=== PATIENT | male | born 1970 | race Caucasian/White ===

== ENCOUNTER 2016-09-03 08:45 | Emergency (ER) | payer OTHER ==
--- NOTE | 2016-09-03 09:16 | ERPHSYRPT ---
- History of Present Illness Time Seen by Provider: 09/03/16 09:05 Source: patient Exam Limitations: no limitations Patient Subjective Stated Complaint: PT REPORTS LOW BACK PAIN WORSENING WITH TIME-REPORTS TIGHTNESS TO BILATERAL LOWER CAVES-DENIES INJURY-DENIES HEAVY LIFTING OR TURNING Triage Nursing Assessment: PT PALE WARM ET [id number] OBVIOUS INJURY-NO BRUISING OR ABRASIONS-PT AMBULATORY TO ED ROOM -CASIMIRO - Physician History: The patient is a 45-year-old male who complains of increasing left-sided low back pain that began last night. The patient has a factor V Leiden abnormality. Patient called his primary care provider and was told to come to the ER. The patient denies any problems with urination or defecation. At times he gets a tingling in his calves. His past medical history is significant for low back surgery many years ago, factor V Leiden, diverticulitis , hypertension. Timing/Duration: today Method of Injury: unknown Quality: aching Back Pain Location: lumbar spine, paraspinous muscles Back Pain Radiation: lower legs Severity of Pain-Max: moderate Severity of Pain-Current: moderate Modifying Factors: Improves With: nothing Associated Symptoms: tingling in legs/feet, lower back pain, No urinary incontinence, No loss of bowel control Previous symptoms: different symptoms Allergies/Adverse Reactions: BEESTINGS Allergy (Unknown, Uncoded 09/03/16 08:56) Swelling Home Medications: Atenolol 50 mg [Tenormin 50 mg] 50 mg PO DAILY 01/03/16 [History] Clorazepate Dipotassium [Tranxene T-Tab] 7.5 mg PO Q12H PRN PRN 01/03/16 [ History] Venlafaxine HCl [Effexor Xr] 150 mg PO DAILY 01/03/16 [History] Warfarin Sodium 10 mg [Coumadin 10 MG] 10 mg PO 5XD 01/03/16 [History] Warfarin Sodium 10 mg [Coumadin 10 MG] 15 mg PO 2XW 01/03/16 [History] Hx Tetanus, Diphtheria Vaccination/Date Given: Yes Hx Influenza Vaccination/Date Given: No Hx Pneumococcal Vaccination/Date Given: No Immunizations Up to Date: Yes - Review of Systems Constitutional: No Fever, No Chills Eyes: No Symptoms Ears, Nose, & Throat: No Symptoms Respiratory: No Cough, No Dyspnea Cardiac: No Chest Pain, No Edema, No Syncope Abdominal/Gastrointestinal: No Abdominal Pain, No Nausea, No Vomiting, No Diarrhea Genitourinary Symptoms: No Dysuria Musculoskeletal: Back Pain Skin: No Rash Neurological: No Dizziness, No Focal Weakness, No Sensory Changes Psychological: No Symptoms Endocrine: No Symptoms Hematologic/Lymphatic: No Symptoms Immunological/Allergic: No Symptoms All Other Systems: Reviewed and Negative - Past Medical History Pertinent Past Medical History: Yes Neurological History: No Pertinent History ENT History: No Pertinent History Cardiac History: Hypertension Respiratory History: No Pertinent History Endocrine Medical History: No Pertinent History Musculoskeletal History: No Pertinent History GI Medical History: Pancreatitis History: No Pertinent History Psycho-Social History: Anxiety, Other Male Reproductive Disorders: No Pertinent History Other Medical History: BLOOD DISORDER: FACTOR IV - Past Surgical History Past Surgical History: Yes Neuro Surgical History: No Pertinent History Cardiac: No Pertinent History Respiratory: No Pertinent History Gastrointestinal: Cholecystectomy, Hernia Repair Genitourinary: No Pertinent History Musculoskeletal: Orthopedic Surgery Male Surgical History: No Pertinent History Other Surgical History: INGUINAL LYMPH NODES - BRANDY CARPEL TUNNEL REPAIR - LOWER BACK - LEFT ELBOW RODS IN BACK - Social History Smoking Status: Never smoker Exposure to second hand smoke: No Drug Use: none Patient Lives Alone: No - Nursing Vital Signs Nursing Vital Signs: Initial Vital Signs Temperature 98.7 F Temperature Source Oral Pulse Rate 78 Respiratory Rate 16 Blood Pressure [Right Arm] 134/78 Pain Intensity 9 - Physical Exam General Appearance: moderate distress Eye Exam: PERRL/EOMI, eyes nml inspection Ears, Nose, Throat Exam: normal ENT inspection Neck Exam: normal inspection, non-tender, supple, full range of motion, No meningismus, No midline tenderness Respiratory Exam: normal breath sounds, lungs clear, No respiratory distress Cardiovascular Exam: regular rate/rhythm, normal heart sounds Gastrointestinal Exam: soft, No tenderness, No mass Rectal Exam: not done Back Exam: muscle spasm (lower left paraspinous) Extremity Exam: normal inspection, normal range of motion, No calf tenderness, No pedal edema Neurologic Exam: alert, oriented x 3, cooperative, tire groover II-XII nml as tested, normal mood/affect, nml station & gait, sensation nml, No motor deficits Skin Exam: normal color, warm, dry, No rash SpO2 Interpretation: normal SpO2: 97 Oxygen Delivery: Room Air Ordered Tests: Active Orders 24 hr Category Date Time Status PROTIME WITH INR Stat Lab 09/03/16 09:28 Completed UA W/RFX UR CULTURE Stat Lab 09/03/16 10:10 Completed Medication Summary Discontinued Medications Generic Name Dose Route Start Last Admin Trade Name Freq PRN Reason Stop Dose Admin Dexamethasone Sodium Phosphate 10 mg 09/03/16 09:17 09/03/16 09:27 Decadron 10mg Inj. IM 09/03/16 09:18 10 mg STAT ONE Administration Dexamethasone Sodium Phosphate Confirm 09/03/16 09:24 Decadron 10mg Inj. Administered 09/03/16 09:25 Dose 10 mg .ROUTE .STK-MED ONE Lab/Rad Data: Laboratory Results 09/03/16 09/03/16 Range/Units 10:10 09:28 INR 2.59 (0.8-3.0) Ur Collection Type VOID Urine Color YELLOW (YELLOW) Urine Appearance CLEAR (CLEAR) Urine pH 7.0 (5-6) Ur Specific [place] 1.005 (1.005-1.025) Urine Protein NEGATIVE (Negative) Urine Ketones NEGATIVE (NEGATIVE) Urine Blood NEGATIVE (0-5) Eder/ul Urine Nitrite NEGATIVE (NEGATIVE) Urine Bilirubin NEGATIVE (NEGATIVE) Urine Urobilinogen NORMAL (0-1) mg/dL Ur Leukocyte Esterase NEGATIVE (NEGATIVE) Urine Glucose NEGATIVE (NEGATIVE) mg/dL Specimen Received 09/03/16 1010 - Progress Progress: unchanged, pain not gone completely Counseled pt/family regarding: diagnosis, need for follow-up - Departure Time of Disposition: 10:31 Departure Disposition: Home Clinical Impression: Back spasm Condition: Stable Critical Care Time: No Referrals: TOMA ARCHULETA [Primary Care Provider] - Additional Instructions: You have a spasm in a back muscle that is causing your pain. Your INR is 2.59. The urinalysis was negative. Take Flexeril 10 mg every 8 hours as needed. Apply ice to the area as needed. You may also take Tylenol as needed. Follow- up on Tuesday if needed. Prescriptions: Cyclobenzaprine HCl [Flexeril] 10 mg PO Q8H PRN PRN #10 tablet PRN Reason: Pain
[2016-09-03] MEDS ORDERED: DECADRON 10MG INJ. IM ONE (09:17)
[2016-09-03] MEDS ORDERED: DECADRON 10MG INJ. ONE (09:24)
[2016-09-03 09:44] LABS: INR 2.59 (0.8-3.0); PROTIME 29.5 SECONDS (8.83-12.87)
[2016-09-03 10:39] LABS: Collection Type VOID
[2016-09-03 10:41] LABS: Glucose NEGATIVE (NEGATIVE); Leukocyte Esterase NEGATIVE (NEGATIVE)
[2016-09-03 10:42] LABS: ADD URINE CULTURE? NO (NO); Bilirubin NEGATIVE (NEGATIVE); Blood NEGATIVE Ery/ul (0-5); COMPLETE URINE MICROSCOPIC? NO
[2016-09-03 11:04] VITALS: BP 136/90; PULSE 87; O2SAT 98
== END 2016-09-03 11:03 | disposition home or self-care (01) ==
LOC: ED 08:45
DX: M62.830 Muscle spasm of back (principal); M54.5 Low back pain; D68.51 Activated protein C resistance; I10 Essential (primary) hypertension; Z79.899 Other long term (current) drug therapy
CPT/HCPCS: 36415; 81002; 85610; 96372; 99283; 99284; J1100

== ENCOUNTER 2016-10-30 12:23 | Observation (INO) | payer OTHER ==
[2016-10-30] MEDS ORDERED: Pepcid 20 MG VIAL IV ONE ×2 (12:29→12:37)
[2016-10-30] MEDS ORDERED: NITRO-BID 2% UD PACKETS TOP ONE (12:29)
[2016-10-30] MEDS ORDERED: BABY ASPIRIN 81 MG CHEW PO ONE (12:29)
[2016-10-30] MEDS ORDERED: Sodium Chloride 0.9% 1000 ML 1,000 ML IV SCH (12:30)
--- NOTE | 2016-10-30 12:34 | ERPHSYRPT ---
- History of Present Illness Time Seen by Provider: 10/30/16 12:29 Historian: patient Physician History: CC: chest pain Hx: 46 y/o patient of Dr Zacarias/Fredis. He has hx of heart murmur and Factor V leiden def for which he takes warfarin. No hx of CAD nor DM. He has 3 days of chest pain, off and on, left chest to neck, worse today. Aching and tightness. Worried so came to ER. 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 Took his normal atenolol and trazadone this AM. Could not rest so came to ER. Not short of breath. No N/V. No hx of this in the past. Pain moderate. Timing/Duration: day(s) (3) Nitro Today/Relief: no nitro taken today Aspirin Treatment Today: no aspirin today, 81 mg x 1, provided by ED Allergies/Adverse Reactions: BEESTINGS Allergy (Mild, Uncoded 10/30/16 12:35) Swelling Home Medications: Atenolol 50 mg [Tenormin 50 mg] 50 mg PO DAILY 01/03/16 [History] Venlafaxine HCl [Effexor Xr] 150 mg PO DAILY 01/03/16 [History] Warfarin Sodium 10 mg [Coumadin 10 MG] 10 mg PO 5XD 01/03/16 [History] Warfarin Sodium 10 mg [Coumadin 10 MG] 15 mg PO 2XW 01/03/16 [History] Hx Tetanus, Diphtheria Vaccination/Date Given: Yes Hx Influenza Vaccination/Date Given: No Hx Pneumococcal Vaccination/Date Given: No - Review of Systems Constitutional: No Fever, No Chills Eyes: No Symptoms Ears, Nose, & Throat: No Symptoms Respiratory: No Cough, No Dyspnea Cardiac: Chest Pain, No Palpitations, No Syncope Abdominal/Gastrointestinal: No Abdominal Pain, No Nausea, No Vomiting Skin: No Rash Neurological: No Headache All Other Systems: Reviewed and Negative - Past Medical History Pertinent Past Medical History: Yes Neurological History: No Pertinent History ENT History: No Pertinent History Cardiac History: Hypertension Respiratory History: No Pertinent History Endocrine Medical History: No Pertinent History Musculoskeletal History: No Pertinent History GI Medical History: Pancreatitis History: No Pertinent History Psycho-Social History: Anxiety, Other Male Reproductive Disorders: No Pertinent History Other Medical History: BLOOD DISORDER: FACTOR IV - Past Surgical History Past Surgical History: Yes Neuro Surgical History: No Pertinent History Cardiac: No Pertinent History Respiratory: No Pertinent History Gastrointestinal: Cholecystectomy, Hernia Repair Genitourinary: No Pertinent History Musculoskeletal: Orthopedic Surgery Male Surgical History: No Pertinent History Other Surgical History: INGUINAL LYMPH NODES - BRANDY CARPEL TUNNEL REPAIR - LOWER BACK - LEFT ELBOW RODS IN BACK - Social History Smoking Status: Never smoker Exposure to second hand smoke: No Drug Use: none Patient Lives Alone: No - Nursing Vital Signs Nursing Vital Signs: Initial Vital Signs Pulse Rate 64 10/30/16 12:26 Pain Scale Pain Intensity 2 - Physical Exam General Appearance: alert, obese Eye Exam: PERRL/EOMI Ears, Nose, Throat Exam: normal ENT inspection, moist mucous membranes Neck Exam: normal inspection, non-tender, supple Respiratory Exam: normal breath sounds Cardiovascular Exam: regular rate/rhythm, normal heart sounds Gastrointestinal/Abdomen Exam: soft, No tenderness, No distention, No guarding Extremity Exam: normal inspection, normal range of motion Neurologic Exam: alert, oriented x 3, cooperative, sensation nml, No motor deficits Skin Exam: warm, dry, No rash - Course Nursing assessment & vital signs reviewed: Yes EKG Interpreted by Me: RATE (63), Sinus Rhythm, NORMAL AXIS, NORMAL INTERVALS ( QTc 402), Other (Poor R wave progression, frequent PVC's) - Radiology Exams cxr X-ray Interpretation: Reviewed by me (CM, no acute) Ordered Tests: Active Orders 24 hr Category Date Time Status Agronomy Teacher STAT Care 10/30/16 12:30 Active EKG-ER Only STAT Care 10/30/16 12:29 Active IV Insertion STAT Care 10/30/16 12:29 Active Pulse Oximetry (ED) STAT Care 10/30/16 12:29 Active CHEST 1 VIEW (PORTABLE) Stat Exams 10/30/16 12:29 Taken CBC W DIFF Stat Lab 10/30/16 12:40 Completed CMP Stat Lab 10/30/16 12:40 Completed LIPASE Stat Lab 10/30/16 13:29 Completed PROTIME WITH INR Stat Lab 10/30/16 12:40 Completed TROPONIN Q3H Lab 10/30/16 12:40 Completed TROPONIN Q3H Lab 10/30/16 15:30 Ordered TROPONIN Q3H Lab 10/30/16 18:30 Ordered TROPONIN Q3H Lab 10/30/16 21:30 Ordered TROPONIN Q3H Lab 10/31/16 00:30 Ordered Medication Summary Generic Name Dose Route Start Last Admin Trade Name Emanuel PRN Reason Stop Dose Admin Sodium Chloride 1,000 mls @ 50 mls/hr 10/30/16 12:30 10/30/16 12:41 Sodium Chloride 0.9% 1000 Ml IV 11/29/16 12:29 50 mls/hr .Q20H YARELY Administration Discontinued Medications Generic Name Dose Route Start Last Admin Trade Name Emanuel PRN Reason Stop Dose Admin Aspirin 81 mg 10/30/16 12:29 10/30/16 12:40 Baby Aspirin 81 Mg Chew PO 10/30/16 12:30 81 mg STAT ONE Administration Aspirin Confirm 10/30/16 12:36 Baby Aspirin 81 Mg Chew Administered 10/30/16 12:37 Dose 81 mg .ROUTE .STK-MED ONE Famotidine 20 mg 10/30/16 12:29 10/30/16 12:40 Pepcid 20 Mg Vial IV 10/30/16 12:30 20 mg STAT ONE Administration Famotidine Confirm 10/30/16 12:37 Pepcid 20 Mg Vial Administered 10/30/16 12:38 Dose 20 mg IV .STK-MED ONE Nitroglycerin 1 gm 10/30/16 12:29 10/30/16 12:40 Nitro-Bid 2% Ud Packets TOP 10/30/16 12:30 1 gm STAT ONE Administration Nitroglycerin Confirm 10/30/16 12:37 Nitro-Bid 2% Ud Packets Administered 10/30/16 12:38 Dose 1 gm .ROUTE .STK-MED ONE Lab/Rad Data: Laboratory Result Diagrams 10/30/16 12:40 10/30/16 12:40 Laboratory Results 10/30/16 10/30/16 10/30/16 Range/Units 13:29 12:40 12:40 WBC (4.0-10.5) K/mm3 RBC (4.1-5.6) M/mm3 Hgb (12.5-18.0) gm/dl Hct (42-50) % MCV (78-100) fl MCH (26-32) pg MCHC (32-36) g/dl RDW (11.5-14.0) % Plt Count (150-450) K/mm3 MPV (6-9.5) fl Gran % (36.0-66.0) % Lymphocytes % (24.0-44.0) % Monocytes % (0.0-12.0) % Eosinophils % (0.00-5.0) % Basophils % (0.0-0.4) % Basophils # (0-0.4) INR 3.05 H (0.8-3.0) Sodium (136-145) mEq/L Potassium (3.5-5.1) mEq/L Chloride (98-107) mEq/L Carbon Dioxide (21-32) mEq/L Anion Gap (5-15) MEQ/L BUN (9-20) mg/dL Creatinine (0.55-1.30) mg/dl Estimated GFR ML/MIN Glucose (70-110) MG/DL Calcium (8.5-10.1) mg/dL Total Bilirubin (0.2-1.0) mg/dL AST (15-37) U/L ALT (12-78) U/L Alkaline Phosphatase (46-116) U/L Troponin I < 0.017 (0.000-0.056) ng/ml Serum Total Protein (6.4-8.2) gm/dL Albumin (3.4-5.0) g/dL Lipase 174 (73-393) U/L 10/30/16 10/30/16 Range/Units 12:40 12:40 WBC 5.1 (4.0-10.5) K/mm3 RBC 4.72 (4.1-5.6) M/mm3 Hgb 15.2 (12.5-18.0) gm/dl Hct 43.6 (42-50) % MCV 92.4 (78-100) fl MCH 32.2 H (26-32) pg MCHC 34.9 (32-36) g/dl RDW 13.4 (11.5-14.0) % Plt Count 129 L (150-450) K/mm3 MPV 12.1 H (6-9.5) fl Gran % 39.2 (36.0-66.0) % Lymphocytes % 43.0 (24.0-44.0) % Monocytes % 10.5 (0.0-12.0) % Eosinophils % 6.7 H (0.00-5.0) % Basophils % 0.6 (0.0-0.4) % Basophils # 0.03 (0-0.4) INR (0.8-3.0) Sodium 141 (136-145) mEq/L Potassium 3.8 (3.5-5.1) mEq/L Chloride 104 (98-107) mEq/L Carbon Dioxide 28.6 (21-32) mEq/L Anion Gap 12.1 (5-15) MEQ/L BUN 12 (9-20) mg/dL Creatinine 1.16 (0.55-1.30) mg/dl Estimated GFR > 60 ML/MIN Glucose 137 H (70-110) MG/DL Calcium 8.9 (8.5-10.1) mg/dL Total Bilirubin 0.40 (0.2-1.0) mg/dL AST 39 H (15-37) U/L ALT 53 (12-78) U/L Alkaline Phosphatase 63 (46-116) U/L Troponin I (0.000-0.056) ng/ml Serum Total Protein 7.0 (6.4-8.2) gm/dL Albumin 3.8 (3.4-5.0) g/dL Lipase (73-393) U/L - Progress Progress Note: 10/30/16 14:05 Pain improved with meds and rest. Tests reassuring although he does have multifocal PVC's. Called Dr Martinez (oc) and will place in obs tele for serial troponin. Counseled pt/family regarding: lab results, diagnosis, need for follow-up, rad results - Departure Time of Disposition: 14:06 Departure Disposition: Observation (Tele) Clinical Impression: Chest pain, rule out acute myocardial infarction, Warfarin anticoagulation Condition: Fair Critical Care Time: No Referrals: TOMA ZACARIAS [Primary Care Provider] -
[2016-10-30] MEDS ORDERED: BABY ASPIRIN 81 MG CHEW ONE (12:36)
[2016-10-30] MEDS ORDERED: NITRO-BID 2% UD PACKETS ONE (12:37)
[2016-10-30] MEDS ORDERED: Sodium Chloride 0.9% 1000 ML 1,000 ML ONE (12:37)
[2016-10-30 12:50] LABS: BASOPHIL % 0.6 % (0.0-0.4); Eosinophil % 6.7 % (0.00-5.0); Granulocytes % 39.2 % (36.0-66.0); Mean Cell Volume 92.4 fl (78-100); Mean Corpuscular Hemoglobin 32.2 pg (26-32); Mean Platelet Volume 12.1 fl (6-9.5); Monocytes % 10.5 % (0.0-12.0); Platelet Count 129 K/mm3 (150-450); Red Blood Count 4.72 M/mm3 (4.1-5.6); Red Cell Distribution Width 13.4 % (11.5-14.0); White Blood Count 5.1 K/mm3 (4.0-10.5)
[2016-10-30 13:14] LABS: INR 3.05 (0.8-3.0); PROTIME 34.8 SECONDS (8.83-12.87)
[2016-10-30 13:24] LABS: ALBUMIN 3.8 g/dL (3.4-5.0); ALKALINE PHOSPHATASE 63 U/L (46-116); ANION GAP 12.1 MEQ/L (5-15); BLOOD UREA NITROGEN 12 mg/dL (9-20); CHLORIDE 104 mEq/L (98-107); Carbon Dioxide 28.6 mEq/L (21-32); Glucose 137 MG/DL (70-110); Potassium 3.8 mEq/L (3.5-5.1); SGOT/AST 39 U/L (15-37); SGPT/ALT 53 U/L (12-78); SODIUM 141 mEq/L (136-145)
[2016-10-30] MEDS ORDERED: Senokot-S Tablet PO PRN (14:44)
[2016-10-30] MEDS ORDERED: Sodium Chloride 0.9% 500 ML 500 ML IV SCH (14:44)
[2016-10-30] MEDS ORDERED: MILK OF MAGNESIA 30 ML PO PRN (14:44)
[2016-10-30] MEDS ORDERED: MAALOX ES 30 ML UNIT DOSE PO PRN (14:44)
[2016-10-30] MEDS ORDERED: TYLENOL 325 MG PO PRN (14:44)
[2016-10-30] MEDS ORDERED: Coumadin 10 MG PO SCH (15:15)
[2016-10-30] MEDS: xanAX 0.5 MG PO PRN (15:39)
[2016-10-30] MEDS: Norco 10/325 MG Tablet PO PRN ×2 (15:39→19:50)
[2016-10-30] MEDS: Zofran 4 MG/2 ML VIAL IV PRN (15:39)
[2016-10-30] MEDS: MORPHINE SULFATE 10 MG/ML IV PRN ×2 (16:31→22:56)
[2016-10-30] MEDS: Pepcid 20 MG PO SCH (22:08)
[2016-10-30] MEDS: NITRO-BID 2% UD PACKETS TOP SCH (22:12)
--- NOTE | 2016-10-30 22:25 | XRAY ---
On chest pain. Comparison: May 07, 2010. Portable apical lordotic chest again demonstrates normal heart, lungs, and bony thorax with incidental calcified granulomas. Comment: Preliminary interpretation was made by [facility]. No discrepancy.
[2016-10-31] MEDS: xanAX 0.5 MG PO PRN (00:55)
[2016-10-31] MEDS: Norco 10/325 MG Tablet PO PRN ×2 (03:02→11:33)
[2016-10-31] MEDS: NITRO-BID 2% UD PACKETS TOP SCH ×2 (05:56→14:27)
[2016-10-31] MEDS: MORPHINE SULFATE 10 MG/ML IV PRN ×2 (05:57→14:29)
[2016-10-31] MEDS: Zofran 4 MG/2 ML VIAL IV PRN (06:10)
[2016-10-31 08:22] LABS: INR 3.32 (0.8-3.0)
[2016-10-31] MEDS ORDERED: Coumadin 10 MG PO SCH (09:00)
[2016-10-31] MEDS ORDERED: DESYREL 50 MG PO SCH (09:00)
[2016-10-31] MEDS ORDERED: Coumadin 5 MG PO SCH (09:00)
[2016-10-31] MEDS: Pepcid 20 MG PO SCH (09:26)
[2016-10-31] MEDS ORDERED: ECOTRIN 81 MG PO SCH (10:00)
[2016-10-31] MEDS ORDERED: CLARITIN 10 MG PO SCH (10:00)
[2016-10-31] MEDS ORDERED: NON-FORMULARY ITEM (Cetirizine Hcl [Zyrtec] 10 MG) PO SCH (10:00)
[2016-10-31] MEDS ORDERED: NON-FORMULARY ITEM (Venlafaxine Hcl [Effexor Xr] 150 MG) PO SCH (10:00)
[2016-10-31] MEDS ORDERED: Effexor XR 75 MG PO SCH (10:00)
[2016-10-31] MEDS ORDERED: TENORMIN 50 MG PO SCH (10:00)
--- NOTE | 2016-10-31 15:37 | PCM.SSS ---
History of Present Illness - Chief Complaint Chief Complaint: cp, r/o mi History of Present Illness: is a 46 year old male pt of Dr. Zacarias admitted through the ER for chest pain. He c/o 1 week of having intermittent L sided chest pain and L occipital/neck pain radiating to the L arm. He also has not felt well, when carrying something heavy may need to stop and rest intermittently. He has been having some diaphoresis throughout the week and also some lightheadedness on standing. He was nauseated at one point, but this resolved. In the ER his EKG had some nonspecific changes so he was admitted to rule out MS. His troponins have been negative. He was diagnosed with a heart murmur as a child, and he remembers being told his heart was "too big" when he was about 11. He thinks his last echo may have been at that time. He was a smoker for 20 yrs. His father has a heart murmur. His mother and grandmother may have had some heart-related issues. He has never had a stress test. Last week his INR was <2 (pt with Factor V Leiden deficiency, on coumadin). Today his INR was 3.2. - Review of Systems Constitutional: Fatigue Ears, Nose, & Throat: Nose Congestion, Sinus Drainage Respiratory: Cough Cardiac: Chest Pain Abdominal/Gastrointestinal: Nausea, Constipation Skin: Other (diaphoresis) Neurological: Other (lightheaded on standing for the past week or so) Psychological: Anxiety Hematologic/Lymphatic: Other (Factor V Leiden deficiency) Medications & Allergies Home Medications: Home Medication List Atenolol 50 mg [Tenormin 50 mg] 50 mg PO DAILY 01/03/16 [History Confirmed 10/30/16] Venlafaxine HCl [Effexor Xr] 150 mg PO DAILY 01/03/16 [History Confirmed ] Warfarin Sodium 10 mg [Coumadin 10 MG] 10 mg PO 5XD 01/03/16 [History Confirmed 10/30/16] Warfarin Sodium 10 mg [Coumadin 10 MG] 15 mg PO 2XW 01/03/16 [History Confirmed 10/30/16] Cetirizine HCl [Zyrtec] 10 mg PO DAILY 10/30/16 [History Confirmed 10/30/16] Trazodone HCl 50 mg [Desyrel 50 mg] 50 mg PO QHS 10/30/16 [History Confirmed 10/30/16] Nitroglycerin 0.4 mg Tablet [Nitrostat 0.4 MG Tablet] 0.4 mg SL DAILY PRN #1 bottle 10/31/16 [Rx] Allergies/Adverse Reactions: Allergies Allergy/AdvReac Type Severity Reaction Status Date / Time BEESTINGS Allergy Mild Swelling Uncoded 10/30/16 12:35 - Past Medical History Past Medical History: Yes Neurological History: No Pertinent History ENT History: No Pertinent History Cardiac History: Hypertension Respiratory History: No Pertinent History Endocrine Medical History: No Pertinent History Musculoskelatal History: No Pertinent History GI Medical History: Pancreatitis History: No Pertinent History Pyscho-Social History: Anxiety, Other Male Reproductive Disorders: No Pertinent History Comment: BLOOD DISORDER: FACTOR IV - Past Surgical History Past Surgical History: Yes Neuro Surgical History: No Pertinent History Cardiac History: No Pertinent History Respiratory Surgery: No Pertinent History GI Surgical History: Cholecystectomy, Hernia Repair Genitourinary Surgical Hx: No Pertinent History Musculskeletal Surgical Hx: Orthopedic Surgery Male Surgical History: No Pertinent History Other Surgical History: INGUINAL LYMPH NODES - BRANDY CARPEL TUNNEL REPAIR - LOWER BACK - LEFT ELBOW RODS IN BACK - Social History Smoking Status: Never smoker Exposure to second hand smoke: No Alcohol: None Drug Use: none - Physical Exam Vital Signs: Vital Signs - 24 hr Temp Pulse Resp BP BP Pulse Ox 10/31/16 12:00 97.7 F 68 18 124/66 98 10/31/16 09:25 58 L 121/79 10/31/16 08:00 98.2 F 58 L 18 121/79 97 10/31/16 04:00 97.9 F 60 22 104/67 97 10/30/16 23:50 98.1 F 81 20 106/55 96 10/30/16 20:30 70 10/30/16 20:00 98.2 F 76 18 103/62 95 10/30/16 16:00 98.1 F 75 20 116/53 94 L General Appearance: no apparent distress, obese Neurologic Exam: alert, oriented x 3, cooperative Eye Exam: eyes nml inspection Neck Exam: normal inspection, supple, thyromegaly, No lymphadenopathy Respiratory Exam: normal breath sounds, lungs clear Cardiovascular Exam: regular rate/rhythm, normal heart sounds Gastrointestinal/Abdomen Exam: soft, normal bowel sounds, No tenderness, No distention, No mass, No guarding, No rebound Extremity Exam: pedal edema (1+ LE edema bilat) Skin Exam: normal color, warm, dry Results - Labs Lab/Micro Results: Lab Results-Last 24 Hours 10/30/16 10/30/16 10/30/16 Range/Units 15:31 18:30 21:20 INR (0.8-3.0) Troponin I < 0.017 < 0.017 < 0.017 (0.000-0.056) ng/ml Triglycerides (30-200) mg/dL Cholesterol (100-200) mg/dL LDL Cholesterol (5-99) mg/dL HDL Cholesterol (35-60) mg/dL Heart Disease Risk Ratio 10/31/16 10/31/16 10/31/16 Range/Units 00:45 04:30 05:30 INR 3.32 H (0.8-3.0) Troponin I < 0.017 (0.000-0.056) ng/ml Triglycerides 257 H (30-200) mg/dL Cholesterol 148 (100-200) mg/dL LDL Cholesterol 92 (5-99) mg/dL HDL Cholesterol 23 L (35-60) mg/dL Heart Disease Risk Ratio 6.4 - Other Procedures and Tests Respiratory Therapy 11/01/16 05:00 EKG ONCE 11/02/16 05:00 EKG ONCE Assessment/Plan (1) Chest pain, rule out acute myocardial infarction Current Visit: Yes Status: Acute Assessment & Plan: MS ruled out with serial enzymes. He needs an outpatient cardiolyte lexiscan and an echo - results to Dr. Zacarias. Code(s): R07.9 - CHEST PAIN, UNSPECIFIED (2) Warfarin anticoagulation Current Visit: Yes Status: Chronic Assessment & Plan: INR just over 3, will continue taking the same dose and recheck next week. 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 Code(s): E78.5 - HYPERLIPIDEMIA, UNSPECIFIED (5) Constipation Current Visit: Yes Status: Acute Qualifiers: Constipation type: slow transit constipation Qualified Code(s): K59.01 - Slow transit constipation Assessment & Plan: colace prn. Code(s): K59.00 - CONSTIPATION, UNSPECIFIED Hospital Summary - Hospital Course Hospital Course: Pt admitted through ER with chest pain to rule out MS. He has been generally feeling poorly, particularly with exertion, so although MS was ruled out he does need a cardiac workup. He continues to have some pain into the left chest with certain motions, so this may be partially musculoskeletal. - Vitals & Intake/Output Vital Signs: Vital Signs Temperature 97.7 F 10/31/16 12:00 Pulse Rate 68 10/31/16 12:00 Respiratory Rate 18 10/31/16 12:00 Blood Pressure 124/66 10/31/16 12:00 O2 Sat by Pulse Oximetry 98 10/31/16 12:00 Intake & Output: Intake & Output 10/29/16 10/30/16 10/31/16 11/01/16 11:59 11:59 11:59 11:59 Intake Total 1991 300 Balance 1991 300 Weight 124.103 kg - Lab Result Diagrams: 10/30/16 12:40 10/30/16 12:40 Lab Results-Last 24 Hrs: Lab Results-Last 24 Hours 10/30/16 10/30/16 10/30/16 Range/Units 15:31 18:30 21:20 INR (0.8-3.0) Troponin I < 0.017 < 0.017 < 0.017 (0.000-0.056) ng/ml Triglycerides (30-200) mg/dL Cholesterol (100-200) mg/dL LDL Cholesterol (5-99) mg/dL HDL Cholesterol (35-60) mg/dL Heart Disease Risk Ratio 10/31/16 10/31/16 10/31/16 Range/Units 00:45 04:30 05:30 INR 3.32 H (0.8-3.0) Troponin I < 0.017 (0.000-0.056) ng/ml Triglycerides 257 H (30-200) mg/dL Cholesterol 148 (100-200) mg/dL LDL Cholesterol 92 (5-99) mg/dL HDL Cholesterol 23 L (35-60) mg/dL Heart Disease Risk Ratio 6.4 - Procedures and Test Procedures and Tests throughout Hospitalization: Therapy Orders & Screens 10/30/16 20:30 EKG ONCE Comment: Diagnosis: cp, r/o mi 10/31/16 05:00 EKG ONCE Comment: Diagnosis: cp, r/o mi 11/01/16 05:00 EKG ONCE Comment: Diagnosis: cp, r/o mi 11/02/16 05:00 EKG ONCE Comment: Diagnosis: cp, r/o mi - Discharge Disposition: Home, Self-Care Condition: Stable Prescriptions: New Nitroglycerin 0.4 mg Tablet [Nitrostat 0.4 MG Tablet] 0.4 mg SL DAILY PRN #1 bottle PRN Reason: Chest Pain Continue Venlafaxine HCl [Effexor Xr] 150 mg PO DAILY Warfarin Sodium 10 mg [Coumadin 10 MG] 15 mg PO 2XW Warfarin Sodium 10 mg [Coumadin 10 MG] 10 mg PO 5XD Atenolol 50 mg [Tenormin 50 mg] 50 mg PO DAILY Trazodone HCl 50 mg [Desyrel 50 mg] 50 mg PO QHS Cetirizine HCl [Zyrtec] 10 mg PO DAILY Follow up with: TOMA ZACARIAS [Primary Care Provider] -
[2016-10-31] MEDS ORDERED: Colace 100 MG PO PRN (15:50)
[2016-10-31 16:27] VITALS: BP 125/70; PULSE 69; O2SAT 92
[2016-10-31] MEDS ORDERED: Coumadin 5 MG PO ONE (17:10)
[2016-10-31] MEDS ORDERED: Coumadin 3 MG PO ONE (17:10)
[2016-10-31] MEDS ORDERED: Coumadin 3 MG ONE (17:11)
[2016-10-31] MEDS ORDERED: Coumadin 5 MG ONE (17:11)
[2016-11-01] MEDS ORDERED: Coumadin 10 MG PO SCH (09:00)
== END 2016-10-31 18:00 | disposition home or self-care (01) ==
LOC: ED 12:23 → MED SURG 14:37
PROVIDERS: ADMIT Family Medicine; ATTEND Family Medicine
DX: R07.9 Chest pain, unspecified (principal); Z79.01 Long term (current) use of anticoagulants; D68.51 Activated protein C resistance; E78.5 Hyperlipidemia, unspecified; K59.01 Slow transit constipation
CPT/HCPCS: 36000; 36415; 71010; 80053; 80061; 83690; 83721; 84443; 84484; 85025; 85610; 93005; 93041; 93268; 96360; 96361; 96374; 99285; G0378; J2270; J2405; A9270-GY

== ENCOUNTER 2018-02-17 09:39 | Emergency (ER) | payer BC, OTHER ==
[2018-02-17] MEDS ORDERED: Hydromorphone 1 mg/ml Ampule IM ONE (10:12)
[2018-02-17] MEDS ORDERED: Phenergan 25 MG INJ IM ONE (10:15)
--- NOTE | 2018-02-17 10:17 | ERPHSYRPT ---
- History of Present Illness Time Seen by Provider: 02/17/18 10:00 Source: patient Exam Limitations: clinical condition Patient Subjective Stated Complaint: pt here for lower back pain for a couple days with no injury, has tried norco for pain last night Triage Nursing Assessment: pt alert, walked in, able to get self undressed, resp easy, skin w/d/p. no bruising noted Physician History: PATIENT WITH A HISTORY OF FACTOR V LEIDEN DEFICIENCY PRESENTLY TAKES A HIGH DOSE OF COUMADIN, COMPLAINS OF LOWER BACK PAIN X 2-3 DAYS, DENIES TRAUMA, INJURY, HEAVY LIFTING, RADIATION OF PAIN INTO LEGS. STATES HAS NO RELIEF FROM NORCO. HAS HAD MONTHLY PRESCRIPTIONS X 3 MONTHS ON 12/12/2017, 01/09/2018 AND 02/10/2018. DENIES LOSS OF BOWEL OR BLADDER FUNCTION, NUMBNESS, TINGLING OR WEAKNESS IN EXTREMITIES. Timing/Duration: day(s) Method of Injury: unknown Quality: sharp, throbbing Back Pain Location: lumbar spine Severity of Pain-Max: moderate Severity of Pain-Current: moderate Modifying Factors: Improves With: movement Associated Symptoms: denies symptoms Previous symptoms: same symptoms as today (CHRONIC LOW BACK PAIN, PREVIOUS HISTORY OF LUMBAR SURGERY WITH HARDWARE) Allergies/Adverse Reactions: BEESTINGS Allergy (Mild, Uncoded 10/30/16 12:35) Swelling Home Medications: Atenolol 50 mg [Tenormin 50 mg] 50 mg PO DAILY 01/03/16 [History] Venlafaxine HCl [Effexor Xr] 150 mg PO DAILY 01/03/16 [History] Cetirizine HCl [Zyrtec] 10 mg PO DAILY 10/30/16 [History] Trazodone HCl 50 mg [Desyrel 50 mg] 50 mg PO QHS 10/30/16 [History] Hx Tetanus, Diphtheria Vaccination/Date Given: No Hx Influenza Vaccination/Date Given: No Hx Pneumococcal Vaccination/Date Given: No Immunizations Up to Date: Yes - Review of Systems Constitutional: No Fever, No Chills Eyes: No Symptoms Ears, Nose, & Throat: No Symptoms Respiratory: No Symptoms, No Cough, No Dyspnea Cardiac: No Symptoms, No Chest Pain, No Edema, No Syncope Abdominal/Gastrointestinal: No Symptoms, No Abdominal Pain, No Nausea, No Vomiting, No Diarrhea Genitourinary Symptoms: No Dysuria Musculoskeletal: Back Pain, No Neck Pain Skin: No Rash Neurological: No Dizziness, No Focal Weakness, No Sensory Changes Psychological: No Symptoms Endocrine: No Symptoms All Other Systems: Reviewed and Negative - Past Medical History Pertinent Past Medical History: Yes Neurological History: No Pertinent History ENT History: No Pertinent History Cardiac History: Hypertension Respiratory History: No Pertinent History Endocrine Medical History: No Pertinent History Musculoskeletal History: No Pertinent History GI Medical History: Pancreatitis History: No Pertinent History Psycho-Social History: Anxiety, Other Male Reproductive Disorders: No Pertinent History Other Medical History: BLOOD DISORDER: FACTOR IV - Past Surgical History Past Surgical History: Yes Neuro Surgical History: No Pertinent History Cardiac: No Pertinent History Respiratory: No Pertinent History Gastrointestinal: Cholecystectomy, Hernia Repair Genitourinary: No Pertinent History Musculoskeletal: Orthopedic Surgery Male Surgical History: No Pertinent History Other Surgical History: INGUINAL LYMPH NODES - BRANDY CARPEL TUNNEL REPAIR - LOWER BACK - LEFT ELBOW RODS IN BACK - Social History Smoking Status: Never smoker Exposure to second hand smoke: No Drug Use: none Patient Lives Alone: No - Nursing Vital Signs Nursing Vital Signs: Initial Vital Signs Temperature 98.0 F 02/17/18 09:47 Pulse Rate 87 02/17/18 09:47 Respiratory Rate 16 02/17/18 09:47 Blood Pressure 134/92 02/17/18 09:47 O2 Sat by Pulse Oximetry 88 L 02/17/18 09:47 Pain Scale Pain Intensity 4 - Physical Exam General Appearance: no apparent distress, alert Eye Exam: PERRL/EOMI, eyes nml inspection Neck Exam: normal inspection, non-tender, supple, full range of motion, No meningismus, No midline tenderness Respiratory Exam: normal breath sounds, lungs clear, No respiratory distress Cardiovascular Exam: regular rate/rhythm, normal heart sounds Gastrointestinal Exam: soft, No tenderness, No mass Back Exam: normal inspection, decreased range of motion, muscle spasm, other ( THERE IS A WELL HEALED LUMBAR SCAR, PARASPINAL LUMBAR TENDERNESS, NO CVA TENDERNESS) Extremity Exam: normal inspection, normal range of motion, No calf tenderness, No pedal edema Peripheral Pulses: carotid (R): 2+, carotid (L): 2+, femoral (R): 2+, femoral (L ): 2+, dorsalis-pedis (R): 2+, dorsalis-pedis (L): 2+ Neurologic Exam: alert, oriented x 3, cooperative, manager military II-XII nml as tested, normal mood/affect, nml station & gait, sensation nml, No motor deficits Skin Exam: normal color, warm, dry, No rash SpO2 Interpretation: normal SpO2: 98 Oxygen Delivery: Room Air - CT Exams Lumbar Spine CT Interpretation: Discussed w/radiologist (STABLE L2 TO L3 LAMINECTOMY AND FUSION SURGERY WITH INTACT POSTERIOR SPINAL HARDWARE, THERE IS STABLE L2-L3 AND L4-L5 degenerative disc disease with degenerative disc OSTEOPHYTE COMPLEX and vacuum disc phenomena again producing bilateral foraminal narrowing. REMAINING CT LUMBAR SPINE IS NEGATIVE) Ordered Tests: Active Orders 24 hr Category Date Time Status LUMBAR SPINE W/O [CT] Stat Exams 02/17/18 10:18 Completed UA W/RFX UR CULTURE Stat Lab 02/17/18 10:54 Completed Urine Triage Profile Stat Lab 02/17/18 10:54 Completed Medication Summary Discontinued Medications Generic Name Dose Route Start Last Admin Trade Name Freq PRN Reason Stop Dose Admin Hydromorphone HCl 1 mg 02/17/18 10:12 02/17/18 10:37 Hydromorphone 1 Mg/Ml Ampule IM 02/17/18 10:13 1 mg STAT ONE Administration Hydromorphone HCl Confirm 02/17/18 10:33 Hydromorphone 1 Mg/Ml Ampule Administered 02/17/18 10:34 Dose 1 mg .ROUTE .STK-MED ONE Promethazine HCl 25 mg 02/17/18 10:15 02/17/18 10:36 Phenergan 25 Mg Inj IM 02/17/18 10:16 25 mg STAT ONE Administration Promethazine HCl Confirm 02/17/18 10:33 Phenergan 25 Mg Inj Administered 02/17/18 10:34 Dose 25 mg .ROUTE .STK-MED ONE Lab/Rad Data: Laboratory Results 02/17/18 02/17/18 Range/Units 10:54 10:54 Urine Color YELLOW (YELLOW) Urine Appearance CLEAR (CLEAR) Urine pH 6.0 (5-6) Ur Specific [place] 1.023 (1.005-1.025) Urine Protein NEGATIVE (Negative) Urine Ketones NEGATIVE (NEGATIVE) Urine Blood NEGATIVE (0-5) Eder/ul Urine Nitrite NEGATIVE (NEGATIVE) Urine Bilirubin NEGATIVE (NEGATIVE) Urine Urobilinogen NEGATIVE (0-1) mg/dL Ur Leukocyte Esterase NEGATIVE (NEGATIVE) Urine WBC (Auto) 0-2 (0-5) /HPF Urine RBC (Auto) 3-5 (0-2) /HPF U Epithel Cells (Auto) NONE (FEW) /HPF Urine Bacteria (Auto) NONE SEEN (NEGATIVE) /HPF Urine Mucus (Auto) SLIGHT (NEGATIVE) /HPF Urine Sperm (Auto) PRESENT (NEGATIVE) /HPF Urine Culture Reflexed NO (NO) Urine Glucose NEGATIVE (NEGATIVE) mg/dL Urine Opiates Level POSITIVE (NEGATIVE) Ur Methadone NEGATIVE (NEGATIVE) Urine Barbiturates NEGATIVE (NEGATIVE) Ur Phencyclidine (PCP) NEGATIVE (NEGATIVE) Urine Amphetamine NEGATIVE (NEGATIVE) U Benzodiazepine Level NEGATIVE (NEGATIVE) Urine Cocaine NEGATIVE (NEGATIVE) Urine Marijuana (THC) NEGATIVE (NEGATIVE) - Progress Progress Note: 02/17/18 10:38 ADMINISTERED DILAUDID 1MG/PHENERGAN 25MG IM Counseled pt/family regarding: lab results, diagnosis, need for follow-up, rad results - Departure Time of Disposition: 11:30 Departure Disposition: Home Clinical Impression: ACUTE LOW BACK PAIN Condition: Stable Critical Care Time: No Referrals: TOMA ARCHULETA [Primary Care Provider] - Additional Instructions: CONSULT YOUR PRIMARY CARE PROVIDER FOR EVALUATION, PAIN MANAGEMENT, AND PHYSICAL THERAPY. PERCOGESIC 1 TABLET EVERY 4 HOURS FOR PAIN NEEDED. NORFLEX 100MG TWICE DAILY FOR MUSCLE SPASM FOR 5 DAYS. Prescriptions: Acetaminophen/Diphenhydramine [Percogesic 325-12.5 mg Tablet] 2 tab PO Q4H PRN PRN #20 tablet PRN Reason: Pain Orphenadrine Citrate 100 mg [Norflex 100 MG Tablet] 100 mg PO BIDPRN PRN 5 Days #10 tab PRN Reason: Muscle Spasms
[2018-02-17] MEDS ORDERED: Hydromorphone 1 mg/ml Ampule ONE (10:33)
[2018-02-17] MEDS ORDERED: Phenergan 25 MG INJ ONE (10:33)
--- NOTE | 2018-02-17 10:50 | XRAY ---
Indication: Severe back pain radiating to both hips. Multiple contiguous axial images obtained through the lumbar spine. Sagittal and coronal reformatted images obtained. Comparison: CT abdomen/pelvis January 03, 2016. Stable L2-L3 laminectomy and fusion surgery with intact posterior spinal hardware again producing beam artifact. Also stable L2-L3 and L4-L5 degenerative disc osteophyte complex and vacuum disc phenomena again producing bilateral foraminal narrowing. Remaining lumbar disc levels negative for large disc herniation or canal stenosis. Sagittal and coronal reformatted images again demonstrates normal lumbar alignment with L2-L3 and L4-L5 disc space narrowing. No acute compression fracture or subluxation. Visualized noncontrasted soft tissues unremarkable. Impression: 1. Stable L2-L3 laminectomy and fusion surgery with intact posterior spinal hardware. 2. Stable L2-L3 and L4-L5 degenerative disc disease. 3. Remaining CT lumbar spine is negative. CT DI 158.81
[2018-02-17 11:16] LABS: Appearance CLEAR (CLEAR); Bilirubin NEGATIVE (NEGATIVE); Blood NEGATIVE Ery/ul (0-5); Glucose NEGATIVE (NEGATIVE); Ketones NEGATIVE (NEGATIVE); Leukocyte Esterase NEGATIVE (NEGATIVE); Nitrite NEGATIVE (NEGATIVE); Protein,Urine Dip NEGATIVE (Negative); Specific Gravity 1.023 (1.005-1.025); Urobilinogen NEGATIVE mg/dL (0-1)
[2018-02-17 11:21] LABS: Amphetamine,Urine NEGATIVE (NEGATIVE); Barbiturate,Urine NEGATIVE (NEGATIVE); Benzodiazepine,Urine NEGATIVE (NEGATIVE); Cocaine,Urine NEGATIVE (NEGATIVE); Methadone,Urine NEGATIVE (NEGATIVE); Opiate,Urine POSITIVE (NEGATIVE); PCP,Urine NEGATIVE (NEGATIVE); THC,Urine NEGATIVE (NEGATIVE)
[2018-02-17 11:29] VITALS: BP 135/95; PULSE 70
[2018-02-17 11:31] VITALS: O2SAT 98
== END 2018-02-17 11:41 | disposition home or self-care (01) ==
LOC: ED 09:39
DX: M54.5 Low back pain (principal); Z79.01 Long term (current) use of anticoagulants; Z79.899 Other long term (current) drug therapy; D68.51 Activated protein C resistance
CPT/HCPCS: 72131; 80307; 81001; 96372; 99284; J1170; J2550

== ENCOUNTER 2018-03-05 20:55 | Emergency (ER) | payer BC ==
--- NOTE | 2018-03-05 21:11 | ERPHSYRPT ---
- History of Present Illness Time Seen by Provider: 03/05/18 21:08 Source: patient, family Physician History: 47 y/o white male presents with neck and back pain after falling from a chair he was standing on. no head injury. pt has a h/o chronic lbp. pt states he has an appt to see his spine doctor tomorrow. Timing/Duration: today Method of Injury: fall (while standing on a chair.) Quality: sharp Back Pain Location: C-spine, lumbar spine Severity of Pain-Max: moderate Severity of Pain-Current: moderate Associated Symptoms: lower back pain, No dizziness, No numbness in legs/feet, No weakness, No sensory/motor loss, No muscle spasms Previous symptoms: same symptoms as today Allergies/Adverse Reactions: BEESTINGS Allergy (Mild, Uncoded 10/30/16 12:35) Swelling Home Medications: Atenolol 50 mg [Tenormin 50 mg] 50 mg PO DAILY 01/03/16 [History] Venlafaxine HCl [Effexor Xr] 150 mg PO DAILY 01/03/16 [History] Cetirizine HCl [Zyrtec] 10 mg PO DAILY 10/30/16 [History] Trazodone HCl 50 mg [Desyrel 50 mg] 50 mg PO QHS 10/30/16 [History] Hx Tetanus, Diphtheria Vaccination/Date Given: No Hx Influenza Vaccination/Date Given: No Hx Pneumococcal Vaccination/Date Given: No - Review of Systems Constitutional: No Symptoms Eyes: No Symptoms Ears, Nose, & Throat: No Symptoms Respiratory: No Symptoms Cardiac: No Symptoms Abdominal/Gastrointestinal: No Symptoms Genitourinary Symptoms: No Symptoms Musculoskeletal: Back Pain, Neck Pain Skin: No Symptoms Neurological: No Symptoms Psychological: No Symptoms Endocrine: No Symptoms Hematologic/Lymphatic: No Symptoms Immunological/Allergic: No Symptoms All Other Systems: Reviewed and Negative - Past Medical History Pertinent Past Medical History: Yes Neurological History: No Pertinent History ENT History: No Pertinent History Cardiac History: Hypertension Respiratory History: No Pertinent History Endocrine Medical History: No Pertinent History Musculoskeletal History: No Pertinent History GI Medical History: Pancreatitis History: No Pertinent History Psycho-Social History: Anxiety, Other Male Reproductive Disorders: No Pertinent History Other Medical History: BLOOD DISORDER: FACTOR IV - Past Surgical History Past Surgical History: Yes Neuro Surgical History: No Pertinent History Cardiac: No Pertinent History Respiratory: No Pertinent History Gastrointestinal: Cholecystectomy, Hernia Repair Genitourinary: No Pertinent History Musculoskeletal: Orthopedic Surgery Male Surgical History: No Pertinent History Other Surgical History: INGUINAL LYMPH NODES - BRANDY CARPEL TUNNEL REPAIR - LOWER BACK - LEFT ELBOW RODS IN BACK - Social History Smoking Status: Never smoker Exposure to second hand smoke: No Drug Use: none Patient Lives Alone: No - Nursing Vital Signs Nursing Vital Signs: Initial Vital Signs Temperature 98.5 F 03/05/18 21:07 Pulse Rate 95 H 03/05/18 21:07 Respiratory Rate 18 03/05/18 21:07 Blood Pressure 153/110 03/05/18 21:07 O2 Sat by Pulse Oximetry 97 03/05/18 21:07 Pain Scale Pain Intensity [Left Back] 9 Pain Intensity 9 - Physical Exam General Appearance: no apparent distress, alert, anxiety Eye Exam: PERRL/EOMI, eyes nml inspection Ears, Nose, Throat Exam: normal ENT inspection Neck Exam: normal inspection, supple, full range of motion, other (paraspinous muscle tenderness left greater than right) Respiratory Exam: normal breath sounds, lungs clear, airway intact, No chest tenderness, No respiratory distress, No accessory muscle use, No rhonchi, No wheezing, No stridor Cardiovascular Exam: regular rate/rhythm, normal heart sounds, normal peripheral pulses Gastrointestinal Exam: soft, normal bowel sounds, No tenderness Rectal Exam: not done Back Exam: normal inspection, normal range of motion, muscle spasm, No CVA tenderness, No vertebral tenderness Extremity Exam: normal inspection, normal range of motion, pelvis stable Neurologic Exam: alert, oriented x 3, cooperative, personal assistant II-XII nml as tested Skin Exam: normal color, warm, dry Lymphatic Exam: No adenopathy SpO2 Interpretation: normal Oxygen Delivery: Room Air - Course Nursing assessment & vital signs reviewed: Yes Ordered Tests: Active Orders 24 hr Category Date Time Status CERVICAL SPINE (2 OR 3 VIEW) Stat Exams 03/05/18 21:12 Taken LUMBAR LIMITED (2 OR 3 VIEWS) Stat Exams 03/05/18 21:12 Taken Medication Summary Discontinued Medications Generic Name Dose Route Start Last Admin Trade Name Freq PRN Reason Stop Dose Admin Carisoprodol 350 mg 03/05/18 22:19 Soma 350 Mg PO 03/05/18 22:20 STAT ONE Hydromorphone HCl 1 mg 03/05/18 21:37 03/05/18 21:46 Hydromorphone 1 Mg/Ml Ampule IM 03/05/18 21:38 1 mg STAT ONE Administration Hydromorphone HCl Confirm 03/05/18 21:41 Hydromorphone 1 Mg/Ml Ampule Administered 03/05/18 21:42 Dose 1 mg .ROUTE .STK-MED ONE Methylprednisolone Sodium Succinate 125 mg 03/05/18 21:33 03/05/18 21:46 Solu-Medrol 125 Mg IM 03/05/18 21:34 125 mg STAT ONE Administration Methylprednisolone Sodium Succinate Confirm 03/05/18 21:41 Solu-Medrol 125 Mg Administered 03/05/18 21:42 Dose 125 mg .ROUTE .STK-MED ONE Ondansetron HCl 4 mg 03/05/18 21:37 03/05/18 21:46 Zofran Odt 4 Mg PO 03/05/18 21:38 4 mg STAT ONE Administration Ondansetron HCl Confirm 03/05/18 21:41 Zofran Odt 4 Mg Administered 03/05/18 21:42 Dose 4 mg .ROUTE .STK-MED ONE - Progress Progress: improved, re-examined Counseled pt/family regarding: diagnosis, need for follow-up, rad results - Departure Time of Disposition: 22:22 Departure Disposition: Home Clinical Impression: Fall, Back pain, Neck pain Condition: Stable Critical Care Time: No Referrals: TOMA ARCHULETA [Primary Care Provider] - Additional Instructions: keep your appointment with your doctor tomorrow morning.
[2018-03-05] MEDS ORDERED: solu-MEDROL 125 MG IM ONE (21:33)
[2018-03-05] MEDS ORDERED: Hydromorphone 1 mg/ml Ampule IM ONE (21:37)
[2018-03-05] MEDS ORDERED: ZOFRAN ODT 4 MG PO ONE (21:37)
[2018-03-05] MEDS ORDERED: solu-MEDROL 125 MG ONE (21:41)
[2018-03-05] MEDS ORDERED: ZOFRAN ODT 4 MG ONE (21:41)
[2018-03-05] MEDS ORDERED: Hydromorphone 1 mg/ml Ampule ONE (21:41)
[2018-03-05] MEDS ORDERED: SOMA 350 MG PO ONE (22:19)
[2018-03-05 22:42] VITALS: BP 135/88; PULSE 89; O2SAT 95
--- NOTE | 2018-03-06 08:40 | XRAY ---
Indication: Pain following fall. Comparison: CT cervical spine September 07, 2015. 3 views of the cervical spine demonstrates normal alignment with stable C4-C7 degenerative disc disease. Incidental left apical lung calcified granuloma. No acute fracture, subluxation, or soft tissue abnormalities. Comment: Preliminary interpretation was made by [facility]. No discrepancy.
--- NOTE | 2018-03-06 08:42 | XRAY ---
Indication: Pain following fall. Comparison: CT lumbar spine February 17, 2018. 3 views of the lumbar spine demonstrates stable normal lumbar lordosis with L2-L3 laminectomy and fusion with intact posterior spinal hardware. Also stable L2-L3 and L4-L5 degenerative disc disease. No acute fracture, subluxation, or suspicious bony lesions. Comment: Preliminary interpretation was made by [facility]. No critical discrepancy.
== END 2018-03-05 22:50 ==
LOC: ED 20:55
DX: M54.2 Cervicalgia (principal); M54.5 Low back pain; W08.XXXA Fall from other furniture, initial encounter; Z79.899 Other long term (current) drug therapy
CPT/HCPCS: 72040; 72100; 96372; 99284; J1170; J2930; Q0162; A9270-GY

== ENCOUNTER 2018-03-31 09:38 | Emergency (ER) | payer BC ==
[2018-03-31 09:55] VITALS: O2SAT 98
[2018-03-31] MEDS ORDERED: Norflex 60 MG/2 ML IM ONE (10:20)
[2018-03-31] MEDS ORDERED: Norflex 60 MG/2 ML ONE (10:27)
--- NOTE | 2018-03-31 10:32 | ERPHSYRPT ---
- History of Present Illness Time Seen by Provider: 03/31/18 10:05 Source: patient Exam Limitations: clinical condition Patient Subjective Stated Complaint: mid lower back pain that radiates to the medial level Triage Nursing Assessment: Pt c/o of low to mid medial back pain, hx of back arthritis and bone spurs, went to md on Tuesday and had a cortisone shot and was sore yesterday but went to therapy to be evaluated and did some minor stretches and is now in severe pain, took a Tylenol #3 this AM at 0730, hx of back surgery, reports that the pain feels like it radiates upward and then feels like it's so compressed that it's going to burst something, denies numbness or tingling of extremeties, pulses normal, vitals wnl Physician History: PATIENT WITH A HISTORY OF CHRONIC LOW BACK PAIN, PREVIOUS LUMBAR SURGERY 2009 WITH HARDWARE, FACTOR V LEIDEN DEFICIENCY, COMPLAINS OF INCREASING LOW BACK PAIN X 3 DAYS. EVALUATED BY PRIMARY CARE PROVIDER YESTERDAY, RECEIVED STEROID INJECTION, PLACED ONTO TYLENOL #3, EVALUATED IN EMERGENCY AT [facility] 03/05/2018 AND 02/17/2018 A WHICH TIME PATIENT RECEIVED DILAUDID INJECTIONS. HE COMPLAINS OF RADIATION OF PAIN INTO HIS BUTTOCKS. DENIES INJURY, TRAUMA, LOSS OF BOWEL OR BLADDER FUNCTION. Timing/Duration: day(s) Method of Injury: other (DENIES HISTORY OF TRAUMA OR INJURY) Back Pain Location: lumbar spine Back Pain Radiation: buttocks Severity of Pain-Max: moderate Severity of Pain-Current: moderate Modifying Factors: Improves With: movement Associated Symptoms: denies symptoms Previous symptoms: same symptoms as today Allergies/Adverse Reactions: BEESTINGS Allergy (Mild, Uncoded 03/31/18 09:55) Swelling Home Medications: Atenolol 50 mg [Tenormin 50 mg] 50 mg PO DAILY 01/03/16 [History] Venlafaxine HCl [Effexor Xr] 150 mg PO DAILY 01/03/16 [History] Cetirizine HCl [Zyrtec] 10 mg PO DAILY 10/30/16 [History] Trazodone HCl 50 mg [Desyrel 50 mg] 50 mg PO QHS 10/30/16 [History] Acetaminophen with Codeine [Acetaminophen-Cod #3 Tablet] 1 tab PO Q6H PRN [History] Hx Tetanus, Diphtheria Vaccination/Date Given: No Hx Influenza Vaccination/Date Given: No Hx Pneumococcal Vaccination/Date Given: No - Review of Systems Constitutional: No Symptoms Ears, Nose, & Throat: No Symptoms Respiratory: No Symptoms Cardiac: No Symptoms Abdominal/Gastrointestinal: No Symptoms Genitourinary Symptoms: No Symptoms Musculoskeletal: No Symptoms, Back Pain Neurological: No Symptoms Psychological: No Symptoms Endocrine: No Symptoms All Other Systems: Reviewed and Negative - Past Medical History Pertinent Past Medical History: Yes Neurological History: No Pertinent History ENT History: No Pertinent History Cardiac History: Hypertension Respiratory History: No Pertinent History Endocrine Medical History: No Pertinent History Musculoskeletal History: Arthritis GI Medical History: Pancreatitis History: No Pertinent History Psycho-Social History: Anxiety, Other Male Reproductive Disorders: No Pertinent History Other Medical History: BLOOD DISORDER: FACTOR V, 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 and arthritis in back - Past Surgical History Past Surgical History: Yes Neuro Surgical History: No Pertinent History Cardiac: No Pertinent History Respiratory: No Pertinent History Gastrointestinal: Cholecystectomy, Hernia Repair Genitourinary: No Pertinent History Musculoskeletal: Orthopedic Surgery Male Surgical History: No Pertinent History Other Surgical History: INGUINAL LYMPH NODES - BRANDY CARPEL TUNNEL REPAIR - LOWER BACK - LEFT ELBOW RODS IN BACK - Social History Smoking Status: Never smoker Exposure to second hand smoke: No Drug Use: none Patient Lives Alone: No - Nursing Vital Signs Nursing Vital Signs: Initial Vital Signs Temperature 99.1 F 03/31/18 09:43 Pulse Rate 71 03/31/18 09:43 Blood Pressure 138/95 03/31/18 09:43 O2 Sat by Pulse Oximetry 98 03/31/18 09:43 Pain Scale Pain Intensity [Lower Back] 10 Pain Intensity 10 - Physical Exam General Appearance: no apparent distress Eye Exam: PERRL/EOMI, eyes nml inspection Respiratory Exam: normal breath sounds, lungs clear, No respiratory distress Cardiovascular Exam: regular rate/rhythm, normal heart sounds Gastrointestinal Exam: soft, normal bowel sounds Back Exam: vertebral tenderness, decreased range of motion, muscle spasm Extremity Exam: normal inspection, normal range of motion Peripheral Pulses: carotid (R): 2+, carotid (L): 2+, femoral (R): 2+, femoral (L ): 2+, dorsalis-pedis (R): 2+, dorsalis-pedis (L): 2+ Neurologic Exam: alert, oriented x 3, cooperative SpO2 Interpretation: normal SpO2: 98 Ordered Tests: Medication Summary Discontinued Medications Generic Name Dose Route Start Last Admin Trade Name Emanuel PRN Reason Stop Dose Admin Orphenadrine Citrate 60 mg 03/31/18 10:20 03/31/18 10:28 Norflex 60 Mg/2 Ml IM 03/31/18 10:21 60 mg STAT ONE Administration Orphenadrine Citrate Confirm 03/31/18 10:27 Norflex 60 Mg/2 Ml Administered 03/31/18 10:28 Dose 60 mg .ROUTE .STK-MED ONE - Progress Progress Note: 03/31/18 10:33 DISCUSSED WITH PATIENT IN DETAIL CONCERNING HIS PREVIOUS 2 VISITS WITH DILAUDID THERAPY, ADVISED PATIENT TO CONSULT HIS PRIMARY CARE PROVIDER FOR STRONGER PAIN MEDICATIONS, AND REFERRAL TO PAIN SPECIALIST. THE LUMBAR SPINE CT SCAN WITHOUT CONTRAST IS CONSISTENT WITH STABLE L2-L3 LAMINECTOMY AND FUSION SURGERY WITH INTACT POSTERIOR SPINAL HARDWARE> THERE IS A STABLE L2-L3 AND L4-L5 DEGENERATIVE DISC OSTEOPHYTE COMPLEX AND VACCUM DISC PHENOMENA AGAIN PRODUCING BILATERAL FORAMINAL NARROWING. REMAINING LUMBAR DISC LEVELS NEGATIVE FOR LARGE DISC OR CANAL STENOSIS 03/31/18 10:37 Counseled pt/family regarding: diagnosis - Departure Time of Disposition: 11:00 Departure Disposition: Home Clinical Impression: CHRONIC LOW BACK PAIN Condition: Stable Critical Care Time: No Referrals: TOMA ARCHULETA [Primary Care Provider] - Additional Instructions: CONTINUE TYLENOL #3 FOR PAIN NEEDED. NORFLEX 100MG TWICE DAILY FOR 5 DAYS FOR MUSCLE SPASM. CONSULT YOUR PRIMARY CARE PROVIDER TODAY FOR EVALUATION, PAIN MANAGEMENT AND REFERRAL TO A PAIN SPECIALIST Prescriptions: Orphenadrine Citrate 100 mg [Norflex 100 MG Tablet] 100 mg PO BID #10 tab
[2018-03-31 11:00] VITALS: BP 115/89; PULSE 80
== END 2018-03-31 11:00 | disposition home or self-care (01) ==
LOC: ED 09:38
DX: M54.5 Low back pain (principal); G89.29 Other chronic pain; Z79.899 Other long term (current) drug therapy; I10 Essential (primary) hypertension; M19.90 Unspecified osteoarthritis, unspecified site; F41.9 Anxiety disorder, unspecified
CPT/HCPCS: 96372; 99283; J2360

== ENCOUNTER 2018-08-23 14:01 | Day surgery (SDC) | payer BC ==
[2018-08-23] MEDS ORDERED: Marcaine 0.5% SDV 10 ML IJ ONE (14:02)
[2018-08-23] MEDS ORDERED: Depo-Medrol 40 MG/ML IM ONE (14:02)
[2018-08-23] MEDS ORDERED: Lactated Ringers 1,000 ML IV ONE (14:33)
[2018-08-23] MEDS ORDERED: DIPRIVAN 200 MG/20 ML IV ONE (15:07)
[2018-08-23] MEDS ORDERED: Ketamine HCl 50 MG/ML ONE (15:07)
--- NOTE | 2018-08-23 16:16 | XRAY ---
Indication: Left SI joint injection. Intraoperative fluoroscopy was provided for 6 seconds. 2 digital spot images submitted for interpretation demonstrates posterior needle tip projecting over the inferior left SI joint. Correlate with intraoperative findings/report.
--- NOTE | 2018-08-23 16:19 | XRAY ---
6 seconds of fluoroscopy was used in surgery for left SI joint injection.
== END 2018-08-23 15:37 | disposition home or self-care (01) ==
LOC: SDC-PAIN 14:01
PROVIDERS: ATTEND Psychiatry & Neurology Pain Medicine
DX: M46.1 Sacroiliitis, not elsewhere classified (principal); I10 Essential (primary) hypertension; G47.30 Sleep apnea, unspecified
CPT/HCPCS: 27096; 72020; 77002; J1030; J2704; G0260

== ENCOUNTER 2018-08-25 17:10 | Observation (INO) | payer BC ==
[2018-08-25] MEDS ORDERED: Hydromorphone 1 mg/ml Ampule IV ONE (17:40)
[2018-08-25] MEDS ORDERED: Zofran 4 MG/2 ML VIAL IV ONE (17:40)
[2018-08-25] MEDS ORDERED: Sodium Chloride 0.9% 1000 ML 1,000 ML IV SCH (17:45)
[2018-08-25] MEDS ORDERED: Zofran 4 MG/2 ML VIAL ONE (17:52)
[2018-08-25] MEDS ORDERED: Hydromorphone 1 mg/ml Ampule ONE (17:53)
[2018-08-25] MEDS ORDERED: Sodium Chloride 0.9% 1000 ML 1,000 ML ONE (17:53)
[2018-08-25 17:57] LABS: Appearance CLEAR (CLEAR); Bacteria RARE /HPF (NEGATIVE); Bilirubin NEGATIVE (NEGATIVE); Blood NEGATIVE Ery/ul (0-5); Glucose NEGATIVE (NEGATIVE); Ketones TRACE (NEGATIVE); Leukocyte Esterase NEGATIVE (NEGATIVE); Mucus SLIGHT /HPF (NEGATIVE); Nitrite NEGATIVE (NEGATIVE); Protein,Urine Dip 30 (Negative); Specific Gravity 1.024 (1.005-1.025); Urobilinogen NEGATIVE mg/dL (0-1); WBC 0-2 /HPF (0-5)
[2018-08-25 17:58] LABS: Epithelial Cells MODERATE /HPF (FEW)
--- NOTE | 2018-08-25 17:58 | ERPHSYRPT ---
- History of Present Illness Time Seen by Provider: 08/25/18 17:40 Historian: patient Exam Limitations: clinical condition Physician History: PATIENT WITH A HISTORY OF FACTOR V LEIDEN DEFICIENCY, CHRONIC BACK PAIN AND DIVERTICULITIS COMPLAINS OF LEFT SIDED ABDOMINAL PAINS CONSTANT FOR 3 HOURS. DENIES FEVER, CHILLS, NAUSEA, EMESIS, URINARY SYMPTOMS, FREQUENCY, URGENCY, DYSURIA OR HEMATURIA. PATIENT COMPLAINS OF WATERY DIARRHEA UPON ARRIVAL TO EMERGENCY ROOM. Timing/Duration: hour(s) (PAST 3 HOURS) Activities at Onset: none Quality: sharpness, stabbing Abdominal Pain Onset Location: LUQ, LLQ Pain Radiation: no radiation Severity of Pain-Max: severe Severity of Pain-Current: severe Modifying Factors: Improves With: nothing Associated Symptoms: diarrhea Previous symptoms: same symptoms as today (HISTORY OF DIVERTICULITIS) Allergies/Adverse Reactions: BEESTINGS Allergy (Mild, Uncoded 08/25/18 17:26) Swelling Home Medications: Atenolol 50 mg [Tenormin 50 mg] 50 mg PO DAILY 01/03/16 [History] Venlafaxine HCl [Effexor Xr] 150 mg PO DAILY 01/03/16 [History] Cetirizine HCl [Zyrtec] 10 mg PO DAILY 10/30/16 [History] Trazodone HCl 50 mg [Desyrel 50 mg] 50 mg PO QHS 10/30/16 [History] Acetaminophen with Codeine [Acetaminophen-Cod #3 Tablet] 1 tab PO Q6H PRN [History] Hx Tetanus, Diphtheria Vaccination/Date Given: No Hx Influenza Vaccination/Date Given: No Hx Pneumococcal Vaccination/Date Given: No - Review of Systems Constitutional: No Symptoms, No Fever, No Chills Eyes: No Symptoms Ears, Nose, & Throat: No Symptoms Respiratory: No Symptoms, No Cough, No Dyspnea Cardiac: No Symptoms, No Chest Pain, No Edema, No Syncope Abdominal/Gastrointestinal: Abdominal Pain, Diarrhea, No Nausea, No Vomiting Genitourinary Symptoms: No Symptoms, No Dysuria Musculoskeletal: No Symptoms, No Back Pain, No Neck Pain Skin: No Symptoms, No Rash Neurological: No Dizziness, No Focal Weakness, No Sensory Changes Psychological: No Symptoms Endocrine: No Symptoms All Other Systems: Reviewed and Negative - Past Medical History Pertinent Past Medical History: Yes Neurological History: No Pertinent History ENT History: No Pertinent History Cardiac History: Hypertension Respiratory History: No Pertinent History Endocrine Medical History: No Pertinent History Musculoskeletal History: Arthritis GI Medical History: Pancreatitis History: No Pertinent History Psycho-Social History: Anxiety, Other Male Reproductive Disorders: No Pertinent History Other Medical History: BLOOD DISORDER: FACTOR V, 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 and arthritis in back - Past Surgical History Past Surgical History: Yes Neuro Surgical History: No Pertinent History Cardiac: No Pertinent History Respiratory: No Pertinent History Gastrointestinal: Cholecystectomy, Hernia Repair Genitourinary: No Pertinent History Musculoskeletal: Orthopedic Surgery Male Surgical History: No Pertinent History Other Surgical History: INGUINAL LYMPH NODES - BRANDY CARPEL TUNNEL REPAIR - LOWER BACK - LEFT ELBOW RODS IN BACK - Social History Smoking Status: Never smoker Exposure to second hand smoke: No Drug Use: none Patient Lives Alone: No - Nursing Vital Signs Nursing Vital Signs: Initial Vital Signs Temperature 97.8 F 08/25/18 18:17 Pulse Rate 78 08/25/18 18:17 Respiratory Rate 16 08/25/18 18:17 Blood Pressure 132/71 08/25/18 18:17 O2 Sat by Pulse Oximetry 97 08/25/18 18:17 Pain Scale Pain Intensity 7 - Physical Exam General Appearance: no apparent distress, alert Eye Exam: PERRL/EOMI, eyes nml inspection Ears, Nose, Throat Exam: normal ENT inspection, pharynx normal, moist mucous membranes Neck Exam: normal inspection, non-tender, supple, full range of motion Respiratory Exam: normal breath sounds, lungs clear, No respiratory distress Cardiovascular Exam: regular rate/rhythm, normal heart sounds Gastrointestinal/Abdomen Exam: soft, normal bowel sounds, tenderness (LEFT LATERAL TENDERNESS AND LLQ TENDERNESS, NO GUARDING OR REBOUND TENDERNESS), No mass Back Exam: normal inspection, normal range of motion, No CVA tenderness, No vertebral tenderness Extremity Exam: normal inspection, normal range of motion, pelvis stable Neurologic Exam: alert, oriented x 3, cooperative, normal mood/affect, nml cerebellar function, sensation nml, No motor deficits Skin Exam: normal color, warm, dry SpO2 Interpretation: normal SpO2: 97 - CT Exams Abdomen/Pelvis CT Interpretation: Tele-radiologist Report (MILD WALL THICKENING OF THE SIGMOID COLON) Ordered Tests: Active Orders 24 hr Category Date Time Status Up Ad Amber ROUTINE Activity 08/25/18 19:41 Active Code Status Order ROUTINE Care 08/25/18 19:40 Active IV Care Q6H Care 08/25/18 19:40 Active IV Insertion STAT Care 08/25/18 17:[address] in Observation ROUTINE Care 08/25/18 19:40 Active Vital Signs Q4H Care 08/25/18 19:40 Active NPO except Meds Diet 08/25/18 19:41 Active ABDOMEN AND PELVIS W CONTRAST [CT] Stat Exams 08/25/18 17:41 Taken AMYLASE Stat Lab 08/25/18 17:55 Completed BLOOD CULTURE Stat Lab 08/25/18 17:55 Received BMP Stat Lab 08/25/18 17:55 Completed CBC W DIFF Stat Lab 08/25/18 17:55 Completed LIPASE Stat Lab 08/25/18 17:55 Completed PROTIME WITH INR Stat Lab 08/25/18 17:55 Completed UA W/RFX UR CULTURE Stat Lab 08/25/18 17:15 Completed Transfer Order Routine Transfer 08/25/18 Ordered Medication Summary Generic Name Dose Route Start Last Admin Trade Name Freq PRN Reason Stop Dose Admin Acetaminophen 650 mg 08/25/18 19:40 Tylenol 325 Mg PO 09/24/18 19:39 Q4H PRN PRN PAIN AND/OR FEVER Atenolol 50 mg 08/26/18 10:00 Tenormin 50 Mg PO 09/25/18 09:59 DAILY YARELY Hydromorphone HCl 1 mg 08/25/18 19:40 Dilaudid 2 Mg Injection IV 08/30/18 19:39 Q4H PRN PRN PAIN Sodium Chloride 1,000 mls @ 500 mls/hr 08/25/18 17:45 08/25/18 17:58 Sodium Chloride 0.9% 1000 Ml IV 09/24/18 17:44 500 mls/hr .Q2H YARELY Administration Levofloxacin/Dextrose 500 mg in 100 mls @ 100 mls/hr 08/25/18 19:25 08/25/18 19:32 Levofloxacin 500mg/100ml D5w IV 08/25/18 20:24 100 ml/hr STAT STA 100 mls/hr Administration Levofloxacin/Dextrose 500 mg in 100 mls @ 100 mls/hr 08/26/18 10:00 Levofloxacin 500mg/100ml D5w IV 09/25/18 09:59 Q24H10 [facility] Metronidazole 500 mg in 100 mls @ 200 mls/hr 08/26/18 00:00 Flagyl 500 Mg Ivpb IV 09/25/18 00:00 Q6HT [facility] Sodium Chloride 1,000 mls @ 100 mls/hr 08/25/18 19:45 Sodium Chloride 0.9% 1000 Ml IV 09/24/18 19:44 .Q10H [facility] Nitroglycerin 0.4 mg 08/25/18 19:46 Nitrostat 0.4 Mg Tablet SL 09/24/18 19:45 Q5MIN PRN MR X 3 PRN CHEST PAIN Ondansetron HCl 4 mg 08/25/18 19:44 Zofran 4 Mg/2 Ml Vial IV 09/24/18 19:43 Q4HPRN PRN NAUSEA Oxycodone/Acetaminophen 1 tab 08/25/18 19:47 Percocet Tablet 5/325mg PO 08/30/18 19:46 Q6H PRN PRN PAIN Trazodone HCl 50 mg 08/25/18 22:00 Desyrel 50 Mg PO 09/24/18 21:59 QHS [facility] Warfarin Sodium 10 mg 08/26/18 18:00 Coumadin 10 Mg PO 09/25/18 17:59 DAILY@1800 [facility] Discontinued Medications Generic Name Dose Route Start Last Admin Trade Name Freq PRN Reason Stop Dose Admin Hydromorphone HCl 1 mg 08/25/18 17:40 08/25/18 17:59 Hydromorphone 1 Mg/Ml Ampule IV 08/25/18 17:41 1 mg STAT ONE Administration Hydromorphone HCl Confirm 08/25/18 17:53 Hydromorphone 1 Mg/Ml Ampule Administered 08/25/18 17:54 Dose 1 mg .ROUTE .STK-MED ONE Levofloxacin/Dextrose Confirm 08/25/18 19:30 Levofloxacin 500mg/100ml D5w Administered 08/25/18 19:31 Dose 500 mg in 100 mls @ ud IV .STK-MED ONE Ondansetron HCl 4 mg 08/25/18 17:40 08/25/18 17:58 Zofran 4 Mg/2 Ml Vial IV 08/25/18 17:41 4 mg STAT ONE Administration Ondansetron HCl Confirm 08/25/18 17:52 Zofran 4 Mg/2 Ml Vial Administered 08/25/18 17:53 Dose 4 mg .ROUTE .STK-MED ONE Lab/Rad Data: Laboratory Result Diagrams 08/25/18 17:55 08/25/18 17:55 Laboratory Results 08/25/18 08/25/18 08/25/18 Range/Units 17:55 17:55 17:55 WBC 5.3 (4.0-10.5) K/mm3 RBC 5.30 (4.1-5.6) M/mm3 Hgb 17.1 (12.5-18.0) gm/dl Hct 49.3 (42-50) % MCV 93.0 (78-100) fl MCH 32.3 H (26-32) pg MCHC 34.7 (32-36) g/dl RDW 13.2 (11.5-14.0) % Plt Count 147 L (150-450) K/mm3 MPV 13.2 H (6-9.5) fl Gran % 60.5 (36.0-66.0) % Eos # (Auto) 0.15 (0-0.5) Absolute Lymphs (auto) 1.56 (1.0-4.6) Absolute Monos (auto) 0.37 (0.0-1.3) Lymphocytes % 29.3 (24.0-44.0) % Monocytes % 7.0 (0.0-12.0) % Eosinophils % 2.8 (0.00-5.0) % Basophils % 0.4 (0.0-0.4) % Absolute Granulocytes 3.22 (1.4-6.9) Basophils # 0.02 (0-0.4) PT 12.9 H (8.83-12.87) SECONDS INR 1.14 (0.8-3.0) Sodium 141 (137-145) mmol/L Potassium 4.0 (3.5-5.1) mmol/L Chloride 100 (98-107) mmol/L Carbon Dioxide 30 (22-30) mmol/L Anion Gap 15.0 (5-15) MEQ/L BUN 16 (9-20) mg/dL Creatinine 0.95 (0.66-1.25) mg/dL Estimated GFR > 60.0 ML/MIN Glucose 128 H (74-106) mg/dL Calcium 10.0 (8.4-10.2) mg/dL Amylase 81 (30-110) U/L Lipase 133 (23-300) U/L Urine Color (YELLOW) Urine Appearance (CLEAR) Urine pH (5-6) Ur Specific [place] (1.005-1.025) Urine Protein (Negative) Urine Ketones (NEGATIVE) Urine Blood (0-5) Eder/ul Urine Nitrite (NEGATIVE) Urine Bilirubin (NEGATIVE) Urine Urobilinogen (0-1) mg/dL Ur Leukocyte Esterase (NEGATIVE) Urine WBC (Auto) (0-5) /HPF Urine RBC (Auto) (0-2) /HPF U Epithel Cells (Auto) (FEW) /HPF Urine Bacteria (Auto) (NEGATIVE) /HPF Urine Mucus (Auto) (NEGATIVE) /HPF Urine Culture Reflexed (NO) Urine Glucose (NEGATIVE) mg/dL 08/25/18 Range/Units 17:15 WBC (4.0-10.5) K/mm3 RBC (4.1-5.6) M/mm3 Hgb (12.5-18.0) gm/dl Hct (42-50) % MCV (78-100) fl MCH (26-32) pg MCHC (32-36) g/dl RDW (11.5-14.0) % Plt Count (150-450) K/mm3 MPV (6-9.5) fl Gran % (36.0-66.0) % Eos # (Auto) (0-0.5) Absolute Lymphs (auto) (1.0-4.6) Absolute Monos (auto) (0.0-1.3) Lymphocytes % (24.0-44.0) % Monocytes % (0.0-12.0) % Eosinophils % (0.00-5.0) % Basophils % (0.0-0.4) % Absolute Granulocytes (1.4-6.9) Basophils # (0-0.4) PT (8.83-12.87) SECONDS INR (0.8-3.0) Sodium (137-145) mmol/L Potassium (3.5-5.1) mmol/L Chloride (98-107) mmol/L Carbon Dioxide (22-30) mmol/L Anion Gap (5-15) MEQ/L BUN (9-20) mg/dL Creatinine (0.66-1.25) mg/dL Estimated GFR ML/MIN Glucose (74-106) mg/dL Calcium (8.4-10.2) mg/dL Amylase (30-110) U/L Lipase (23-300) U/L Urine Color YELLOW (YELLOW) Urine Appearance CLEAR (CLEAR) Urine pH 6.0 (5-6) Ur Specific [place] 1.024 (1.005-1.025) Urine Protein 30 (Negative) Urine Ketones TRACE (NEGATIVE) Urine Blood NEGATIVE (0-5) Eder/ul Urine Nitrite NEGATIVE (NEGATIVE) Urine Bilirubin NEGATIVE (NEGATIVE) Urine Urobilinogen NEGATIVE (0-1) mg/dL Ur Leukocyte Esterase NEGATIVE (NEGATIVE) Urine WBC (Auto) 0-2 (0-5) /HPF Urine RBC (Auto) 3-5 (0-2) /HPF U Epithel Cells (Auto) MODERATE (FEW) /HPF Urine Bacteria (Auto) RARE (NEGATIVE) /HPF Urine Mucus (Auto) SLIGHT (NEGATIVE) /HPF Urine Culture Reflexed NO (NO) Urine Glucose NEGATIVE (NEGATIVE) mg/dL - Progress Progress: pain not gone completely Progress Note: 08/25/18 17:58 IV NORMAL SALINE 500ML/HR, ZOFRAN 4MG, DILAUDID 1MG IV 08/25/18 19:27, AFTER 2 SETS OF BLOOD CULTURES ADMINISTERED LEVAQUIN 500MG IVPB Discussed with Dr.: Martinez (DISCUSSED WITH DR MARTINEZ AT 1935 FOR OBSERVATION) - Departure Departure Disposition: Observation Clinical Impression: ACUTE SIGMOID DIVERTICULITIS, Intractable abdominal pain Condition: Stable Critical Care Time: No Referrals: TOMA ARCHULETA [Primary Care Provider] -
[2018-08-25 18:02] LABS: BASOPHIL % 0.4 % (0.0-0.4); Basophil (Absolute #) 0.02 (0-0.4); Eosinophil % 2.8 % (0.00-5.0); Eosinophil (Absolute #) 0.15 (0-0.5); Granulocyte Absolute (ANC) 3.22 (1.4-6.9); Granulocytes % 60.5 % (36.0-66.0); Hematocrit 49.3 % (42-50); Hemoglobin 17.1 gm/dl (12.5-18.0); Lymphocyte (Absolute #) 1.56 (1.0-4.6); Lymphocytes % 29.3 % (24.0-44.0); Mean Corpuscular Hemoglobin 32.3 pg (26-32); Mean Corpuscular Hgb Concent. 34.7 g/dl (32-36); Mean Platelet Volume 13.2 fl (6-9.5); Monocyte (Absolute #) 0.37 (0.0-1.3); Platelet Count 147 K/mm3 (150-450); Red Cell Distribution Width 13.2 % (11.5-14.0); White Blood Count 5.3 K/mm3 (4.0-10.5)
[2018-08-25 18:04] LABS: INR 1.14 (0.8-3.0); PROTIME 12.9 SECONDS (8.83-12.87)
[2018-08-25 18:08] LABS: AMYLASE 81 U/L (30-110); BLOOD UREA NITROGEN 16 mg/dL (9-20); CHLORIDE 100 mmol/L (98-107); Carbon Dioxide 30 mmol/L (22-30); Creatinine 1 0.95 mg/dL (0.66-1.25); Glucose 128 mg/dL (74-106); SODIUM 141 mmol/L (137-145)
[2018-08-25] MEDS ORDERED: Levofloxacin 500MG/100ML D5W 500 MG/100 ML BAG IV STA (19:25)
[2018-08-25] MEDS ORDERED: Levofloxacin 500MG/100ML D5W 500 MG/100 ML BAG IV ONE (19:30)
[2018-08-25] MEDS ORDERED: TYLENOL 325 MG PO PRN (19:40)
[2018-08-25] MEDS ORDERED: Nitrostat 0.4 MG Tablet SL PRN (19:46)
[2018-08-25] MEDS ORDERED: DILAUDID 2 MG INJECTION IV ONE (19:55)
[2018-08-25] MEDS: PERCOCET TABLET 5/325MG PO PRN (20:53)
[2018-08-25] MEDS: Sodium Chloride 0.9% 1000 ML 1,000 ML IV SCH (20:55)
--- NOTE | 2018-08-25 21:32 | XRAY ---
Indication: Left abdomen pain. Diarrhea. History of pancreatitis and diverticulitis. Multiple contiguous axial images obtained through the abdomen and pelvis using 80 cc Isovue 370 contrast only. Comparison: January 03, 2016. Lung bases again demonstrates minimal bibasilar dependent atelectasis. No infiltrate or effusion. Heart is not enlarged. Stomach is distended with food/fluid. Noncontrasted stomach and bowel loops appear nonobstructed. Normal appendix. Again minimal scattered descending and sigmoid diverticulosis with now mild diverticulitis/colitis. No free fluid/air. Stable fatty liver, cholecystectomy, calcified splenic granulomas, and right lower quadrant hernia repair. Remaining liver, pancreas, spleen, adrenal glands, kidneys, ureters, bladder, and aorta appear unremarkable. No pathologic retroperitoneal lymphadenopathy. Osseous structures again demonstrates L3-L4 laminectomy and posterior fusion. Impression: 1. New mild descending and sigmoid diverticulitis/colitis. No complications. 2. Stable fatty liver, calcified splenic granulomas, and postsurgical changes. Comment: Preliminary interpretation was made by C. No discrepancy. CTDI 23.68
[2018-08-25] MEDS: DILAUDID 2 MG INJECTION IV PRN (22:51)
[2018-08-25] MEDS: DESYREL 50 MG PO SCH (22:58)
[2018-08-25] MEDS ORDERED: FLAGYL 500 MG IVPB 500 MG/100 ML BAG IV ONE (23:53)
[2018-08-25] MEDS: FLAGYL 500 MG IVPB 500 MG/100 ML BAG IV SCH (23:58)
[2018-08-26] MEDS: DILAUDID 2 MG INJECTION IV PRN ×6 (03:09→21:20)
[2018-08-26] MEDS: FLAGYL 500 MG IVPB 500 MG/100 ML BAG IV SCH ×4 (06:22→23:41)
[2018-08-26] MEDS: Sodium Chloride 0.9% 1000 ML 1,000 ML IV SCH ×2 (06:26→18:10)
[2018-08-26] MEDS: Zofran 4 MG/2 ML VIAL IV PRN ×2 (08:02→21:58)
[2018-08-26] MEDS: TENORMIN 50 MG PO SCH (09:48)
[2018-08-26] MEDS: PATIENT OWN MEDICATION PO PRN (14:12)
--- NOTE | 2018-08-26 14:39 | PCM.HP ---
History of Present Illness - Chief Complaint Chief Complaint: diverticulitis History of Present Illness: is a 47 year old male pt of Dr. Zacarias with hx Factor V Leiden deficiency, diverticulitis, and chronic back pain who started having LLQ pain approx 3 pm yesterday. The pain was stabbing/pulsating, 8/10 initially. Had temp to 101 3d ago but no pain until yesterday. In the ER had one stool which was diarrhea. No appetite although he would like something to drink. Currently his pain is increasing, it is now 7-8/10. Last had IV dilaudid about 3 hr ago. He said the percocet did nothing for his pain. He has not had a bM since the diarrhea and does not think he is passing flatus now. Pt was found on CT to have diverticulitis and was admitted on IV levaquin and flagyl. His WBC were nl on admission. - Review of Systems Constitutional: Fever Abdominal/Gastrointestinal: Abdominal Pain, Diarrhea Genitourinary Symptoms: Dysuria Musculoskeletal: Back Pain Psychological: Anxiety, No Depression, No Suicidal Ideations, No Homicidal Ideations All Other Systems: Reviewed and Negative Medications & Allergies Home Medications: Home Medication List Atenolol 50 mg [Tenormin 50 mg] 50 mg PO DAILY 01/03/16 [History Confirmed 08/25/18] Venlafaxine HCl [Effexor Xr] 150 mg PO DAILY 01/03/16 [History Confirmed ] Cetirizine HCl [Zyrtec] 10 mg PO DAILY 10/30/16 [History Confirmed 08/25/18] Gabapentin 400 mg [Neurontin 400 MG] 800 mg PO Q4H PRN PRN 08/25/18 [ History Confirmed 08/25/18] Oxycodone HCl/Acetaminophen [Percocet 7.5-325 mg Tablet] 1 each PO Q4H PRN PRN 08/25/18 [History Confirmed 08/25/18] Warfarin Sodium 10 mg [Coumadin 10 MG] 10 mg PO UD 08/25/18 [History Confirmed 08/25/18] Warfarin Sodium 10 mg [Coumadin 10 MG] 15 mg PO UD 08/25/18 [History Confirmed 08/25/18] Allergies/Adverse Reactions: Allergies Allergy/AdvReac Type Severity Reaction Status Date / Time BEESTINGS Allergy Mild Swelling Uncoded 08/25/18 17:26 - Past Medical History Past Medical History: Yes Neurological History: No Pertinent History ENT History: No Pertinent History Cardiac History: Hypertension Respiratory History: No Pertinent History Endocrine Medical History: No Pertinent History Musculoskelatal History: Arthritis GI Medical History: Pancreatitis History: No Pertinent History Pyscho-Social History: Anxiety, Other Male Reproductive Disorders: No Pertinent History Comment: BLOOD DISORDER: FACTOR V, 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 and arthritis in back - Past Surgical History Past Surgical History: Yes Neuro Surgical History: No Pertinent History Cardiac History: No Pertinent History Respiratory Surgery: No Pertinent History GI Surgical History: Cholecystectomy, Hernia Repair Genitourinary Surgical Hx: No Pertinent History Musculskeletal Surgical Hx: Orthopedic Surgery Male Surgical History: No Pertinent History Other Surgical History: INGUINAL LYMPH NODES - BRANDY CARPEL TUNNEL REPAIR - LOWER BACK - LEFT ELBOW RODS IN BACK - Social History Smoking Status: Never smoker Exposure to second hand smoke: No Alcohol: None Drug Use: none - Physical Exam Vital Signs: Vital Signs - 24 hr Temp Pulse Resp BP BP Pulse Ox 08/26/18 12:00 98.6 F 48 L 16 105/56 97 08/26/18 09:48 72 128/76 08/26/18 07:24 98.1 F 57 L 17 102/66 94 L 08/26/18 03:44 97.6 F 55 L 18 109/65 90 L 08/25/18 23:34 97.9 F 75 19 112/63 93 L 08/25/18 21:07 98.0 F 69 18 99/54 92 L 08/25/18 19:49 97 08/25/18 19:40 71 18 112/52 95 08/25/18 19:35 75 22 112/52 93 L 08/25/18 18:17 97.8 F 78 16 132/71 97 Oxygen-Last 24 hours O2 Percentage 2 Liters = 28% General Appearance: mild distress, obese Neurologic Exam: alert, oriented x 3, cooperative Eye Exam: eyes nml inspection Ears, Nose, Throat Exam: moist mucous membranes Respiratory Exam: normal breath sounds, lungs clear, No crackles/rales, No rhonchi, No wheezing Cardiovascular Exam: regular rate/rhythm, normal heart sounds, No murmur Gastrointestinal/Abdomen Exam: soft, normal bowel sounds, tenderness (LLQ), No distention, No mass, No guarding, No rebound Extremity Exam: normal inspection, No pedal edema, No swelling Skin Exam: normal color, warm, dry, No rash Results - Labs Lab/Micro Results: Lab Results-Last 24 Hours 08/25/18 08/25/18 08/25/18 Range/Units 17:15 17:55 17:55 WBC 5.3 (4.0-10.5) K/mm3 RBC 5.30 (4.1-5.6) M/mm3 Hgb 17.1 (12.5-18.0) gm/dl Hct 49.3 (42-50) % MCV 93.0 (78-100) fl MCH 32.3 H (26-32) pg MCHC 34.7 (32-36) g/dl RDW 13.2 (11.5-14.0) % Plt Count 147 L (150-450) K/mm3 MPV 13.2 H (6-9.5) fl Gran % 60.5 (36.0-66.0) % Eos # (Auto) 0.15 (0-0.5) Absolute Lymphs (auto) 1.56 (1.0-4.6) Absolute Monos (auto) 0.37 (0.0-1.3) Lymphocytes % 29.3 (24.0-44.0) % Monocytes % 7.0 (0.0-12.0) % Eosinophils % 2.8 (0.00-5.0) % Basophils % 0.4 (0.0-0.4) % Absolute Granulocytes 3.22 (1.4-6.9) Basophils # 0.02 (0-0.4) PT (8.83-12.87) SECONDS INR (0.8-3.0) Sodium 141 (137-145) mmol/L Potassium 4.0 (3.5-5.1) mmol/L Chloride 100 (98-107) mmol/L Carbon Dioxide 30 (22-30) mmol/L Anion Gap 15.0 (5-15) MEQ/L BUN 16 (9-20) mg/dL Creatinine 0.95 (0.66-1.25) mg/dL Estimated GFR > 60.0 ML/MIN Glucose 128 H (74-106) mg/dL Calcium 10.0 (8.4-10.2) mg/dL Amylase 81 (30-110) U/L Lipase 133 (23-300) U/L Urine Color YELLOW (YELLOW) Urine Appearance CLEAR (CLEAR) Urine pH 6.0 (5-6) Ur Specific [place] 1.024 (1.005-1.025) Urine Protein 30 (Negative) Urine Ketones TRACE (NEGATIVE) Urine Blood NEGATIVE (0-5) Eder/ul Urine Nitrite NEGATIVE (NEGATIVE) Urine Bilirubin NEGATIVE (NEGATIVE) Urine Urobilinogen NEGATIVE (0-1) mg/dL Ur Leukocyte Esterase NEGATIVE (NEGATIVE) Urine WBC (Auto) 0-2 (0-5) /HPF Urine RBC (Auto) 3-5 (0-2) /HPF U Epithel Cells (Auto) MODERATE (FEW) /HPF Urine Bacteria (Auto) RARE (NEGATIVE) /HPF Urine Mucus (Auto) SLIGHT (NEGATIVE) /HPF Urine Culture Reflexed NO (NO) Urine Glucose NEGATIVE (NEGATIVE) mg/dL 08/25/18 Range/Units 17:55 WBC (4.0-10.5) K/mm3 RBC (4.1-5.6) M/mm3 Hgb (12.5-18.0) gm/dl Hct (42-50) % MCV (78-100) fl MCH (26-32) pg MCHC (32-36) g/dl RDW (11.5-14.0) % Plt Count (150-450) K/mm3 MPV (6-9.5) fl Gran % (36.0-66.0) % Eos # (Auto) (0-0.5) Absolute Lymphs (auto) (1.0-4.6) Absolute Monos (auto) (0.0-1.3) Lymphocytes % (24.0-44.0) % Monocytes % (0.0-12.0) % Eosinophils % (0.00-5.0) % Basophils % (0.0-0.4) % Absolute Granulocytes (1.4-6.9) Basophils # (0-0.4) PT 12.9 H (8.83-12.87) SECONDS INR 1.14 (0.8-3.0) Sodium (137-145) mmol/L Potassium (3.5-5.1) mmol/L Chloride (98-107) mmol/L Carbon Dioxide (22-30) mmol/L Anion Gap (5-15) MEQ/L BUN (9-20) mg/dL Creatinine (0.66-1.25) mg/dL Estimated GFR ML/MIN Glucose (74-106) mg/dL Calcium (8.4-10.2) mg/dL Amylase (30-110) U/L Lipase (23-300) U/L Urine Color (YELLOW) Urine Appearance (CLEAR) Urine pH (5-6) Ur Specific [place] (1.005-1.025) Urine Protein (Negative) Urine Ketones (NEGATIVE) Urine Blood (0-5) Eder/ul Urine Nitrite (NEGATIVE) Urine Bilirubin (NEGATIVE) Urine Urobilinogen (0-1) mg/dL Ur Leukocyte Esterase (NEGATIVE) Urine WBC (Auto) (0-5) /HPF Urine RBC (Auto) (0-2) /HPF U Epithel Cells (Auto) (FEW) /HPF Urine Bacteria (Auto) (NEGATIVE) /HPF Urine Mucus (Auto) (NEGATIVE) /HPF Urine Culture Reflexed (NO) Urine Glucose (NEGATIVE) mg/dL - Radiology Impressions Radiology Exams & Impressions: Radiology Procedures Category Date Time Status ABDOMEN AND PELVIS W CONTRAST [CT] Stat Exams 08/25/18 17:41 Completed KUB Urgent Exams 08/26/18 Ordered Assessment/Plan (1) Diverticulitis Current Visit: Yes Status: Acute Assessment & Plan: On Day #2 zosyn and flagyl. Question of not passing flatus currently - will check KUB. If neg, can have CLD. I will change the frequency of dilaudid to q3h although would like to change him to PO pain meds tomorrow. Code(s): K57.92 - DVTRCLI OF INTEST, PART UNSP, W/O PERF OR ABSCESS W/O BLEED (2) Factor V Leiden Current Visit: No Status: Chronic Assessment & Plan: on coumadin but INR is not therapeutic - will cover with lovenox for now. Code(s): D68.51 - ACTIVATED PROTEIN C RESISTANCE
[2018-08-26] MEDS: ENOXAPARIN SODIUM SQ SCH (15:51)
[2018-08-26] MEDS ORDERED: Neurontin 400 MG PO PRN (16:37)
[2018-08-26] MEDS ORDERED: Coumadin 10 MG PO SCH ×2 (18:00)
[2018-08-26] MEDS ORDERED: Coumadin 1 MG PO SCH (18:00)
[2018-08-26] MEDS: Levofloxacin 500MG/100ML D5W 500 MG/100 ML BAG IV SCH (20:39)
--- NOTE | 2018-08-26 21:15 | XRAY ---
Indication: Abdomen pain. Comparison: None KUB nonacute and nonobstructed with right upper quadrant surgical clips, calcified splenic granulomas, right lower quadrant mesh graft, and L3-L4 posterior fusion. Lung bases are clear. Impression: Negative KUB with chronic features. Comment: Preliminary interpretation was made by [facility]. No discrepancy.
--- NOTE | 2018-08-26 21:15 | XRAY ---
Indication: Intractable abdomen pain. Comparison: Taken earlier in the day. KUB unchanged again nonacute and nonobstructed with chronic features. No new/acute findings..
[2018-08-26] MEDS: DESYREL 50 MG PO SCH (21:20)
[2018-08-26] MEDS ORDERED: Ativan 2 MG/1 ML VIAL IV ONE (23:30)
[2018-08-27] MEDS: PERCOCET TABLET 5/325MG PO PRN ×4 (02:46→22:43)
[2018-08-27] MEDS: FLAGYL 500 MG IVPB 500 MG/100 ML BAG IV SCH ×3 (05:23→18:08)
[2018-08-27 05:55] LABS: BASOPHIL % 0.6 % (0.0-0.4); Basophil (Absolute #) 0.02 (0-0.4); Eosinophil % 4.7 % (0.00-5.0); Eosinophil (Absolute #) 0.15 (0-0.5); Granulocyte Absolute (ANC) 1.35 (1.4-6.9); Granulocytes % 41.9 % (36.0-66.0); Hematocrit 43.1 % (42-50); Hemoglobin 14.6 gm/dl (12.5-18.0); Lymphocyte (Absolute #) 1.35 (1.0-4.6); Lymphocytes % 41.9 % (24.0-44.0); Mean Cell Volume 94.9 fl (78-100); Mean Corpuscular Hemoglobin 32.2 pg (26-32); Mean Corpuscular Hgb Concent. 33.9 g/dl (32-36); Mean Platelet Volume 12.8 fl (6-9.5); Monocyte (Absolute #) 0.35 (0.0-1.3); Monocytes % 10.9 % (0.0-12.0); Platelet Count 103 K/mm3 (150-450); Red Blood Count 4.54 M/mm3 (4.1-5.6); Red Cell Distribution Width 13.4 % (11.5-14.0); White Blood Count 3.2 K/mm3 (4.0-10.5)
[2018-08-27 06:07] LABS: INR 1.28 (0.8-3.0); PROTIME 14.5 SECONDS (8.83-12.87)
[2018-08-27 06:13] LABS: ANION GAP 13.6 MEQ/L (5-15); BLOOD UREA NITROGEN 10 mg/dL (9-20); CHLORIDE 105 mmol/L (98-107); Calcium 8.9 mg/dL (8.4-10.2); Carbon Dioxide 28 mmol/L (22-30); Creatinine 1 0.91 mg/dL (0.66-1.25); Glucose 88 mg/dL (74-106); Potassium 4.4 mmol/L (3.5-5.1); SODIUM 143 mmol/L (137-145)
[2018-08-27] MEDS ORDERED: Neurontin 400 MG PO PRN (08:00)
[2018-08-27] MEDS: Sodium Chloride 0.9% 1000 ML 1,000 ML IV SCH ×2 (08:05→18:33)
[2018-08-27] MEDS: CLARITIN 10 MG PO SCH (08:57)
[2018-08-27] MEDS: Effexor XR 75 MG PO SCH (08:57)
[2018-08-27] MEDS: TENORMIN 50 MG PO SCH (08:58)
[2018-08-27] MEDS: ENOXAPARIN SODIUM SQ SCH (08:58)
[2018-08-27] MEDS ORDERED: NON-FORMULARY ITEM (Cetirizine Hcl [Zyrtec] 10 MG) PO SCH (10:00)
[2018-08-27] MEDS ORDERED: NON-FORMULARY ITEM (Venlafaxine Hcl [Effexor Xr] 150 MG) PO SCH (10:00)
--- NOTE | 2018-08-27 13:51 | PCM.NOTE ---
Date and Time: 08/27/18 1345 Subjective Assessment: Pt's abd pain is improved - 05/07 currently. Used dilaudid last yesterday evening and caused some decrease in O2 sats. Pt has been using percocet today. Would like diet advanced; tolerating CLD. Passing flatus. - Review of Systems Constitutional: No Fever Abdominal/Gastrointestinal: Abdominal Pain Objective Exam General Appearance: no apparent distress, alert, obese Neurologic Exam: oriented x 3, cooperative Skin Exam: normal color, warm, dry, No rash Respiratory Exam: normal breath sounds, lungs clear, No crackles/rales, No rhonchi, No wheezing Cardiovascular Exam: regular rate/rhythm, normal heart sounds, No murmur Gastrointestinal/Abdomen Exam: soft, normal bowel sounds, tenderness (LLQ, RUQ) , No distention, No mass, No guarding, No rebound Extremity Exam: normal inspection, No pedal edema, No swelling OBJECTIVE DATA Vital Signs: Vital Signs - 24 hr Temp Pulse Resp BP BP Pulse Ox 08/27/18 11:20 98 08/27/18 10:00 98.1 F 54 L 18 101/58 98 08/27/18 08:58 99/55 08/27/18 06:54 97.7 F 52 L 16 99/56 96 08/27/18 03:56 97.5 F 45 L 18 119/58 98 08/27/18 00:00 97.7 F 51 L 18 117/65 98 08/26/18 19:23 97.8 F 54 L 18 108/61 98 08/26/18 17:18 98 08/26/18 16:00 97.7 F 48 L 16 100/54 95 Oxygen-Last 24 hours O2 Percentage 2 Liters = 28% O2 Percentage 2 Liters = 28% O2 Percentage 2 Liters = 28% O2 Percentage 2 Liters = 28% O2 Percentage 2 Liters = 28% O2 Percentage 2 Liters = 28% Pain Assessment - Last Documented Pain Intensity 2 Pain Scale Used 0-10 Pain Scale Intake and Output: Intake & Output 08/25/18 08/26/18 08/27/18 08/28/18 11:59 11:59 11:59 11:59 Intake Total 1739 3620 Output Total 600 2150 Balance 1139 1470 Weight 115.2 kg Lab Results: Lab Results-Last 24 Hours 0608/27/18 08/27/18 Range/Units 05:22 05:22 05:22 WBC 3.2 L (4.0-10.5) K/mm3 RBC 4.54 (4.1-5.6) M/mm3 Hgb 14.6 (12.5-18.0) gm/dl Hct 43.1 (42-50) % MCV 94.9 (78-100) fl MCH 32.2 H (26-32) pg MCHC 33.9 (32-36) g/dl RDW 13.4 (11.5-14.0) % Plt Count 103 L (150-450) K/mm3 MPV 12.8 H (6-9.5) fl Gran % 41.9 (36.0-66.0) % Eos # (Auto) 0.15 (0-0.5) Absolute Lymphs (auto) 1.35 (1.0-4.6) Absolute Monos (auto) 0.35 (0.0-1.3) Lymphocytes % 41.9 (24.0-44.0) % Monocytes % 10.9 (0.0-12.0) % Eosinophils % 4.7 (0.00-5.0) % Basophils % 0.6 (0.0-0.4) % Absolute Granulocytes 1.35 L (1.4-6.9) Basophils # 0.02 (0-0.4) PT 14.5 H (8.83-12.87) SECONDS INR 1.28 (0.8-3.0) Sodium 143 (137-145) mmol/L Potassium 4.4 (3.5-5.1) mmol/L Chloride 105 (98-107) mmol/L Carbon Dioxide 28 (22-30) mmol/L Anion Gap 13.6 (5-15) MEQ/L BUN 10 (9-20) mg/dL Creatinine 0.91 (0.66-1.25) mg/dL Estimated GFR > 60.0 ML/MIN Glucose 88 (74-106) mg/dL Calcium 8.9 (8.4-10.2) mg/dL Radiology Exams: Radiology Procedures Category Date Time Status ABDOMEN AND PELVIS W CONTRAST [CT] Stat Exams 08/25/18 17:41 Completed KUB Stat Exams 08/26/18 18:48 Completed KUB Urgent Exams 08/26/18 15:37 Completed Multi-Disciplinary Progress Notes: Multi-Disciplinary Progress Notes 08/27/18 09:48 Pharmacy Note by Frank Macedo Coumadin clarified with Dr. Martinez: 11mg every day, except 15mg on Tuesdays. Initialized on 08/27/18 09:48 - END OF NOTE Assessment/Plan (1) Diverticulitis Current Visit: Yes Status: Acute Assessment & Plan: Doing better. May be able to d/c home tomorrow on po antibiotics and pain meds , if philippe po. Code(s): K57.92 - DVTRCLI OF INTEST, PART UNSP, W/O PERF OR ABSCESS W/O BLEED (2) Factor V Leiden Current Visit: No Status: Chronic Assessment & Plan: On lovenox injections (40mg daily) currently as INR was not therapeutic. I increased his coumadin yesterday, from 10mg daily (except 15mg on Tuesdays) to 11mg daily (except 15mg on Tuesdays). Daily INRs. Code(s): D68.51 - ACTIVATED PROTEIN C RESISTANCE (3) Leukopenia Current Visit: Yes Status: Acute Qualifiers: Leukopenia type: neutropenia Neutropenia type: due to infection Qualified Code(s): D70.3 - Neutropenia due to infection Assessment & Plan: recheck in a.m. Discussed with pt. Code(s): D72.819 - DECREASED WHITE BLOOD CELL COUNT, UNSPECIFIED
[2018-08-27] MEDS ORDERED: Coumadin 10 MG PO SCH (18:00)
[2018-08-27] MEDS ORDERED: Coumadin 1 MG PO SCH (18:00)
[2018-08-27] MEDS: Levofloxacin 500MG/100ML D5W 500 MG/100 ML BAG IV SCH (20:29)
[2018-08-27] MEDS: PATIENT OWN MEDICATION PO PRN (20:30)
[2018-08-27] MEDS ORDERED: Colace 100 MG PO PRN (21:12)
[2018-08-27] MEDS: DESYREL 50 MG PO SCH (22:43)
[2018-08-28] MEDS: FLAGYL 500 MG IVPB 500 MG/100 ML BAG IV SCH ×2 (00:14→06:50)
[2018-08-28 06:12] LABS: BASOPHIL % 0.3 % (0.0-0.4); Basophil (Absolute #) 0.01 (0-0.4); Eosinophil % 4.5 % (0.00-5.0); Eosinophil (Absolute #) 0.17 (0-0.5); Granulocyte Absolute (ANC) 1.84 (1.4-6.9); Granulocytes % 49.1 % (36.0-66.0); Hematocrit 41.3 % (42-50); Hemoglobin 14.1 gm/dl (12.5-18.0); Lymphocyte (Absolute #) 1.43 (1.0-4.6); Lymphocytes % 38.1 % (24.0-44.0); Mean Cell Volume 94.3 fl (78-100); Mean Corpuscular Hemoglobin 32.2 pg (26-32); Mean Corpuscular Hgb Concent. 34.1 g/dl (32-36); Mean Platelet Volume 12.6 fl (6-9.5); Platelet Count 101 K/mm3 (150-450); Red Blood Count 4.38 M/mm3 (4.1-5.6); Red Cell Distribution Width 12.9 % (11.5-14.0); White Blood Count 3.8 K/mm3 (4.0-10.5)
[2018-08-28 06:32] LABS: ANION GAP 10.4 MEQ/L (5-15); BLOOD UREA NITROGEN 9 mg/dL (9-20); CHLORIDE 106 mmol/L (98-107); Calcium 8.9 mg/dL (8.4-10.2); Carbon Dioxide 29 mmol/L (22-30); Creatinine 1 0.84 mg/dL (0.66-1.25); Glucose 89 mg/dL (74-106); Potassium 3.8 mmol/L (3.5-5.1); SODIUM 141 mmol/L (137-145)
[2018-08-28 06:37] LABS: INR 1.49 (0.8-3.0)
[2018-08-28] MEDS: Sodium Chloride 0.9% 1000 ML 1,000 ML IV SCH (06:50)
[2018-08-28 07:40] VITALS: O2SAT 92
[2018-08-28] MEDS ORDERED: Coumadin 5 MG PO ONE (07:57)
--- NOTE | 2018-08-28 08:03 | PCM.DCORD ---
- Discharge Discharge Date: 08/28/18 Condition: Stable Prescriptions: New Levofloxacin [Levaquin] 500 mg PO DAILY 7 Days #7 tablet Continue Venlafaxine HCl [Effexor Xr] 150 mg PO DAILY Atenolol 50 mg [Tenormin 50 mg] 50 mg PO DAILY Cetirizine HCl [Zyrtec] 10 mg PO DAILY Warfarin Sodium 10 mg [Coumadin 10 MG] 10 mg PO UD Warfarin Sodium 10 mg [Coumadin 10 MG] 15 mg PO UD Oxycodone HCl/Acetaminophen [Percocet 7.5-325 mg Tablet] 1 each PO Q4H PRN PRN PRN Reason: Pain Gabapentin 400 mg [Neurontin 400 MG] 800 mg PO Q4H PRN PRN PRN Reason: Pain Additional Instructions: Hold 08/28/18 coumadin dose dt recieving 15mg this am for INR 1.49 Follow up with: TOMA ARCHULETA [Primary Care Provider] - 1 Week
[2018-08-28] MEDS: ENOXAPARIN SODIUM SQ SCH (09:00)
[2018-08-28] MEDS: CLARITIN 10 MG PO SCH (09:00)
[2018-08-28] MEDS: Effexor XR 75 MG PO SCH (09:00)
[2018-08-28] MEDS: TENORMIN 50 MG PO SCH (09:00)
[2018-08-28 09:01] VITALS: BP 136/74; PULSE 72
--- NOTE | 2018-08-28 12:30 | DS ---
DISCHARGE DIAGNOSES: 1) ACUTE COLITIS. 2) FACTOR V LIEDEN DEFICIENCY. 3) HISTORY OF PREVIOUS PULMONARY EMBOLISM. HOSPITAL COURSE: The patient is a 47 year-old white male patient who was admitted for abdominal pain left lower quadrant. He had a CT scan which revealed colitis. He was admitted to the hospital on IV Levaquin and Flagyl. The patient did show improvement with this and with fluid hydration he was able to start eating a bland diet again and by the morning of 08/28/2018 was feeling good, having very minimal pain. He was felt to be ready for discharge home. His discharge plans were to discharge him home on Levaquin 500 mg a day for additional week. We will discontinue metronidazole. He was instructed to use Tylenol for pain control. He is to restart his warfarin which he uses 10 mg a day and follow up with his primary care physician which is Dr. Facundo Zacarias this next coming week.
[2018-08-29] MEDS ORDERED: Coumadin 5 MG PO SCH
== END 2018-08-28 09:30 | disposition home or self-care (01) ==
LOC: ED 17:10 → MED SURG 20:15
PROVIDERS: ADMIT Family Medicine; ATTEND Family Medicine
DX: K57.92 Diverticulitis of intestine, part unspecified, without perforation or abscess without bleeding (principal); D68.51 Activated protein C resistance; D72.819 Decreased white blood cell count, unspecified; I10 Essential (primary) hypertension; M19.90 Unspecified osteoarthritis, unspecified site; Z79.01 Long term (current) use of anticoagulants; Z79.899 Other long term (current) drug therapy
CPT/HCPCS: 36000; 36415; 74018; 74177; 80048; 81001; 82150; 83690; 85025; 85610; 87040; 87077; 93268; 94760; 94762; 96360; 96361; 96365; 96374; 96375; 99285; G0378; J1170; J1650; J1956; J2060; J2405; A9270-GY

== ENCOUNTER 2018-10-31 22:44 | Emergency (ER) | payer BC, MEDICAID ==
[2018-10-31 23:00] VITALS: BP 132/92; O2SAT 96
[2018-10-31] MEDS ORDERED: Sodium Chloride 0.9% 1000 ML 1,000 ML IV STA (23:06)
--- NOTE | 2018-10-31 23:06 | ERPHSYRPT ---
- History of Present Illness Time Seen by Provider: 10/31/18 23:05 Historian: patient Patient Subjective Stated Complaint: States he has had lower abd pain for two days that has continued to worsen Triage Nursing Assessment: patient ambulated into ER halding left lower quad of abd. Abd tender to palpation left lower quad. patient reports chilling last night Physician History: 48 y/o white male presents with 2 day h/o left lower quadrant pain. pt states he began chilling last night. denies n/v/d. pt has h/o in past of multiple episodes of diverticulitis. feels the same Timing/Duration: day(s) (2), worse Quality: aching Abdominal Pain Onset Location: LLQ Pain Radiation: no radiation Severity of Pain-Max: mild Severity of Pain-Current: mild Associated Symptoms: fever/chills Previous symptoms: same symptoms as today Allergies/Adverse Reactions: BEESTINGS Allergy (Mild, Uncoded 08/25/18 17:26) Swelling Home Medications: Atenolol 50 mg [Tenormin 50 mg] 50 mg PO DAILY 01/03/16 [History] Cetirizine HCl [Zyrtec] 10 mg PO DAILY 10/30/16 [History] Oxycodone HCl/Acetaminophen [Percocet 7.5-325 mg Tablet] 1 each PO Q4H PRN PRN 08/25/18 [History] Warfarin Sodium 10 mg [Coumadin 10 MG] 10 mg PO UD 08/25/18 [History] Warfarin Sodium 10 mg [Coumadin 10 MG] 15 mg PO WEEKLY 08/25/18 [History] Hx Tetanus, Diphtheria Vaccination/Date Given: No Hx Influenza Vaccination/Date Given: No Hx Pneumococcal Vaccination/Date Given: No Immunizations Up to Date: Yes - Review of Systems Constitutional: No Symptoms Eyes: No Symptoms Ears, Nose, & Throat: No Symptoms Respiratory: No Symptoms Cardiac: No Symptoms Abdominal/Gastrointestinal: Abdominal Pain (left lower quadrant), No Nausea, No Vomiting, No Diarrhea Genitourinary Symptoms: No Symptoms Musculoskeletal: No Symptoms Skin: No Symptoms Neurological: No Symptoms Psychological: No Symptoms Endocrine: No Symptoms Hematologic/Lymphatic: No Symptoms Immunological/Allergic: No Symptoms All Other Systems: Reviewed and Negative - Past Medical History Pertinent Past Medical History: Yes Neurological History: No Pertinent History ENT History: No Pertinent History Cardiac History: Hypertension Respiratory History: No Pertinent History Endocrine Medical History: No Pertinent History Musculoskeletal History: Arthritis GI Medical History: Diverticulitis, Pancreatitis History: No Pertinent History Psycho-Social History: Anxiety, Other Male Reproductive Disorders: No Pertinent History Other Medical History: BLOOD DISORDER: FACTOR V, 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 and arthritis in back - Past Surgical History Past Surgical History: Yes Neuro Surgical History: No Pertinent History Cardiac: No Pertinent History Respiratory: No Pertinent History Gastrointestinal: Cholecystectomy, Hernia Repair Genitourinary: No Pertinent History Musculoskeletal: Orthopedic Surgery Male Surgical History: No Pertinent History Other Surgical History: INGUINAL LYMPH NODES - BRANDY CARPEL TUNNEL REPAIR - LOWER BACK - LEFT ELBOW RODS IN BACK - Social History Smoking Status: Never smoker Exposure to second hand smoke: No Drug Use: none Patient Lives Alone: No - Nursing Vital Signs Nursing Vital Signs: Initial Vital Signs Temperature 98.5 F 10/31/18 22:49 Pulse Rate 90 10/31/18 22:49 Respiratory Rate 20 10/31/18 22:49 Blood Pressure 132/92 10/31/18 22:49 O2 Sat by Pulse Oximetry 96 10/31/18 22:49 Pain Scale Pain Intensity 8 - Physical Exam General Appearance: mild distress, alert, anxiety Eye Exam: PERRL/EOMI, eyes nml inspection Ears, Nose, Throat Exam: normal ENT inspection, moist mucous membranes Neck Exam: normal inspection, non-tender, supple, full range of motion Respiratory Exam: normal breath sounds, lungs clear, airway intact, No chest tenderness, No respiratory distress Cardiovascular Exam: regular rate/rhythm, normal heart sounds, normal peripheral pulses Gastrointestinal/Abdomen Exam: soft, normal bowel sounds, tenderness (left lower quadrant), guarding, No rebound Rectal Exam: not done Back Exam: normal inspection, normal range of motion, No CVA tenderness, No vertebral tenderness Extremity Exam: normal inspection, normal range of motion, pelvis stable Neurologic Exam: alert, oriented x 3, cooperative, certification technician II-XII nml as tested Skin Exam: normal color, warm, dry Lymphatic Exam: No adenopathy SpO2 Interpretation: normal SpO2: 96 O2 Delivery: Room Air - Course Nursing assessment & vital signs reviewed: Yes Ordered Tests: Active Orders 24 hr Category Date Time Status IV Insertion STAT Care 10/31/18 23:05 Active ABDOMEN AND PELVIS W/0 CONTRAS [CT] Stat Exams 10/31/18 23:07 Taken AMYLASE Stat Lab 10/31/18 23:23 Completed CBC W DIFF Stat Lab 10/31/18 23:23 Completed CMP Stat Lab 10/31/18 23:23 Completed LIPASE Stat Lab 10/31/18 23:23 Completed Lactic Acid Stat Lab 10/31/18 23:06 Completed UA W/RFX UR CULTURE Stat Lab 10/31/18 23:23 Completed Medication Summary Discontinued Medications Generic Name Dose Route Start Last Admin Trade Name Freq PRN Reason Stop Dose Admin Hydromorphone HCl 1 mg 11/01/18 00:05 Hydromorphone 1 Mg/Ml Ampule IV 11/01/18 00:06 STAT ONE Sodium Chloride 1,000 mls @ 999 mls/hr 10/31/18 23:06 10/31/18 23:32 Sodium Chloride 0.9% 1000 Ml IV 11/01/18 00:06 999 mls/hr .Q1H1M STA Administration Sodium Chloride Confirm 10/31/18 23:11 Sodium Chloride 0.9% 1000 Ml Administered 10/31/18 23:12 Dose 1,000 mls @ ud .ROUTE .STK-MED ONE Ondansetron HCl 4 mg 11/01/18 00:05 Zofran 4 Mg/2 Ml Vial IV 11/01/18 00:06 STAT ONE Lab/Rad Data: Laboratory Result Diagrams 10/31/18 23:23 10/31/18 23:23 Laboratory Results 10/31/18 10/31/18 10/31/18 Range/Units 23:23 23:23 23:23 WBC 6.9 (4.0-10.5) K/mm3 RBC 5.09 (4.1-5.6) M/mm3 Hgb 16.5 (12.5-18.0) gm/dl Hct 48.2 (42-50) % MCV 94.7 (78-100) fl MCH 32.4 H (26-32) pg MCHC 34.2 (32-36) g/dl RDW 14.0 (11.5-14.0) % Plt Count 152 (150-450) K/mm3 MPV 12.3 H (6-9.5) fl Gran % 56.4 (36.0-66.0) % Eos # (Auto) 0.15 (0-0.5) Absolute Lymphs (auto) 2.02 (1.0-4.6) Absolute Monos (auto) 0.82 (0.0-1.3) Lymphocytes % 29.2 (24.0-44.0) % Monocytes % 11.8 (0.0-12.0) % Eosinophils % 2.2 (0.00-5.0) % Basophils % 0.4 (0.0-0.4) % Absolute Granulocytes 3.90 (1.4-6.9) Basophils # 0.03 (0-0.4) Sodium 140 (137-145) mmol/L Potassium 4.1 (3.5-5.1) mmol/L Chloride 104 (98-107) mmol/L Carbon Dioxide 28 (22-30) mmol/L Anion Gap 12.8 (5-15) MEQ/L BUN 14 (9-20) mg/dL Creatinine 0.92 (0.66-1.25) mg/dL Estimated GFR > 60.0 ML/MIN Glucose 92 (74-106) mg/dL Lactic Acid (0.4-2.0) Calcium 9.5 (8.4-10.2) mg/dL Total Bilirubin 1.40 H (0.2-1.3) mg/dL AST 33 (17-59) U/L ALT 33 (0-50) U/L Alkaline Phosphatase 60 (38-126) U/L Serum Total Protein 8.0 (6.3-8.2) g/dL Albumin 4.5 (3.5-5.0) g/dL Amylase 71 (30-110) U/L Lipase 93 (23-300) U/L Urine Color DELISA (YELLOW) Urine Appearance CLEAR (CLEAR) Urine pH 7.0 (5-6) Ur Specific [place] 1.026 (1.005-1.025) Urine Protein 30 (Negative) Urine Ketones TRACE (NEGATIVE) Urine Blood NEGATIVE (0-5) Eder/ul Urine Nitrite NEGATIVE (NEGATIVE) Urine Bilirubin NEGATIVE (NEGATIVE) Urine Urobilinogen 2 (0-1) mg/dL Ur Leukocyte Esterase NEGATIVE (NEGATIVE) Urine WBC (Auto) NONE (0-5) /HPF Urine RBC (Auto) 0-2 (0-2) /HPF U Epithel Cells (Auto) NONE (FEW) /HPF Urine Bacteria (Auto) NONE (NEGATIVE) /HPF Urine Mucus (Auto) SLIGHT (NEGATIVE) /HPF Urine Culture Reflexed NO (NO) Urine Glucose NEGATIVE (NEGATIVE) mg/dL 10/31/18 Range/Units 23:06 WBC (4.0-10.5) K/mm3 RBC (4.1-5.6) M/mm3 Hgb (12.5-18.0) gm/dl Hct (42-50) % MCV (78-100) fl MCH (26-32) pg MCHC (32-36) g/dl RDW (11.5-14.0) % Plt Count (150-450) K/mm3 MPV (6-9.5) fl Gran % (36.0-66.0) % Eos # (Auto) (0-0.5) Absolute Lymphs (auto) (1.0-4.6) Absolute Monos (auto) (0.0-1.3) Lymphocytes % (24.0-44.0) % Monocytes % (0.0-12.0) % Eosinophils % (0.00-5.0) % Basophils % (0.0-0.4) % Absolute Granulocytes (1.4-6.9) Basophils # (0-0.4) Sodium (137-145) mmol/L Potassium (3.5-5.1) mmol/L Chloride (98-107) mmol/L Carbon Dioxide (22-30) mmol/L Anion Gap (5-15) MEQ/L BUN (9-20) mg/dL Creatinine (0.66-1.25) mg/dL Estimated GFR ML/MIN Glucose (74-106) mg/dL Lactic Acid 1.1 (0.4-2.0) Calcium (8.4-10.2) mg/dL Total Bilirubin (0.2-1.3) mg/dL AST (17-59) U/L ALT (0-50) U/L Alkaline Phosphatase (38-126) U/L Serum Total Protein (6.3-8.2) g/dL Albumin (3.5-5.0) g/dL Amylase (30-110) U/L Lipase (23-300) U/L Urine Color (YELLOW) Urine Appearance (CLEAR) Urine pH (5-6) Ur Specific [place] (1.005-1.025) Urine Protein (Negative) Urine Ketones (NEGATIVE) Urine Blood (0-5) Eder/ul Urine Nitrite (NEGATIVE) Urine Bilirubin (NEGATIVE) Urine Urobilinogen (0-1) mg/dL Ur Leukocyte Esterase (NEGATIVE) Urine WBC (Auto) (0-5) /HPF Urine RBC (Auto) (0-2) /HPF U Epithel Cells (Auto) (FEW) /HPF Urine Bacteria (Auto) (NEGATIVE) /HPF Urine Mucus (Auto) (NEGATIVE) /HPF Urine Culture Reflexed (NO) Urine Glucose (NEGATIVE) mg/dL - Progress Progress: improved Progress Note: 11/01/18 00:13 ct scan abd/pelvis-distal descending colon diverticulitis without abscess Counseled pt/family regarding: lab results, diagnosis, need for follow-up, rad results - Departure Departure Disposition: Home Clinical Impression: Diverticulitis Condition: Stable Critical Care Time: No Referrals: TOMA ARCHULETA [Primary Care Provider] - Additional Instructions: clear liquids only until abdominal pain resolved. return to ED if pain worsens. follow up with your primary doctor to arrange a follow up appointment and referral to a general surgeon if indicated. Prescriptions: Hydrocodone/APAP 5/325 [[place] 5/325 mg] 1 each PO Q6H PRN PRN #12 tablet MDD 4 PRN Reason: Pain Ciprofloxacin [Cipro 500 MG] 500 mg PO BID #14 tablet Metronidazole 500 mg [Flagyl 500 MG] 500 mg PO TID #21 tablet
[2018-10-31] MEDS ORDERED: Sodium Chloride 0.9% 1000 ML 1,000 ML ONE (23:11)
[2018-10-31 23:24] LABS: BASOPHIL % 0.4 % (0.0-0.4); Basophil (Absolute #) 0.03 (0-0.4); Eosinophil % 2.2 % (0.00-5.0); Eosinophil (Absolute #) 0.15 (0-0.5); Granulocytes % 56.4 % (36.0-66.0); Hematocrit 48.2 % (42-50); Hemoglobin 16.5 gm/dl (12.5-18.0); Lymphocyte (Absolute #) 2.02 (1.0-4.6); Lymphocytes % 29.2 % (24.0-44.0); Mean Cell Volume 94.7 fl (78-100); Mean Corpuscular Hemoglobin 32.4 pg (26-32); Mean Corpuscular Hgb Concent. 34.2 g/dl (32-36); Mean Platelet Volume 12.3 fl (6-9.5); Monocyte (Absolute #) 0.82 (0.0-1.3); Monocytes % 11.8 % (0.0-12.0); Platelet Count 152 K/mm3 (150-450); Red Blood Count 5.09 M/mm3 (4.1-5.6); White Blood Count 6.9 K/mm3 (4.0-10.5)
[2018-10-31 23:36] LABS: ALBUMIN 4.5 g/dL (3.5-5.0); ALKALINE PHOSPHATASE 60 U/L (38-126); AMYLASE 71 U/L (30-110); ANION GAP 12.8 MEQ/L (5-15); BLOOD UREA NITROGEN 14 mg/dL (9-20); CHLORIDE 104 mmol/L (98-107); Calcium 9.5 mg/dL (8.4-10.2); Carbon Dioxide 28 mmol/L (22-30); Creatinine 1 0.92 mg/dL (0.66-1.25); Glucose 92 mg/dL (74-106); LIPASE 93 U/L (23-300); Potassium 4.1 mmol/L (3.5-5.1); SGOT/AST 33 U/L (17-59); SGPT/ALT 33 U/L (0-50); SODIUM 140 mmol/L (137-145)
[2018-10-31 23:42] LABS: Appearance CLEAR (CLEAR); Bilirubin NEGATIVE (NEGATIVE); Blood NEGATIVE Ery/ul (0-5); Glucose NEGATIVE (NEGATIVE); Ketones TRACE (NEGATIVE); Leukocyte Esterase NEGATIVE (NEGATIVE); Mucus SLIGHT /HPF (NEGATIVE); Nitrite NEGATIVE (NEGATIVE); Protein,Urine Dip 30 (Negative); RBC 0-2 /HPF (0-2); Specific Gravity 1.026 (1.005-1.025); Urobilinogen 2 mg/dL (0-1)
[2018-11-01] MEDS ORDERED: Hydromorphone 1 mg/ml Ampule IV ONE (00:05)
[2018-11-01] MEDS ORDERED: Zofran 4 MG/2 ML VIAL IV ONE (00:05)
[2018-11-01] MEDS ORDERED: Cipro 500 MG PO ONE (00:08)
[2018-11-01] MEDS ORDERED: Flagyl 500 MG PO ONE (00:09)
[2018-11-01] MEDS ORDERED: Cipro 500 MG ONE (00:13)
[2018-11-01] MEDS ORDERED: Zofran 4 MG/2 ML VIAL ONE (00:13)
[2018-11-01] MEDS ORDERED: Hydromorphone 1 mg/ml Ampule ONE (00:13)
[2018-11-01] MEDS ORDERED: Flagyl 500 MG ONE (00:14)
[2018-11-01] MEDS ORDERED: NORCO 5/325 MG PO ONE (00:19)
[2018-11-01] MEDS ORDERED: NORCO 5/325 MG ONE (00:35)
[2018-11-01 00:54] VITALS: PULSE 69
--- NOTE | 2018-11-01 08:46 | XRAY ---
Indication: Left lower quadrant pain. History diverticulitis. Multiple contiguous axial images obtained through the abdomen and pelvis without contrast as ordered. Comparison: August 25, 2018. Lung bases are clear. Heart is not enlarged. Noncontrasted stomach and bowel loops appear nonobstructed. Normal appendix. Again minimal scattered descending and sigmoid diverticulosis with mild diverticulitis junction of descending and sigmoid colon. No free fluid/air. Stable fatty liver, cholecystectomy, calcified splenic granulomas, and right lower quadrant hernia repair. New nonobstructing punctate left renal calculus, obscured on previous contrasted exam. Remaining liver, pancreas, spleen, adrenal glands, kidneys, ureters, bladder, and aorta appear unremarkable for noncontrast exam. Osseous structures intact again with L3-L4 laminectomy/fusion. Impression: 1. Mild diverticulitis at junction descending and sigmoid colon. No complications. 2. Incidental fatty liver, calcific granulomas, nonobstructing left renal micro-calculus, and postsurgical changes. Comment: Preliminary interpretation was made by [facility]. No critical discrepancy. CT DI 23.68
== END 2018-11-01 01:08 | disposition home or self-care (01) ==
LOC: ED 22:44
DX: K57.32 Diverticulitis of large intestine without perforation or abscess without bleeding (principal)
CPT/HCPCS: 36000; 36415; 74176; 80053; 81001; 82150; 83605; 83690; 85025; 96360; 96374; 96375; 99284; J1170; J2405; A9270-GY

== ENCOUNTER 2018-11-08 21:24 | Emergency (ER) | payer MEDICAID ==
[2018-11-08] MEDS ORDERED: Hydromorphone 1 mg/ml Ampule IV ONE ×2 (21:37→23:25)
[2018-11-08] MEDS ORDERED: Zofran 4 MG/2 ML VIAL IV ONE (21:37)
[2018-11-08] MEDS ORDERED: Sodium Chloride 0.9% 1000 ML 1,000 ML IV STA ×2 (21:37→23:25)
--- NOTE | 2018-11-08 21:37 | ERPHSYRPT ---
- History of Present Illness Time Seen by Provider: 11/08/18 21:33 Historian: patient, family Exam Limitations: no limitations Physician History: 48 y/o white male on coumadin chronically presents with persistent and worsening left lower quadrant abdominal pain. pt dx with descending colon diverticulitis without abscess here on 10/31/18. pt sent home with rx for cipro and flagyl. pts states llq pain worse. Timing/Duration: worse Activities at Onset: none Quality: pressure, stabbing Abdominal Pain Onset Location: LLQ Pain Radiation: no radiation Severity of Pain-Max: moderate Severity of Pain-Current: moderate Modifying Factors: Improves With: nothing Associated Symptoms: nausea Previous symptoms: same symptoms as today, recently seen, recently treated Allergies/Adverse Reactions: BEESTINGS Allergy (Mild, Uncoded 08/25/18 17:26) Swelling Home Medications: Atenolol 50 mg [Tenormin 50 mg] 50 mg PO DAILY 01/03/16 [History] Cetirizine HCl [Zyrtec] 10 mg PO DAILY 10/30/16 [History] Oxycodone HCl/Acetaminophen [Percocet 7.5-325 mg Tablet] 1 each PO Q4H PRN PRN 08/25/18 [History] Warfarin Sodium 10 mg [Coumadin 10 MG] 10 mg PO UD 08/25/18 [History] Warfarin Sodium 10 mg [Coumadin 10 MG] 15 mg PO WEEKLY 08/25/18 [History] Hx Tetanus, Diphtheria Vaccination/Date Given: No Hx Influenza Vaccination/Date Given: No Hx Pneumococcal Vaccination/Date Given: No - Review of Systems Constitutional: No Symptoms Eyes: No Symptoms Ears, Nose, & Throat: No Symptoms Respiratory: No Symptoms Cardiac: No Symptoms Abdominal/Gastrointestinal: Abdominal Pain (left lower quadrant) Genitourinary Symptoms: No Symptoms Musculoskeletal: No Symptoms Skin: No Symptoms Neurological: No Symptoms Psychological: No Symptoms Endocrine: No Symptoms Hematologic/Lymphatic: No Symptoms Immunological/Allergic: No Symptoms All Other Systems: Reviewed and Negative - Past Medical History Pertinent Past Medical History: Yes Neurological History: No Pertinent History ENT History: No Pertinent History Cardiac History: Hypertension Respiratory History: No Pertinent History Endocrine Medical History: No Pertinent History Musculoskeletal History: Arthritis GI Medical History: Diverticulitis, Pancreatitis History: No Pertinent History Psycho-Social History: Anxiety, Other Male Reproductive Disorders: No Pertinent History Other Medical History: BLOOD DISORDER: FACTOR V, 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 and arthritis in back - Past Surgical History Past Surgical History: Yes Neuro Surgical History: No Pertinent History Cardiac: No Pertinent History Respiratory: No Pertinent History Gastrointestinal: Cholecystectomy, Hernia Repair Genitourinary: No Pertinent History Musculoskeletal: Orthopedic Surgery Male Surgical History: No Pertinent History Other Surgical History: INGUINAL LYMPH NODES - BRANDY CARPEL TUNNEL REPAIR - LOWER BACK - LEFT ELBOW RODS IN BACK - Social History Smoking Status: Never smoker Exposure to second hand smoke: No Drug Use: none Patient Lives Alone: No - Nursing Vital Signs Nursing Vital Signs: Initial Vital Signs Temperature 98.0 F 11/08/18 21:33 Pulse Rate 74 11/08/18 21:33 Respiratory Rate 20 11/08/18 21:33 Blood Pressure 144/89 11/08/18 21:33 O2 Sat by Pulse Oximetry 97 11/08/18 21:33 Pain Scale Pain Intensity 6 - Physical Exam General Appearance: mild distress, alert, anxiety Eye Exam: PERRL/EOMI, eyes nml inspection Ears, Nose, Throat Exam: normal ENT inspection, moist mucous membranes Neck Exam: normal inspection, non-tender, supple, full range of motion Respiratory Exam: normal breath sounds, lungs clear, airway intact, No chest tenderness, No respiratory distress Cardiovascular Exam: regular rate/rhythm, normal heart sounds, normal peripheral pulses Gastrointestinal/Abdomen Exam: soft, normal bowel sounds, tenderness (left lower quadran), guarding Rectal Exam: not done Back Exam: normal inspection, normal range of motion, No CVA tenderness, No vertebral tenderness Extremity Exam: normal inspection, normal range of motion, pelvis stable Neurologic Exam: alert, oriented x 3, cooperative, shop steward II-XII nml as tested Skin Exam: normal color, warm, dry Lymphatic Exam: No adenopathy SpO2 Interpretation: normal O2 Delivery: Room Air - Course Nursing assessment & vital signs reviewed: Yes Ordered Tests: Active Orders 24 hr Category Date Time Status IV Insertion STAT Care 11/08/18 21:37 Active ABDOMEN AND PELVIS W/0 CONTRAS [CT] Stat Exams 11/08/18 21:38 Taken AMYLASE Stat Lab 11/08/18 21:45 Completed CBC W DIFF Stat Lab 11/08/18 21:45 Completed CMP Stat Lab 11/08/18 21:45 Completed LIPASE Stat Lab 11/08/18 21:45 Completed Lactic Acid Stat Lab 11/08/18 21:50 Completed PROTIME WITH INR Stat Lab 11/08/18 21:45 Completed UA W/RFX UR CULTURE Stat Lab 11/08/18 21:45 Completed Medication Summary Generic Name Dose Route Start Last Admin Trade Name Emanuel PRN Reason Stop Dose Admin Metronidazole 500 mg in 100 mls @ 200 mls/hr 11/08/18 23:23 Flagyl 500 Mg Ivpb IV 11/08/18 23:52 STAT STA Sodium Chloride 1,000 mls @ 999 mls/hr 11/08/18 23:25 Sodium Chloride 0.9% 1000 Ml IV 11/09/18 00:25 .Q1H1M STA Ceftriaxone Sodium/Dextrose 1 g in 50 mls @ 100 mls/hr 11/08/18 23:39 Rocephin 1 Gm-D5w 50 Ml Bag IV 11/09/18 00:08 STAT STA Discontinued Medications Generic Name Dose Route Start Last Admin Trade Name Emanuel PRN Reason Stop Dose Admin Hydromorphone HCl 1 mg 11/08/18 21:37 11/08/18 22:11 Hydromorphone 1 Mg/Ml Ampule IV 11/08/18 21:38 1 mg STAT ONE Administration Hydromorphone HCl Confirm 11/08/18 21:52 Hydromorphone 1 Mg/Ml Ampule Administered 11/08/18 21:53 Dose 1 mg .ROUTE .STK-MED ONE Hydromorphone HCl 1 mg 11/08/18 23:25 Hydromorphone 1 Mg/Ml Ampule IV 11/08/18 23:26 STAT ONE Hydromorphone HCl Confirm 11/08/18 23:35 Hydromorphone 1 Mg/Ml Ampule Administered 11/08/18 23:36 Dose 1 mg .ROUTE .STK-MED ONE Sodium Chloride 1,000 mls @ 999 mls/hr 11/08/18 21:37 11/08/18 23:21 Sodium Chloride 0.9% 1000 Ml IV 11/08/18 22:37 Infused .Q1H1M STA Infusion Sodium Chloride Confirm 11/08/18 21:52 Sodium Chloride 0.9% 1000 Ml Administered 11/08/18 21:53 Dose 1,000 mls @ ud .ROUTE .STK-MED ONE Sodium Chloride Confirm 11/08/18 23:35 Sodium Chloride 0.9% 1000 Ml Administered 11/08/18 23:36 Dose 1,000 mls @ ud .ROUTE .STK-MED ONE Metronidazole Confirm 11/08/18 23:35 Flagyl 500 Mg Ivpb Administered 11/08/18 23:36 Dose 500 mg in 100 mls @ ud IV .STK-MED ONE Ondansetron HCl 4 mg 11/08/18 21:37 11/08/18 22:11 Zofran 4 Mg/2 Ml Vial IV 11/08/18 21:38 4 mg STAT ONE Administration Ondansetron HCl Confirm 11/08/18 21:51 Zofran 4 Mg/2 Ml Vial Administered 11/08/18 21:52 Dose 4 mg .ROUTE .STK-MED ONE Lab/Rad Data: Laboratory Result Diagrams 11/08/18 21:45 11/08/18 21:45 Laboratory Results 11/08/18 11/08/18 11/08/18 Range/Units 21:50 21:45 21:45 WBC (4.0-10.5) K/mm3 RBC (4.1-5.6) M/mm3 Hgb (12.5-18.0) gm/dl Hct (42-50) % MCV (78-100) fl MCH (26-32) pg MCHC (32-36) g/dl RDW (11.5-14.0) % Plt Count (150-450) K/mm3 MPV (6-9.5) fl Gran % (36.0-66.0) % Eos # (Auto) (0-0.5) Absolute Lymphs (auto) (1.0-4.6) Absolute Monos (auto) (0.0-1.3) Lymphocytes % (24.0-44.0) % Monocytes % (0.0-12.0) % Eosinophils % (0.00-5.0) % Basophils % (0.0-0.4) % Absolute Granulocytes (1.4-6.9) Basophils # (0-0.4) PT 54.6 H (8.83-12.87) SECONDS INR 4.68 H (0.8-3.0) Sodium (137-145) mmol/L Potassium (3.5-5.1) mmol/L Chloride (98-107) mmol/L Carbon Dioxide (22-30) mmol/L Anion Gap (5-15) MEQ/L BUN (9-20) mg/dL Creatinine (0.66-1.25) mg/dL Estimated GFR ML/MIN Glucose (74-106) mg/dL Lactic Acid 1.6 (0.4-2.0) Calcium (8.4-10.2) mg/dL Total Bilirubin (0.2-1.3) mg/dL AST (17-59) U/L ALT (0-50) U/L Alkaline Phosphatase (38-126) U/L Serum Total Protein (6.3-8.2) g/dL Albumin (3.5-5.0) g/dL Amylase (30-110) U/L Lipase (23-300) U/L Urine Color YELLOW (YELLOW) Urine Appearance CLEAR (CLEAR) Urine pH 5.0 (5-6) Ur Specific [place] 1.017 (1.005-1.025) Urine Protein NEGATIVE (Negative) Urine Ketones NEGATIVE (NEGATIVE) Urine Blood NEGATIVE (0-5) Eder/ul Urine Nitrite NEGATIVE (NEGATIVE) Urine Bilirubin NEGATIVE (NEGATIVE) Urine Urobilinogen NEGATIVE (0-1) mg/dL Ur Leukocyte Esterase TRACE (NEGATIVE) Urine WBC (Auto) NONE (0-5) /HPF Urine RBC (Auto) NONE (0-2) /HPF U Epithel Cells (Auto) NONE (FEW) /HPF Urine Bacteria (Auto) NONE (NEGATIVE) /HPF Urine Mucus (Auto) SLIGHT (NEGATIVE) /HPF Urine Culture Reflexed NO (NO) Urine Glucose NEGATIVE (NEGATIVE) mg/dL 11/08/18 11/08/18 Range/Units 21:45 21:45 WBC 4.2 (4.0-10.5) K/mm3 RBC 5.08 (4.1-5.6) M/mm3 Hgb 16.3 (12.5-18.0) gm/dl Hct 47.9 (42-50) % MCV 94.3 (78-100) fl MCH 32.1 H (26-32) pg MCHC 34.0 (32-36) g/dl RDW 13.9 (11.5-14.0) % Plt Count 150 (150-450) K/mm3 MPV 11.5 H (6-9.5) fl Gran % 50.9 (36.0-66.0) % Eos # (Auto) 0.16 (0-0.5) Absolute Lymphs (auto) 1.41 (1.0-4.6) Absolute Monos (auto) 0.46 (0.0-1.3) Lymphocytes % 33.6 (24.0-44.0) % Monocytes % 11.0 (0.0-12.0) % Eosinophils % 3.8 (0.00-5.0) % Basophils % 0.7 (0.0-0.4) % Absolute Granulocytes 2.14 (1.4-6.9) Basophils # 0.03 (0-0.4) PT (8.83-12.87) SECONDS INR (0.8-3.0) Sodium 141 (137-145) mmol/L Potassium 4.2 (3.5-5.1) mmol/L Chloride 104 (98-107) mmol/L Carbon Dioxide 31 H (22-30) mmol/L Anion Gap 10.1 (5-15) MEQ/L BUN 10 (9-20) mg/dL Creatinine 0.92 (0.66-1.25) mg/dL Estimated GFR > 60.0 ML/MIN Glucose 119 H (74-106) mg/dL Lactic Acid (0.4-2.0) Calcium 9.7 (8.4-10.2) mg/dL Total Bilirubin 0.50 (0.2-1.3) mg/dL AST 48 (17-59) U/L ALT 37 (0-50) U/L Alkaline Phosphatase 54 (38-126) U/L Serum Total Protein 7.5 (6.3-8.2) g/dL Albumin 4.2 (3.5-5.0) g/dL Amylase 65 (30-110) U/L Lipase 94 (23-300) U/L Urine Color (YELLOW) Urine Appearance (CLEAR) Urine pH (5-6) Ur Specific [place] (1.005-1.025) Urine Protein (Negative) Urine Ketones (NEGATIVE) Urine Blood (0-5) Eder/ul Urine Nitrite (NEGATIVE) Urine Bilirubin (NEGATIVE) Urine Urobilinogen (0-1) mg/dL Ur Leukocyte Esterase (NEGATIVE) Urine WBC (Auto) (0-5) /HPF Urine RBC (Auto) (0-2) /HPF U Epithel Cells (Auto) (FEW) /HPF Urine Bacteria (Auto) (NEGATIVE) /HPF Urine Mucus (Auto) (NEGATIVE) /HPF Urine Culture Reflexed (NO) Urine Glucose (NEGATIVE) mg/dL - Progress Progress: improved, pain not gone completely, re-examined Progress Note: 11/08/18 23:54 ct abd/pelvis-mild diverticulitis distal desc colon. improvement over last ct scan. only trace stranding remains. no abscess. no fluid and no free air. Counseled pt/family regarding: lab results, diagnosis, need for follow-up, rad results - Departure Departure Disposition: Home Clinical Impression: Diverticulitis Condition: Stable Critical Care Time: No Referrals: TOMA ARCHULETA [Primary Care Provider] - Additional Instructions: clear to full liquids. take medications as prescribed. stop coumadin 11/09 and . return to lab at noon on 11/10/18 to recheck pt/inr. continue your pain medications as prescribed. Prescriptions: Metronidazole 500 mg [Flagyl 500 MG] 500 mg PO TID #15 tablet
[2018-11-08] MEDS ORDERED: Zofran 4 MG/2 ML VIAL ONE (21:51)
[2018-11-08] MEDS ORDERED: Hydromorphone 1 mg/ml Ampule ONE ×2 (21:52→23:35)
[2018-11-08] MEDS ORDERED: Sodium Chloride 0.9% 1000 ML 1,000 ML ONE ×2 (21:52→23:35)
[2018-11-08 21:58] LABS: BASOPHIL % 0.7 % (0.0-0.4); Basophil (Absolute #) 0.03 (0-0.4); Eosinophil % 3.8 % (0.00-5.0); Eosinophil (Absolute #) 0.16 (0-0.5); Granulocyte Absolute (ANC) 2.14 (1.4-6.9); Granulocytes % 50.9 % (36.0-66.0); Hematocrit 47.9 % (42-50); Hemoglobin 16.3 gm/dl (12.5-18.0); Lymphocyte (Absolute #) 1.41 (1.0-4.6); Lymphocytes % 33.6 % (24.0-44.0); Mean Cell Volume 94.3 fl (78-100); Mean Corpuscular Hemoglobin 32.1 pg (26-32); Mean Platelet Volume 11.5 fl (6-9.5); Monocyte (Absolute #) 0.46 (0.0-1.3); Platelet Count 150 K/mm3 (150-450); Red Blood Count 5.08 M/mm3 (4.1-5.6); Red Cell Distribution Width 13.9 % (11.5-14.0); White Blood Count 4.2 K/mm3 (4.0-10.5)
[2018-11-08 22:04] LABS: INR 4.68 (0.8-3.0); PROTIME 54.6 SECONDS (8.83-12.87)
[2018-11-08 22:09] LABS: ALBUMIN 4.2 g/dL (3.5-5.0); ALKALINE PHOSPHATASE 54 U/L (38-126); AMYLASE 65 U/L (30-110); ANION GAP 10.1 MEQ/L (5-15); BLOOD UREA NITROGEN 10 mg/dL (9-20); CHLORIDE 104 mmol/L (98-107); Calcium 9.7 mg/dL (8.4-10.2); Carbon Dioxide 31 mmol/L (22-30); Creatinine 1 0.92 mg/dL (0.66-1.25); Glucose 119 mg/dL (74-106); LIPASE 94 U/L (23-300); Potassium 4.2 mmol/L (3.5-5.1); SGOT/AST 48 U/L (17-59); SGPT/ALT 37 U/L (0-50); SODIUM 141 mmol/L (137-145); Total Protein 7.5 g/dL (6.3-8.2)
[2018-11-08 22:14] LABS: Appearance CLEAR (CLEAR); Bilirubin NEGATIVE (NEGATIVE); Blood NEGATIVE Ery/ul (0-5); Glucose NEGATIVE (NEGATIVE); Ketones NEGATIVE (NEGATIVE); Leukocyte Esterase TRACE (NEGATIVE); Mucus SLIGHT /HPF (NEGATIVE); Nitrite NEGATIVE (NEGATIVE); Protein,Urine Dip NEGATIVE (Negative); Specific Gravity 1.017 (1.005-1.025); Urobilinogen NEGATIVE mg/dL (0-1)
[2018-11-08] MEDS ORDERED: FLAGYL 500 MG IVPB 500 MG/100 ML BAG IV STA (23:23)
[2018-11-08] MEDS ORDERED: FLAGYL 500 MG IVPB 500 MG/100 ML BAG IV ONE (23:35)
[2018-11-08] MEDS ORDERED: ROCEPHIN 1 Gm-D5w 50 ml Bag** 1 G/50 ML IVPB IV STA (23:39)
[2018-11-08] MEDS ORDERED: ROCEPHIN 1 Gm-D5w 50 ml Bag** 1 G/50 ML IVPB IV ONE (23:46)
[2018-11-09 00:17] VITALS: O2SAT 95
[2018-11-09] MEDS ORDERED: Zofran 4 MG/2 ML VIAL ONE (00:44)
[2018-11-09] MEDS ORDERED: Zofran 4 MG/2 ML VIAL IV ONE (00:45)
[2018-11-09 00:52] VITALS: BP 119/70; PULSE 75
--- NOTE | 2018-11-09 09:08 | XRAY ---
Indication: Dizziness, nausea, and vomiting. Multiple contiguous axial images obtained through the abdomen and pelvis without contrast as ordered. Comparison: October 31, 2018. Lung bases remain clear. Heart is not enlarged. There is now small hiatal hernia. Noncontrasted stomach and bowel loops remain nonobstructed with normal appearing normal appendix. Again scattered colonic diverticulosis. Previous left lower quadrant diverticulitis has improved with minimal residual. No free fluid/air. Stable fatty liver, cholecystectomy, calcified splenic granulomas, nonobstructing punctate left renal calculus, and right lower quadrant hernia repair. Remaining liver, pancreas, spleen, adrenal glands, kidneys, ureters, bladder, and aorta appear unremarkable for noncontrast exam. Impression: 1. Improving left lower quadrant diverticulitis with minimal residual. Stable scattered colonic diverticulosis. 2. Small hiatal hernia. 3. Stable fatty liver, calcified granulomas, nonobstructing left renal micro-calculus, and postsurgical changes. Comment: Preliminary interpretation was made by [facility]. No critical discrepancy. CT DI 28.13
== END 2018-11-09 00:58 | disposition home or self-care (01) ==
LOC: ED 21:24
DX: K57.92 Diverticulitis of intestine, part unspecified, without perforation or abscess without bleeding (principal)
CPT/HCPCS: 36000; 36415; 74176; 80053; 81001; 82150; 83605; 83690; 85025; 85610; 96360; 96361; 96365; 96374; 96375; 96376; 99285; J0696; J1170; J2405

== ENCOUNTER 2019-04-16 21:04 | Emergency (ER) | payer BC, MEDICAID ==
[2019-04-16 22:09] LABS: Appearance CLEAR (CLEAR); Bilirubin NEGATIVE (NEGATIVE); Blood SMALL Ery/ul (0-5); Glucose NEGATIVE (NEGATIVE); Ketones NEGATIVE (NEGATIVE); Leukocyte Esterase NEGATIVE (NEGATIVE); Mucus SLIGHT /HPF (NEGATIVE); Nitrite NEGATIVE (NEGATIVE); Protein,Urine Dip 30 (Negative); Specific Gravity 1.027 (1.005-1.025); Urobilinogen 4 mg/dL (0-1)
[2019-04-16 22:18] LABS: Amphetamine,Urine NEGATIVE (NEGATIVE); Barbiturate,Urine NEGATIVE (NEGATIVE); Benzodiazepine,Urine NEGATIVE (NEGATIVE); Cocaine,Urine NEGATIVE (NEGATIVE); Methadone,Urine NEGATIVE (NEGATIVE); Opiate,Urine NEGATIVE (NEGATIVE); PCP,Urine NEGATIVE (NEGATIVE); THC,Urine NEGATIVE (NEGATIVE)
--- NOTE | 2019-04-16 22:28 | ERPHSYRPT ---
- History of Present Illness Time Seen by Provider: 04/16/19 21:30 Historian: patient Exam Limitations: no limitations Patient Subjective Stated Complaint: Patient states " I have been having bad flank pain that is coming around to left side of ABD." Patient states it flo mcclure when I pee. Triage Nursing Assessment: Patient ambulated to room with steady gait. Patient alert and orientated times 4. Patient able to answer questions appropriatley. Patient pleasant and cooperative. Urine collected, dark yellow in color. BS hypoactive in all 4 quads. ABD soft, round, non-distended. Patient complains of pain when left lower side palpated. No edema present. Bilateral lungs clear A/P throughout. Oral mucosa clean, pink, moist. No S/S of dehydration noted. Skin turgor < 3 seconds. Cap refill < 3 seconds. Patient states he has been having nausea but no vomiting. Physician History: This is a 48-year-old male who has a history of recurrent diverticulitis. The location of his pain for this is typically is left lower quadrant. 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 Today, the patient noticed some discomfort and pressure in his bilateral flanks. The pain has since radiated localized in the left lower quadrant. He has had no diarrhea he has had nausea but no vomiting. Does complain of some dysuria. Is here for evaluation of his recurrent left lower quadrant abdominal pain. Timing/Duration: today Activities at Onset: none Quality: aching, sharpness Abdominal Pain Onset Location: LLQ, flank Pain Radiation: LLQ, flank Severity of Pain-Max: moderate Severity of Pain-Current: mild Modifying Factors: Improves With: nothing Associated Symptoms: denies symptoms Previous symptoms: same symptoms as today Allergies/Adverse Reactions: BEESTINGS Allergy (Mild, Uncoded 04/16/19 21:43) Swelling Home Medications: Atenolol 50 mg [Tenormin 50 mg] 50 mg PO DAILY 01/03/16 [History] Cetirizine HCl [Zyrtec] 10 mg PO DAILY 10/30/16 [History] Oxycodone HCl/Acetaminophen [Percocet 7.5-325 mg Tablet] 1 each PO Q4H PRN PRN 08/25/18 [History] Warfarin Sodium 10 mg [Coumadin 10 MG] 10 mg PO UD 08/25/18 [History] Warfarin Sodium 10 mg [Coumadin 10 MG] 15 mg PO WEEKLY 08/25/18 [History] Hx Tetanus, Diphtheria Vaccination/Date Given: Yes Hx Influenza Vaccination/Date Given: No Hx Pneumococcal Vaccination/Date Given: Yes Immunizations Up to Date: Yes - Review of Systems Constitutional: No Symptoms Eyes: No Symptoms Ears, Nose, & Throat: No Symptoms Respiratory: No Symptoms Cardiac: No Symptoms Abdominal/Gastrointestinal: Abdominal Pain (Left lower quadrant), Nausea Genitourinary Symptoms: Dysuria, Flank Pain (Lateral flank pain described as a pressure) Musculoskeletal: No Symptoms Skin: No Symptoms Neurological: No Symptoms Psychological: No Symptoms Endocrine: No Symptoms Hematologic/Lymphatic: No Symptoms Immunological/Allergic: No Symptoms All Other Systems: Reviewed and Negative - Past Medical History Pertinent Past Medical History: Yes Neurological History: No Pertinent History ENT History: No Pertinent History Cardiac History: Hypertension Respiratory History: No Pertinent History Endocrine Medical History: No Pertinent History Musculoskeletal History: Arthritis GI Medical History: Diverticulitis, Pancreatitis History: No Pertinent History Psycho-Social History: Anxiety, Other Male Reproductive Disorders: No Pertinent History Other Medical History: BLOOD DISORDER: FACTOR V, 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 and arthritis in back - Past Surgical History Past Surgical History: Yes Neuro Surgical History: No Pertinent History Cardiac: No Pertinent History Respiratory: No Pertinent History Gastrointestinal: Cholecystectomy, Hernia Repair Genitourinary: No Pertinent History Musculoskeletal: Orthopedic Surgery Male Surgical History: No Pertinent History Other Surgical History: INGUINAL LYMPH NODES - BRANDY CARPEL TUNNEL REPAIR - LOWER BACK - LEFT ELBOW RODS IN BACK - Social History Smoking Status: Never smoker Exposure to second hand smoke: No Drug Use: none Patient Lives Alone: No - Nursing Vital Signs Nursing Vital Signs: Initial Vital Signs Temperature 98.0 F 04/16/19 21:20 Pulse Rate 76 04/16/19 21:20 Respiratory Rate 20 04/16/19 21:20 Blood Pressure 137/87 04/16/19 21:20 O2 Sat by Pulse Oximetry 98 04/16/19 21:20 Pain Scale Pain Intensity 3 - Physical Exam General Appearance: no apparent distress, alert, anxiety Eye Exam: PERRL/EOMI, eyes nml inspection Ears, Nose, Throat Exam: normal ENT inspection, moist mucous membranes Neck Exam: normal inspection, non-tender, supple, full range of motion Respiratory Exam: normal breath sounds, lungs clear, airway intact, No chest tenderness, No respiratory distress Cardiovascular Exam: regular rate/rhythm, normal heart sounds, normal peripheral pulses Gastrointestinal/Abdomen Exam: soft, normal bowel sounds, tenderness (Left lower quadrant), guarding, No rebound Rectal Exam: not done Back Exam: normal inspection, normal range of motion, CVA tenderness, vertebral tenderness Extremity Exam: normal inspection, normal range of motion, pelvis stable Neurologic Exam: alert, oriented x 3, cooperative, heating and ventilation engineer II-XII nml as tested Skin Exam: normal color, warm, dry Lymphatic Exam: No adenopathy SpO2 Interpretation: normal SpO2: 98 O2 Delivery: Room Air Ordered Tests: Active Orders 24 hr Category Date Time Status IV Insertion STAT Care 04/16/19 22:29 Active ABDOMEN AND PELVIS W/0 CONTRAS [CT] Stat Exams 04/16/19 22:30 Taken AMYLASE Stat Lab 04/16/19 22:40 Completed CBC W DIFF Stat Lab 04/16/19 22:40 Completed CMP Stat Lab 04/16/19 22:40 Completed LIPASE Stat Lab 04/16/19 22:40 Completed Lactic Acid Stat Lab 04/16/19 23:20 Completed UA W/RFX UR CULTURE Stat Lab 04/16/19 21:30 Completed Urine Triage Profile Stat Lab 04/16/19 21:30 Completed Medication Summary Discontinued Medications Generic Name Dose Route Start Last Admin Trade Name Freq PRN Reason Stop Dose Admin Hydromorphone HCl 1 mg 04/16/19 22:29 04/16/19 22:51 Hydromorphone 1 Mg/Ml Ampule IV 04/16/19 22:30 1 mg STAT ONE Administration Hydromorphone HCl Confirm 04/16/19 22:46 Hydromorphone 1 Mg/Ml Ampule Administered 04/16/19 22:47 Dose 1 mg .ROUTE .STK-MED ONE Sodium Chloride 1,000 mls @ 999 mls/hr 04/16/19 22:29 04/16/19 22:51 Sodium Chloride 0.9% 1000 Ml IV 04/16/19 23:29 999 mls/hr .Q1H1M STA Administration Sodium Chloride Confirm 04/16/19 22:47 Sodium Chloride 0.9% 1000 Ml Administered 04/16/19 22:48 Dose 1,000 mls @ ud .ROUTE .STK-MED ONE Ondansetron HCl 4 mg 04/16/19 22:29 04/16/19 22:51 Zofran 4 Mg/2 Ml Vial IV 04/16/19 22:30 4 mg STAT ONE Administration Ondansetron HCl Confirm 04/16/19 22:46 Zofran 4 Mg/2 Ml Vial Administered 04/16/19 22:47 Dose 4 mg .ROUTE .[facility] ONE Lab/Rad Data: Laboratory Result Diagrams 04/16/19 22:40 04/16/19 22:40 Laboratory Results 04/16/19 04/16/19 04/16/19 Range/Units 23:20 22:40 22:40 WBC 5.6 (4.0-10.5) K/mm3 RBC 5.05 (4.1-5.6) M/mm3 Hgb 16.2 (12.5-18.0) gm/dl Hct 46.2 (42-50) % MCV 91.5 (78-100) fl MCH 32.1 H (26-32) pg MCHC 35.1 (32-36) g/dl RDW 13.8 (11.5-14.0) % Plt Count 135 L (150-450) K/mm3 MPV 11.4 H (7.5-11.0) fl Gran % 52.4 (36.0-66.0) % Eos # (Auto) 0.13 (0-0.5) Absolute Lymphs (auto) 1.92 (1.0-4.6) Absolute Monos (auto) 0.56 (0.0-1.3) Lymphocytes % 34.5 (24.0-44.0) % Monocytes % 10.1 (0.0-12.0) % Eosinophils % 2.3 (0.00-5.0) % Basophils % 0.7 (0.0-0.4) % Absolute Granulocytes 2.92 (1.4-6.9) Basophils # 0.04 (0-0.4) Sodium 139 (137-145) mmol/L Potassium 4.0 (3.5-5.1) mmol/L Chloride 104 (98-107) mmol/L Carbon Dioxide 29 (22-30) mmol/L Anion Gap 10.1 (5-15) MEQ/L BUN 17 (9-20) mg/dL Creatinine 0.91 (0.66-1.25) mg/dL Estimated GFR > 60.0 ML/MIN Glucose 82 (74-106) mg/dL Lactic Acid 1.1 (0.4-2.0) Calcium 9.5 (8.4-10.2) mg/dL Total Bilirubin 1.40 H (0.2-1.3) mg/dL AST 34 (17-59) U/L ALT 26 (0-50) U/L Alkaline Phosphatase 55 (38-126) U/L Serum Total Protein 7.8 (6.3-8.2) g/dL Albumin 4.4 (3.5-5.0) g/dL Amylase 87 (30-110) U/L Lipase 86 (23-300) U/L Urine Color (YELLOW) Urine Appearance (CLEAR) Urine pH (5-6) Ur Specific [place] (1.005-1.025) Urine Protein (Negative) Urine Ketones (NEGATIVE) Urine Blood (0-5) Eder/ul Urine Nitrite (NEGATIVE) Urine Bilirubin (NEGATIVE) Urine Urobilinogen (0-1) mg/dL Ur Leukocyte Esterase (NEGATIVE) Urine WBC (Auto) (0-5) /HPF Urine RBC (Auto) (0-2) /HPF U Epithel Cells (Auto) (FEW) /HPF Urine Bacteria (Auto) (NEGATIVE) /HPF Urine Mucus (Auto) (NEGATIVE) /HPF Urine Culture Reflexed (NO) Urine Glucose (NEGATIVE) mg/dL Urine Opiates Level (NEGATIVE) Ur Methadone (NEGATIVE) Urine Barbiturates (NEGATIVE) Ur Phencyclidine (PCP) (NEGATIVE) Urine Amphetamine (NEGATIVE) U Benzodiazepine Level (NEGATIVE) Urine Cocaine (NEGATIVE) Urine Marijuana (THC) (NEGATIVE) 04/16/19 04/16/19 Range/Units 21:30 21:30 WBC (4.0-10.5) K/mm3 RBC (4.1-5.6) M/mm3 Hgb (12.5-18.0) gm/dl Hct (42-50) % MCV (78-100) fl MCH (26-32) pg MCHC (32-36) g/dl RDW (11.5-14.0) % Plt Count (150-450) K/mm3 MPV (7.5-11.0) fl Gran % (36.0-66.0) % Eos # (Auto) (0-0.5) Absolute Lymphs (auto) (1.0-4.6) Absolute Monos (auto) (0.0-1.3) Lymphocytes % (24.0-44.0) % Monocytes % (0.0-12.0) % Eosinophils % (0.00-5.0) % Basophils % (0.0-0.4) % Absolute Granulocytes (1.4-6.9) Basophils # (0-0.4) Sodium (137-145) mmol/L Potassium (3.5-5.1) mmol/L Chloride (98-107) mmol/L Carbon Dioxide (22-30) mmol/L Anion Gap (5-15) MEQ/L BUN (9-20) mg/dL Creatinine (0.66-1.25) mg/dL Estimated GFR ML/MIN Glucose (74-106) mg/dL Lactic Acid (0.4-2.0) Calcium (8.4-10.2) mg/dL Total Bilirubin (0.2-1.3) mg/dL AST (17-59) U/L ALT (0-50) U/L Alkaline Phosphatase (38-126) U/L Serum Total Protein (6.3-8.2) g/dL Albumin (3.5-5.0) g/dL Amylase (30-110) U/L Lipase (23-300) U/L Urine Color YELLOW (YELLOW) Urine Appearance CLEAR (CLEAR) Urine pH 5.0 (5-6) Ur Specific [place] 1.027 (1.005-1.025) Urine Protein 30 (Negative) Urine Ketones NEGATIVE (NEGATIVE) Urine Blood SMALL (0-5) Eder/ul Urine Nitrite NEGATIVE (NEGATIVE) Urine Bilirubin NEGATIVE (NEGATIVE) Urine Urobilinogen 4 (0-1) mg/dL Ur Leukocyte Esterase NEGATIVE (NEGATIVE) Urine WBC (Auto) NONE (0-5) /HPF Urine RBC (Auto) 3-5 (0-2) /HPF U Epithel Cells (Auto) NONE (FEW) /HPF Urine Bacteria (Auto) NONE (NEGATIVE) /HPF Urine Mucus (Auto) SLIGHT (NEGATIVE) /HPF Urine Culture Reflexed NO (NO) Urine Glucose NEGATIVE (NEGATIVE) mg/dL Urine Opiates Level NEGATIVE (NEGATIVE) Ur Methadone NEGATIVE (NEGATIVE) Urine Barbiturates NEGATIVE (NEGATIVE) Ur Phencyclidine (PCP) NEGATIVE (NEGATIVE) Urine Amphetamine NEGATIVE (NEGATIVE) U Benzodiazepine Level NEGATIVE (NEGATIVE) Urine Cocaine NEGATIVE (NEGATIVE) Urine Marijuana (THC) NEGATIVE (NEGATIVE) - Progress Progress: improved, pain not gone completely, re-examined Progress Note: 04/17/19 00:27 CAT scan of the abdomen and pelvis reveals no acute intra-abdominal process Counseled pt/family regarding: lab results, diagnosis, need for follow-up, rad results - Departure Departure Disposition: Home Clinical Impression: Recurrent abdominal pain Condition: Stable Critical Care Time: No Referrals: TOMA ARCHULETA [Primary Care Provider] - Additional Instructions: Drink plenty fluids. Take your medication as prescribed. Follow-up with your primary care physician tomorrow to arrange a follow-up appointment and for possible referral to a independent sales representative and urologist.
[2019-04-16] MEDS ORDERED: Zofran 4 MG/2 ML VIAL IV ONE (22:29)
[2019-04-16] MEDS ORDERED: Sodium Chloride 0.9% 1000 ML 1,000 ML IV STA (22:29)
[2019-04-16] MEDS ORDERED: Hydromorphone 1 mg/ml Ampule IV ONE (22:29)
[2019-04-16 22:46] LABS: Absolute Neutrophil Ct (ANC) 2.92 (1.4-6.9); BASOPHIL % 0.7 % (0.0-0.4); Basophil (Absolute #) 0.04 (0-0.4); Eosinophil % 2.3 % (0.00-5.0); Eosinophil (Absolute #) 0.13 (0-0.5); Hematocrit 46.2 % (42-50); Hemoglobin 16.2 gm/dl (12.5-18.0); Lymphocyte (Absolute #) 1.92 (1.0-4.6); Lymphocytes % 34.5 % (24.0-44.0); Mean Cell Volume 91.5 fl (78-100); Mean Corpuscular Hemoglobin 32.1 pg (26-32); Mean Corpuscular Hgb Concent. 35.1 g/dl (32-36); Mean Platelet Volume 11.4 fl (7.5-11.0); Monocyte (Absolute #) 0.56 (0.0-1.3); Monocytes % 10.1 % (0.0-12.0); Neutrophil % 52.4 % (36.0-66.0); Platelet Count 135 K/mm3 (150-450); Red Blood Count 5.05 M/mm3 (4.1-5.6); Red Cell Distribution Width 13.8 % (11.5-14.0); White Blood Count 5.6 K/mm3 (4.0-10.5)
[2019-04-16] MEDS ORDERED: Hydromorphone 1 mg/ml Ampule ONE (22:46)
[2019-04-16] MEDS ORDERED: Zofran 4 MG/2 ML VIAL ONE (22:46)
[2019-04-16] MEDS ORDERED: Sodium Chloride 0.9% 1000 ML 1,000 ML ONE (22:47)
[2019-04-16 22:58] LABS: ALBUMIN 4.4 g/dL (3.5-5.0); ALKALINE PHOSPHATASE 55 U/L (38-126); AMYLASE 87 U/L (30-110); ANION GAP 10.1 MEQ/L (5-15); BLOOD UREA NITROGEN 17 mg/dL (9-20); CHLORIDE 104 mmol/L (98-107); Calcium 9.5 mg/dL (8.4-10.2); Carbon Dioxide 29 mmol/L (22-30); Creatinine 1 0.91 mg/dL (0.66-1.25); Glucose 82 mg/dL (74-106); LIPASE 86 U/L (23-300); SGOT/AST 34 U/L (17-59); SGPT/ALT 26 U/L (0-50); SODIUM 139 mmol/L (137-145); Total Protein 7.8 g/dL (6.3-8.2)
[2019-04-17 00:29] VITALS: O2SAT 98
[2019-04-17 00:43] VITALS: BP 135/81; PULSE 79
--- NOTE | 2019-04-17 09:24 | XRAY ---
Indication: Left lower quadrant pain. Dysuria. Hematuria. History diverticulitis and pancreatitis. Multiple contiguous axial images obtained through the abdomen and pelvis without contrast as ordered. Comparison: November 08, 2018. Lung bases demonstrates minimal bilateral dependent atelectasis. No infiltrate or effusion. Heart is not enlarged. Stable small hiatal hernia. Noncontrasted stomach and bowel loops are again nonobstructed. Normal appendix. There are again mild scattered colonic diverticulosis greatest in the descending and sigmoid. No free fluid/air. Stable fatty liver, calcified splenic granulomas, cholecystectomy, nonobstructing punctate left renal calculus, and right lower quadrant hernia repair. Remaining liver, pancreas, spleen, adrenal glands, kidneys, ureters, bladder, and aorta appear unremarkable for noncontrast exam. Osseous structures intact again with mild/moderate degenerative changes throughout the thoracolumbar spine and previous L2-L3 fusion surgery and laminectomy with intact bilateral posterior spinal hardware. Impression: 1. Stable small hiatal hernia, fatty liver, colonic diverticulosis, calcified splenic granulomas, nonobstructing left renal micro-calculus, and chronic bony findings. 2. Remaining CT abdomen/pelvis without contrast exam is negative. Comment: Preliminary interpretation was made by [facility]. No critical discrepancy.
== END 2019-04-17 00:43 | disposition home or self-care (01) ==
LOC: ED 21:04
DX: R10.9 Unspecified abdominal pain (principal); R10.32 Left lower quadrant pain; Z79.899 Other long term (current) drug therapy; Z79.01 Long term (current) use of anticoagulants; I10 Essential (primary) hypertension
CPT/HCPCS: 36000; 36415; 74176; 80053; 80307; 81001; 82150; 83605; 83690; 85025; 96360; 96374; 96375; 99284; J1170; J2405

== ENCOUNTER 2019-12-04 16:56 | Emergency (ER) | payer BC, MEDICAID ==
[2019-12-04 17:54] LABS: Appearance CLEAR (CLEAR); Bilirubin NEGATIVE (NEGATIVE); Blood SMALL Ery/ul (0-5); Glucose NEGATIVE (NEGATIVE); Hyaline Casts 0-2 /LPF (0-2); Ketones NEGATIVE (NEGATIVE); Leukocyte Esterase NEGATIVE (NEGATIVE); Mucus SLIGHT /HPF (NEGATIVE); Nitrite NEGATIVE (NEGATIVE); Protein,Urine Dip NEGATIVE (Negative); Specific Gravity 1.024 (1.005-1.025); Urobilinogen NEGATIVE mg/dL (0-1)
[2019-12-04 17:56] LABS: Bacteria NONE SEEN /HPF (NEGATIVE)
[2019-12-04 18:01] LABS: ALBUMIN 4.2 g/dL (3.5-5.0); ALKALINE PHOSPHATASE 46 U/L (38-126); ANION GAP 8.7 MEQ/L (5-15); BLOOD UREA NITROGEN 15 mg/dL (9-20); CHLORIDE 106 mmol/L (98-107); Calcium 9.6 mg/dL (8.4-10.2); Carbon Dioxide 28 mmol/L (22-30); Creatinine 1 0.86 mg/dL (0.66-1.25); EST GLOMERULAR FILTRATION RATE > 60.0 ML/MIN; Glucose 114 mg/dL (74-106); Potassium 4.3 mmol/L (3.5-5.1); SGOT/AST 40 U/L (17-59); SGPT/ALT 30 U/L (0-50); SODIUM 139 mmol/L (137-145)
[2019-12-04] MEDS ORDERED: TORAdol 30 mg Injection ONE (18:18)
[2019-12-04] MEDS ORDERED: TORAdol 30 mg Injection IV ONE (18:18)
[2019-12-04 18:24] LABS: Absolute Neutrophil Ct (ANC) 1.94 (1.4-6.9); BASOPHIL % 0.5 % (0.0-0.4); Basophil (Absolute #) 0.02 (0-0.4); Eosinophil % 4.8 % (0.00-5.0); Eosinophil (Absolute #) 0.19 (0-0.5); Hematocrit 43.3 % (42-50); Lymphocyte (Absolute #) 1.41 (1.0-4.6); Lymphocytes % 35.4 % (24.0-44.0); Mean Corpuscular Hemoglobin 32.9 pg (26-32); Mean Corpuscular Hgb Concent. 34.6 g/dl (32-36); Mean Platelet Volume 12.8 fl (7.5-11.0); Monocyte (Absolute #) 0.42 (0.0-1.3); Monocytes % 10.6 % (0.0-12.0); Neutrophil % 48.7 % (36.0-66.0); Platelet Count 128 K/mm3 (150-450); Red Blood Count 4.56 M/mm3 (4.1-5.6); Red Cell Distribution Width 14.4 % (11.5-14.0)
--- NOTE | 2019-12-04 18:27 | ERPHSYRPT ---
- History of Present Illness Time Seen by Provider: 12/04/19 17:15 Source: patient Exam Limitations: no limitations Patient Subjective Stated Complaint: pt here for paoin to right flank area that radiates at times to chest, started last night, he states he believes hes back pain is from hes anxiety over hes flank pain, some nausea, able to eat, burning with urination Triage Nursing Assessment: pt alert, anxious, resp easy, face mask in place, abd soft, moves all ext well Physician History: Patient is a 49-year-old male who presents to our ED with complaints of right- sided flank pain. Pain started yesterday and progressed into today. Pain described as an ache that tends to radiate to his chest. No associated nausea or vomiting. No diaphoresis. No trauma. No fever. Symptoms are mild to moderate in intensity. No specific worsening improving factors. Patient voices no other complaints or concerns at this time. Timing/Duration: yesterday Severity: moderate Modifying Factors: Improves With: nothing Associated Symptoms: chest pain, No nausea, No vomiting, No shortness of breath, No cough, No fever, No headaches, No loss of appetite, No malaise, No rash, No syncope Allergies/Adverse Reactions: BEESTINGS Allergy (Mild, Uncoded 12/04/19 17:10) Swelling Home Medications: Atenolol 50 mg [Tenormin 50 mg] 50 mg PO DAILY 01/03/16 [History] Cetirizine HCl [Zyrtec] 10 mg PO DAILY 10/30/16 [History] Warfarin Sodium 10 mg [Coumadin 10 MG] 10 mg PO UD 08/25/18 [History] Warfarin Sodium 10 mg [Coumadin 10 MG] 15 mg PO WEEKLY 08/25/18 [History] Buspirone HCl [Buspar] 1 mg TID 12/04/19 [History] Trazodone HCl [Desyrel] 1 ea DAILY 12/04/19 [History] Venlafaxine HCl [Venlafaxine HCl ER] 1 ea DAILY 12/04/19 [History] clonazePAM [Klonopin] 1 ea DAILY 12/04/19 [History] Hx Tetanus, Diphtheria Vaccination/Date Given: Yes Hx Influenza Vaccination/Date Given: No Hx Pneumococcal Vaccination/Date Given: No Immunizations Up to Date: Yes Travel Risk - International Travel Have you traveled outside of the country in past 3 weeks: No - Coronavirus Screening Are you exhibiting any of the following symptoms?: No Close contact with a COVID-19 positive Pt in past 14-21 Days: No - Review of Systems Constitutional: No Symptoms, No Fever, No Chills Eyes: No Symptoms Ears, Nose, & Throat: No Symptoms Respiratory: No Symptoms, No Cough, No Dyspnea Cardiac: No Symptoms, No Chest Pain, No Edema, No Syncope Abdominal/Gastrointestinal: No Symptoms, No Abdominal Pain, No Nausea, No Vomiting, No Diarrhea Genitourinary Symptoms: No Symptoms, No Dysuria Musculoskeletal: No Symptoms, No Back Pain, No Neck Pain Skin: No Symptoms, No Rash Neurological: No Symptoms, No Dizziness, No Focal Weakness, No Sensory Changes Psychological: No Symptoms Endocrine: No Symptoms Hematologic/Lymphatic: No Symptoms Immunological/Allergic: No Symptoms All Other Systems: Reviewed and Negative - Past Medical History Pertinent Past Medical History: Yes Neurological History: No Pertinent History ENT History: No Pertinent History Cardiac History: Hypertension Respiratory History: No Pertinent History Endocrine Medical History: No Pertinent History Musculoskeletal History: Arthritis GI Medical History: Diverticulitis, Pancreatitis History: No Pertinent History Psycho-Social History: Anxiety, Other Male Reproductive Disorders: No Pertinent History Other Medical History: BLOOD DISORDER: FACTOR V, 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 and arthritis in back - Past Surgical History Past Surgical History: Yes Neuro Surgical History: No Pertinent History Cardiac: No Pertinent History Respiratory: No Pertinent History Gastrointestinal: Cholecystectomy, Hernia Repair Genitourinary: No Pertinent History Musculoskeletal: Orthopedic Surgery Male Surgical History: No Pertinent History Other Surgical History: INGUINAL LYMPH NODES - BRANDY CARPEL TUNNEL REPAIR - LOWER BACK - LEFT ELBOW RODS IN BACK - Social History Smoking Status: Never smoker Exposure to second hand smoke: No Drug Use: none Patient Lives Alone: No - Nursing Vital Signs Nursing Vital Signs: Initial Vital Signs Temperature 98.6 F 12/04/19 17:05 Pulse Rate 78 12/04/19 17:05 Respiratory Rate 18 12/04/19 17:05 Blood Pressure 131/97 12/04/19 17:05 O2 Sat by Pulse Oximetry 97 12/04/19 17:05 Pain Scale Pain Intensity 3 - Physical Exam General Appearance: no apparent distress, alert Eye Exam: PERRL/EOMI, eyes nml inspection Ears, Nose, Throat Exam: normal ENT inspection, TMs normal, pharynx normal, moist mucous membranes Neck Exam: normal inspection, non-tender, supple, full range of motion Respiratory Exam: normal breath sounds, lungs clear, No respiratory distress Cardiovascular Exam: regular rate/rhythm, normal heart sounds, normal peripheral pulses Gastrointestinal/Abdomen Exam: soft, normal bowel sounds, other (Mild right CVA tenderness), No tenderness, No mass Back Exam: normal inspection, normal range of motion, No CVA tenderness, No vertebral tenderness Extremity Exam: normal inspection, normal range of motion, pelvis stable Neurologic Exam: alert, oriented x 3, cooperative, normal mood/affect, nml cerebellar function, nml station & gait, sensation nml, No motor deficits Skin Exam: normal color, warm, dry, No rash Lymphatic Exam: No adenopathy SpO2 Interpretation: normal SpO2: 94 O2 Delivery: Room Air - Course Nursing assessment & vital signs reviewed: Yes EKG Interpreted by Me: RATE (76), Sinus Rhythm, NORMAL AXIS, NORMAL INTERVALS - CT Exams Abdomen/Pelvis CT Interpretation: Tele-radiologist Report (Numerous prior CTs most recent 04/16/2019. Stable nonobstructing left renal micro calculus, normal appendix. Fatty liver, colonic diverticulosis, L2-L3 fusion. No new acute findings.) Ordered Tests: Active Orders 24 hr Category Date Time Status IV Insertion STAT Care 12/04/19 17:19 Active ABDOMEN AND PELVIS W/0 CONTRAS [CT] Stat Exams 12/04/19 17:20 Taken CBC W DIFF Stat Lab 12/04/19 17:25 Completed CMP Stat Lab 12/04/19 17:25 Completed D-DIMER QUANTITATIVE Stat Lab 12/04/19 17:25 Completed PROTIME WITH INR Stat Lab 12/04/19 17:26 Completed PTT Stat Lab 12/04/19 17:26 Completed TROPONIN Q3H Lab 12/04/19 17:25 Completed TROPONIN Q3H Lab 12/04/19 20:00 Completed TROPONIN Q3H Lab 12/04/19 23:30 Ordered TROPONIN Q3H Lab 12/05/19 02:30 Ordered TROPONIN Q3H Lab 12/05/19 05:30 Ordered UA W/RFX UR CULTURE Stat Lab 12/04/19 17:45 Completed Medication Summary Discontinued Medications Generic Name Dose Route Start Last Admin Trade Name Freq PRN Reason Stop Dose Admin Ketorolac Tromethamine 30 mg 12/04/19 18:18 12/04/19 18:20 Toradol 30 Mg Injection IV 12/04/19 18:19 30 mg STAT ONE Administration Ketorolac Tromethamine Confirm 12/04/19 18:18 Toradol 30 Mg Injection Administered 12/04/19 18:19 Dose 30 mg .ROUTE .STK-MED ONE Morphine Sulfate 2 mg 12/04/19 20:03 12/04/19 20:10 Morphine Sulfate 2 Mg Inj IV 12/04/19 20:04 2 mg STAT ONE Administration Morphine Sulfate Confirm 12/04/19 20:09 Morphine Sulfate 2 Mg Inj Administered 12/04/19 20:10 Dose 2 mg .ROUTE .STK-MED ONE Lab/Rad Data: Laboratory Result Diagrams 12/04/19 17:25 12/04/19 17:25 Laboratory Results 12/04/19 12/04/19 12/04/19 Range/Units 20:00 17:45 17:26 WBC (4.0-10.5) K/mm3 RBC (4.1-5.6) M/mm3 Hgb (12.5-18.0) gm/dl Hct (42-50) % MCV (78-100) fl MCH (26-32) pg MCHC (32-36) g/dl RDW (11.5-14.0) % Plt Count (150-450) K/mm3 MPV (7.5-11.0) fl Gran % (36.0-66.0) % Eos # (Auto) (0-0.5) Absolute Lymphs (auto) (1.0-4.6) Absolute Monos (auto) (0.0-1.3) Lymphocytes % (24.0-44.0) % Monocytes % (0.0-12.0) % Eosinophils % (0.00-5.0) % Basophils % (0.0-0.4) % Absolute Granulocytes (1.4-6.9) Basophils # (0-0.4) PT 26.4 H (8.83-12.87) SECONDS INR 2.32 (0.8-3.0) APTT 41.2 H (24.1-36.1) SECONDS D-Dimer (215-500) ng/mL Sodium (137-145) mmol/L Potassium (3.5-5.1) mmol/L Chloride (98-107) mmol/L Carbon Dioxide (22-30) mmol/L Anion Gap (5-15) MEQ/L BUN (9-20) mg/dL Creatinine (0.66-1.25) mg/dL Estimated GFR ML/MIN Glucose (74-106) mg/dL Calcium (8.4-10.2) mg/dL Total Bilirubin (0.2-1.3) mg/dL AST (17-59) U/L ALT (0-50) U/L Alkaline Phosphatase (38-126) U/L Troponin I < 0.012 (0.000-0.034) ng/mL Serum Total Protein (6.3-8.2) g/dL Albumin (3.5-5.0) g/dL Urine Color YELLOW (YELLOW) Urine Appearance CLEAR (CLEAR) Urine pH 5.0 (5-6) Ur Specific [place] 1.024 (1.005-1.025) Urine Protein NEGATIVE (Negative) Urine Ketones NEGATIVE (NEGATIVE) Urine Blood SMALL (0-5) Eder/ul Urine Nitrite NEGATIVE (NEGATIVE) Urine Bilirubin NEGATIVE (NEGATIVE) Urine Urobilinogen NEGATIVE (0-1) mg/dL Ur Leukocyte Esterase NEGATIVE (NEGATIVE) Urine WBC (Auto) NONE (0-5) /HPF Urine RBC (Auto) NONE (0-2) /HPF U Hyaline Cast (Auto) 0-2 (0-2) /LPF U Epithel Cells (Auto) NONE (FEW) /HPF Urine Bacteria (Auto) NONE SEEN (NEGATIVE) /HPF Urine Mucus (Auto) SLIGHT (NEGATIVE) /HPF Urine Culture Reflexed NO (NO) Urine Glucose NEGATIVE (NEGATIVE) mg/dL 12/04/19 12/04/19 12/04/19 Range/Units 17:25 17:25 17:25 WBC (4.0-10.5) K/mm3 RBC (4.1-5.6) M/mm3 Hgb (12.5-18.0) gm/dl Hct (42-50) % MCV (78-100) fl MCH (26-32) pg MCHC (32-36) g/dl RDW (11.5-14.0) % Plt Count (150-450) K/mm3 MPV (7.5-11.0) fl Gran % (36.0-66.0) % Eos # (Auto) (0-0.5) Absolute Lymphs (auto) (1.0-4.6) Absolute Monos (auto) (0.0-1.3) Lymphocytes % (24.0-44.0) % Monocytes % (0.0-12.0) % Eosinophils % (0.00-5.0) % Basophils % (0.0-0.4) % Absolute Granulocytes (1.4-6.9) Basophils # (0-0.4) PT (8.83-12.87) SECONDS INR (0.8-3.0) APTT (24.1-36.1) SECONDS D-Dimer < 215 L (215-500) ng/mL Sodium 139 (137-145) mmol/L Potassium 4.3 (3.5-5.1) mmol/L Chloride 106 (98-107) mmol/L Carbon Dioxide 28 (22-30) mmol/L Anion Gap 8.7 (5-15) MEQ/L BUN 15 (9-20) mg/dL Creatinine 0.86 (0.66-1.25) mg/dL Estimated GFR > 60.0 ML/MIN Glucose 114 H (74-106) mg/dL Calcium 9.6 (8.4-10.2) mg/dL Total Bilirubin 0.80 (0.2-1.3) mg/dL AST 40 (17-59) U/L ALT 30 (0-50) U/L Alkaline Phosphatase 46 (38-126) U/L Troponin I < 0.012 (0.000-0.034) ng/mL Serum Total Protein 7.0 (6.3-8.2) g/dL Albumin 4.2 (3.5-5.0) g/dL Urine Color (YELLOW) Urine Appearance (CLEAR) Urine pH (5-6) Ur Specific [place] (1.005-1.025) Urine Protein (Negative) Urine Ketones (NEGATIVE) Urine Blood (0-5) Eder/ul Urine Nitrite (NEGATIVE) Urine Bilirubin (NEGATIVE) Urine Urobilinogen (0-1) mg/dL Ur Leukocyte Esterase (NEGATIVE) Urine WBC (Auto) (0-5) /HPF Urine RBC (Auto) (0-2) /HPF U Hyaline Cast (Auto) (0-2) /LPF U Epithel Cells (Auto) (FEW) /HPF Urine Bacteria (Auto) (NEGATIVE) /HPF Urine Mucus (Auto) (NEGATIVE) /HPF Urine Culture Reflexed (NO) Urine Glucose (NEGATIVE) mg/dL 12/04/19 Range/Units 17:25 WBC 4.0 (4.0-10.5) K/mm3 RBC 4.56 (4.1-5.6) M/mm3 Hgb 15.0 (12.5-18.0) gm/dl Hct 43.3 (42-50) % MCV 95.0 (78-100) fl MCH 32.9 H (26-32) pg MCHC 34.6 (32-36) g/dl RDW 14.4 H (11.5-14.0) % Plt Count 128 L (150-450) K/mm3 MPV 12.8 H (7.5-11.0) fl Gran % 48.7 (36.0-66.0) % Eos # (Auto) 0.19 (0-0.5) Absolute Lymphs (auto) 1.41 (1.0-4.6) Absolute Monos (auto) 0.42 (0.0-1.3) Lymphocytes % 35.4 (24.0-44.0) % Monocytes % 10.6 (0.0-12.0) % Eosinophils % 4.8 (0.00-5.0) % Basophils % 0.5 (0.0-0.4) % Absolute Granulocytes 1.94 (1.4-6.9) Basophils # 0.02 (0-0.4) PT (8.83-12.87) SECONDS INR (0.8-3.0) APTT (24.1-36.1) SECONDS D-Dimer (215-500) ng/mL Sodium (137-145) mmol/L Potassium (3.5-5.1) mmol/L Chloride (98-107) mmol/L Carbon Dioxide (22-30) mmol/L Anion Gap (5-15) MEQ/L BUN (9-20) mg/dL Creatinine (0.66-1.25) mg/dL Estimated GFR ML/MIN Glucose (74-106) mg/dL Calcium (8.4-10.2) mg/dL Total Bilirubin (0.2-1.3) mg/dL AST (17-59) U/L ALT (0-50) U/L Alkaline Phosphatase (38-126) U/L Troponin I (0.000-0.034) ng/mL Serum Total Protein (6.3-8.2) g/dL Albumin (3.5-5.0) g/dL Urine Color (YELLOW) Urine Appearance (CLEAR) Urine pH (5-6) Ur Specific [place] (1.005-1.025) Urine Protein (Negative) Urine Ketones (NEGATIVE) Urine Blood (0-5) Eder/ul Urine Nitrite (NEGATIVE) Urine Bilirubin (NEGATIVE) Urine Urobilinogen (0-1) mg/dL Ur Leukocyte Esterase (NEGATIVE) Urine WBC (Auto) (0-5) /HPF Urine RBC (Auto) (0-2) /HPF U Hyaline Cast (Auto) (0-2) /LPF U Epithel Cells (Auto) (FEW) /HPF Urine Bacteria (Auto) (NEGATIVE) /HPF Urine Mucus (Auto) (NEGATIVE) /HPF Urine Culture Reflexed (NO) Urine Glucose (NEGATIVE) mg/dL - Progress Progress: improved Progress Note: 12/04/19 20:53 Patient reassessed. Pain improved. Vitals stable. CT negative for acute pathology. D-dimer negative. Troponin negative x2. Patient's pain worse with palpation to chest wall and back. Pain is also reproduced with movement. It is likely that patient's symptoms are musculoskeletal in nature. No indication for further work-up at this time. Patient will be discharged. Patient agrees to follow-up with his primary care doctor within 48 hours for reevaluation. Counseled pt/family regarding: lab results, diagnosis, need for follow-up, rad results - Departure Departure Disposition: Home Clinical Impression: Flank pain, Nephrolithiasis, Hepatic steatosis, Diverticulosis, Thrombocytopenia, Chest wall pain Condition: Stable Critical Care Time: No Referrals: TOMA ARCHULETA [Primary Care Provider] - Additional Instructions: Discharge/Care Plan AMBROCIO CATHERINE was seen on 12/04/19 in the Emergency Room. The patient was counseled regarding Diagnosis,Lab results, Imaging studies, need for follow up and when to return to the Emergency Room. Prescriptions given: Discharge Note I have spoken with the patient and/or caregivers. I have explained the patient's condition, diagnosis and treatment plan based on the information available to me at this time. I have answered the patient's and/or caregiver's questions and addressed any concerns. The patient and/or caregivers have as good understanding of the patient's diagnosis, condition and treatment plan as can be expected at this point. The vital signs have been stable. The patient's condition is stable and appropriate for discharge from the emergency department. The patient will pursue further outpatient evaluation with the primary care physician or other designated or consulting physician as outlined in the disc harge instructions. The patient and/or caregivers are agreeable to this plan of care and follow-up instructions have been explained in detail. The patient and/or caregivers have received these instruction. The patient/and or caregivers are aware that any significant change in condition or worsening of symptoms should prompt an immediate return to this or the closest emergency department or call 911.
[2019-12-04 18:28] LABS: INR 2.32 (0.8-3.0); PROTIME 26.4 SECONDS (8.83-12.87)
[2019-12-04 18:31] LABS: PTT 41.2 SECONDS (24.1-36.1)
[2019-12-04] MEDS ORDERED: MORPHINE SULFATE 2 MG INJ IV ONE (20:03)
[2019-12-04] MEDS ORDERED: MORPHINE SULFATE 2 MG INJ ONE (20:09)
[2019-12-04 20:48] VITALS: BP 105/64; PULSE 72
[2019-12-04 20:49] VITALS: O2SAT 94
[2019-12-04] MEDS ORDERED: Cyclobenzaprine 10 MG PO ONE (21:10)
[2019-12-04] MEDS ORDERED: Cyclobenzaprine 10 MG ONE (21:10)
--- NOTE | 2019-12-05 08:45 | XRAY ---
Indication: Right flank pain. Multiple contiguous axial images obtained through the abdomen and pelvis without contrast using renal stone protocol. Comparison: April 16, 2019. Lung bases are clear. Heart is not enlarged. Stable nonobstructing 2 mm left mid renal calculus. No new renal calculus or evidence for obstructive uropathy in either system. Stomach is moderately distended with food/fluid. Noncontrasted stomach and bowel loops appear nonobstructed. Normal appendix. Again minimal descending/sigmoid diverticulosis, fatty liver, calcified hepatic/splenic granulomas, and cholecystectomy. No free fluid/air. Remaining liver, pancreas, spleen, adrenal glands, kidneys, ureters, bladder, and aorta appear unremarkable for noncontrast exam. Osseous structures intact again with degenerative changes throughout the thoracolumbar spine and L2-L3 posterior fusion surgery with laminectomy. Stable right inguinal hernia repair with intact mesh graft. Impression: 1. Stable nonobstructing left renal micro-calculus, colonic diverticulosis, fatty liver, and chronic bony findings. 2. Remaining CT abdomen/pelvis without contrast exam is negative.
== END 2019-12-04 21:17 | disposition home or self-care (01) ==
LOC: ED 16:56
DX: R10.9 Unspecified abdominal pain (principal); N20.0 Calculus of kidney; K76.0 Fatty (change of) liver, not elsewhere classified; K57.90 Diverticulosis of intestine, part unspecified, without perforation or abscess without bleeding; D69.6 Thrombocytopenia, unspecified; R07.89 Other chest pain
CPT/HCPCS: 36000; 36415; 74176; 80053; 81001; 84484; 85025; 85379; 85610; 85730; 96374; 96375; 99284; J1885; J2270; A9270-GY

== ENCOUNTER 2020-01-03 06:01 | Emergency (ER) | payer MEDICAID ==
--- NOTE | 2020-01-03 06:10 | ERPHSYRPT ---
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 He did not injure his head or neck. Patient sees Dr. Molina who is his pain specialist. Patient is on chronic, daily oxycodone. His last dose of oxycodone was 10 hours ago. Occurred: just prior to arrival Reason for Fall: tripped Injuries/Pain Location: upper extremity (Right wrist and hand) Loss of Consciousness: no loss of consciousness Quality: aching Severity of Pain-Max: mild Severity of Pain-Current: mild Associated Symptoms (Fall): denies symptoms Allergies/Adverse Reactions: BEESTINGS Allergy (Mild, Uncoded 01/03/20 06:16) Swelling Home Medications: Atenolol 50 mg [Tenormin 50 mg] 50 mg PO DAILY 01/03/16 [History] Cetirizine HCl [Zyrtec] 10 mg PO DAILY 10/30/16 [History] Warfarin Sodium 10 mg [Coumadin 10 MG] 10 mg PO UD 08/25/18 [History] Warfarin Sodium 10 mg [Coumadin 10 MG] 15 mg PO WEEKLY 08/25/18 [History] Buspirone HCl [Buspar] 1 mg TID 12/04/19 [History] Trazodone HCl [Desyrel] 1 ea DAILY 12/04/19 [History] Venlafaxine HCl [Venlafaxine HCl ER] 1 ea DAILY 12/04/19 [History] clonazePAM [Klonopin] 1 ea DAILY 12/04/19 [History] Hx Tetanus, Diphtheria Vaccination/Date Given: Yes Hx Influenza Vaccination/Date Given: No Hx Pneumococcal Vaccination/Date Given: No Travel Risk - International Travel Have you traveled outside of the country in past 3 weeks: No - Coronavirus Screening Are you exhibiting any of the following symptoms?: No Close contact with a COVID-19 positive Pt in past 14-21 Days: No - Review of Systems Constitutional: No Symptoms Eyes: No Symptoms Ears, Nose, & Throat: No Symptoms Respiratory: No Symptoms Cardiac: No Symptoms Abdominal/Gastrointestinal: No Symptoms Genitourinary Symptoms: No Symptoms Musculoskeletal: Injury (Right hand and wrist) Skin: Other (Mild abrasion dorsal aspect right hand) Neurological: No Symptoms Psychological: No Symptoms Endocrine: No Symptoms Hematologic/Lymphatic: No Symptoms Immunological/Allergic: No Symptoms All Other Systems: Reviewed and Negative - Past Medical History Pertinent Past Medical History: Yes Neurological History: No Pertinent History ENT History: No Pertinent History Cardiac History: Hypertension Respiratory History: No Pertinent History Endocrine Medical History: No Pertinent History Musculoskeletal History: Arthritis GI Medical History: Diverticulitis, Pancreatitis History: No Pertinent History Psycho-Social History: Anxiety, Other Male Reproductive Disorders: No Pertinent History Other Medical History: BLOOD DISORDER: FACTOR V, 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 and arthritis in back - Past Surgical History Past Surgical History: Yes Neuro Surgical History: No Pertinent History Cardiac: No Pertinent History Respiratory: No Pertinent History Gastrointestinal: Cholecystectomy, Hernia Repair Genitourinary: No Pertinent History Musculoskeletal: Orthopedic Surgery Male Surgical History: No Pertinent History Other Surgical History: INGUINAL LYMPH NODES - BRANDY CARPEL TUNNEL REPAIR - LOWER BACK - LEFT ELBOW RODS IN BACK - Social History Smoking Status: Never smoker Exposure to second hand smoke: No Drug Use: none Patient Lives Alone: No - Nursing Vital Signs Nursing Vital Signs: Initial Vital Signs Temperature 98.2 F 01/03/20 06:17 Pulse Rate 76 01/03/20 06:17 Respiratory Rate 20 01/03/20 06:17 Blood Pressure 138/74 01/03/20 06:17 O2 Sat by Pulse Oximetry 97 01/03/20 06:17 Pain Scale Pain Intensity 8 - Filipe Coma Score Best Eye Response ([place]): (4) open spontaneously Best Verbal Response (Filipe): (5) oriented Best Motor Response ([place]): (6) obeys commands [place] Total: 15 - Physical Exam General Appearance: no apparent distress, alert, anxiety, obese Head Injury: no evidence of injury Eye Exam: PERRL/EOMI, eyes nml inspection ENT Exam: airway nml, nml ext.inspection, No evidence of ENT injury Neck Exam: supple, trachea midline, full range of motion, normal alignment, no rmal inspection Respiratory/Chest Exam: No chest tenderness, No respiratory distress Gastrointestinal Exam: No tenderness Rectal Exam: not done Back Exam: normal inspection, normal range of motion, No CVA tenderness, No vertebral tenderness Extremity Exam: normal range of motion, capillary refill <3 sec, pelvis stable, pain with movement (Right wrist), tenderness (Right hand and right wrist), other (Abrasion dorsal aspect right hand), No deformities Neurologic Exam: alert, oriented x 3, cooperative, belly dancer II-XII nml as tested, normal mood/affect, nml cerebellar function, nml station & gait, sensation nml Skin Exam: abrasion (Dorsal aspect right hand) SpO2 Interpretation: normal O2 Delivery: Room Air - Course Nursing assessment & vital signs reviewed: Yes Ordered Tests: Active Orders 24 hr Category Date Time Status Splint STAT Care 01/03/20 06:37 Active HAND (2 VIEW) Stat Exams 01/03/20 Ordered WRIST (2 VIEW) Stat Exams 01/03/20 Ordered Medication Summary Discontinued Medications Generic Name Dose Route Start Last Admin Trade Name Freq PRN Reason Stop Dose Admin Oxycodone/Acetaminophen 1 tab 01/03/20 06:37 Oxycodone-Acetaminophen 10-325 PO 01/03/20 06:38 STAT STA - Progress Progress: improved, pain not gone completely Progress Note: 01/03/20 06:42 X-ray right hand reveals no evidence of any acute fracture or dislocation. X-ray of right wrist reveals no evidence of any acute fracture or dislocation. Counseled pt/family regarding: diagnosis, need for follow-up, rad results - Departure Departure Disposition: Home Clinical Impression: Sprain of right wrist, Contusion of right hand Condition: Stable Critical Care Time: No Referrals: TOMA ARCHULETA [Primary Care Provider] - Additional Instructions: Ice pack to right hand 3 times a day for the next 48 hours. Follow-up at the [facility] orthopedic clinic if symptoms persist or worsen. Wear your wrist splint for comfort.
[2020-01-03] MEDS ORDERED: OXYCODONE-ACETAMINOPHEN 10-325 PO STA (06:37)
[2020-01-03] MEDS ORDERED: OXYCODONE-ACETAMINOPHEN 10-325 ONE (06:42)
[2020-01-03 06:48] VITALS: BP 110/76; PULSE 74; O2SAT 96
--- NOTE | 2020-01-03 08:53 | XRAY ---
Indication: Pain following fall. Comparison: None 2 view right wrist demonstrates widened scapholunate interval concerning for underlying ligamentous tear. No other bony, articular, or soft tissue abnormalities. Hand reported separately.
--- NOTE | 2020-01-03 08:53 | XRAY ---
Indication: Pain following fall. Comparison: None 2 view right hand obtained. No bony, articular, or soft tissue abnormalities. Wrist reported separately.
== END 2020-01-03 06:50 | disposition home or self-care (01) ==
LOC: ED 06:01
DX: S63.501A Unspecified sprain of right wrist, initial encounter (principal); W01.0XXA Fall on same level from slipping, tripping and stumbling without subsequent striking against object, initial encounter; S60.211A Contusion of right wrist, initial encounter; I10 Essential (primary) hypertension; D68.2 Hereditary deficiency of other clotting factors; Z79.01 Long term (current) use of anticoagulants
CPT/HCPCS: 73100; 73120; 99284; L3908; A9270-GY

== ENCOUNTER 2020-03-26 12:38 | Day surgery (SDC) | payer OTHER ==
[2020-03-26] MEDS ORDERED: LIDOCAINE HCL 2% 100 MG/5 ML IJ ONE (12:39)
[2020-03-26 13:47] LABS: INR 1.11 (0.8-3.0); PROTIME 12.6 SECONDS (8.83-12.87)
[2020-03-26] MEDS ORDERED: DIPRIVAN 200 MG/20 ML IV ONE (14:11)
[2020-03-26] MEDS ORDERED: Ketamine HCl 50 MG/ML ONE (14:12)
[2020-03-26] MEDS ORDERED: TORAdol 30 mg Injection ONE (14:56)
[2020-03-26] MEDS ORDERED: Lactated Ringers 1,000 ML IV ONE (15:56)
--- NOTE | 2020-03-26 16:36 | XRAY ---
Indication: Bilateral L4-S1 MBB. Intraoperative fluoroscopy provided for 18 seconds. Single digital spot image submitted for interpretation demonstrates posterior needle tips projecting over the expected left and right L4-S1 nerve roots. Correlate with intraoperative findings/report. Incidental bilateral L3-L4 posterior spinal hardware.
--- NOTE | 2020-03-26 16:45 | XRAY ---
18 seconds of fluoroscopy was used in surgery for a bilateral L4-L5 and L5-S1 MBB.
== END 2020-03-26 14:57 | disposition home or self-care (01) ==
LOC: SDC-PAIN 12:38
PROVIDERS: ATTEND Psychiatry & Neurology Pain Medicine
DX: M47.816 Spondylosis without myelopathy or radiculopathy, lumbar region (principal); I10 Essential (primary) hypertension; D68.2 Hereditary deficiency of other clotting factors; G47.30 Sleep apnea, unspecified; F41.8 Other specified anxiety disorders; Z79.01 Long term (current) use of anticoagulants; Z79.899 Other long term (current) drug therapy
CPT/HCPCS: 36415; 64493; 64494; 72020; 77002; 85610; J1885; J2704

== ENCOUNTER 2020-05-21 12:21 | Day surgery (SDC) | payer OTHER ==
[2020-05-21] MEDS ORDERED: Depo-Medrol 40 MG/ML IM ONE (12:22)
[2020-05-21] MEDS ORDERED: BUPIVACAINE 0.5% VIAL IJ ONE (12:22)
[2020-05-21 12:58] LABS: INR 3.11 (0.8-3.0); PROTIME 35.6 SECONDS (8.83-12.87)
[2020-05-21] MEDS ORDERED: Ketamine HCl 50 MG/ML ONE (13:53)
[2020-05-21] MEDS ORDERED: DIPRIVAN 200 MG/20 ML IV ONE (13:53)
[2020-05-21] MEDS ORDERED: Lactated Ringers 1,000 ML IV ONE (15:15)
--- NOTE | 2020-05-21 16:25 | XRAY ---
Indication: Bilateral SI joint injection. Intraoperative fluoroscopy provided for 21 seconds. 4 digital spot images submitted for interpretation demonstrates posterior needle tip projecting over the inferior left and right SI joint. Correlate with intraoperative findings/report.
--- NOTE | 2020-05-21 16:28 | XRAY ---
21 seconds of fluoroscopy was used in surgery for bilateral SI joint injections.
== END 2020-05-21 14:21 | disposition home or self-care (01) ==
LOC: SDC-PAIN 12:21
PROVIDERS: ATTEND Psychiatry & Neurology Pain Medicine
DX: M46.1 Sacroiliitis, not elsewhere classified (principal); D68.2 Hereditary deficiency of other clotting factors; I10 Essential (primary) hypertension; G47.30 Sleep apnea, unspecified; F41.9 Anxiety disorder, unspecified; Z79.899 Other long term (current) drug therapy; Z79.01 Long term (current) use of anticoagulants
CPT/HCPCS: 27096; 36415; 72202; 77002; 85610; G0260; J1030; J2704

== ENCOUNTER 2020-07-02 21:45 | Emergency (ER) | payer OTHER ==
[2020-07-02] MEDS ORDERED: TORAdol 30 mg Injection IM ONE (22:35)
[2020-07-02] MEDS ORDERED: TORAdol 30 mg Injection ONE (22:38)
--- NOTE | 2020-07-02 22:44 | ERPHSYRPT ---
- History of Present Illness Time Seen by Provider: 07/02/20 22:10 Source: patient Exam Limitations: no limitations Patient Subjective Stated Complaint: pt states that "I was on a step ladder and fell off." Triage Nursing Assessment: pt came into the er via wheelchair; pt is axo x4; pt is obese; c/o rt ankle injury; pt states that he fell of a step ladder and felt his rt ankle roll; pt states that he felt something pull in his rt ankle; pt states that he had joint replacement on rt great toe on 03/07/20; swelling present to rt ankle; good cap refill to RLE; strong pedal pulses to RLE; pt states 8/10 pain to rt ankle; vitals wnl; pt states that he took a oxycodone 1 hour prior to coming in Physician History: Patient is a 49-year-old male presents to our emergency department with complaints of pain and swelling to the lateral aspect of his right ankle. Patient states that he stepped off of a stepstool and rolled his right ankle. Injury occurred just prior to arrival. Pain described as negatives well local ized. Patient is on Coumadin at this time. No other injuries reported. No knee pain no hip pain no back pain no BHT or LOC. Cervical spine cleared clinically. Patient took oxycodone prior to arrival. Patient complains of a throbbing sensation of his right foot. Method of Injury: fell, twisted Occurred: just prior to arrival Quality: constant Severity of Pain-Max: moderate Severity of Pain-Current: mild Lower Extremities Pain: ankle: right Modifying Factors: Improves With: other (Ambulation weightbearing worsens symptoms.) Associated Symptoms: none Allergies/Adverse Reactions: BEESTINGS Allergy (Mild, Uncoded 07/02/20 21:53) Swelling Home Medications: Atenolol 50 mg [Tenormin 50 mg] 50 mg PO DAILY 01/03/16 [History] Cetirizine HCl [Zyrtec] 10 mg PO DAILY 10/30/16 [History] Warfarin Sodium 10 mg [Coumadin 10 MG] 10 mg PO UD 08/25/18 [History] Warfarin Sodium 10 mg [Coumadin 10 MG] 15 mg PO WEEKLY 08/25/18 [History] Buspirone HCl [Buspar] 1 mg TID 12/04/19 [History] Trazodone HCl [Desyrel] 1 ea DAILY 12/04/19 [History] Venlafaxine HCl [Venlafaxine HCl ER] 1 ea DAILY 12/04/19 [History] clonazePAM [Klonopin] 1 ea DAILY 12/04/19 [History] Hx Tetanus, Diphtheria Vaccination/Date Given: Yes Hx Influenza Vaccination/Date Given: No Hx Pneumococcal Vaccination/Date Given: No Travel Risk - International Travel Have you traveled outside of the country in past 3 weeks: No - Coronavirus Screening Are you exhibiting any of the following symptoms?: No Close contact with a COVID-19 positive Pt in past 14-21 Days: No - Vaccine Status Have you recieved a Covid-19 vaccination: Yes 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: [employer] - Vaccination Dates Date of 2cond Vaccination (if applicable): 06/23/20 - Review of Systems Constitutional: No Symptoms, No Fever, No Chills Eyes: No Symptoms Ears, Nose, & Throat: No Symptoms Respiratory: No Symptoms, No Cough, No Dyspnea Cardiac: No Symptoms, No Chest Pain, No Edema, No Syncope Abdominal/Gastrointestinal: No Symptoms, No Abdominal Pain, No Nausea, No Vomiting, No Diarrhea Genitourinary Symptoms: No Symptoms, No Dysuria Musculoskeletal: No Symptoms, No Back Pain, No Neck Pain Skin: No Symptoms, No Rash Neurological: No Symptoms, No Dizziness, No Focal Weakness, No Sensory Changes Psychological: No Symptoms Endocrine: No Symptoms Hematologic/Lymphatic: No Symptoms Immunological/Allergic: No Symptoms All Other Systems: Reviewed and Negative - Past Medical History Pertinent Past Medical History: Yes Neurological History: No Pertinent History ENT History: No Pertinent History Cardiac History: Hypertension Respiratory History: No Pertinent History Endocrine Medical History: No Pertinent History Musculoskeletal History: Arthritis GI Medical History: Diverticulitis, Pancreatitis History: No Pertinent History Psycho-Social History: Anxiety, Depression, Panic Disorder, Other Male Reproductive Disorders: No Pertinent History Other Medical History: BLOOD DISORDER: FACTOR V, 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 and arthritis in back - Past Surgical History Past Surgical History: Yes Neuro Surgical History: No Pertinent History Cardiac: No Pertinent History Respiratory: No Pertinent History Gastrointestinal: Cholecystectomy, Hernia Repair Genitourinary: No Pertinent History Musculoskeletal: Orthopedic Surgery Male Surgical History: No Pertinent History Other Surgical History: INGUINAL LYMPH NODES - BRANDY CARPEL TUNNEL REPAIR - LOWER BACK - LEFT ELBOW RODS IN BACK, JOINT REPLACEMENT TO RT GREAT TOE - Social History Smoking Status: Never smoker Exposure to second hand smoke: No Drug Use: none Patient Lives Alone: No - Nursing Vital Signs Nursing Vital Signs: Initial Vital Signs Temperature 98.8 F 07/02/20 21:54 Pulse Rate 90 07/02/20 21:54 Respiratory Rate 18 07/02/20 21:54 Blood Pressure 113/89 07/02/20 21:54 O2 Sat by Pulse Oximetry 96 07/02/20 21:54 Pain Scale Pain Intensity 8 - Physical Exam General Appearance: no apparent distress, alert Eyes, Ears, Nose, Throat Exam: moist mucous membranes Neck Exam: non-tender, supple Cardiovascular/Respiratory Exam: chest non-tender, normal breath sounds, regular rate/rhythm, no respiratory distress Gastrointestinal/Abdominal Exam: non-tender, guarding Back Exam: normal inspection, No vertebral tenderness Hips Exam: bilateral: non-tender, normal inspection, normal range of motion, no evidence of injury Legs Exam: bilateral leg: non-tender, normal inspection, normal range of motion, no evidence of injury Knees Exam: bilateral knee: non-tender, normal inspection, normal range of motion, no evidence of injury Ankle Exam: right ankle: swelling, other (There is significant swelling over the lateral), left ankle: non-tender, normal inspection, normal range of motion, no evidence of injury Foot Exam: bilateral foot: non-tender, normal inspection, normal range of motion, no evidence of injury Neuro/Tendon Exam: normal sensation, normal motor functions Mental Status Exam: alert, oriented x 3, cooperative Skin Exam: normal color, warm, dry SpO2 Interpretation: normal SpO2: 96 O2 Delivery: Room Air - Course Nursing assessment & vital signs reviewed: Yes - Radiology Exams Ankle X-ray Interpretation: Interpreted by me (No fracture or dislocation. Soft tissue swelling over the lateral malleolus.) Ordered Tests: Active Orders 24 hr Category Date Time Status ANKLE (3 VIEWS) Stat Exams 07/02/20 22:24 Taken Medication Summary Discontinued Medications Generic Name Dose Route Start Last Admin Trade Name Freq PRN Reason Stop Dose Admin Ketorolac Tromethamine 30 mg 07/02/20 22:35 Toradol 30 Mg Injection IM 07/02/20 22:36 STAT ONE - Progress Progress: improved Progress Note: Patient reassessed. Pain improved. There is significant soft tissue swelling observed. Overlying soft tissue otherwise intact. X-ray negative for fracture dislocation. Patient is on Coumadin which may contribute to this swelling. Extremity neurovascular intact distally. Compartments are soft. We will apply a Aircast and provide patient with bilateral axillary crutches. Patient will be referred to orthopedic clinic for follow-up. 07/02/20 22:42 Counseled pt/family regarding: diagnosis, need for follow-up, rad results - Departure Departure Disposition: Home Clinical Impression: Ankle sprain Condition: Stable Critical Care Time: No Referrals: TOMA ARCHULETA [Primary Care Provider] - Instructions: Ankle Sprain (DC) Additional Instructions: Discharge/Care Plan AMBROCIO CATHERINE was seen on 07/02/20 in the Emergency Room. The patient was counseled regarding Diagnosis,Lab results, Imaging studies, need for follow up and when to return to the Emergency Room. Prescriptions given: Discharge Note I have spoken with the patient and/or caregivers. I have explained the patient's condition, diagnosis and treatment plan based on the information available to me at this time. I have answered the patient's and/or caregiver's questions and addressed any concerns. The patient and/or caregivers have as good understanding of the patient's diagnosis, condition and treatment plan as can be expected at this point. The vital signs have been stable. The patient's condition is stable and appropriate for discharge from the emergency department. The patient will pursue further outpatient evaluation with the primary care physician or other designated or consulting physician as outlined in the discharge instructions. The patient and/or caregivers are agreeable to this plan of care and follow-up instructions have been explained in detail. The patient and/or caregivers have received these instruction. The patient/and or caregivers are aware that any significant change in condition or worsening of symptoms should prompt an immediate return to this or the closest emergency department or call 911. Outpatient Orders: Ortho Referral Time Frame: 1 Day, Facility: [facility], Location: ORTHO CLINIC
[2020-07-02 22:49] VITALS: BP 125/81; PULSE 77; O2SAT 95
--- NOTE | 2020-07-03 08:46 | XRAY ---
Indication: Pain and swelling following fall. Comparison: None 3 view right ankle demonstrates anterolateral soft tissue swelling. No other bony, articular, or soft tissue abnormalities.
== END 2020-07-02 23:03 | disposition home or self-care (01) ==
LOC: ED 21:45
DX: S93.401A Sprain of unspecified ligament of right ankle, initial encounter (principal); W17.89XA Other fall from one level to another, initial encounter; Y93.89 Activity, other specified; M25.571 Pain in right ankle and joints of right foot; Z79.899 Other long term (current) drug therapy; Z79.01 Long term (current) use of anticoagulants
CPT/HCPCS: 73610; 96372; 99284; J1885

== ENCOUNTER 2020-08-27 11:32 | Day surgery (SDC) | payer OTHER ==
[2020-08-27] MEDS ORDERED: BUPIVACAINE 0.5% VIAL IJ ONE (11:33)
[2020-08-27 12:08] LABS: INR 1.03 (0.8-3.0); PROTIME 12.1 SECONDS (9.4-12.5)
[2020-08-27] MEDS ORDERED: DIPRIVAN 200 MG/20 ML IV ONE (12:54)
--- NOTE | 2020-08-27 13:52 | XRAY ---
Indication: Bilateral L4-S1 MBB. Intraoperative fluoroscopy provided for 12 seconds. Single digital spot image submitted for interpretation demonstrates posterior needle tips projecting over the expected left and right L4-S1 nerve roots. Correlate with intraoperative findings/report. Incidental partially visualized bilateral L3 pedicle screws.
--- NOTE | 2020-08-27 13:56 | XRAY ---
12 seconds fluoroscopy time in surgery for bilateral L4-S1 MBB.
[2020-08-27] MEDS ORDERED: Lactated Ringers 1,000 ML IV ONE (15:33)
== END 2020-08-27 13:25 | disposition home or self-care (01) ==
LOC: SDC-PAIN 11:32
PROVIDERS: ATTEND Psychiatry & Neurology Pain Medicine
DX: M47.816 Spondylosis without myelopathy or radiculopathy, lumbar region (principal); I10 Essential (primary) hypertension; F41.9 Anxiety disorder, unspecified; F32.9 Major depressive disorder, single episode, unspecified; G47.30 Sleep apnea, unspecified; Z79.01 Long term (current) use of anticoagulants; Z79.899 Other long term (current) drug therapy
CPT/HCPCS: 36415; 64493; 64494; 72020; 77002; 85610; J2704

== ENCOUNTER 2020-10-08 14:12 | Day surgery (SDC) | payer MEDICAID, OTHER ==
[2020-10-08] MEDS ORDERED: BUPIVACAINE 0.5% VIAL IJ ONE (14:13)
[2020-10-08] MEDS ORDERED: Depo-Medrol 40 MG/ML IM ONE (14:13)
[2020-10-08] MEDS ORDERED: Xylocaine 1% Vial 30 ML PF IJ ONE (14:13)
[2020-10-08 14:57] LABS: INR 1.04 (0.8-3.0); PROTIME 12.3 SECONDS (9.4-12.5)
[2020-10-08] MEDS ORDERED: DIPRIVAN 200 MG/20 ML IV ONE (16:02)
[2020-10-08] MEDS ORDERED: Lactated Ringers 1,000 ML IV ONE (16:38)
--- NOTE | 2020-10-08 17:12 | XRAY ---
1 minute and 3 seconds fluoroscopy time in surgery for right L4-S1 RFA.
--- NOTE | 2020-10-08 17:12 | XRAY ---
Indication: Right L4-S1 RFA. Intraoperative fluoroscopy provided for 1 minute 3 seconds. 3 digital spot images submitted for interpretation demonstrates posterior needle tips projecting over the right L4-S1 nerve roots. Correlate with intraoperative findings/report. Incidental partially visualized bilateral posterior L3-L4 fusion spinal hardware.
== END 2020-10-08 16:35 | disposition home or self-care (01) ==
LOC: SDC-PAIN 14:12
PROVIDERS: ATTEND Psychiatry & Neurology Pain Medicine
DX: M47.816 Spondylosis without myelopathy or radiculopathy, lumbar region (principal); D68.2 Hereditary deficiency of other clotting factors; I10 Essential (primary) hypertension; Z79.899 Other long term (current) drug therapy
CPT/HCPCS: 36415; 64635; 64636; 72100; 77002; 85610; J1030; J2001; J2704

== ENCOUNTER 2020-10-22 13:40 | Day surgery (SDC) | payer OTHER ==
[2020-10-22 12:26] LABS: INR 0.98 (0.8-3.0); PROTIME 11.6 SECONDS (9.4-12.5)
[~2020-10-22 13:40] MED LIST: DIPRIVAN 200 MG/20 ML IV ONE; Ketamine HCl 50 MG/ML ONE
[2020-10-22] MEDS ORDERED: Lactated Ringers 1,000 ML IV ONE (14:06)
[2020-10-22] MEDS ORDERED: BUPIVACAINE 0.5% VIAL IJ ONE (14:18)
[2020-10-22] MEDS ORDERED: Xylocaine 1% Vial 30 ML PF IJ ONE (14:18)
[2020-10-22] MEDS ORDERED: Depo-Medrol 40 MG/ML IM ONE (14:18)
--- NOTE | 2020-10-22 15:00 | XRAY ---
Indication: Left L4-S1 RFA. Intraoperative fluoroscopy provided for 40 seconds. 3 digital spot images submitted for interpretation demonstrates posterior needle tips projecting over the left L4-S1 nerve roots. Correlate with intraoperative findings/report. Incidental partially visualized bilateral posterior L3-L4 fusion spinal hardware.
--- NOTE | 2020-10-22 15:03 | XRAY ---
40 seconds fluoroscopy time in surgery for left L4-S1 RFA.
== END 2020-10-22 14:12 | disposition still patient (30) ==
LOC: EDSTATUS 13:40 → SDC-PAIN 14:12 → EDSTATUS 15:06
PROVIDERS: ATTEND Psychiatry & Neurology Pain Medicine
DX: M47.816 Spondylosis without myelopathy or radiculopathy, lumbar region (principal); Z79.01 Long term (current) use of anticoagulants; Z79.899 Other long term (current) drug therapy
CPT/HCPCS: 36415; 64635; 64636; 72100; 77002; 85610; J1030; J2001; J2704

== ENCOUNTER 2020-10-22 14:31 | Emergency (ER) | payer OTHER ==
[2020-10-22 14:42] VITALS: BP 121/82; PULSE 63; O2SAT 97
--- NOTE | 2020-10-22 15:06 | ERPHSYRPT ---
- History of Present Illness Time Seen by Provider: 10/22/20 14:50 Source: patient Exam Limitations: no limitations Patient Subjective Stated Complaint: " I was getting a pain procedure today and I fell off the bed onto my back ". Triage Nursing Assessment: Pt presents to ER from [facility] from a Pain Management produre under Dr. Molina. Pt fell off bed onto the floor following his procedure, pt is now complaining of lower diffused back pains. Pt is alert and oriented x 3. Pt skin is pink, warm, and dry. Pt respirations are unlabored at this time. Pt has no obvious deformity but is tender in back. Pt denies any LOC. Pt pupils are PERRL. Pt denies any other injuries or further complaints. Physician History: This is a 50-year-old morbidly obese white male patient of Dr. Zacarias and who sees a pain specialist Dr. Molina in our pain clinic. Patient underwent a spinal ablation just prior to his evaluation here in the emergency room. Patient states that he was getting up off of his postprocedural bed, on his own, became dizzy and then fell. Patient had told the nurse that he felt well and that is why he was moving on his own. He did not hit his head. His only complaint is lower back pain. He is here in the emergency department to obtain an x-ray to see if there is any acute issue after his fall. He has no chest pain. He is not short of breath. He states he has plenty of pain medicine at home. Timing/Duration: today Method of Injury: fall Quality: aching Back Pain Location: lumbar spine, paraspinous muscles (Lumbar level) Severity of Pain-Max: moderate Severity of Pain-Current: moderate Modifying Factors: Improves With: movement Associated Symptoms: lower back pain, muscle spasms, No urinary incontinence, No loss of bowel control, No dizziness (Resolved), No numbness in legs/feet, No weakness, No sensory/motor loss, No tingling in legs/feet Previous symptoms: same symptoms as today, recently seen, recently treated Allergies/Adverse Reactions: BEESTINGS Allergy (Mild, Uncoded 10/22/20 14:42) Swelling Home Medications: Atenolol 50 mg [Tenormin 50 mg] 50 mg PO DAILY 11/05/16 [History] Cetirizine HCl [Zyrtec] 10 mg PO DAILY 10/30/16 [History] Warfarin Sodium 10 mg [Coumadin 10 MG] 10 mg PO UD 08/25/18 [History] Warfarin Sodium 10 mg [Coumadin 10 MG] 15 mg PO WEEKLY 08/25/18 [History] Buspirone HCl [Buspar] 1 mg TID 12/04/19 [History] Trazodone HCl [Desyrel] 1 ea DAILY 12/04/19 [History] Venlafaxine HCl [Venlafaxine HCl ER] 1 ea DAILY 12/04/19 [History] clonazePAM [Klonopin] 1 ea DAILY 12/04/19 [History] Hx Tetanus, Diphtheria Vaccination/Date Given: Yes Hx Influenza Vaccination/Date Given: Yes Hx Pneumococcal Vaccination/Date Given: Yes Immunizations Up to Date: Yes Travel Risk - International Travel Have you traveled outside of the country in past 3 weeks: No - Coronavirus Screening Are you exhibiting any of the following symptoms?: No Close contact with a COVID-19 positive Pt in past 14-21 Days: No - Vaccine Status Have you recieved a Covid-19 vaccination: 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[employer] - Vaccination Dates Date of 2cond Vaccination (if applicable): 05/2020 - Review of Systems Constitutional: No Symptoms Eyes: No Symptoms Ears, Nose, & Throat: No Symptoms Respiratory: No Symptoms Cardiac: No Symptoms Abdominal/Gastrointestinal: No Symptoms Genitourinary Symptoms: No Symptoms Musculoskeletal: Back Pain, Fall Skin: No Symptoms Neurological: No Dizziness, No Sensory Changes Psychological: No Symptoms Endocrine: No Symptoms Hematologic/Lymphatic: No Symptoms Immunological/Allergic: No Symptoms All Other Systems: Reviewed and Negative - Past Medical History Pertinent Past Medical History: Yes Neurological History: No Pertinent History ENT History: No Pertinent History Cardiac History: Hypertension Respiratory History: No Pertinent History Endocrine Medical History: No Pertinent History Musculoskeletal History: No Pertinent History GI Medical History: Diverticulitis, Pancreatitis History: No Pertinent History Psycho-Social History: Anxiety, Depression, Panic Disorder, Other Male Reproductive Disorders: No Pertinent History Other Medical History: BLOOD DISORDER: FACTOR V, 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 and arthritis in back - Past Surgical History Past Surgical History: Yes Neuro Surgical History: No Pertinent History Cardiac: No Pertinent History Respiratory: No Pertinent History Gastrointestinal: Cholecystectomy, Hernia Repair Genitourinary: No Pertinent History Musculoskeletal: Orthopedic Surgery Male Surgical History: No Pertinent History Other Surgical History: INGUINAL LYMPH NODES - BRANDY CARPEL TUNNEL REPAIR - LOWER BACK - LEFT ELBOW RODS IN BACK, JOINT REPLACEMENT TO RT GREAT TOE - Social History Smoking Status: Never smoker Exposure to second hand smoke: No Drug Use: none Patient Lives Alone: No - Nursing Vital Signs Nursing Vital Signs: Initial Vital Signs Temperature 97.8 F 10/22/20 14:33 Pulse Rate 63 10/22/20 14:33 Respiratory Rate 18 10/22/20 14:33 Blood Pressure 121/82 10/22/20 14:33 O2 Sat by Pulse Oximetry 97 10/22/20 14:33 Pain Scale Pain Intensity 7 - Physical Exam General Appearance: no apparent distress, alert, anxiety, obese Eye Exam: PERRL/EOMI, eyes nml inspection Ears, Nose, Throat Exam: normal ENT inspection, moist mucous membranes Neck Exam: normal inspection, non-tender, supple, full range of motion Respiratory Exam: airway intact, No chest tenderness, No respiratory distress Gastrointestinal Exam: No tenderness Rectal Exam: not done Back Exam: normal inspection, decreased range of motion, muscle spasm (Bilateral paraspinous musclelumbar level), No CVA tenderness, No vertebral tenderness Extremity Exam: normal inspection, normal range of motion, pelvis stable Neurologic Exam: alert, oriented x 3, cooperative, developer prover mechanical II-XII nml as tested, normal mood/affect Skin Exam: normal color, warm, dry Lymphatic Exam: No adenopathy SpO2 Interpretation: normal SpO2: 97 O2 Delivery: Room Air - Course Nursing assessment & vital signs reviewed: Yes Ordered Tests: Active Orders 24 hr Category Date Time Status LUMBAR LIMITED (2 OR 3 VIEWS) Stat Exams 10/22/20 14:49 Completed Medication Summary Discontinued Medications Generic Name Dose Route Start Last Admin Trade Name Freq PRN Reason Stop Dose Admin Hydromorphone HCl 1 mg 10/22/20 15:16 10/22/20 15:25 Hydromorphone 1 Mg/Ml Injection IM 10/22/20 15:17 1 mg STAT ONE Administration Hydromorphone HCl Confirm 10/22/20 15:21 Hydromorphone 1 Mg/Ml Injection Administered 10/22/20 15:22 Dose 1 mg .ROUTE .STK-MED ONE Ondansetron HCl 4 mg 10/22/20 15:17 10/22/20 15:24 Zofran Odt 4 Mg PO 10/22/20 15:18 4 mg STAT ONE Administration Ondansetron HCl Confirm 10/22/20 15:21 Zofran Odt 4 Mg Administered 10/22/20 15:22 Dose 4 mg .ROUTE .STK-MED ONE - Progress Progress: improved, pain not gone completely, re-examined Progress Note: 10/22/20 15:47 X-ray of lumbar spine reveals no evidence of any acute fracture or subluxation. Counseled pt/family regarding: diagnosis, need for follow-up, rad results - Departure Departure Disposition: Home Clinical Impression: Acute exacerbation of chronic low back pain Condition: Stable Critical Care Time: No Referrals: TOMA ZACARIAS [Primary Care Provider] - Additional Instructions: Take your medication as prescribed. Follow-up with your primary care physician and pain specialist for further management.
[2020-10-22] MEDS ORDERED: Hydromorphone 1 mg/ml Injection IM ONE (15:16)
[2020-10-22] MEDS ORDERED: ZOFRAN ODT 4 MG PO ONE (15:17)
[2020-10-22] MEDS ORDERED: Hydromorphone 1 mg/ml Injection ONE (15:21)
[2020-10-22] MEDS ORDERED: ZOFRAN ODT 4 MG ONE (15:21)
--- NOTE | 2020-10-22 15:28 | XRAY ---
Indication: Status post fall. Recent pain management procedure. Comparison: March 05, 2018. 3 view lumbar spine unchanged again demonstrating minimal dextroscoliosis, L2-L3 laminectomy, L2-L3 fusion with intact bilateral posterior spinal hardware, L2-L3/L4-L5 degenerative disc disease, cholecystectomy clips, and right lower quadrant hernia mesh graft. No new/acute abnormalities.
== END 2020-10-22 16:26 | disposition home or self-care (01) ==
LOC: ED 14:31
DX: M54.5 Low back pain (principal)
CPT/HCPCS: 72100; 96372; 99284; J1170; Q0162

== ENCOUNTER 2020-11-29 14:11 | Emergency (ER) | payer OTHER ==
--- NOTE | 2020-11-29 14:21 | ERPHSYRPT ---
- History of Present Illness Time Seen by Provider: 11/29/20 14:21 Historian: patient Exam Limitations: no limitations Physician History: This is an obese 50-year-old white male who is a patient of Dr. Zacarias and presents with sudden onset of epigastric abdominal pain that occurred approximately 1 hour prior to arrival. 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 He has a history of pancreatitis and diverticulitis. He has a history of hypertension and panic disorder. Patient does see Dr. Molina for his chronic pain issues. Patient denies shortness of breath. He has not had a fever or cough. He has had no nausea vomiting or diarrhea. Patient states that he recently has had some medication changes. Timing/Duration: today Activities at Onset: none Quality: sharpness Abdominal Pain Onset Location: epigastric Pain Radiation: no radiation Severity of Pain-Max: moderate Severity of Pain-Current: mild Modifying Factors: Improves With: nothing Previous symptoms: same symptoms as today, no recent treatment Allergies/Adverse Reactions: BEESTINGS Allergy (Mild, Uncoded 11/29/20 14:22) Swelling Home Medications: Atenolol 50 mg [Tenormin 50 mg] 50 mg PO DAILY 01/03/16 [History] Warfarin Sodium 10 mg [Coumadin 10 MG] 5 mg PO WEEKLY 08/25/18 [History] Warfarin Sodium 10 mg [Coumadin 10 MG] 10 mg PO UD 08/25/18 [History] Buspirone HCl [Buspar] 1 mg TID 12/04/19 [History] Trazodone HCl [Desyrel] 1 ea DAILY 12/04/19 [History] Venlafaxine HCl [Venlafaxine HCl ER] 1 ea DAILY 12/04/19 [History] Fluvoxamine Maleate [Fluvoxamine Maleate ER] 1 ea DAILY 11/29/20 [History] Hydroxyzine HCl 25 mg [Atarax 25 mg] 1 ea DAILY 11/29/20 [History] Lumateperone Tosylate [Caplyta] 42 mg PO DAILY 11/29/20 [History] Oxycodone / APAP 10/325 mg [Oxycodone-Acetaminophen 10-325] 1 ea TID 11/29/20 [History] Zolpidem Tartrate [Ambien] 1 ea .ROUTE DAILY 11/29/20 [History] Hx Tetanus, Diphtheria Vaccination/Date Given: Yes Hx Influenza Vaccination/Date Given: Yes Hx Pneumococcal Vaccination/Date Given: Yes Travel Risk - International Travel Have you traveled outside of the country in past 3 weeks: No - Coronavirus Screening Are you exhibiting any of the following symptoms?: No Close contact with a COVID-19 positive Pt in past 14-21 Days: No - Vaccine Status Have you recieved a Covid-19 vaccination: Yes 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[employer] - Vaccination Dates Date of 2cond Vaccination (if applicable): 05/2020 - Review of Systems Constitutional: No Symptoms Eyes: No Symptoms Ears, Nose, & Throat: No Symptoms Respiratory: No Symptoms Abdominal/Gastrointestinal: Abdominal Pain Genitourinary Symptoms: No Symptoms Musculoskeletal: No Symptoms Skin: No Symptoms Neurological: No Symptoms Psychological: No Symptoms Endocrine: No Symptoms Hematologic/Lymphatic: No Symptoms Immunological/Allergic: No Symptoms All Other Systems: Reviewed and Negative - Past Medical History Pertinent Past Medical History: Yes Neurological History: No Pertinent History ENT History: No Pertinent History Cardiac History: Hypertension Respiratory History: No Pertinent History Endocrine Medical History: No Pertinent History Musculoskeletal History: No Pertinent History GI Medical History: Diverticulitis, Pancreatitis History: No Pertinent History Psycho-Social History: Anxiety, Depression, Panic Disorder, Other Male Reproductive Disorders: No Pertinent History Other Medical History: BLOOD DISORDER: FACTOR V, 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 and arthritis in back - Past Surgical History Past Surgical History: Yes Neuro Surgical History: No Pertinent History Cardiac: No Pertinent History Respiratory: No Pertinent History Gastrointestinal: Cholecystectomy, Hernia Repair Genitourinary: No Pertinent History Musculoskeletal: Orthopedic Surgery Male Surgical History: No Pertinent History Other Surgical History: INGUINAL LYMPH NODES - BRANDY CARPEL TUNNEL REPAIR - LOWER BACK - LEFT ELBOW RODS IN BACK, JOINT REPLACEMENT TO RT GREAT TOE - Social History Smoking Status: Never smoker Exposure to second hand smoke: No Drug Use: none Patient Lives Alone: No - Nursing Vital Signs Nursing Vital Signs: Initial Vital Signs Temperature 97.0 F 11/29/20 14:11 Pulse Rate 69 11/29/20 14:11 Respiratory Rate 20 11/29/20 14:11 Blood Pressure 134/87 11/29/20 14:11 O2 Sat by Pulse Oximetry 97 11/29/20 14:11 Pain Scale Pain Intensity 6 - Physical Exam General Appearance: no apparent distress, alert, anxiety, obese Eye Exam: PERRL/EOMI, eyes nml inspection Ears, Nose, Throat Exam: normal ENT inspection, moist mucous membranes Neck Exam: normal inspection, non-tender, supple, full range of motion Respiratory Exam: normal breath sounds, chest tenderness, lungs clear, airway intact Cardiovascular Exam: regular rate/rhythm, normal heart sounds, normal peripheral pulses Gastrointestinal/Abdomen Exam: soft, normal bowel sounds, tenderness (Mild epigastric), No guarding, No rebound Rectal Exam: not done Back Exam: normal inspection, normal range of motion, No CVA tenderness Extremity Exam: normal inspection, normal range of motion, pelvis stable Neurologic Exam: alert, oriented x 3, cooperative, 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 No change from comparison EKG dated 12/04/2019) Ordered Tests: Active Orders 24 hr Category Date Time Status EKG-ER Only STAT Care 11/29/20 15:01 Active IV Insertion STAT Care 11/29/20 15:01 Active AMYLASE Stat Lab 11/29/20 15:01 Completed CBC W DIFF Stat Lab 11/29/20 15:01 Completed CMP Stat Lab 11/29/20 15:01 Completed D-DIMER QUANTITATIVE Stat Lab 11/29/20 15:02 Completed LIPASE Stat Lab 11/29/20 15:01 Completed Lactic Acid Stat Lab 11/29/20 15:01 Completed TROPONIN Q3H Lab 11/29/20 14:45 Completed TROPONIN Q3H Lab 11/29/20 18:15 Ordered TROPONIN Q3H Lab 11/29/20 21:15 Ordered TROPONIN Q3H Lab 11/30/20 00:15 Ordered TROPONIN Q3H Lab 11/30/20 03:15 Ordered UA W/RFX UR CULTURE Stat Lab 11/29/20 16:04 Completed Medication Summary Discontinued Medications Generic Name Dose Route Start Last Admin Trade Name Freq PRN Reason Stop Dose Admin Hydromorphone HCl 1 mg 11/29/20 16:04 11/29/20 16:14 Hydromorphone 1 Mg/Ml Injection IV 11/29/20 16:05 1 mg STAT ONE Administration Hydromorphone HCl Confirm 11/29/20 16:11 Hydromorphone 1 Mg/Ml Injection Administered 11/29/20 16:12 Dose 1 mg .ROUTE .STK-MED ONE Ondansetron HCl 4 mg 11/29/20 16:04 11/29/20 16:15 Zofran 4 Mg/2 Ml Vial IV 11/29/20 16:05 4 mg STAT ONE Administration Ondansetron HCl Confirm 11/29/20 16:11 Zofran 4 Mg/2 Ml Vial Administered 11/29/20 16:12 Dose 4 mg .ROUTE .STK-MED ONE Lab/Rad Data: Laboratory Result Diagrams 11/29/20 15:01 11/29/20 15:01 Laboratory Results 11/29/20 11/29/20 11/29/20 Range/Units 16:04 15:02 15:01 WBC (4.0-10.5) K/mm3 RBC (4.1-5.6) M/mm3 Hgb (12.5-18.0) gm/dl Hct (42-50) % MCV (78-100) fl MCH (26-32) pg MCHC (32-36) g/dl RDW (11.5-14.0) % Plt Count (150-450) K/mm3 MPV (7.5-11.0) fl Gran % (36.0-66.0) % Eos # (Auto) (0-0.5) Absolute Lymphs (auto) (1.0-4.6) Absolute Monos (auto) (0.0-1.3) Lymphocytes % (24.0-44.0) % Monocytes % (0.0-12.0) % Eosinophils % (0.00-5.0) % Basophils % (0.0-0.4) % Absolute Granulocytes (1.4-6.9) Basophils # (0-0.4) D-Dimer < 215 L (215-500) ng/mL Sodium 139 (137-145) mmol/L Potassium 4.2 (3.5-5.1) mmol/L Chloride 102 (98-107) mmol/L Carbon Dioxide 31 H (22-30) mmol/L Anion Gap 10.7 (5-15) MEQ/L BUN 17 (9-20) mg/dL Creatinine 1.08 (0.66-1.25) mg/dL Estimated GFR > 60.0 ML/MIN Glucose 101 (74-106) mg/dL Lactic Acid (0.4-2.0) Calcium 9.0 (8.4-10.2) mg/dL Total Bilirubin 0.80 (0.2-1.3) mg/dL AST 53 (17-59) U/L ALT 45 (0-50) U/L Alkaline Phosphatase 56 (38-126) U/L Troponin I (0.000-0.034) ng/mL Serum Total Protein 7.2 (6.3-8.2) g/dL Albumin 4.1 (3.5-5.0) g/dL Amylase 77 (30-110) U/L Lipase 258 (23-300) U/L Urine Color YELLOW (YELLOW) Urine Appearance CLEAR (CLEAR) Urine pH 5.0 (5-6) Ur Specific [place] 1.018 (1.005-1.025) Urine Protein NEGATIVE (Negative) Urine Ketones NEGATIVE (NEGATIVE) Urine Blood NEGATIVE (0-5) Eder/ul Urine Nitrite NEGATIVE (NEGATIVE) Urine Bilirubin NEGATIVE (NEGATIVE) Urine Urobilinogen NEGATIVE (0-1) mg/dL Ur Leukocyte Esterase NEGATIVE (NEGATIVE) Urine WBC (Auto) NONE (0-5) /HPF Urine RBC (Auto) NONE (0-2) /HPF U Epithel Cells (Auto) NONE (FEW) /HPF Urine Bacteria (Auto) NONE (NEGATIVE) /HPF Urine Mucus (Auto) SLIGHT (NEGATIVE) /HPF Urine Culture Reflexed NO (NO) Urine Glucose NEGATIVE (NEGATIVE) mg/dL 11/29/20 11/29/20 11/29/20 Range/Units 15:01 15:01 14:45 WBC 3.6 L (4.0-10.5) K/mm3 RBC 4.98 (4.1-5.6) M/mm3 Hgb 15.1 (12.5-18.0) gm/dl Hct 44.9 (42-50) % MCV 90.2 (78-100) fl MCH 30.3 (26-32) pg MCHC 33.6 (32-36) g/dl RDW 14.3 H (11.5-14.0) % Plt Count 111 L (150-450) K/mm3 MPV 11.4 H (7.5-11.0) fl Gran % 31.7 L (36.0-66.0) % Eos # (Auto) 0.21 (0-0.5) Absolute Lymphs (auto) 1.79 (1.0-4.6) Absolute Monos (auto) 0.43 (0.0-1.3) Lymphocytes % 49.9 H (24.0-44.0) % Monocytes % 12.0 (0.0-12.0) % Eosinophils % 5.8 H (0.00-5.0) % Basophils % 0.6 (0.0-0.4) % Absolute Granulocytes 1.14 L (1.4-6.9) Basophils # 0.02 (0-0.4) D-Dimer (215-500) ng/mL Sodium (137-145) mmol/L Potassium (3.5-5.1) mmol/L Chloride (98-107) mmol/L Carbon Dioxide (22-30) mmol/L Anion Gap (5-15) MEQ/L BUN (9-20) mg/dL Creatinine (0.66-1.25) mg/dL Estimated GFR ML/MIN Glucose (74-106) mg/dL Lactic Acid 1.4 (0.4-2.0) Calcium (8.4-10.2) mg/dL Total Bilirubin (0.2-1.3) mg/dL AST (17-59) U/L ALT (0-50) U/L Alkaline Phosphatase (38-126) U/L Troponin I < 0.012 (0.000-0.034) ng/mL Serum Total Protein (6.3-8.2) g/dL Albumin (3.5-5.0) g/dL Amylase (30-110) U/L Lipase (23-300) U/L Urine Color (YELLOW) Urine Appearance (CLEAR) Urine pH (5-6) Ur Specific [place] (1.005-1.025) Urine Protein (Negative) Urine Ketones (NEGATIVE) Urine Blood (0-5) Eder/ul Urine Nitrite (NEGATIVE) Urine Bilirubin (NEGATIVE) Urine Urobilinogen (0-1) mg/dL Ur Leukocyte Esterase (NEGATIVE) Urine WBC (Auto) (0-5) /HPF Urine RBC (Auto) (0-2) /HPF U Epithel Cells (Auto) (FEW) /HPF Urine Bacteria (Auto) (NEGATIVE) /HPF Urine Mucus (Auto) (NEGATIVE) /HPF Urine Culture Reflexed (NO) Urine Glucose (NEGATIVE) mg/dL - Progress Progress: improved Progress Note: 11/29/20 16:19 No chest pain. Epigastric pain has resolved. Patient is not short of breath. Counseled pt/family regarding: lab results, diagnosis, need for follow-up - Departure Departure Disposition: Home Clinical Impression: Epigastric discomfort Condition: Stable Critical Care Time: No Referrals: TOMA ZACARIAS [Primary Care Provider] - Instructions: Angina (DC) Additional Instructions: Drink plenty fluids. Take your medication as prescribed follow-up with your primary care provider for further management
[2020-11-29 15:08] LABS: Absolute Neutrophil Ct (ANC) 1.14 (1.4-6.9); BASOPHIL % 0.6 % (0.0-0.4); Basophil (Absolute #) 0.02 (0-0.4); Eosinophil % 5.8 % (0.00-5.0); Eosinophil (Absolute #) 0.21 (0-0.5); Hematocrit 44.9 % (42-50); Hemoglobin 15.1 gm/dl (12.5-18.0); Lymphocyte (Absolute #) 1.79 (1.0-4.6); Lymphocytes % 49.9 % (24.0-44.0); Mean Cell Volume 90.2 fl (78-100); Mean Corpuscular Hemoglobin 30.3 pg (26-32); Mean Corpuscular Hgb Concent. 33.6 g/dl (32-36); Mean Platelet Volume 11.4 fl (7.5-11.0); Monocyte (Absolute #) 0.43 (0.0-1.3); Neutrophil % 31.7 % (36.0-66.0); Platelet Count 111 K/mm3 (150-450); Red Blood Count 4.98 M/mm3 (4.1-5.6); Red Cell Distribution Width 14.3 % (11.5-14.0); White Blood Count 3.6 K/mm3 (4.0-10.5)
[2020-11-29 15:11] LABS: ALBUMIN 4.1 g/dL (3.5-5.0); ALKALINE PHOSPHATASE 56 U/L (38-126); AMYLASE 77 U/L (30-110); ANION GAP 10.7 MEQ/L (5-15); BLOOD UREA NITROGEN 17 mg/dL (9-20); CHLORIDE 102 mmol/L (98-107); Carbon Dioxide 31 mmol/L (22-30); Creatinine 1 1.08 mg/dL (0.66-1.25); EST GLOMERULAR FILTRATION RATE > 60.0 ML/MIN; Glucose 101 mg/dL (74-106); LIPASE 258 U/L (23-300); Potassium 4.2 mmol/L (3.5-5.1); SGOT/AST 53 U/L (17-59); SGPT/ALT 45 U/L (0-50); SODIUM 139 mmol/L (137-145); Total Protein 7.2 g/dL (6.3-8.2)
[2020-11-29] MEDS ORDERED: Hydromorphone 1 mg/ml Injection IV ONE (16:04)
[2020-11-29] MEDS ORDERED: Zofran 4 MG/2 ML VIAL IV ONE (16:04)
[2020-11-29 16:11] LABS: Appearance CLEAR (CLEAR); Bilirubin NEGATIVE (NEGATIVE); Blood NEGATIVE Ery/ul (0-5); Glucose NEGATIVE (NEGATIVE); Ketones NEGATIVE (NEGATIVE); Leukocyte Esterase NEGATIVE (NEGATIVE); Mucus SLIGHT /HPF (NEGATIVE); Nitrite NEGATIVE (NEGATIVE); Protein,Urine Dip NEGATIVE (Negative); Specific Gravity 1.018 (1.005-1.025); Urobilinogen NEGATIVE mg/dL (0-1)
[2020-11-29] MEDS ORDERED: Zofran 4 MG/2 ML VIAL ONE (16:11)
[2020-11-29] MEDS ORDERED: Hydromorphone 1 mg/ml Injection ONE (16:11)
[2020-11-29 16:37] VITALS: BP 119/73; PULSE 71; O2SAT 94
== END 2020-11-29 16:37 | disposition home or self-care (01) ==
LOC: ED 14:11
DX: R10.13 Epigastric pain (principal)
CPT/HCPCS: 36000; 36415; 80053; 81001; 82150; 83605; 83690; 84484; 85025; 85379; 93005; 96374; 96375; 99284; J1170; J2405

== ENCOUNTER 2021-01-11 00:12 | Emergency (ER) | payer OTHER ==
[2021-01-11] MEDS ORDERED: TORAdol 30 mg Injection IM ONE (00:40)
--- NOTE | 2021-01-11 00:40 | ERPHSYRPT ---
- History of Present Illness Time Seen by Provider: 01/11/21 00:37 Source: patient Physician History: Patient is 50-year-old male stumbled and fell and hit his tailbone as well as left side of the rib cage. Patient is on warfarin so he got concerned and came to the emergency room. Is complaining of pain on the left side of the rib cage. He denies any other pain. Occurred: just prior to arrival Reason for Fall: tripped Injuries/Pain Location: chest, back Loss of Consciousness: no loss of consciousness Severity of Pain-Max: mild Severity of Pain-Current: mild Modifying Factors: Improves With: nothing Associated Symptoms (Fall): denies symptoms Allergies/Adverse Reactions: BEESTINGS Allergy (Mild, Uncoded 01/11/21 00:28) Swelling Home Medications: Atenolol 50 mg [Tenormin 50 mg] 50 mg PO DAILY 01/03/16 [History] Warfarin Sodium 10 mg [Coumadin 10 MG] 5 mg PO WEEKLY 08/25/18 [History] Warfarin Sodium 10 mg [Coumadin 10 MG] 10 mg PO UD 08/25/18 [History] Buspirone HCl [Buspar] 1 mg TID 12/04/19 [History] Trazodone HCl [Desyrel] 1 ea DAILY 12/04/19 [History] Fluvoxamine Maleate [Fluvoxamine Maleate ER] 1 ea DAILY 11/29/20 [History] Hydroxyzine HCl 25 mg [Atarax 25 mg] 1 ea DAILY 11/29/20 [History] Lumateperone Tosylate [Caplyta] 42 mg PO DAILY 11/29/20 [History] Oxycodone HCl/Acetaminophen [Oxycodone-Acetaminophen 5-325] 1 tab PO TID 01/11/21 [History] Hx Tetanus, Diphtheria Vaccination/Date Given: Yes Hx Influenza Vaccination/Date Given: Yes Hx Pneumococcal Vaccination/Date Given: Yes Travel Risk - Vaccine Status Have you recieved a Covid-19 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[employer] - Vaccination Dates Date of 2cond Vaccination (if applicable): 05/2020 - Review of Systems Constitutional: No Fever, No Chills Eyes: No Symptoms Ears, Nose, & Throat: No Symptoms Respiratory: No Cough, No Dyspnea Cardiac: No Chest Pain, No Edema, No Syncope Abdominal/Gastrointestinal: No Abdominal Pain, No Nausea, No Vomiting, No Diarrhea Genitourinary Symptoms: No Dysuria Musculoskeletal: No Back Pain, No Neck Pain Skin: No Rash Neurological: No Dizziness, No Focal Weakness, No Sensory Changes Psychological: No Symptoms Endocrine: No Symptoms All Other Systems: Reviewed and Negative - Past Medical History Pertinent Past Medical History: Yes Neurological History: No Pertinent History ENT History: No Pertinent History Cardiac History: Hypertension Respiratory History: No Pertinent History Endocrine Medical History: No Pertinent History Musculoskeletal History: No Pertinent History GI Medical History: Diverticulitis, Pancreatitis History: No Pertinent History Psycho-Social History: Anxiety, Depression, Panic Disorder, Other Male Reproductive Disorders: No Pertinent History Other Medical History: BLOOD DISORDER: FACTOR V, 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 and arthritis in back - Past Surgical History Past Surgical History: Yes Neuro Surgical History: No Pertinent History Cardiac: No Pertinent History Respiratory: No Pertinent History Gastrointestinal: Cholecystectomy, Hernia Repair Genitourinary: No Pertinent History Musculoskeletal: Orthopedic Surgery Male Surgical History: No Pertinent History Other Surgical History: INGUINAL LYMPH NODES - BRANDY CARPEL TUNNEL REPAIR - LOWER BACK - LEFT ELBOW RODS IN BACK, JOINT REPLACEMENT TO RT GREAT TOE - Social History Smoking Status: Never smoker Exposure to second hand smoke: No Drug Use: none Patient Lives Alone: No - Nursing Vital Signs Nursing Vital Signs: Initial Vital Signs Pulse Rate 76 01/11/21 00:13 Respiratory Rate 18 01/11/21 00:13 Blood Pressure 111/87 01/11/21 00:13 O2 Sat by Pulse Oximetry 96 01/11/21 00:13 Pain Scale Pain Intensity 8 - [place] Coma Score Best Eye Response ([place]): (4) open spontaneously Best Verbal Response ([place]): (5) oriented Best Motor Response ([place]): (6) obeys commands [place] Total: 15 - Physical Exam General Appearance: no apparent distress, alert Head Injury: no evidence of injury Eye Exam: PERRL/EOMI ENT Exam: airway nml Neck Exam: normal inspection, No tenderness Respiratory/Chest Exam: normal breath sounds, rib tenderness (left side), No chest tenderness, No respiratory distress Cardiovascular Exam: normal heart sounds, regular rate/rhythm Gastrointestinal Exam: soft, No tenderness, No distention, No guarding, No ecchymosis Back Exam: normal inspection, No vertebral tenderness Extremity Exam: normal inspection, normal range of motion, pelvis stable, No deformities Neurologic Exam: alert, oriented x 3, cooperative, sensation nml, No motor d eficits Skin Exam: normal color, warm, dry - Course Nursing assessment & vital signs reviewed: Yes - Radiology Exams L-Spine X-ray Interpretation: Reviewed by me, No Fracture Other X-ray Interpretation: Reviewed by me, No Fracture, No Pneumothorax, Nml Alignment Ordered Tests: Active Orders 24 hr Category Date Time Status LUMBAR LIMITED (2 OR 3 VIEWS) Stat Exams 01/11/21 00:36 Ordered RIBS UNILATERAL Stat Exams 01/11/21 00:36 Ordered Medication Summary Discontinued Medications Generic Name Dose Route Start Last Admin Trade Name Freq PRN Reason Stop Dose Admin Ketorolac Tromethamine 60 mg 01/11/21 00:40 01/11/21 00:42 Ketorolac Tromethamine 30 Mg/Ml Inj IM 01/11/21 00:41 60 mg STAT ONE Administration Ketorolac Tromethamine Confirm 01/11/21 00:42 Ketorolac Tromethamine 30 Mg/Ml Inj Administered 01/11/21 00:43 Dose 60 mg .ROUTE .STK-MED ONE - Progress Progress: improved, pain not gone completely Counseled pt/family regarding: diagnosis, need for follow-up, rad results - Departure Departure Disposition: Home Clinical Impression: Fall Qualifiers: Encounter type: initial encounter Qualified Code(s): W19.XXXA - Unspecified fall, initial encounter Contusion Qualifiers: Contusion area: thoracic wall Thoracic wall location detail: left Condition: Stable Critical Care Time: No Referrals: TOMA ARCHULETA [Primary Care Provider] - Follow up/PCP as directed Instructions: Contusion (DC), Preventing Falls Additional Instructions: You have developed left side rib cage contusion. Due to that you are at increased risk of developing pneumonia on your left side if you do not breathe properly due to pain. So you are advised to use incentive spirometry at least 5-6 times a day to prevent having a pneumonia. Use Lidoderm patch for pain control. Follow-up with your primary care physician on Tuesday. If you started developing shortness of breath fever cough come back to the emergency room. Discharge/Care Plan AMBROCIO CATHERINE was seen on 01/11/21 in the Emergency Room. The patient was counseled regarding Diagnosis,Lab results, Imaging studies, need for follow up and when to return to the Emergency Room. Prescriptions given: Discharge Note I have spoken with the patient and/or caregivers. I have explained the patient's condition, diagnosis and treatment plan based on the information available to me at this time. I have answered the patient's and/or caregiver's questions and a ddressed any concerns. The patient and/or caregivers have as good understanding of the patient's diagnosis, condition and treatment plan as can be expected at this point. The vital signs have been stable. The patient's condition is stable and appropriate for discharge from the emergency department. The patient will pursue further outpatient evaluation with the primary care physician or other designated or consulting physician as outlined in the discharge instructions. The patient and/or caregivers are agreeable to this plan of care and follow-up instructions have been explained in detail. The patient and/or caregivers have received these instruction. The patient/and or caregivers are aware that any significant change in condition or worsening of symptoms should prompt an immediate return to this or the closest emergency department or call 911. AMBROCIO CATHERINE was seen on 01/11/21 n the Emergency Room. At that time you were treated for an emergent condition, during your visit Laboratory, Radiology and/or other procedures may have been ordered. It is very important that you follow-up with your Primary Care Physician TOMA ARCHULETA within the next 24- 48 hours to review your Emergency Room visit and the final results of testing that was ordered. Some test results such as Urine Cultures, Blood Cultures, and other cultures if ordered will not be finalized for 24-48 hours. If you do not have a Primary Care Provider please call the medical records department at [phone] ext [phone] to obtain a copy of your results or you may sign into our patient portal to obtain these results by visiting us @ [email or web address] and completing the following steps: 1. Click on the Patient Portal link 2. Click the Patient Self Enrollment Link to complete the enrollment form and entering your 3. Once the enrollment form is completed you will receive an email with a tem porary ID and password at the email address you provided. 4. Next choose a user name and password. Your user name must be at least 4 characters long and your password must be at least 4 characters long. 5. Choose a security question from the list and provide your answer to the question. If you already have signed into the Health Portal you may access your Health Care Information 20/09 by the following steps: 1. Login to our website @ [email or web address] 2. Enter your original user name and password. FAQS The [facility] Health Portal is an online tool that contains your Lab Results, Radiology Reports, Visit History, Discharge Instructions and Health Summary Lab and Radiology Results will not be available for 72 hours on the portal. The Portal is a secure site, passwords are encryted and URLs are re-written so they cannot be copied and pasted. You and authorized family members are the only ones who can access your Portal. Also there is a timeout feature that protects your information if you leave the Portal page open. If you have technical difficulty please use the Contact Us link on the page this will allow you to submit any questions you have regarding the Portal or you may contact the Medical Record Department at [phone]. Prescriptions: Lidocaine HCl 5% Patch [Lidoderm Patch 5%] 1 patch TOP DAILY #15 patch
[2021-01-11] MEDS ORDERED: TORAdol 30 mg Injection ONE (00:42)
[2021-01-11] MEDS ORDERED: Lidoderm Patch 5% ONE (01:46)
[2021-01-11] MEDS ORDERED: Lidoderm Patch 5% TOP ONE (01:46)
--- NOTE | 2021-01-11 08:18 | XRAY ---
Indication: Pain following fall. Comparison: October 22, 2020. 3 view lumbar spine unchanged again demonstrating minimal scoliosis, L2-L3 laminectomy, L2-L3 fusion with intact bilateral posterior spinal hardware, L2-L3/L4-L5 degenerative disc disease, cholecystectomy clips, and right lower quadrant hernia mesh graft. No new/acute abnormalities.
--- NOTE | 2021-01-11 08:18 | XRAY ---
Indication: Pain following fall. Comparison: None 2 view left ribs demonstrates incidental bilateral C7 cervical ribs, mild/moderate degenerative throughout thoracolumbar spine, mild left acromioclavicular degenerative arthropathy, and left hilar/splenic calcified granulomas. No other bony, articular, or soft tissue abnormalities.
== END 2021-01-11 02:03 | disposition home or self-care (01) ==
LOC: ED 00:12
DX: S20.20XA Contusion of thorax, unspecified, initial encounter (principal); W01.0XXA Fall on same level from slipping, tripping and stumbling without subsequent striking against object, initial encounter; Z79.01 Long term (current) use of anticoagulants; Z79.891 Long term (current) use of opiate analgesic
CPT/HCPCS: 71100; 72100; 96372; 99284; J1885; A9270-GY

== ENCOUNTER 2021-02-25 10:52 | Day surgery (SDC) | payer OTHER ==
[2021-02-25] MEDS ORDERED: LIDOCAINE HCL 2% 100 MG/5 ML IJ ONE (10:53)
[2021-02-25 11:36] LABS: INR 1.07 (0.8-3.0); PROTIME 12.6 SECONDS (9.4-12.5)
[2021-02-25] MEDS ORDERED: DIPRIVAN 200 MG/20 ML IV ONE (12:58)
[2021-02-25] MEDS ORDERED: Lactated Ringers 1,000 ML IV ONE (13:06)
--- NOTE | 2021-02-25 14:25 | XRAY ---
Indication: Right C2-C4 MBB. Intraoperative fluoroscopy provided for 46 seconds. 2 digital spot image submitted for interpretation demonstrates posterior needle tips projecting over the expected right C2-C4 nerve roots. Correlate with intraoperative findings/report.
--- NOTE | 2021-02-25 14:28 | XRAY ---
46 seconds fluoroscopy time in surgery for right C2-C5 MBB.
== END 2021-02-25 13:29 | disposition home or self-care (01) ==
LOC: SDC-PAIN 10:52
PROVIDERS: ATTEND Psychiatry & Neurology Pain Medicine
DX: M47.812 Spondylosis without myelopathy or radiculopathy, cervical region (principal); Z79.01 Long term (current) use of anticoagulants; Z79.899 Other long term (current) drug therapy
CPT/HCPCS: 36415; 64490; 64491; 72040; 77002; 85610; J2704

== ENCOUNTER 2021-03-25 12:45 | Day surgery (SDC) | payer OTHER ==
[2021-03-25] MEDS ORDERED: LIDOCAINE HCL 2% 100 MG/5 ML IJ ONE (12:46)
[2021-03-25] MEDS ORDERED: Decadron 4 MG INJ IV ONE (12:46)
[2021-03-25 13:29] LABS: INR 1.08 (0.8-3.0); PROTIME 12.7 SECONDS (9.4-12.5)
[2021-03-25] MEDS ORDERED: Lactated Ringers 1,000 ML IV ONE (14:49)
[2021-03-25] MEDS ORDERED: DIPRIVAN 200 MG/20 ML IV ONE (14:54)
--- NOTE | 2021-03-25 16:39 | XRAY ---
Indication: Left C2-C4 MBB. Intraoperative fluoroscopy provided for 54 seconds. 2 digital spot image submitted for interpretation demonstrates posterior needle tips projecting over the expected left C2-C4 nerve roots. Correlate with intraoperative findings/report.
--- NOTE | 2021-03-25 16:42 | XRAY ---
54 seconds fluoroscopy time in surgery for left C2-C5 MBB.
== END 2021-03-25 15:27 | disposition home or self-care (01) ==
LOC: SDC-PAIN 12:45
PROVIDERS: ATTEND Psychiatry & Neurology Pain Medicine
DX: M47.812 Spondylosis without myelopathy or radiculopathy, cervical region (principal); Z79.01 Long term (current) use of anticoagulants; Z79.899 Other long term (current) drug therapy
CPT/HCPCS: 36415; 64490; 64491; 72040; 77002; 85610; J1100; J2704

== ENCOUNTER 2021-04-27 11:48 | Emergency (ER) | payer OTHER ==
--- NOTE | 2021-04-27 11:53 | ERPHSYRPT ---
- History of Present Illness Time Seen by Provider: 04/27/21 11:53 Historian: patient Exam Limitations: no limitations Physician History: This is a 50-year-old obese white male patient of Dr. Zacarias who has a history of diverticulitis and pancreatitis in the past. 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 Molina, for chronic pain issues. Patient states that the last 2 to 3 days he has noticed some bloating and nausea. However he became concerned today because he was having localized pain in the left lower quadrant. He has not had any diarrhea. He has not had any vomiting. He denies chest pain he denies epigastric pain. He denies shortness of breath. Timing/Duration: day(s) (2 to 3) Activities at Onset: none Quality: pressure Abdominal Pain Onset Location: LLQ Pain Radiation: no radiation Severity of Pain-Max: moderate Severity of Pain-Current: mild (To moderate) Modifying Factors: Improves With: analgesics (Help) Associated Symptoms: nausea Previous symptoms: same symptoms as today Allergies/Adverse Reactions: BEESTINGS Allergy (Mild, Uncoded 04/27/21 12:00) Swelling Home Medications: Atenolol 50 mg [Tenormin 50 mg] 50 mg PO DAILY 01/03/16 [History] Warfarin Sodium 10 mg [Coumadin 10 MG] 10 mg PO UD 08/25/18 [History] Buspirone HCl [Buspar] 1 mg TID 12/04/19 [History] Trazodone HCl [Desyrel] 1 ea DAILY 12/04/19 [History] Hydroxyzine HCl 25 mg [Atarax 25 mg] 1 ea DAILY 11/29/20 [History] Lumateperone Tosylate [Caplyta] 42 mg PO DAILY 11/29/20 [History] Oxycodone HCl/Acetaminophen [Oxycodone-Acetaminophen 5-325] 1 tab PO TID 01/11/21 [History] Hx Tetanus, Diphtheria Vaccination/Date Given: Yes Hx Influenza Vaccination/Date Given: Yes Hx Pneumococcal Vaccination/Date Given: Yes Travel Risk - International Travel Have you traveled outside of the country in past 3 weeks: No - Coronavirus Screening Are you exhibiting any of the following symptoms?: No Close contact with a COVID-19 positive Pt in past 14-21 Days: No - Vaccine Status Have you recieved a Covid-19 vaccination: 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[employer] - Vaccination Dates Date of 2cond Vaccination (if applicable): 05/2020 - Review of Systems Constitutional: No Symptoms Eyes: No Symptoms Ears, Nose, & Throat: No Symptoms Respiratory: No Symptoms Cardiac: No Symptoms Abdominal/Gastrointestinal: Abdominal Pain (Left lower quadrant), Nausea Genitourinary Symptoms: No Symptoms Musculoskeletal: No Symptoms Skin: No Symptoms Neurological: No Symptoms Psychological: No Symptoms Endocrine: No Symptoms Hematologic/Lymphatic: No Symptoms Immunological/Allergic: No Symptoms All Other Systems: Reviewed and Negative - Past Medical History Pertinent Past Medical History: Yes Neurological History: No Pertinent History ENT History: No Pertinent History Cardiac History: Hypertension Respiratory History: No Pertinent History Endocrine Medical History: No Pertinent History Musculoskeletal History: No Pertinent History GI Medical History: Diverticulitis, Pancreatitis History: No Pertinent History Psycho-Social History: Anxiety, Depression, Panic Disorder, Other Male Reproductive Disorders: No Pertinent History Other Medical History: BLOOD DISORDER: FACTOR V, 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 and arthritis in back - Past Surgical History Past Surgical History: Yes Neuro Surgical History: No Pertinent History Cardiac: No Pertinent History Respiratory: No Pertinent History Gastrointestinal: Cholecystectomy, Hernia Repair Genitourinary: No Pertinent History Musculoskeletal: Orthopedic Surgery Male Surgical History: No Pertinent History Other Surgical History: INGUINAL LYMPH NODES - BRANDY CARPEL TUNNEL REPAIR - LOWER BACK - LEFT ELBOW RODS IN BACK, JOINT REPLACEMENT TO RT GREAT TOE - Social History Smoking Status: Never smoker Exposure to second hand smoke: No Drug Use: none Patient Lives Alone: No - Nursing Vital Signs Nursing Vital Signs: Initial Vital Signs Temperature 97.3 F 04/27/21 11:56 Pulse Rate 72 04/27/21 11:56 Respiratory Rate 18 04/27/21 11:56 Blood Pressure 115/75 04/27/21 11:56 O2 Sat by Pulse Oximetry 97 04/27/21 11:56 Pain Scale Pain Intensity 4 - Physical Exam General Appearance: no apparent distress, alert, anxiety, obese Eye Exam: PERRL/EOMI, eyes nml inspection Ears, Nose, Throat Exam: normal ENT inspection, moist mucous membranes Neck Exam: normal inspection, non-tender, supple, full range of motion Respiratory Exam: normal breath sounds, lungs clear, airway intact, No chest tenderness, No respiratory distress Cardiovascular Exam: regular rate/rhythm, normal heart sounds, normal peripheral pulses Gastrointestinal/Abdomen Exam: soft, normal bowel sounds, tenderness (Left lower quadrant), guarding, No rebound Rectal Exam: not done Back Exam: normal inspection, normal range of motion, No CVA tenderness, No vertebral tenderness Extremity Exam: normal inspection, normal range of motion, pelvis stable Neurologic Exam: alert, oriented x 3, cooperative, acetone button paster II-XII nml as tested, normal mood/affect, nml cerebellar function, nml station & gait, sensation nml Skin Exam: normal color, warm, dry Lymphatic Exam: No adenopathy SpO2 Interpretation: normal O2 Delivery: Room Air - Course Nursing assessment & vital signs reviewed: Yes Ordered Tests: Active Orders 24 hr Category Date Time Status IV Insertion STAT Care 04/27/21 12:19 Active ABDOMEN AND PELVIS W/0 CONTRAS [CT] Stat Exams 04/27/21 12:20 Completed AMYLASE Stat Lab 04/27/21 12:08 Completed CBC W DIFF Stat Lab 04/27/21 12:08 Completed CMP Stat Lab 04/27/21 12:08 Completed LIPASE Stat Lab 04/27/21 12:08 Completed Lactic Acid Stat Lab 04/27/21 12:19 Completed PT INR [PROTIME WITH INR] Stat Lab 04/27/21 12:08 Completed UA W/RFX UR CULTURE Stat Lab 04/27/21 12:39 Completed Medication Summary Discontinued Medications Generic Name Dose Route Start Last Admin Trade Name Emanuel PRN Reason Stop Dose Admin Hydromorphone HCl 1 mg 04/27/21 12:19 04/27/21 12:33 Hydromorphone 1 Mg/1ml Inj 1 Mg/Ml Syringe IV 04/27/21 12:20 1 mg STAT ONE Administration Hydromorphone HCl Confirm 04/27/21 12:33 Hydromorphone 1 Mg/1ml Inj 1 Mg/Ml Syringe Administered 04/27/21 12:34 Dose 1 mg .ROUTE .STK-MED ONE Ondansetron HCl 4 mg 04/27/21 12:19 04/27/21 12:33 Ondansetron Hcl 4 Mg/2 Ml Vial IV 04/27/21 12:20 4 mg STAT ONE Administration Ondansetron HCl Confirm 04/27/21 12:32 Ondansetron Hcl 4 Mg/2 Ml Vial Administered 04/27/21 12:33 Dose 4 mg .ROUTE .STK-MED ONE Lab/Rad Data: Laboratory Result Diagrams 04/27/21 12:08 04/27/21 12:08 Laboratory Results 04/27/21 04/27/21 04/27/21 Range/Units 12:39 12:19 12:08 WBC (4.0-10.5) K/mm3 RBC (4.1-5.6) M/mm3 Hgb (12.5-18.0) gm/dl Hct (42-50) % MCV (78-100) fl MCH (26-32) pg MCHC (32-36) g/dl RDW (11.5-14.0) % Plt Count (150-450) K/mm3 MPV (7.5-11.0) fl Gran % (36.0-66.0) % Eos # (Auto) (0-0.5) Absolute Lymphs (auto) (1.0-4.6) Absolute Monos (auto) (0.0-1.3) Lymphocytes % (24.0-44.0) % Monocytes % (0.0-12.0) % Eosinophils % (0.00-5.0) % Basophils % (0.0-0.4) % Absolute Granulocytes (1.4-6.9) Basophils # (0-0.4) PT 31.8 H (9.4-12.5) SECONDS INR 2.69 (0.8-3.0) Sodium (137-145) mmol/L Potassium (3.5-5.1) mmol/L Chloride (98-107) mmol/L Carbon Dioxide (22-30) mmol/L Anion Gap (5-15) MEQ/L BUN (9-20) mg/dL Creatinine (0.66-1.25) mg/dL Estimated GFR ML/MIN Glucose (74-106) mg/dL Lactic Acid 1.4 (0.4-2.0) Calcium (8.4-10.2) mg/dL Total Bilirubin (0.2-1.3) mg/dL AST (17-59) U/L ALT (0-50) U/L Alkaline Phosphatase (38-126) U/L Serum Total Protein (6.3-8.2) g/dL Albumin (3.5-5.0) g/dL Amylase (30-110) U/L Lipase (23-300) U/L Urine Color DELISA (YELLOW) Urine Appearance SLIGHTLY CLOUDY (CLEAR) Urine pH 5.0 (5-6) Ur Specific Nancy 1.027 (1.005-1.025) Urine Protein 30 (Negative) Urine Ketones NEGATIVE (NEGATIVE) Urine Blood NEGATIVE (0-5) Eder/ul Urine Nitrite NEGATIVE (NEGATIVE) Urine Bilirubin NEGATIVE (NEGATIVE) Urine Urobilinogen 2 (0-1) mg/dL Ur Leukocyte Esterase NEGATIVE (NEGATIVE) Urine WBC (Auto) 0-2 (0-5) /HPF Urine RBC (Auto) NONE (0-2) /HPF U Epithel Cells (Auto) NONE (FEW) /HPF Urine Bacteria (Auto) NONE (NEGATIVE) /HPF Urine Mucus (Auto) SLIGHT (NEGATIVE) /HPF Urine Culture Reflexed NO (NO) Urine Glucose NEGATIVE (NEGATIVE) mg/dL 04/27/21 04/27/21 Range/Units 12:08 12:08 WBC 4.1 (4.0-10.5) K/mm3 RBC 5.06 (4.1-5.6) M/mm3 Hgb 16.1 (12.5-18.0) gm/dl Hct 46.2 (42-50) % MCV 91.3 (78-100) fl MCH 31.8 (26-32) pg MCHC 34.8 (32-36) g/dl RDW 14.5 H (11.5-14.0) % Plt Count 109 L (150-450) K/mm3 MPV 12.8 H (7.5-11.0) fl Gran % 48.1 (36.0-66.0) % Eos # (Auto) 0.20 (0-0.5) Absolute Lymphs (auto) 1.52 (1.0-4.6) Absolute Monos (auto) 0.39 (0.0-1.3) Lymphocytes % 37.0 (24.0-44.0) % Monocytes % 9.5 (0.0-12.0) % Eosinophils % 4.9 (0.00-5.0) % Basophils % 0.5 (0.0-0.4) % Absolute Granulocytes 1.98 (1.4-6.9) Basophils # 0.02 (0-0.4) PT (9.4-12.5) SECONDS INR (0.8-3.0) Sodium 139 (137-145) mmol/L Potassium 4.3 (3.5-5.1) mmol/L Chloride 104 (98-107) mmol/L Carbon Dioxide 29 (22-30) mmol/L Anion Gap 10.7 (5-15) MEQ/L BUN 14 (9-20) mg/dL Creatinine 1.05 (0.66-1.25) mg/dL Estimated GFR > 60.0 ML/MIN Glucose 113 H (74-106) mg/dL Lactic Acid (0.4-2.0) Calcium 9.0 (8.4-10.2) mg/dL Total Bilirubin 0.80 (0.2-1.3) mg/dL AST 64 H (17-59) U/L ALT 51 H (0-50) U/L Alkaline Phosphatase 66 (38-126) U/L Serum Total Protein 7.1 (6.3-8.2) g/dL Albumin 4.2 (3.5-5.0) g/dL Amylase 68 (30-110) U/L Lipase 118 (23-300) U/L Urine Color (YELLOW) Urine Appearance (CLEAR) Urine pH (5-6) Ur Specific Nancy (1.005-1.025) Urine Protein (Negative) Urine Ketones (NEGATIVE) Urine Blood (0-5) Eder/ul Urine Nitrite (NEGATIVE) Urine Bilirubin (NEGATIVE) Urine Urobilinogen (0-1) mg/dL Ur Leukocyte Esterase (NEGATIVE) Urine WBC (Auto) (0-5) /HPF Urine RBC (Auto) (0-2) /HPF U Epithel Cells (Auto) (FEW) /HPF Urine Bacteria (Auto) (NEGATIVE) /HPF Urine Mucus (Auto) (NEGATIVE) /HPF Urine Culture Reflexed (NO) Urine Glucose (NEGATIVE) mg/dL - Progress Progress: improved, pain not gone completely Progress Note: 04/27/21 14:07 CAT scan of the abdomen pelvis which was negative for any acute intra-abdominal or intrapelvic process. Counseled pt/family regarding: lab results, diagnosis, need for follow-up, rad results - Departure Departure Disposition: Home Clinical Impression: LLQ abdominal pain Condition: Stable Critical Care Time: No Referrals: TOMA ZACARIAS [Primary Care Provider] - Follow up/PCP as directed Additional Instructions: Take all your medication as prescribed. Follow-up with your primary care physician for further management.
[2021-04-27] MEDS ORDERED: Zofran 4 MG/2 ML VIAL IV ONE (12:19)
[2021-04-27] MEDS ORDERED: Hydromorphone 1 mg/ml Injection IV ONE (12:19)
[2021-04-27] MEDS ORDERED: Zofran 4 MG/2 ML VIAL ONE (12:32)
[2021-04-27] MEDS ORDERED: Hydromorphone 1 mg/ml Injection ONE (12:33)
--- NOTE | 2021-04-27 12:51 | XRAY ---
Indication: Left lower quadrant pain. Multiple contiguous axial images obtained through the abdomen and pelvis without contrast. Comparison: December 04, 2019. Lung bases now demonstrates minimal right base subsegmental atelectasis/scarring. No infiltrate or effusion. Heart not enlarged. Noncontrasted stomach and bowel loops nonobstructed. Normal appendix. Again minimal descending/sigmoid diverticulosis without diverticulitis, fatty liver, cholecystectomy, nonobstructing 4 mm left renal calculus, and hepatic/splenic calcified granulomas. No free fluid/air. Remaining liver, pancreas, spleen, adrenal glands, kidneys, ureters, bladder, and aorta are unremarkable for noncontrast exam. Osseous structures intact again with degenerative changes throughout the spine and L2-L4 posterior fusion with laminectomy. Intact right inguinal hernia mesh graft. Impression: 1. Stable nonobstructing left renal micro-calculus, colonic diverticulosis, fatty liver, chronic bony findings, and old granulomatous disease. 2. Remaining CT abdomen/pelvis without contrast exam is again negative.
[2021-04-27 13:08] LABS: Absolute Neutrophil Ct (ANC) 1.98 (1.4-6.9); Basophil (Absolute #) 0.02 (0-0.4); Eosinophil % 4.9 % (0.00-5.0); Hematocrit 46.2 % (42-50); Hemoglobin 16.1 gm/dl (12.5-18.0); Lymphocyte (Absolute #) 1.52 (1.0-4.6); Mean Cell Volume 91.3 fl (78-100); Mean Corpuscular Hemoglobin 31.8 pg (26-32); Mean Corpuscular Hgb Concent. 34.8 g/dl (32-36); Mean Platelet Volume 12.8 fl (7.5-11.0); Monocyte (Absolute #) 0.39 (0.0-1.3); Monocytes % 9.5 % (0.0-12.0); Neutrophil % 48.1 % (36.0-66.0); Platelet Count 109 K/mm3 (150-450); Red Blood Count 5.06 M/mm3 (4.1-5.6); Red Cell Distribution Width 14.5 % (11.5-14.0); White Blood Count 4.1 K/mm3 (4.0-10.5)
[2021-04-27 13:12] LABS: ALBUMIN 4.2 g/dL (3.5-5.0); ALKALINE PHOSPHATASE 66 U/L (38-126); AMYLASE 68 U/L (30-110); ANION GAP 10.7 MEQ/L (5-15); BLOOD UREA NITROGEN 14 mg/dL (9-20); CHLORIDE 104 mmol/L (98-107); Carbon Dioxide 29 mmol/L (22-30); Creatinine 1 1.05 mg/dL (0.66-1.25); EST GLOMERULAR FILTRATION RATE > 60.0 ML/MIN; Glucose 113 mg/dL (74-106); LIPASE 118 U/L (23-300); Potassium 4.3 mmol/L (3.5-5.1); SGOT/AST 64 U/L (17-59); SGPT/ALT 51 U/L (0-50); SODIUM 139 mmol/L (137-145); Total Protein 7.1 g/dL (6.3-8.2)
[2021-04-27 13:15] LABS: Appearance SLIGHTLY CLOUDY (CLEAR); Bilirubin NEGATIVE (NEGATIVE); Blood NEGATIVE Ery/ul (0-5); Glucose NEGATIVE (NEGATIVE); Ketones NEGATIVE (NEGATIVE); Leukocyte Esterase NEGATIVE (NEGATIVE); Mucus SLIGHT /HPF (NEGATIVE); Nitrite NEGATIVE (NEGATIVE); Protein,Urine Dip 30 (Negative); Specific Gravity 1.027 (1.005-1.025); Urobilinogen 2 mg/dL (0-1); WBC 0-2 /HPF (0-5)
[2021-04-27 13:23] LABS: INR 2.69 (0.8-3.0); PROTIME 31.8 SECONDS (9.4-12.5)
[2021-04-27 14:41] VITALS: BP 113/67; PULSE 70; O2SAT 92
== END 2021-04-27 14:48 | disposition home or self-care (01) ==
LOC: ED 11:48
DX: R10.32 Left lower quadrant pain (principal); R11.0 Nausea; D68.2 Hereditary deficiency of other clotting factors; Z79.01 Long term (current) use of anticoagulants; I10 Essential (primary) hypertension; Z79.891 Long term (current) use of opiate analgesic; Z79.899 Other long term (current) drug therapy
CPT/HCPCS: 36000; 36415; 74176; 80053; 81001; 82150; 83605; 83690; 85025; 85610; 96374; 96375; 99284; J1170; J2405

== ENCOUNTER 2021-05-13 11:27 | Day surgery (SDC) | payer OTHER ==
[2021-05-13] MEDS ORDERED: BUPIVACAINE 0.5% VIAL IJ ONE (11:28)
[2021-05-13 12:41] LABS: INR 1.07 (0.8-3.0); PROTIME 12.6 SECONDS (9.4-12.5)
[2021-05-13] MEDS ORDERED: DIPRIVAN 200 MG/20 ML IV ONE ×2 (14:00→14:13)
[2021-05-13] MEDS ORDERED: Lactated Ringers 1,000 ML IV ONE (14:17)
--- NOTE | 2021-05-13 15:17 | XRAY ---
Indication: Right C2-C5 MBB. Intraoperative fluoroscopy provided for 1 minute 2 seconds. 2 lateral digital spot image submitted for interpretation demonstrates posterior needle tips projecting over the expected left right C2-C5 nerve roots. Correlate with intraoperative findings/report.
--- NOTE | 2021-05-13 15:30 | XRAY ---
1 minute and 2 seconds fluoroscopy time in surgery for right C2-C5 MBB.
== END 2021-05-13 14:37 | disposition home or self-care (01) ==
LOC: SDC-PAIN 11:27
PROVIDERS: ATTEND Psychiatry & Neurology Pain Medicine
DX: M47.812 Spondylosis without myelopathy or radiculopathy, cervical region (principal); Z79.01 Long term (current) use of anticoagulants; Z79.899 Other long term (current) drug therapy
CPT/HCPCS: 36415; 64490; 64491; 64492; 72040; 77002; 85610; J2704

== ENCOUNTER 2021-05-27 12:00 | Day surgery (SDC) | payer OTHER ==
[2021-05-27] MEDS ORDERED: Depo-Medrol 40 MG/ML IM ONE (12:01)
[2021-05-27] MEDS ORDERED: BUPIVACAINE 0.5% VIAL IJ ONE (12:01)
[2021-05-27 13:07] LABS: INR 3.32 (0.8-3.0); PROTIME 39.2 SECONDS (9.4-12.5)
[2021-05-27] MEDS ORDERED: DIPRIVAN 200 MG/20 ML IV ONE (14:35)
[2021-05-27] MEDS ORDERED: Lactated Ringers 1,000 ML IV ONE (15:25)
--- NOTE | 2021-05-27 16:50 | XRAY ---
Indication: Bilateral SI joint injection. Intraoperative fluoroscopy provided for 19 seconds. 3 digital spot images submitted for interpretation demonstrates posterior needle tips projecting over the inferior right SI joint. Correlate with intraoperative findings/report.
--- NOTE | 2021-05-27 16:59 | XRAY ---
19 seconds fluoroscopy time in surgery for injections of both SI joints.
== END 2021-05-27 15:00 | disposition home or self-care (01) ==
LOC: SDC-PAIN 12:00
PROVIDERS: ATTEND Psychiatry & Neurology Pain Medicine
DX: M46.1 Sacroiliitis, not elsewhere classified (principal); I10 Essential (primary) hypertension; Z79.899 Other long term (current) drug therapy; Z79.01 Long term (current) use of anticoagulants
CPT/HCPCS: 27096; 36415; 72202; 77002; 85610; G0260; J1030; J2704

== ENCOUNTER 2021-09-12 02:36 | Emergency (ER) | payer OTHER ==
--- NOTE | 2021-09-12 02:40 | ERPHSYRPT ---
- History of Present Illness Time Seen by Provider: 09/12/21 02:39 Source: patient Exam Limitations: no limitations Physician History: This is a 50-year-old white male patient known to me in the emergency department. He presents today with concerns of primarily dizziness. However, the work-up showed that the patient had hematuria. This became more of a focus for the patient. Patient came directly from [facility] emergency department to our facility because he was concerned that he was told that he had blood in his urine. Patient is on Coumadin daily. I reviewed the emergency department chart from [facility]. The patient is very anxious. He seems to be here mainly for a second opinion. There is no active bleeding. He has no vomiting of blood, no gross hematuria and he has not been passing blood rectally. Patient had a thorough work-up at [facility]. Timing/Duration: today Activites at Onset: none Quality: aching Onset Location: LLQ Pain Radiation: none Severity of Pain-Max: mild (Left lower quadrant) Severity of Pain-Current: mild (Lower quadrant) Associated Symptoms: denies symptoms Prior abdominal problems: none Sexual intercourse history: non-contributory Allergies/Adverse Reactions: BEESTINGS Allergy (Mild, Uncoded 09/12/21 02:47) Swelling Home Medications: Atenolol 50 mg [Tenormin 50 mg] 50 mg PO DAILY 01/03/16 [History] Warfarin Sodium 10 mg [Coumadin 10 MG] 10 mg PO UD 08/25/18 [History] Buspirone HCl [Buspar] 1 mg TID 12/04/19 [History] Trazodone HCl [Desyrel] 1 ea DAILY 12/04/19 [History] Hydroxyzine HCl 25 mg [Atarax 25 mg] 1 ea DAILY 11/29/20 [History] Lumateperone Tosylate [Caplyta] 42 mg PO DAILY 11/29/20 [History] Oxycodone HCl/Acetaminophen [Oxycodone-Acetaminophen 5-325] 1 tab PO TID 01/11/21 [History] Hx Tetanus, Diphtheria Vaccination/Date Given: Yes Hx Influenza Vaccination/Date Given: Yes Hx Pneumococcal Vaccination/Date Given: Yes Travel Risk - International Travel Have you traveled outside of the country in past 3 weeks: No - Coronavirus Screening Are you exhibiting any of the following symptoms?: No Close contact with a COVID-19 positive Pt in past 14-21 Days: No - Vaccine Status Have you recieved a 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[employer] - Vaccination Dates Date of 2cond Vaccination (if applicable): 05/2020 - Past Medical History Pertinent Past Medical History: Yes Neurological History: No Pertinent History ENT History: No Pertinent History Cardiac History: Hypertension Respiratory History: No Pertinent History Endocrine Medical History: No Pertinent History Musculoskeletal History: No Pertinent History GI Medical History: Diverticulitis, Pancreatitis History: No Pertinent History Psycho-Social History: Anxiety, Depression, Panic Disorder, Other Male Reproductive Disorders: No Pertinent History Other Medical History: BLOOD DISORDER: FACTOR V, 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 and arthritis in back - Past Surgical History Past Surgical History: Yes Neuro Surgical History: No Pertinent History Cardiac: No Pertinent History Respiratory: No Pertinent History Gastrointestinal: Cholecystectomy, Hernia Repair Genitourinary: No Pertinent History Musculoskeletal: Orthopedic Surgery Male Surgical History: No Pertinent History Other Surgical History: INGUINAL LYMPH NODES - BRANDY CARPEL TUNNEL REPAIR - LOWER BACK - LEFT ELBOW RODS IN BACK, JOINT REPLACEMENT TO RT GREAT TOE - Social History Smoking Status: Never smoker Exposure to second hand smoke: No Drug Use: none Patient Lives Alone: No - Review of Systems Constitutional: No Symptoms Eyes: No Symptoms Ears, Nose, & Throat: No Symptoms Respiratory: No Symptoms Cardiac: No Symptoms Abdominal/Gastrointestinal: No Symptoms Genitourinary Symptoms: Hematuria (Microscopic) Musculoskeletal: No Symptoms Skin: No Symptoms Neurological: Dizziness (Which was patient's primary concern for going to [facility] emergency department in the first place) Psychological: Anxiety Endocrine: No Symptoms Hematologic/Lymphatic: No Symptoms Immunological/Allergic: No Symptoms All Other Systems: Reviewed and Negative - Nursing Vital Signs Nursing Vital Signs: Initial Vital Signs Temperature 97.0 F 09/12/21 02:47 Pulse Rate 60 09/12/21 02:47 Respiratory Rate 16 09/12/21 02:47 Blood Pressure 137/89 09/12/21 02:47 O2 Sat by Pulse Oximetry 97 09/12/21 02:47 Pain Scale Pain Intensity 5 - Physical Exam General Appearance: no apparent distress, alert, anxiety, obese Eye Exam: PERRL/EOMI, eyes nml inspection Ears, Nose, Throat Exam: normal ENT inspection, moist mucous membranes Neck Exam: normal inspection, non-tender, supple, full range of motion Respiratory Exam: normal breath sounds, lungs clear, airway intact, No chest tenderness, No respiratory distress Cardiovascular Exam: regular rate/rhythm, normal heart sounds, normal peripheral pulses Gastrointestinal/Abdomen Exam: soft, normal bowel sounds, tenderness (Mild left lower quadrant to palpation) Rectal Exam: not done Back Exam: normal inspection, normal range of motion, No CVA tenderness, No vert ebral tenderness Extremity Exam: normal inspection, normal range of motion, pelvis stable Neurologic Exam: alert, oriented x 3, cooperative, forestry and wildlife manager II-XII nml as tested, normal mood/affect, nml cerebellar function, nml station & gait, sensation nml Skin Exam: normal color, warm, dry Lymphatic Exam: No adenopathy SpO2 Interpretation: normal O2 Delivery: Room Air - Course Nursing assessment & vital signs reviewed: Yes Ordered Tests: Active Orders 24 hr Category Date Time Status CBC W DIFF Stat Lab 09/12/21 02:44 Ordered CMP Stat Lab 09/12/21 02:44 Ordered CULTURE,URINE Stat Lab 09/12/21 02:46 Received PROTIME WITH INR Stat Lab 09/12/21 02:44 Ordered UA W/RFX CULTURE Stat Lab 09/12/21 02:46 Completed Lab/Rad Data: Laboratory Results 09/12/21 Range/Units 02:46 Urinalys Dipstick Clnc MAIN LAB Urine Color YELLOW (YELLOW) Urine Appearance CLEAR (CLEAR) Urine pH 5.5 (5-6) Ur Specific [place] >=1.030 (1.005-1.025) POC Urine Protein Conf TRACE (Negative) Urine Ketones MODERATE-40 (NEGATIVE) Urine Nitrite NEGATIVE (NEGATIVE) Urine Bilirubin SMALL (NEGATIVE) Urine Urobilinogen 1 (0-1) mg/dL Urine Leukocytes NEGATIVE (NEGATIVE) Urine WBC (Auto) NONE (0-5) /HPF Urine RBC (Auto) 26-50 (0-2) /HPF U Epithel Cells (Auto) NONE (FEW) /HPF Urine Bacteria (Auto) NONE (NEGATIVE) /HPF Urine RBC LARGE (0-5) Eder/ul Urine Mucus (Auto) SLIGHT (NEGATIVE) /HPF Ur Culture Indicated? YES Urine Glucose NEGATIVE (NEGATIVE) mg/dL - Progress Progress: improved Progress Note: 09/12/21 03:26 Medical decision making: This patient is here at our facility primarily because he was told he had blood in his urine. He knows his INR is 3.5. He had a sick difficult work-up at [facility] emergency department including CAT scan of the head which was normal, CAT scan of the abdomen which showed no acute intra- abdominal or intrapelvic abnormality, a urinalysis that showed microscopic blood present and the above-stated INR level. Patient's vital signs are stable at the time of discharge to that facility and on arrival here to our emergency department. I reviewed the results of the patient's work-up. Patient does not need to have repeat work-up here in the emergency department. I reassured him that his work-up is complete and there are no emergent or urgent issues. We will have him hold his Coumadin for 24 hours then restarted on 7:17 a.m. He is to follow-up with his primary care doctor on 09/14/2021 for further evaluation and management Counseled pt/family regarding: diagnosis, need for follow-up - Departure Departure Disposition: Home Clinical Impression: Anxiety about health, Microscopic hematuria, Reassurance provided Condition: Stable Critical Care Time: No Referrals: TOMA ARCHULETA [Primary Care Provider] - Follow up/PCP as directed Additional Instructions: Hold your Coumadin. Do not take your Coumadin until the morning of 09/13/2021. Call your prescribing provider on 09/14/2021 to make arrangements for follow-up PT and INR.
[2021-09-12 03:09] VITALS: O2SAT 97
[2021-09-12 03:15] LABS: Appearance CLEAR (CLEAR); Bilirubin SMALL (NEGATIVE); Glucose NEGATIVE (NEGATIVE); Ketones MODERATE-40 (NEGATIVE); Ph 5.5 (5-6); Protein,Urine Dip TRACE (Negative); RBC LARGE Ery/ul (0-5); Specific Gravity >=1.030 (1.005-1.025); Urobilinogen 1 mg/dL (0-1)
[2021-09-12 03:16] LABS: Dipstick done @ ? MAIN LAB; Mucus SLIGHT /HPF (NEGATIVE); Nitrite NEGATIVE (NEGATIVE); RBC 26-50 /HPF (0-2)
[2021-09-12 03:20] LABS: Urine Cultured Indicated? YES
[2021-09-12 03:32] VITALS: BP 114/72; PULSE 66
== END 2021-09-12 03:40 | disposition home or self-care (01) ==
LOC: ED 02:36
DX: R31.29 Other microscopic hematuria (principal); F45.21 Hypochondriasis; R42 Dizziness and giddiness; R10.32 Left lower quadrant pain; I10 Essential (primary) hypertension; Z79.01 Long term (current) use of anticoagulants; Z79.899 Other long term (current) drug therapy
CPT/HCPCS: 81015; 87086; 99282

== ENCOUNTER 2021-09-30 15:04 | Day surgery (SDC) | payer OTHER ==
[2021-09-30] MEDS ORDERED: Decadron 4 MG INJ IV ONE (15:05)
[2021-09-30] MEDS ORDERED: Marcaine Mpf 0.5% Vial 30 Ml IJ ONE (15:05)
[2021-09-30] MEDS ORDERED: XYLOCAINE-MPF 1% 5ML SDV IJ ONE (15:05)
[2021-09-30 15:39] LABS: INR 1.16 (0.8-3.0); PROTIME 12.1 SECONDS (9.4-12.5)
[2021-09-30] MEDS ORDERED: Lactated Ringers 1,000 ML IV ONE (15:44)
[2021-09-30] MEDS ORDERED: DIPRIVAN 200 MG/20 ML IV ONE ×2 (16:31→16:50)
--- NOTE | 2021-09-30 21:54 | XRAY ---
Indication: Left C2-C4 RFA. Intraoperative fluoroscopy provided for 47 seconds. 2 digital spot image submitted for interpretation demonstrates posterior needle tips projecting over the expected left C2-C4 nerve roots. Correlate with intraoperative findings/report.
--- NOTE | 2021-09-30 22:11 | XRAY ---
47 seconds of fluoroscopy was used in surgery for a left C2-C4 RFA.
== END 2021-09-30 17:07 | disposition home or self-care (01) ==
LOC: SDC-PAIN 15:04
PROVIDERS: ATTEND Psychiatry & Neurology Pain Medicine
DX: M47.812 Spondylosis without myelopathy or radiculopathy, cervical region (principal); Z79.899 Other long term (current) drug therapy; Z79.01 Long term (current) use of anticoagulants
CPT/HCPCS: 01939; 36415; 64633; 64634; 72040; 77002; 85610; J1100; J2704

== ENCOUNTER 2021-10-18 22:14 | Emergency (ER) | payer BC, OTHER, SELFPAY ==
[2021-10-18 22:25] VITALS: BP 132/87; PULSE 100; O2SAT 96
[2021-10-18] MEDS ORDERED: TORAdol 30 mg Injection IM ONE (22:52)
[2021-10-18] MEDS ORDERED: Cyclobenzaprine 10 MG PO ONE (22:52)
--- NOTE | 2021-10-18 22:54 | ERPHSYRPT ---
- History of Present Illness Time Seen by Provider: 10/18/21 22:16 Source: patient Exam Limitations: no limitations Patient Subjective Stated Complaint: L hand pain Triage Nursing Assessment: Pt presents to ED A &Ox3, ambulates to ER bed 10 without difficulty. VSS. Answers questions appropriately, cooperative. Pt reports he was moving things, got aggravated, and slammed his L hand down on a metal can with the lateral side of the hand. No open areas or bruising noted. Tenderness to lateral side of L hand, swelling noted. Radial pulse 2+. Cap refill <3 seconds to all nail beds of L hand. Pt states pinky fingers feels "weird" when cap refill assessed. Denies any other injuries. Takes norco TID for chronic pain, last dose this afternoon. Denies tylenolol or ibuprofen use [employer]LOST [employer]ACER. Physician History: Patient states that he hit his left hand on a table just prior to arrival. States he slammed it in anger. Now has swelling and pain of the left ulnar side. No other falls or trauma. Patient states he has taken 3 [place] already today as a part of his chronic pain. Timing/Duration: today Severity: mild Modifying Factors: Improves With: nothing Associated Symptoms: denies symptoms Allergies/Adverse Reactions: BEESTINGS Allergy (Mild, Uncoded 10/18/21 22:25) Swelling Home Medications: Atenolol 50 mg [Tenormin 50 mg] 50 mg PO DAILY 01/03/16 [History] Warfarin Sodium 10 mg [Coumadin 10 MG] 10 mg PO UD 08/25/18 [History] Buspirone HCl [Buspar] 1 mg TID 12/04/19 [History] Trazodone HCl [Desyrel] 1 ea DAILY 12/04/19 [History] Hydroxyzine HCl 25 mg [Atarax 25 mg] 1 ea DAILY 11/29/20 [History] Lumateperone Tosylate [Caplyta] 42 mg PO DAILY 11/29/20 [History] Oxycodone HCl/Acetaminophen [Oxycodone-Acetaminophen 5-325] 1 tab PO TID 01/11/21 [History] Hx Tetanus, Diphtheria Vaccination/Date Given: Yes Hx Influenza Vaccination/Date Given: Yes Hx Pneumococcal Vaccination/Date Given: Yes Travel Risk - International Travel Have you traveled outside of the country in past 3 weeks: No - Coronavirus Screening Are you exhibiting any of the following symptoms?: No Close contact with a COVID-19 positive Pt in past 14-21 Days: No - Vaccine Status Have you recieved a Covid-19 vaccination: Yes 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[employer] - Vaccination Dates Date of 2cond Vaccination (if applicable): unknown - Review of Systems Constitutional: No Fever, No Chills Eyes: No Symptoms Ears, Nose, & Throat: No Symptoms Respiratory: No Cough, No Dyspnea Cardiac: No Chest Pain, No Edema, No Syncope Abdominal/Gastrointestinal: No Abdominal Pain, No Nausea, No Vomiting, No Diarrhea Genitourinary Symptoms: No Dysuria Musculoskeletal: Other (left hand pain), No Back Pain, No Neck Pain Skin: No Rash Neurological: No Dizziness, No Focal Weakness, No Sensory Changes Psychological: No Symptoms Endocrine: No Symptoms All Other Systems: Reviewed and Negative - Past Medical History Pertinent Past Medical History: Yes Neurological History: No Pertinent History ENT History: No Pertinent History Cardiac History: Hypertension Respiratory History: No Pertinent History Endocrine Medical History: No Pertinent History Musculoskeletal History: No Pertinent History GI Medical History: Diverticulitis, Pancreatitis History: No Pertinent History Psycho-Social History: Anxiety, Depression, Panic Disorder, Other Male Reproductive Disorders: No Pertinent History Other Medical History: BLOOD DISORDER: FACTOR V, 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 and arthritis in back - Past Surgical History Past Surgical History: Yes Neuro Surgical History: No Pertinent History Cardiac: No Pertinent History Respiratory: No Pertinent History Gastrointestinal: Cholecystectomy, Hernia Repair Genitourinary: No Pertinent History Musculoskeletal: Orthopedic Surgery Male Surgical History: No Pertinent History Other Surgical History: INGUINAL LYMPH NODES - BRANDY CARPEL TUNNEL REPAIR - LOWER BACK - LEFT ELBOW RODS IN BACK, JOINT REPLACEMENT TO RT GREAT TOE - Social History Smoking Status: Never smoker Exposure to second hand smoke: No Drug Use: none Patient Lives Alone: No - Nursing Vital Signs Nursing Vital Signs: Initial Vital Signs Temperature 98.4 F 10/18/21 22:21 Pulse Rate 100 H 10/18/21 22:21 Respiratory Rate 16 10/18/21 22:21 Blood Pressure 132/87 10/18/21 22:21 O2 Sat by Pulse Oximetry 96 10/18/21 22:21 Pain Scale Pain Intensity 8 - Physical Exam General Appearance: no apparent distress, alert Eye Exam: PERRL/EOMI, eyes nml inspection Ears, Nose, Throat Exam: normal ENT inspection, TMs normal, pharynx normal, moist mucous membranes Neck Exam: normal inspection, non-tender, supple, full range of motion Respiratory Exam: normal breath sounds, lungs clear, No respiratory distress Cardiovascular Exam: regular rate/rhythm, normal heart sounds, normal peripheral pulses Gastrointestinal/Abdomen Exam: soft, normal bowel sounds, No tenderness, No mass Back Exam: normal inspection, normal range of motion, No CVA tenderness, No vertebral tenderness Extremity Exam: normal inspection, normal range of motion, pelvis stable, other (Left ulnar side hand pain. Visible swelling, tenderness. Full range of motion at the fifth finger. Some tenderness at the MCP joint. No obvious deformity of the finger.) Neurologic Exam: alert, oriented x 3, cooperative, normal mood/affect, nml cerebellar function, nml station & gait, sensation nml, No motor deficits Skin Exam: normal color, warm, dry, No rash Lymphatic Exam: No adenopathy SpO2: 96 - Course Nursing assessment & vital signs reviewed: Yes Ordered Tests: Active Orders 24 hr Category Date Time Status HAND (MINIMUM 3 VIEWS) Stat Exams 10/18/21 22:46 Taken Medication Summary Discontinued Medications Generic Name Dose Route Start Last Admin Trade Name Dheerajq PRN Reason Stop Dose Admin Cyclobenzaprine HCl 10 mg 10/18/21 22:52 10/18/21 22:58 Cyclobenzaprine Hcl 10 Mg Tablet PO 10/18/21 22:53 10 mg STAT ONE Administration Cyclobenzaprine HCl Confirm 10/18/21 22:55 Cyclobenzaprine Hcl 10 Mg Tablet Administered 10/18/21 22:56 Dose 10 mg .ROUTE .STK-MED ONE Ketorolac Tromethamine 30 mg 10/18/21 22:52 10/18/21 22:57 Ketorolac Tromethamine 30 Mg/Ml Inj IM 10/18/21 22:53 30 mg STAT ONE Administration Ketorolac Tromethamine Confirm 10/18/21 22:55 Ketorolac Tromethamine 30 Mg/Ml Inj Administered 10/18/21 22:56 Dose 30 mg .ROUTE .STK-MED ONE - Progress Progress: improved Progress Note: 10/18/21 22:54 Plan for x-ray of the left hand. Pain control with Toradol and Flexeril. 10/18/21 23:04 X-ray shows no obvious fracture my read. Plan for close follow-up with orthopedic surgery, repeat x-ray for continued pain for possible occult fracture. Return here for any new or changing symptoms Counseled pt/family regarding: diagnosis, need for follow-up, rad results - Departure Departure Disposition: Home Clinical Impression: Sprain of left hand Condition: Stable Critical Care Time: No Referrals: TOMA ARCHULETA [Primary Care Provider] - Follow up/PCP as directed Instructions: Hand Pain (DC) Additional Instructions: repeat XR and reexam in 3-4 days with [facility] this week
[2021-10-18] MEDS ORDERED: TORAdol 30 mg Injection ONE (22:55)
[2021-10-18] MEDS ORDERED: Cyclobenzaprine 10 MG ONE (22:55)
--- NOTE | 2021-10-19 22:17 | XRAY ---
Exam: 3 views of the left hand from 10/18/2021. Comparison: 3 views of the opposite right hand from 01/03/2020. Indication: Medial left hand injury; pain and bruising. Findings: AP, oblique, and lateral radiographs of the left hand were obtained. A pen points toward the site of the patient's pain. I see no acute fracture or dislocation. The joint spaces appear unremarkable. No radiopaque soft tissue foreign body is seen. There appears to be some soft tissue swelling overlying the ulnar aspect of the fifth metacarpal. Impression: 1. No acute fracture or dislocation of the left hand is seen. 2. There appears to be some soft tissue swelling overlying the ulnar aspect of the left fifth metacarpal.
== END 2021-10-18 23:12 | disposition home or self-care (01) ==
LOC: ED 22:14
DX: S63.92XA Sprain of unspecified part of left wrist and hand, initial encounter (principal); W22.03XA Walked into furniture, initial encounter; M79.642 Pain in left hand; I10 Essential (primary) hypertension; Z79.01 Long term (current) use of anticoagulants; Z79.891 Long term (current) use of opiate analgesic; Z79.899 Other long term (current) drug therapy
CPT/HCPCS: 73130; 96372; 99283; J1885; A9270-GY

== ENCOUNTER 2021-11-18 10:57 | Day surgery (SDC) | payer OTHER ==
[2021-11-18] MEDS ORDERED: Depo-Medrol 40 MG/ML IM ONE (10:58)
[2021-11-18] MEDS ORDERED: LIDOCAINE HCL 1% 50 MG/5 ML VL PF IJ ONE (10:58)
[2021-11-18] MEDS ORDERED: Marcaine Mpf 0.5% Vial 30 Ml IJ ONE (10:58)
[2021-11-18 12:09] LABS: INR 1.1 (0.8-3.0); PROTIME 11.6 SECONDS (9.4-12.5)
[2021-11-18] MEDS ORDERED: Lactated Ringers 1,000 ML IV ONE (12:45)
[2021-11-18] MEDS ORDERED: DIPRIVAN 200 MG/20 ML IV ONE (13:01)
--- NOTE | 2021-11-18 14:12 | XRAY ---
Indication: Right L4-S1 RFA. Intraoperative fluoroscopy provided for 21 seconds. 4 digital spot image submitted for interpretation demonstrates posterior needle tips projecting over the expected right L4-S1 nerve roots. Correlate with intraoperative findings/report. Incidental partially visualized bilateral L3-L4 fusion hardware.
--- NOTE | 2021-11-18 14:18 | XRAY ---
21 seconds fluoroscopy time in surgery for right L4-S1 RFA.
== END 2021-11-18 13:35 | disposition home or self-care (01) ==
LOC: SDC-PAIN 10:57
PROVIDERS: ATTEND Psychiatry & Neurology Pain Medicine
DX: M47.816 Spondylosis without myelopathy or radiculopathy, lumbar region (principal); Z79.01 Long term (current) use of anticoagulants
CPT/HCPCS: 36415; 64635; 64636; 72100; 77002; 85610; J1030; J2001; J2704

== ENCOUNTER 2021-12-02 22:56 | Emergency (ER) | payer OTHER ==
--- NOTE | 2021-12-02 23:01 | ERPHSYRPT ---
- History of Present Illness Time Seen by Provider: 12/02/21 22:59 Source: patient Exam Limitations: no limitations Physician History: This is an overweight 51-year-old white male that underwent a left lower extremity vein stripping through a left inguinal incision. Patient was placed on Keflex postoperatively but he completed the antibiotics yesterday. He is concerned about a staph infection which she has had in the past. He also noticed increased pain in this area of the incision site. Patient took a [place] pain pill at 830 this evening and it did not seem to help. Patient has not had a fever. He has not noticed any draining from the incision site. Timing/Duration: day(s) (2) Quality: painful Severity: moderate Location: other (Incision site left inguinal region) Associated Symptoms: denies symptoms Allergies/Adverse Reactions: BEESTINGS Allergy (Mild, Uncoded 10/18/21 22:25) Swelling Home Medications: Warfarin Sodium 10 mg [Coumadin 10 MG] 10 mg PO UD 08/25/18 [History] Buspirone HCl [Buspar] 1 mg TID 12/04/19 [History] Trazodone HCl [Desyrel] 1 ea DAILY 12/04/19 [History] Hydroxyzine HCl 25 mg [Atarax 25 mg] 1 ea DAILY 11/29/20 [History] Lumateperone Tosylate [Caplyta] 42 mg PO DAILY 11/29/20 [History] Hydrocodone/Acetaminophen [Hydrocodone-Acetamin 10-325 mg] 1 tab PO DAILY 12/02/21 [History] Hx Tetanus, Diphtheria Vaccination/Date Given: Yes Hx Influenza Vaccination/Date Given: Yes Hx Pneumococcal Vaccination/Date Given: Yes Travel Risk - International Travel Have you traveled outside of the country in past 3 weeks: No - Coronavirus Screening Are you exhibiting any of the following symptoms?: No Close contact with a COVID-19 positive Pt in past 14-21 Days: No - Vaccine Status Have you recieved a Covid-19 vaccination: Yes 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: [employer] - Vaccination Dates Date of 2cond Vaccination (if applicable): unknown - Review of Systems Constitutional: No Symptoms Eyes: No Symptoms Ears, Nose, & Throat: No Symptoms Respiratory: No Symptoms Cardiac: No Symptoms Abdominal/Gastrointestinal: No Symptoms Genitourinary Symptoms: No Symptoms Musculoskeletal: No Symptoms Skin: Other (Pain at the left inguinal vein stripping incision site) Neurological: No Symptoms Psychological: No Symptoms Endocrine: No Symptoms Hematologic/Lymphatic: No Symptoms Immunological/Allergic: No Symptoms All Other Systems: Reviewed and Negative - Past Medical History Pertinent Past Medical History: Yes Neurological History: No Pertinent History ENT History: No Pertinent History Cardiac History: Hypertension Respiratory History: No Pertinent History Endocrine Medical History: No Pertinent History Musculoskeletal History: No Pertinent History GI Medical History: Diverticulitis, Pancreatitis History: No Pertinent History Psycho-Social History: Anxiety, Depression, Panic Disorder, Other Male Reproductive Disorders: No Pertinent History Other Medical History: BLOOD DISORDER: FACTOR V, 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 and arthritis in back - Past Surgical History Past Surgical History: Yes Neuro Surgical History: No Pertinent History Cardiac: No Pertinent History Respiratory: No Pertinent History Gastrointestinal: Cholecystectomy, Hernia Repair Genitourinary: No Pertinent History Musculoskeletal: Orthopedic Surgery Male Surgical History: No Pertinent History Other Surgical History: INGUINAL LYMPH NODES - BRANDY CARPEL TUNNEL REPAIR - LOWER BACK - LEFT ELBOW RODS IN BACK, JOINT REPLACEMENT TO RT GREAT TOE - Social History Smoking Status: Never smoker Exposure to second hand smoke: No Drug Use: none Patient Lives Alone: No - Nursing Vital Signs Nursing Vital Signs: Initial Vital Signs Temperature 98.1 F 12/02/21 23:10 Pulse Rate 105 H 12/02/21 23:10 Respiratory Rate 18 12/02/21 23:10 Blood Pressure 132/78 12/02/21 23:10 O2 Sat by Pulse Oximetry 96 12/02/21 23:10 Pain Scale Pain Intensity 8 - Physical Exam General Appearance: no apparent distress, alert, anxiety, obese Eye Exam: PERRL/EOMI, eyes nml inspection Ears, Nose, Throat Exam: normal ENT inspection, moist mucous membranes Neck Exam: normal inspection, non-tender, supple, full range of motion Respiratory Exam: airway intact, No chest tenderness, No respiratory distress Cardiovascular Exam: regular rate/rhythm, normal heart sounds, normal peripheral pulses Gastrointestinal/Abdomen Exam: soft, normal bowel sounds, No tenderness Rectal Exam: not done Back Exam: normal inspection, normal range of motion, No CVA tenderness, No vertebral tenderness Extremity Exam: normal inspection, normal range of motion, pelvis stable Neurologic Exam: alert, oriented x 3, 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 There is some redness at the entrance site of the abhilash that are present. There is a mild amount of warmth and an expected amount of swelling postoperatively. There is no drainage or odor present.) Ordered Tests: Medication Summary Generic Name Dose Route Start Last Admin Trade Name Emanuel PRN Reason Stop Dose Admin Doxycycline Hyclate 100 mg 12/02/21 23:34 Doxycycline Hyclate 100 Mg Tablet PO 12/02/21 23:35 STAT ONE Hydromorphone HCl 1 mg 12/02/21 23:32 Hydromorphone 1 Mg/1ml Inj 1 Mg/Ml Syringe IM 12/02/21 23:33 STAT ONE Ondansetron HCl 4 mg 12/02/21 23:35 Zofran 4 Mg/Udtablet Orally Disintegrating PO 12/02/21 23:36 STAT ONE - Progress Progress: improved, pain not gone completely Progress Note: 12/02/21 23:38 Medical decision making: This patient does have some mild redness at the staple site and some warmth. I think it is reasonable to place him on 5 days of doxycycline to help prevent a staph infection. Patient is concerned about this because he has had a staph infection in the past. Counseled pt/family regarding: diagnosis, need for follow-up - Departure Departure Disposition: Home Clinical Impression: Superficial incisional surgical site infection Condition: Stable Critical Care Time: No Referrals: TOMA ARCHULETA [Primary Care Provider] - Follow up/PCP as directed Additional Instructions: Continue the wound care as prescribed by your surgeon. Continue your medication as prescribed. Follow-up with your surgeon for further evaluation and management Prescriptions: Doxycycline Hyclate 100 mg [Vibramycin 100 MG] 100 mg PO BID #10 tab
[2021-12-02] MEDS ORDERED: Hydromorphone 1 mg/ml Injection IM ONE (23:32)
[2021-12-02] MEDS ORDERED: Vibramycin 100 MG PO ONE (23:34)
[2021-12-02] MEDS ORDERED: ZOFRAN ODT 4 MG PO ONE (23:35)
[2021-12-02] MEDS ORDERED: Hydromorphone 1 mg/ml Injection ONE (23:48)
[2021-12-02] MEDS ORDERED: Vibramycin 100 MG ONE (23:48)
[2021-12-02] MEDS ORDERED: ZOFRAN ODT 4 MG ONE (23:48)
[2021-12-03 00:03] VITALS: BP 116/78; PULSE 95; O2SAT 95
== END 2021-12-03 00:03 | disposition home or self-care (01) ==
LOC: ED 22:56
DX: T81.41XA Infection following a procedure, superficial incisional surgical site, initial encounter (principal); G89.18 Other acute postprocedural pain; I10 Essential (primary) hypertension; Z79.01 Long term (current) use of anticoagulants; Z79.891 Long term (current) use of opiate analgesic; Z79.899 Other long term (current) drug therapy
CPT/HCPCS: 96372; 99283; J1170; Q0162; A9270-GY

== ENCOUNTER 2022-02-10 11:51 | Day surgery (SDC) | payer OTHER ==
[2022-02-10] MEDS ORDERED: Depo-Medrol 40 MG/ML IM ONE (11:52)
[2022-02-10] MEDS ORDERED: LIDOCAINE HCL 1% 50 MG/5 ML VL PF IJ ONE (11:52)
[2022-02-10] MEDS ORDERED: BUPIVACAINE 0.5% VIAL IJ ONE (11:52)
[2022-02-10 12:56] LABS: INR 1.07 (0.8-3.0); PROTIME 11.3 SECONDS (9.4-12.5)
[2022-02-10] MEDS ORDERED: DIPRIVAN 200 MG/20 ML IV ONE (13:48)
[2022-02-10] MEDS ORDERED: Lactated Ringers 1,000 ML IV ONE (14:58)
--- NOTE | 2022-02-10 16:38 | XRAY ---
Indication: Left L4-S1 RFA. Intraoperative fluoroscopy provided for 41 seconds. 8 digital spot images submitted for interpretation demonstrates posterior needle tips projecting over the expected left L4-S1 nerve roots. Correlate with intraoperative findings/report. Incidental partially visualized bilateral L3-L4 fusion hardware.
--- NOTE | 2022-02-10 17:22 | XRAY ---
41 seconds of fluoroscopy was used in surgery for a left L4-S1 RFA.
== END 2022-02-10 14:17 | disposition home or self-care (01) ==
LOC: SDC-PAIN 11:51
PROVIDERS: ATTEND Psychiatry & Neurology Pain Medicine
DX: M47.816 Spondylosis without myelopathy or radiculopathy, lumbar region (principal); Z79.01 Long term (current) use of anticoagulants; Z79.899 Other long term (current) drug therapy
CPT/HCPCS: 36415; 64635; 64636; 72100; 77002; 85610; J1030; J2001; J2704

== ENCOUNTER 2022-04-12 15:41 | Emergency (ER) | payer MEDICARE ==
[2022-04-12 15:59] VITALS: O2SAT 98
[2022-04-12 16:38] LABS: Appearance Clear (Clear); Bacteria None Seen /HPF (None Seen); Bilirubin Negative (Negative); Blood Negative (Negative); Epithelial Cells None Seen /HPF (None Seen); Glucose, Urine Negative (Negative); Hyaline Casts NONE SEEN /LPF (0-2); Ketones Negative (Negative); Leukocyte Esterase Negative (Negative); Nitrite Negative (Negative); Protein,Urine Dip 30 (Negative); RBC 0-2 /HPF (0-5); Urobilinogen 0.2 mg/dL (0.2); WBC 0-2 /HPF (0-5)
[2022-04-12 16:48] LABS: ADD URINE CULTURE? NO (NO)
[2022-04-12] MEDS ORDERED: MORPHINE SULFATE 4 MG INJ IM ONE (17:12)
[2022-04-12] MEDS ORDERED: MORPHINE SULFATE 4 MG INJ ONE (17:16)
--- NOTE | 2022-04-12 17:35 | XRAY ---
Indication: Left lower quadrant pain and nausea. Diverticulitis. Multiple contiguous axial images obtained through the abdomen pelvis without contrast. Comparison: April 27, 2021 Lung bases again demonstrates minimal subsegmental atelectasis/scarring. Heart not enlarged. Distal esophagus demonstrates paraesophageal varices. Noncontrasted stomach and bowel loops nonobstructed again with normal appendix and minimal descending/sigmoid diverticulosis without diverticulitis. Again fatty cirrhotic liver, nonobstructing left renal micro-calculi, splenic calcified granulomas, and cholecystectomy clips. No free fluid/air. Remaining liver, pancreas, spleen, adrenal glands, kidneys, ureters, bladder, and aorta are unremarkable for noncontrast exam. Osseous structures intact again with mild degenerative changes throughout the thoracolumbar spine and L2-L3 posterior fusion with laminectomy. Intact right inguinal hernia mesh graft. Impression: 1. Chronic findings including cirrhotic liver, paraesophageal varices, colonic diverticulosis without diverticulitis, nonobstructing left renal micro-calculi, and chronic bony findings. 2. Remaining CT abdomen/pelvis without contrast exam continues to be negative.
--- NOTE | 2022-04-12 17:54 | ERPHSYRPT ---
- History of Present Illness Time Seen by Provider: 04/12/22 18:02 Historian: patient Exam Limitations: no limitations Patient Subjective Stated Complaint: Pt states "I am getting over impetigo and I am dry all down there and I was going to go to [facility] but I started to have pain when I pee it really [place]." Triage Nursing Assessment: Pt presented alert and oriented X 3, skin pwd.Pt ambulates with an upright steady gait, able to speak in clear full sentences pt in no apaprent respiratory distress. Physician History: Patient is a 51-year-old male presents to our ED for evaluation of dysuria. Patient states he was diagnosed with impetigo on his penis. Patient currently being treated with a topical antibiotic. Patient states that he occasionally feels a twinge in his left lower quadrant. Patient concerned because he has a history of diverticulitis. No trauma. No fever. No nausea vomiting or diaphoresis. Symptoms are mild to moderate in intensity. Patient experiences dysuria when he urinates. Otherwise patient is pain-free. Patient voices no other complaints concerns at this time. Patient denies the possibility of STI. Patient declined STI work-up. Portions of this note were created with voice recognition technology. There may be grammatical, spelling, punctuation or sound alike errors Timing/Duration: today Activities at Onset: none Quality: burning Abdominal Pain Onset Location: LLQ Pain Radiation: no radiation Severity of Pain-Max: moderate Severity of Pain-Current: mild Modifying Factors: Improves With: nothing Associated Symptoms: denies symptoms Previous symptoms: no prior history Allergies/Adverse Reactions: BEESTINGS Allergy (Mild, Uncoded 10/18/21 22:25) Swelling Home Medications: Warfarin Sodium 10 mg [Coumadin 10 MG] 10 mg PO UD 08/25/18 [History] Buspirone HCl [Buspar] 1 mg TID 12/04/19 [History] Hydroxyzine HCl 25 mg [Atarax 25 mg] 1 ea DAILY 11/29/20 [History] Lumateperone Tosylate [Caplyta] 42 mg PO DAILY 11/29/20 [History] Hydrocodone/Acetaminophen [Hydrocodone-Acetamin 10-325 mg] 1 tab PO DAILY 12/02/21 [History] AMITRIPTYLINE HCL 50 mg Tab [AMITRIPTYLINE HCL 50 mg Tablet] 50 mg PO HS 04/12/22 [History] Hx Tetanus, Diphtheria Vaccination/Date Given: Yes Hx Influenza Vaccination/Date Given: Yes Hx Pneumococcal Vaccination/Date Given: Yes Immunizations Up to Date: Yes Travel Risk - International Travel Have you traveled outside of the country in past 3 weeks: No - Coronavirus Screening Are you exhibiting any of the following symptoms?: No Close contact with a COVID-19 positive Pt in past 14-21 Days: No - Vaccine Status Have you recieved a Covid-19 vaccination: Yes [employer]: [employer] - Vaccination Dates Date of 2cond Vaccination (if applicable): unknown - Review of Systems Constitutional: No Symptoms, No Fever, No Chills Eyes: No Symptoms Ears, Nose, & Throat: No Symptoms Respiratory: No Symptoms, No Cough, No Dyspnea Cardiac: No Symptoms, No Chest Pain, No Edema, No Syncope Abdominal/Gastrointestinal: No Symptoms, No Abdominal Pain, No Nausea, No Vomiting, No Diarrhea Genitourinary Symptoms: No Symptoms, No Dysuria Musculoskeletal: No Symptoms, No Back Pain, No Neck Pain Skin: No Symptoms, No Rash Neurological: No Symptoms, No Dizziness, No Focal Weakness, No Sensory Changes Psychological: No Symptoms Endocrine: No Symptoms Hematologic/Lymphatic: No Symptoms Immunological/Allergic: No Symptoms All Other Systems: Reviewed and Negative - Past Medical History Pertinent Past Medical History: Yes Neurological History: No Pertinent History ENT History: No Pertinent History Cardiac History: Hypertension Respiratory History: No Pertinent History Endocrine Medical History: No Pertinent History Musculoskeletal History: No Pertinent History GI Medical History: Diverticulitis, Pancreatitis History: No Pertinent History Psycho-Social History: Anxiety, Depression, Panic Disorder, Other Male Reproductive Disorders: No Pertinent History Other Medical History: BLOOD DISORDER: FACTOR V, 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 and arthritis in back - Past Surgical History Past Surgical History: Yes Neuro Surgical History: No Pertinent History Cardiac: No Pertinent History Respiratory: No Pertinent History Gastrointestinal: Cholecystectomy, Hernia Repair Genitourinary: No Pertinent History Musculoskeletal: Orthopedic Surgery Male Surgical History: No Pertinent History Other Surgical History: INGUINAL LYMPH NODES - BRANDY CARPEL TUNNEL REPAIR - LOWER BACK - LEFT ELBOW RODS IN BACK, JOINT REPLACEMENT TO RT GREAT TOE - Social History Smoking Status: Never smoker Exposure to second hand smoke: No Drug Use: none Patient Lives Alone: No - Nursing Vital Signs Nursing Vital Signs: Initial Vital Signs Temperature 98.7 F 04/12/22 15:55 Pulse Rate 69 04/12/22 15:55 Respiratory Rate 20 04/12/22 15:55 Blood Pressure 126/80 04/12/22 15:55 O2 Sat by Pulse Oximetry 98 04/12/22 15:55 Pain Scale Pain Intensity 6 - Physical Exam General Appearance: no apparent distress, alert Eye Exam: PERRL/EOMI, eyes nml inspection Ears, Nose, Throat Exam: normal ENT inspection, pharynx normal, moist mucous membranes Neck Exam: normal inspection, non-tender, supple, full range of motion Respiratory Exam: normal breath sounds, lungs clear, No respiratory distress Cardiovascular Exam: regular rate/rhythm, normal heart sounds Gastrointestinal/Abdomen Exam: soft, No tenderness, No mass Back Exam: normal inspection, normal range of motion, No CVA tenderness, No vertebral tenderness Extremity Exam: normal inspection, normal range of motion, pelvis stable Neurologic Exam: alert, oriented x 3, cooperative, normal mood/affect, nml cerebellar function, sensation nml, No motor deficits Skin Exam: normal color, warm, dry Lymphatic Exam: No adenopathy SpO2 Interpretation: normal SpO2: 98 O2 Delivery: Room Air - Course Nursing assessment & vital signs reviewed: Yes - CT Exams Abdomen/Pelvis CT Interpretation: Tele-radiologist Report (For esophageal varices, diverticulosis, fatty liver nephrolithiasis) Ordered Tests: Active Orders 24 hr Category Date Time Status ABDOMEN AND PELVIS W/0 CONTRAS [CT] Stat Exams 04/12/22 16:38 Completed UA W/RFX UR CULTURE Stat Lab 04/12/22 16:02 Completed Medication Summary Discontinued Medications Generic Name Dose Route Start Last Admin Trade Name Emanuel PRN Reason Stop Dose Admin Morphine Sulfate 4 mg 04/12/22 17:12 04/12/22 17:19 Morphine Sulfate 4 Mg/Ml Injection IM 04/12/22 17:13 4 mg STAT ONE Administration Morphine Sulfate Confirm 04/12/22 17:16 Morphine Sulfate 4 Mg/Ml Injection Administered 04/12/22 17:17 Dose 4 mg .ROUTE .STK-MED ONE Lab/Rad Data: Laboratory Results 04/12/22 Range/Units 16:02 Urine Color Yellow (Yellow) Urine Appearance Clear (Clear) Urine pH 6.0 (4.6-8.0) Ur Specific [place] 1.020 (1.005-1.030) Urine Protein 30 (Negative) Urine Glucose (UA) Negative (Negative) mg/dL Urine Ketones Negative (Negative) Urine Blood Negative (Negative) Urine Nitrite Negative (Negative) Urine Bilirubin Negative (Negative) Urine Urobilinogen 0.2 (0.2) mg/dL Ur Leukocyte Esterase Negative (Negative) U Hyaline Cast (Auto) NONE SEEN (0-2) /LPF Urine Microscopic RBC 0-2 (0-5) /HPF Urine Microscopic WBC 0-2 (0-5) /HPF Ur Epithelial Cells None Seen (None Seen) /HPF Urine Bacteria None Seen (None Seen) /HPF Urine Culture Reflexed NO (NO) - Progress Progress: improved Progress Note: Patient is a 51-year-old male presents to our ED for evaluation of dysuria. Patient was recently diagnosed with impetigo of his penis. Patient currently on topical antibiotics. Pain only when he urinates. However he does occasionally feel a intermittent ache in the left lower quadrant. Patient has a history of diverticulosis and is concerned for possible diverticulitis. Physical exam reveals slight tenderness left lower quadrant. No obvious penile lesions. Patient's complaint is acute. Complexity of complaint is moderate. No significant comorbidities to contribute to patient's current symptomology. Testing ordered include UA CT. UA negative for urinary tract infection. CT scan since then unremarkable for acute pathology. Patient received intramuscular morphine for pain control. Patient currently pain-free. No indication for further work-up. Will discharge home. Patient agrees to follow- up with primary care doctor within 48 hours for reevaluation. Level of EM service provided was moderate. Complexity of problems addressed as moderate. Complexity of data reviewed and analyzed is moderate. Risk of complications and or risk of morbidity/mortality of patient management is moderate. Patient served as independent historian. Discharge approximately 10 minutes. Patient diagnosis is dysuria. Work-up otherwise negative. Portions of this note were created with voice recognition technology. There may be grammatical, spelling, punctuation or sound alike errors 04/12/22 18:22 Counseled pt/family regarding: lab results, diagnosis, need for follow-up, rad results Medical Desision Making - Diagnostic Testing Diagnostic Testing: Diagnostic tests were ordered,analyzed, and reviewed by me and used in my medical decision making for this patient. Radiologic studies (if ordered) were read by me initially then discussed with the radiologist . - Departure Departure Disposition: Home Clinical Impression: Abdominal pain, paraesophageal varices, Diverticulosis, Fatty liver, Nephrolithiasis, Dysuria Condition: Stable Critical Care Time: No Referrals: TOMA ARCHULETA [Primary Care Provider] - Follow up/PCP as directed Instructions: Diverticulosis Additional Instructions: Discharge/Care Plan AMBROCIO CATHERINE was seen on 04/12/22 in the Emergency Room. The patient was counseled regarding Diagnosis,Lab results, Imaging studies, need for follow up and when to return to the Emergency Room. Prescriptions given: Discharge Note I have spoken with the patient and/or caregivers. I have explained the patient's condition, diagnosis and treatment plan based on the information available to me at this time. I have answered the patient's and/or caregiver's questions and addressed any concerns. The patient and/or caregivers have as good understanding of the patient's diagnosis, condition and treatment plan as can be expected at this point. The vital signs have been stable. The patient's condition is stable and appropriate for discharge from the emergency department. The patient will pursue further outpatient evaluation with the primary care physician or other designated or consulting physician as outlined in the discharge instructions. The patient and/or caregivers are agreeable to this plan of care and follow-up instructions have been explained in detail. The patient and/or caregivers have received these instruction. The patient/and or caregivers are aware that any significant change in condition or worsening of symptoms should prompt an immediate return to this or the closest emergency department or call 911.
[2022-04-12 18:09] VITALS: BP 123/81; PULSE 75
== END 2022-04-12 18:14 | disposition home or self-care (01) ==
LOC: ED 15:41
DX: R10.32 Left lower quadrant pain (principal); I85.00 Esophageal varices without bleeding; K57.90 Diverticulosis of intestine, part unspecified, without perforation or abscess without bleeding; K76.0 Fatty (change of) liver, not elsewhere classified; N20.0 Calculus of kidney; R30.0 Dysuria; I10 Essential (primary) hypertension; Z79.01 Long term (current) use of anticoagulants; Z79.899 Other long term (current) drug therapy
CPT/HCPCS: 74176; 81001; 96372; 99283; J2270

== ENCOUNTER 2022-05-04 15:11 | Emergency (ER) | payer MEDICARE ==
[2022-05-04] MEDS ORDERED: DECADRON 10MG INJ. IM ONE (15:31)
[2022-05-04] MEDS ORDERED: TORAdol 30 mg Injection IM ONE (15:33)
[2022-05-04] MEDS ORDERED: TORAdol 30 mg Injection IV ONE (15:33)
--- NOTE | 2022-05-04 15:40 | ERPHSYRPT ---
- History of Present Illness Time Seen by Provider: 05/04/22 15:36 Source: patient Exam Limitations: no limitations Patient Subjective Stated Complaint: Back pain Triage Nursing Assessment: Patient ambulated back to ED and transferred self to bed. Patient A+O X 3. Patient's skin pink, warm and dry. Patient states he was standing looking at eye glasses when he started having pain to mid back. Patient denies recent injury or trauma. Patient states pain is 9/10. Physician History: Patient is a 51-year-old male presents emergency department for evaluation of acute on chronic back pain. Patient has had back surgery in the past. Patient states he was looking at eyeglass frames. Patient states his back began to feel tight. Patient now experiencing pain rated 9 out of 10 of his low back. No fever. No chills. No trauma. No change in bowel bladder function. No recent back procedures. No saddle anesthesia. Patient's back pain is similar to previous back pain. Pain is localized. No radiation no lower extremity weakness. Pain is not associated with chest pain or shortness of breath. No nausea vomiting or diaphoresis. at bedside. They voiced no other complaints or concerns at this time. Patient has no urinary symptomology Portions of this note were created with voice recognition technology. There may be grammatical, spelling, punctuation or sound alike errors Timing/Duration: today Method of Injury: unknown Quality: aching Back Pain Location: lumbar spine Severity of Pain-Max: moderate Severity of Pain-Current: mild Modifying Factors: Improves With: nothing Associated Symptoms: denies symptoms Previous symptoms: same symptoms as today Allergies/Adverse Reactions: BEESTINGS Allergy (Mild, Uncoded 05/04/22 15:15) Swelling Home Medications: Warfarin Sodium 10 mg [Coumadin 10 MG] 10 mg PO UD 08/25/18 [History] Buspirone HCl [Buspar] 1 mg TID 12/04/19 [History] Hydroxyzine HCl 25 mg [Atarax 25 mg] 1 ea DAILY 11/29/20 [History] Lumateperone Tosylate [Caplyta] 42 mg PO DAILY 11/29/20 [History] Hydrocodone/Acetaminophen [Hydrocodone-Acetamin 10-325 mg] 1 tab PO DAILY 12/02/21 [History] AMITRIPTYLINE HCL 50 mg Tab [AMITRIPTYLINE HCL 50 mg Tablet] 50 mg PO HS 04/12/22 [History] Hx Tetanus, Diphtheria Vaccination/Date Given: Yes Hx Influenza Vaccination/Date Given: Yes Hx Pneumococcal Vaccination/Date Given: Yes Immunizations Up to Date: Yes Travel Risk - International Travel Have you traveled outside of the country in past 3 weeks: No - Coronavirus Screening Are you exhibiting any of the following symptoms?: No Close contact with a COVID-19 positive Pt in past 14-21 Days: No - Vaccine Status Have you recieved a Covid-19 vaccination: No [employer]: [employer] - Vaccination Dates Date of 2cond Vaccination (if applicable): unknown - Review of Systems Constitutional: No Symptoms, No Fever, No Chills Eyes: No Symptoms Ears, Nose, & Throat: No Symptoms Respiratory: No Symptoms, No Cough, No Dyspnea Cardiac: No Symptoms, No Chest Pain, No Edema, No Syncope Abdominal/Gastrointestinal: No Symptoms, No Abdominal Pain, No Nausea, No Vomiting, No Diarrhea Genitourinary Symptoms: No Symptoms, No Dysuria Musculoskeletal: No Symptoms, No Back Pain, No Neck Pain Skin: No Symptoms, No Rash Neurological: No Symptoms, No Dizziness, No Focal Weakness, No Sensory Changes Psychological: No Symptoms Endocrine: No Symptoms Hematologic/Lymphatic: No Symptoms Immunological/Allergic: No Symptoms All Other Systems: Reviewed and Negative - Past Medical History Pertinent Past Medical History: Yes Neurological History: No Pertinent History ENT History: No Pertinent History Cardiac History: Hypertension Respiratory History: No Pertinent History Endocrine Medical History: No Pertinent History Musculoskeletal History: No Pertinent History GI Medical History: Diverticulitis, Pancreatitis History: No Pertinent History Psycho-Social History: Anxiety, Depression, Panic Disorder, Other Male Reproductive Disorders: No Pertinent History Other Medical History: BLOOD DISORDER: FACTOR V, 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 and arthritis in back - Past Surgical History Past Surgical History: Yes Neuro Surgical History: No Pertinent History Cardiac: No Pertinent History Respiratory: No Pertinent History Gastrointestinal: Cholecystectomy, Hernia Repair Genitourinary: No Pertinent History Musculoskeletal: Orthopedic Surgery Male Surgical History: No Pertinent History Other Surgical History: INGUINAL LYMPH NODES - BRANDY CARPEL TUNNEL REPAIR - LOWER BACK - LEFT ELBOW RODS IN BACK, JOINT REPLACEMENT TO RT GREAT TOE - Social History Smoking Status: Never smoker Exposure to second hand smoke: No Drug Use: none Patient Lives Alone: No - Nursing Vital Signs Nursing Vital Signs: Initial Vital Signs Temperature 98.1 F 05/04/22 15:17 Pulse Rate 91 H 05/04/22 15:17 Respiratory Rate 18 05/04/22 15:17 Blood Pressure 162/119 05/04/22 15:17 O2 Sat by Pulse Oximetry 98 05/04/22 15:17 Pain Scale Pain Intensity 8 - Physical Exam General Appearance: no apparent distress, alert Eye Exam: PERRL/EOMI, eyes nml inspection Neck Exam: normal inspection, non-tender, supple, full range of motion, No menin gismus, No midline tenderness Respiratory Exam: normal breath sounds, lungs clear, airway intact, No respiratory distress Cardiovascular Exam: regular rate/rhythm, normal heart sounds, normal peripheral pulses Gastrointestinal Exam: soft, No tenderness, No mass Extremity Exam: normal inspection, normal range of motion, No calf tenderness, No pedal edema Neurologic Exam: alert, oriented x 3, cooperative, roving carrier II-XII nml as tested, normal mood/affect, nml station & gait, sensation nml, No motor deficits Skin Exam: normal color, warm, dry, No rash Lymphatic Exam: No adenopathy SpO2: 98 O2 Delivery: Room Air - Course Nursing assessment & vital signs reviewed: Yes Ordered Tests: Medication Summary Discontinued Medications Generic Name Dose Route Start Last Admin Trade Name Dheerajq PRN Reason Stop Dose Admin Dexamethasone Sodium Phosphate 10 mg 05/04/22 15:31 05/04/22 15:47 Dexamethasone Sod Phosphate 10 Mg/Ml IM 05/04/22 15:32 10 mg STAT ONE Administration Dexamethasone Sodium Phosphate Confirm 05/04/22 15:41 Dexamethasone Sod Phosphate 10 Mg/Ml Administered 05/04/22 15:42 Dose 10 mg .ROUTE .STK-MED ONE Ketorolac Tromethamine 30 mg 05/04/22 15:33 05/04/22 15:47 Ketorolac Tromethamine 30 Mg/Ml Inj IM 05/04/22 15:34 30 mg STAT ONE Administration Ketorolac Tromethamine 30 mg 05/04/22 15:33 05/04/22 15:35 Ketorolac Tromethamine 30 Mg/Ml Inj IV 05/04/22 15:34 Not Given STAT ONE Ketorolac Tromethamine Confirm 05/04/22 15:41 Ketorolac Tromethamine 30 Mg/Ml Inj Administered 05/04/22 15:42 Dose 30 mg .ROUTE .STK-MED ONE - Progress Progress: improved Progress Note: ' Patient reassessed. He feels significantly better. Patient resting comfortably. No indication for imaging studies at this time. Patient received Toradol and Decadron for pain control. Patient agrees to follow-up with his primary care doctor within 48 hours for reevaluation. Patient is a 51-year-old male with acute onset acute on chronic low back pain. Patient's complaint is acute in onset. Complexity of problems addressed is low. Acute uncomplicated. Patient has no referral of pain of his low back. Pain localized. Pain worse with movement and palpation. No critical care time. Amount and complexity of data reviewed and analyzed minimal. Risk of complication of patient management and or risk of morbidity/mortality of patient management is moderate. Patient received intramuscular Toradol and steroids which are both prescription level medications. No indication for prescriptions. Patient agrees to follow-up with primary care doctor within 48 hours for reevaluation. Portions of this note were created with voice recognition technology. There may be grammatical, spelling, punctuation or sound alike errors 05/04/22 16:10 Counseled pt/family regarding: diagnosis, need for follow-up - Departure Departure Disposition: Home Clinical Impression: Acute exacerbation of chronic low back pain, Lumbosacral strain Condition: Stable Critical Care Time: No Referrals: TOMA ARCHULETA [Primary Care Provider] - Follow up/PCP as directed Additional Instructions: Discharge/Care Plan AMBROCIO CATHERINE was seen on 05/04/22 in the Emergency Room. The patient was counseled regarding Diagnosis,Lab results, Imaging studies, need for follow up and when to return to the Emergency Room. Prescriptions given: Discharge Note I have spoken with the patient and/or caregivers. I have explained the patient's condition, diagnosis and treatment plan based on the information available to me at this time. I have answered the patient's and/or caregiver's questions and addressed any concerns. The patient and/or caregivers have as good understanding of the patient's diagnosis, condition and treatment plan as can be expected at this point. The vital signs have been stable. The patient's condition is stable and appropriate for discharge from the emergency department. The patient will pursue further outpatient evaluation with the primary care physician or other designated or consulting physician as outlined in the discharge instructions. The patient and/or caregivers are agreeable to this plan of care and follow-up instructions have been explained in detail. The patient and/or caregivers have received these instruction. The patient/and or caregivers are aware that any significant change in condition or worsening of symptoms should prompt an immediate return to this or the closest emergency department or call 911. Prescriptions: Ketorolac Trometh 10 mg Tab [TORAdol 10 MG TABLET] 10 mg PO TID 5 Days #15 tablet
[2022-05-04] MEDS ORDERED: TORAdol 30 mg Injection ONE (15:41)
[2022-05-04] MEDS ORDERED: DECADRON 10MG INJ. ONE (15:41)
[2022-05-04 16:12] VITALS: BP 142/98; PULSE 81
[2022-05-04 16:15] VITALS: O2SAT 98
== END 2022-05-04 16:14 | disposition home or self-care (01) ==
LOC: ED 15:11
DX: G89.29 Other chronic pain (principal); S39.012A Strain of muscle, fascia and tendon of lower back, initial encounter; I10 Essential (primary) hypertension; Z79.891 Long term (current) use of opiate analgesic; Z79.01 Long term (current) use of anticoagulants; Z79.899 Other long term (current) drug therapy; Z28.310 Unvaccinated for COVID-19
CPT/HCPCS: 96372; 99283; J1100; J1885

== ENCOUNTER 2022-08-13 01:24 | Emergency (ER) | payer MEDICARE ==
[2022-08-13] MEDS ORDERED: Sodium Chloride 0.9% 1000 ML 1,000 ML IV STA (02:10)
[2022-08-13] MEDS ORDERED: MORPHINE SULFATE 4 MG INJ IV ONE ×2 (02:10→05:30)
[2022-08-13] MEDS ORDERED: PROTONIX 40 MG IV IV ONE ×2 (02:10→02:50)
[2022-08-13] MEDS ORDERED: Zofran 4 MG/2 ML VIAL IV ONE (02:10)
--- NOTE | 2022-08-13 02:15 | ERPHSYRPT ---
- History of Present Illness Time Seen by Provider: 08/13/22 02:08 Historian: patient Exam Limitations: no limitations Physician History: 51 years old male presented in the ER with chief complaint of left sided abdominal pain since yesterday, moderate to severe dull aching to sharp without any significant aggravating or relieving factors reports associated nausea but n o vomiting. Denies any history of constipation or diarrhea. No fever or chills reported. Had recently left-sided kidney stone but denies any urinary symptoms. Timing/Duration: yesterday, constant, gradual onset, worse Activities at Onset: rest Quality: dullness, sharpness Abdominal Pain Onset Location: LUQ, LLQ, flank Severity of Pain-Max: severe Severity of Pain-Current: moderate Modifying Factors: Improves With: nothing Associated Symptoms: nausea Previous symptoms: no prior history Allergies/Adverse Reactions: BEESTINGS Allergy (Mild, Uncoded 08/13/22 01:51) Swelling Home Medications: Warfarin Sodium 10 mg [Coumadin 10 MG] 10 mg PO DAILY 08/25/18 [History] Buspirone HCl [Buspar] 1 mg PO TID 12/04/19 [History] Hydroxyzine HCl 25 mg [Atarax 25 mg] 4 ea PO HS 11/29/20 [History] Lumateperone Tosylate [Caplyta] 42 mg PO DAILY 11/29/20 [History] Hydrocodone/Acetaminophen [Hydrocodone-Acetamin 10-325 mg] 1 tab PO TID PRN 12/02/21 [History] AMITRIPTYLINE HCL 50 mg Tab [AMITRIPTYLINE HCL 50 mg Tablet] 50 mg PO HS 04/12/22 [History] Hx Tetanus, Diphtheria Vaccination/Date Given: Yes Hx Influenza Vaccination/Date Given: Yes Hx Pneumococcal Vaccination/Date Given: Yes Travel Risk - Vaccine Status Have you recieved a Covid-19 vaccination: No 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 - Vaccination Dates Date of 2cond Vaccination (if applicable): unknown - Review of Systems Constitutional: No Symptoms Ears, Nose, & Throat: No Symptoms Respiratory: No Symptoms Cardiac: No Symptoms Abdominal/Gastrointestinal: Abdominal Pain, Nausea Genitourinary Symptoms: No Symptoms Musculoskeletal: No Symptoms Skin: No Symptoms Neurological: No Symptoms Psychological: No Symptoms Endocrine: No Symptoms Hematologic/Lymphatic: No Symptoms Immunological/Allergic: No Symptoms - Past Medical History Pertinent Past Medical History: Yes Neurological History: No Pertinent History ENT History: No Pertinent History Cardiac History: Hypertension Respiratory History: No Pertinent History Endocrine Medical History: No Pertinent History Musculoskeletal History: No Pertinent History GI Medical History: Diverticulitis, Pancreatitis History: No Pertinent History Psycho-Social History: Anxiety, Depression, Panic Disorder, Other Male Reproductive Disorders: No Pertinent History Other Medical History: BLOOD DISORDER: FACTOR V, 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 and arthritis in back - Past Surgical History Past Surgical History: Yes Neuro Surgical History: No Pertinent History Cardiac: No Pertinent History Respiratory: No Pertinent History Gastrointestinal: Cholecystectomy, Hernia Repair Genitourinary: No Pertinent History Musculoskeletal: Orthopedic Surgery Male Surgical History: No Pertinent History Other Surgical History: INGUINAL LYMPH NODES - BRANDY CARPEL TUNNEL REPAIR - LOWER BACK - LEFT ELBOW RODS IN BACK, JOINT REPLACEMENT TO RT GREAT TOE - Social History Smoking Status: Never smoker Exposure to second hand smoke: No Drug Use: none Patient Lives Alone: No - Nursing Vital Signs Nursing Vital Signs: Initial Vital Signs Temperature 98.2 F 08/13/22 01:59 Pulse Rate 89 08/13/22 01:59 Respiratory Rate 20 08/13/22 01:59 Blood Pressure 162/103 08/13/22 01:59 O2 Sat by Pulse Oximetry 96 08/13/22 01:59 Pain Scale Pain Intensity 6 - Physical Exam General Appearance: no apparent distress, alert Eye Exam: PERRL/EOMI Ears, Nose, Throat Exam: normal ENT inspection Neck Exam: normal inspection, non-tender, supple, full range of motion Respiratory Exam: normal breath sounds, lungs clear Cardiovascular Exam: regular rate/rhythm, normal heart sounds Gastrointestinal/Abdomen Exam: soft, normal bowel sounds, tenderness (Left upper quadrant/flank/lower quadrant), No distention, No guarding Back Exam: normal inspection, CVA tenderness (Right side) Extremity Exam: normal inspection, normal range of motion Neurologic Exam: alert, oriented x 3, cooperative Skin Exam: normal color SpO2 Interpretation: normal SpO2: 96 O2 Delivery: Room Air Ordered Tests: Active Orders 24 hr Category Date Time Status IV Insertion STAT Care 08/13/22 02:10 Active NPO (ED) STAT Care 08/13/22 02:10 Active ABDOMEN AND PELVIS W/0 CONTRAS [CT] Stat Exams 08/13/22 02:24 Completed CBC W DIFF Stat Lab 08/13/22 02:28 Completed CMP Stat Lab 08/13/22 02:28 Completed LIPASE Stat Lab 08/13/22 02:28 Completed Lactic Acid Stat Lab 08/13/22 02:15 Completed PROTIME WITH INR Stat Lab 08/13/22 02:28 Completed UA W/RFX UR CULTURE Stat Lab 08/13/22 02:15 Completed Medication Summary Generic Name Dose Route Start Last Admin Trade Name Freq PRN Reason Stop Dose Admin Morphine Sulfate 4 mg 08/13/22 05:30 Morphine Sulfate 4 Mg/Ml Injection IV 08/13/22 05:31 STAT ONE Discontinued Medications Generic Name Dose Route Start Last Admin Trade Name Freq PRN Reason Stop Dose Admin Sodium Chloride 1,000 mls @ 999 mls/hr 08/13/22 02:10 08/13/22 05:32 Sodium Chloride 0.9% 1000 Ml IV 08/13/22 03:10 Infused .Q1H1M STA Infusion Sodium Chloride Confirm 08/13/22 02:51 Sodium Chloride 0.9% 1000 Ml Administered 08/13/22 02:52 Dose 1,000 mls @ ud .ROUTE .STK-MED ONE Morphine Sulfate 4 mg 08/13/22 02:10 08/13/22 02:53 Morphine Sulfate 4 Mg/Ml Injection IV 08/13/22 02:11 4 mg STAT ONE Administration Morphine Sulfate Confirm 08/13/22 02:51 Morphine Sulfate 4 Mg/Ml Injection Administered 08/13/22 02:52 Dose 4 mg .ROUTE .STK-MED ONE Morphine Sulfate Confirm 08/13/22 05:26 Morphine Sulfate 4 Mg/Ml Injection Administered 08/13/22 05:27 Dose 4 mg .ROUTE .STK-MED ONE Ondansetron HCl 4 mg 08/13/22 02:10 08/13/22 02:53 Ondansetron Hcl 4 Mg/2 Ml Vial IV 08/13/22 02:11 4 mg STAT ONE Administration Ondansetron HCl Confirm 08/13/22 02:50 Ondansetron Hcl 4 Mg/2 Ml Vial Administered 08/13/22 02:51 Dose 4 mg .ROUTE .STK-MED ONE Pantoprazole Sodium 40 mg 08/13/22 02:10 08/13/22 02:53 Pantoprazole 40 Mg Vial IV 08/13/22 02:11 40 mg STAT ONE Administration Pantoprazole Sodium Confirm 08/13/22 02:50 Pantoprazole 40 Mg Vial Administered 08/13/22 02:51 Dose 40 mg IV .[facility] ONE Lab/Rad Data: Laboratory Result Diagrams 08/13/22 02:28 08/13/22 02:28 Laboratory Results 08/13/22 08/13/22 08/13/22 Range/Units 02:28 02:28 02:28 WBC 3.2 L (4.0-10.5) x10^3/uL RBC 4.58 (4.1-5.6) x10^6/uL Hgb 14.4 (12.5-18.0) g/dL Hct 42.2 (42-50) % MCV 92.1 (78-100) fL MCH 31.4 (26-32) pg MCHC 34.1 (32-36) g/dL RDW 13.9 (11.5-14.0) % Plt Count 102 L (150-450) x10^3/uL MPV 11.9 H (7.5-11.0) fL Gran % 40.6 (36.0-66.0) % Immature Gran % (Auto) 0.3 (0.00-0.4) % Nucleat RBC Rel Count 0.0 (0.00-0.1) % Eos # (Auto) 0.15 (0-0.5) x10^3/uL Immature Gran # (Auto) 0.01 (0.00-0.03) x10^3u/L Absolute Lymphs (auto) 1.35 (1.0-4.6) x10^3/uL Absolute Monos (auto) 0.37 (0.0-1.3) x10^3/uL Absolute Nucleated RBC 0.00 (0.00-0.01) x10^3u/L Lymphocytes % 42.2 (24.0-44.0) % Monocytes % 11.6 (0.0-12.0) % Eosinophils % 4.7 (0.00-5.0) % Basophils % 0.6 (0.0-0.4) % Absolute Granulocytes 1.30 L (1.4-6.9) x10^3/uL Basophils # 0.02 (0-0.4) x10^3/uL PT 28.2 H (9.4-12.5) SECONDS INR 2.79 (0.8-3.0) Sodium 136 L (137-145) mmol/L Potassium 3.6 (3.5-5.1) mmol/L Chloride 102 (98-107) mmol/L Carbon Dioxide 26 (22-30) mmol/L Anion Gap 11.7 (5-15) MEQ/L BUN 12 (9-20) mg/dL Creatinine 0.86 (0.66-1.25) mg/dL Estimated GFR > 60.0 ML/MIN Glucose 184 H (74-106) mg/dL Lactic Acid (0.4-2.0) Calcium 8.6 (8.4-10.2) mg/dL Total Bilirubin 0.50 (0.2-1.3) mg/dL AST 38 (17-59) U/L ALT 31 (0-50) U/L Alkaline Phosphatase 66 (38-126) U/L Serum Total Protein 6.7 (6.3-8.2) g/dL Albumin 3.7 (3.5-5.0) g/dL Lipase 83 (23-300) U/L Urine Color (Yellow) Urine Appearance (Clear) Urine pH (4.6-8.0) Ur Specific May (1.005-1.030) Urine Protein (Negative) Urine Glucose (UA) (Negative) mg/dL Urine Ketones (Negative) Urine Blood (Negative) Urine Nitrite (Negative) Urine Bilirubin (Negative) Urine Urobilinogen (0.2) mg/dL Ur Leukocyte Esterase (Negative) U Hyaline Cast (Auto) (0-2) /LPF Urine Microscopic RBC (0-5) /HPF Urine Microscopic WBC (0-5) /HPF Ur Epithelial Cells (None Seen) /HPF Urine Bacteria (None Seen) /HPF Urine Culture Reflexed (NO) 08/13/22 08/13/22 Range/Units 02:15 02:15 WBC (4.0-10.5) x10^3/uL RBC (4.1-5.6) x10^6/uL Hgb (12.5-18.0) g/dL Hct (42-50) % MCV (78-100) fL MCH (26-32) pg MCHC (32-36) g/dL RDW (11.5-14.0) % Plt Count (150-450) x10^3/uL MPV (7.5-11.0) fL Gran % (36.0-66.0) % Immature Gran % (Auto) (0.00-0.4) % Nucleat RBC Rel Count (0.00-0.1) % Eos # (Auto) (0-0.5) x10^3/uL Immature Gran # (Auto) (0.00-0.03) x10^3u/L Absolute Lymphs (auto) (1.0-4.6) x10^3/uL Absolute Monos (auto) (0.0-1.3) x10^3/uL Absolute Nucleated RBC (0.00-0.01) x10^3u/L Lymphocytes % (24.0-44.0) % Monocytes % (0.0-12.0) % Eosinophils % (0.00-5.0) % Basophils % (0.0-0.4) % Absolute Granulocytes (1.4-6.9) x10^3/uL Basophils # (0-0.4) x10^3/uL PT (9.4-12.5) SECONDS INR (0.8-3.0) Sodium (137-145) mmol/L Potassium (3.5-5.1) mmol/L Chloride (98-107) mmol/L Carbon Dioxide (22-30) mmol/L Anion Gap (5-15) MEQ/L BUN (9-20) mg/dL Creatinine (0.66-1.25) mg/dL Estimated GFR ML/MIN Glucose (74-106) mg/dL Lactic Acid 1.5 (0.4-2.0) Calcium (8.4-10.2) mg/dL Total Bilirubin (0.2-1.3) mg/dL AST (17-59) U/L ALT (0-50) U/L Alkaline Phosphatase (38-126) U/L Serum Total Protein (6.3-8.2) g/dL Albumin (3.5-5.0) g/dL Lipase (23-300) U/L Urine Color Yellow (Yellow) Urine Appearance Clear (Clear) Urine pH 6.0 (4.6-8.0) Ur Specific May 1.025 (1.005-1.030) Urine Protein 30 (Negative) Urine Glucose (UA) Negative (Negative) mg/dL Urine Ketones Negative (Negative) Urine Blood Negative (Negative) Urine Nitrite Negative (Negative) Urine Bilirubin Negative (Negative) Urine Urobilinogen 1.0 A (0.2) mg/dL Ur Leukocyte Esterase Negative (Negative) U Hyaline Cast (Auto) NONE SEEN (0-2) /LPF Urine Microscopic RBC 0-2 (0-5) /HPF Urine Microscopic WBC 0-2 (0-5) /HPF Ur Epithelial Cells None Seen (None Seen) /HPF Urine Bacteria None Seen (None Seen) /HPF Urine Culture Reflexed NO (NO) - Progress Progress: improved, re-examined Progress Note: 08/13/22 02:14 51 years old male presented in the ER with chief complaint of left sided abdominal pain since yesterday, moderate to severe dull aching to sharp without any significant aggravating or relieving factors reports associated nausea but no vomiting. Denies any history of constipation or diarrhea. No fever or chills reported. Had recently left-sided kidney stone but denies any urinary symptoms. He will be given IV pain medications along with fluids and acute abdomen work-up will be done including CT abdomen pelvis. 08/13/22 06:29 Work-up showed white count of three-point, fairly unremarkable chemistries, no UTI. CT abdomen pelvis showed diverticulosis diverticulitis. No obstructive uropathy. No other acute pathology and A/P CT scan. I do not know the exact cause of his pain, patient pain is much improved, no peritoneal signs on repeated evaluation. Patient is on chronic pain management with hydrocodone which he is advised to take as recommended. Discussed signs symptoms of worsening needing return to ER which she seems understanding. Stable for discharge. Counseled pt/family regarding: lab results, diagnosis, need for follow-up, rad results Medical Desision Making - Independent Historian Additional History obtained from: Spouse - Diagnostic Testing Diagnostic test were ordered, analyzed, and reviewed by me: Yes Radiological Interpretation: Reviewed by me - Departure Departure Disposition: Home Clinical Impression: Left sided abdominal pain of unknown cause Condition: Stable Critical Care Time: No Referrals: TOMA ARCHULETA [Primary Care Provider] - Follow up with PCP 1 day Instructions: Severe Abdominal Pain, Adult (DC) Additional Instructions: Continue with your current pain medicine which you have at home. Follow-up with primary care for reevaluation. Return to ER for intractable pain/vomiting/diarrhea/fever chills etc.
[2022-08-13 02:23] LABS: Appearance Clear (Clear); Bacteria None Seen /HPF (None Seen); Bilirubin Negative (Negative); Blood Negative (Negative); Epithelial Cells None Seen /HPF (None Seen); Glucose, Urine Negative (Negative); Hyaline Casts NONE SEEN /LPF (0-2); Ketones Negative (Negative); Leukocyte Esterase Negative (Negative); Nitrite Negative (Negative); Protein,Urine Dip 30 (Negative); RBC 0-2 /HPF (0-5); Specific Gravity 1.025 (1.005-1.030); WBC 0-2 /HPF (0-5)
[2022-08-13 02:31] LABS: ADD URINE CULTURE? NO (NO)
[2022-08-13 02:31] LABS: BASOPHIL % 0.6 % (0.0-0.4); Basophil (Absolute #) 0.02 x10^3/uL (0-0.4); Eosinophil % 4.7 % (0.00-5.0); Eosinophil (Absolute #) 0.15 x10^3/uL (0-0.5); Hematocrit 42.2 % (42-50); Hemoglobin 14.4 g/dL (12.5-18.0); IMMATURE GRAN # 0.01 x10^3u/L (0.00-0.03); IMMATURE GRAN % 0.3 % (0.00-0.4); Lymphocyte (Absolute #) 1.35 x10^3/uL (1.0-4.6); Lymphocytes % 42.2 % (24.0-44.0); Mean Cell Volume 92.1 fL (78-100); Mean Corpuscular Hemoglobin 31.4 pg (26-32); Mean Corpuscular Hgb Concent. 34.1 g/dL (32-36); Mean Platelet Volume 11.9 fL (7.5-11.0); Monocyte (Absolute #) 0.37 x10^3/uL (0.0-1.3); Monocytes % 11.6 % (0.0-12.0); Neutrophil % 40.6 % (36.0-66.0); Platelet Count 102 x10^3/uL (150-450); Red Blood Count 4.58 x10^6/uL (4.1-5.6); Red Cell Distribution Width 13.9 % (11.5-14.0); White Blood Count 3.2 x10^3/uL (4.0-10.5)
[2022-08-13 02:49] LABS: INR 2.79 (0.8-3.0); PROTIME 28.2 SECONDS (9.4-12.5)
[2022-08-13] MEDS ORDERED: Zofran 4 MG/2 ML VIAL ONE (02:50)
[2022-08-13] MEDS ORDERED: MORPHINE SULFATE 4 MG INJ ONE ×2 (02:51→05:26)
[2022-08-13] MEDS ORDERED: Sodium Chloride 0.9% 1000 ML 1,000 ML ONE (02:51)
[2022-08-13 03:10] LABS: ALBUMIN 3.7 g/dL (3.5-5.0); ALKALINE PHOSPHATASE 66 U/L (38-126); ANION GAP 11.7 MEQ/L (5-15); BLOOD UREA NITROGEN 12 mg/dL (9-20); CHLORIDE 102 mmol/L (98-107); Calcium 8.6 mg/dL (8.4-10.2); Carbon Dioxide 26 mmol/L (22-30); Creatinine 1 0.86 mg/dL (0.66-1.25); EST GLOMERULAR FILTRATION RATE > 60.0 ML/MIN; Glucose 184 mg/dL (74-106); LIPASE 83 U/L (23-300); Potassium 3.6 mmol/L (3.5-5.1); SGOT/AST 38 U/L (17-59); SGPT/ALT 31 U/L (0-50); SODIUM 136 mmol/L (137-145); Total Protein 6.7 g/dL (6.3-8.2)
--- NOTE | 2022-08-13 05:30 | XRAY ---
CLINICAL HISTORY:left side pain COMPARISON:Last CT study dated 04/12/2022; TECHNIQUES:CT of the abdomen and pelvis was performed with axial images as well as sagittal and coronal reconstruction images without intravenous contrast; FINDINGS: The liver shows mild left lobe hypertrophy with minimally irregular margins. No focal hepatic lesion is seen on this unenhanced scan. No intrahepatic or extrahepatic bile duct dilation. The gall bladder is surgically absent. Surgical abhilash are noted in the gall bladder fossa. Unremarkable appearing pancreas. No pancreatic mass or ductal dilatation is seen. The spleen is of normal size. Small calcified nodules are noted in the spleen. The adrenal glands are normal. The kidneys are normal in size and shape with no cysts, masses, or hydronephrosis. A small 3 mm radio-dense non-obstructing calculus is noted at the lower pole of the left kidney. The ureters are normal with no stones. Unremarkable abdominal aorta without specific evidence of aneurysm or dissection. IVC is normal. Mild colonic diverticulosis is seen. Otherwise, small Bowel and colon are non-distended with no abnormality. No free air and no ascites. No free intraperitoneal air is seen. An empty urinary bladder is seen. The prostate is not enlarged. Visualized bones show mild degenerative changes with spinal fixation screws at L3 and L4. Surgical clips at the right inguinal area. IMPRESSION: Previously seen a couple of radio-opaque calculi at the mid-pole of the left kidney are not visualized. Only a small 3 mm radio-dense non-obstructing calculus is noted at the lower pole of the left kidney. Stable mild left hepatic lobe hypertrophy with minimally irregular margins. Further correlation with LFTs and viral markers is advised. Uncomplicated mild colonic diverticulosis. Electronically Signed by: Esha Vale MD. 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
[2022-08-13 05:35] VITALS: PULSE 76
[2022-08-13 06:23] VITALS: BP 138/84
[2022-08-13 06:32] VITALS: O2SAT 96
== END 2022-08-13 06:42 | disposition home or self-care (01) ==
LOC: ED 01:24
DX: R10.12 Left upper quadrant pain (principal); R10.32 Left lower quadrant pain; R11.0 Nausea; I10 Essential (primary) hypertension; Z79.01 Long term (current) use of anticoagulants; Z79.891 Long term (current) use of opiate analgesic; Z79.899 Other long term (current) drug therapy
CPT/HCPCS: 36000; 36415; 74176; 80053; 81001; 83605; 83690; 85025; 85610; 96360; 96374; 96375; 96376; 99284; J2270; J2405

== ENCOUNTER 2022-09-22 11:46 | Day surgery (SDC) | payer MEDICARE ==
[2022-09-22] MEDS ORDERED: BUPIVACAINE 0.5% VIAL IJ ONE (11:47)
[2022-09-22] MEDS ORDERED: Depo-Medrol 40 MG/ML IM ONE (11:47)
[2022-09-22 13:09] LABS: INR 3.02 (0.8-3.0); PROTIME 30.3 SECONDS (9.4-12.5)
[2022-09-22] MEDS ORDERED: DIPRIVAN 200 MG/20 ML IV ONE (13:39)
--- NOTE | 2022-09-22 14:04 | XRAY ---
Indication: Bilateral SI joint injection. Intraoperative fluoroscopy provided for 15 seconds. 4 digital spot image submitted for interpretation demonstrates posterior needle tip projecting over the left and right SI joint. Correlate with intraoperative findings/report.
--- NOTE | 2022-09-22 14:09 | XRAY ---
15 seconds of fluoroscopy was used in surgery for a bilateral sacroiliac joint injection.
[2022-09-22] MEDS ORDERED: Lactated Ringers 1,000 ML IV ONE (15:24)
== END 2022-09-22 14:08 | disposition home or self-care (01) ==
LOC: SDC-PAIN 11:46
PROVIDERS: ATTEND Psychiatry & Neurology Pain Medicine
DX: M46.1 Sacroiliitis, not elsewhere classified (principal); Z79.01 Long term (current) use of anticoagulants; Z79.899 Other long term (current) drug therapy
CPT/HCPCS: 01992; 27096; 36415; 72202; 77002; 85610; G0260; J1030; J2704

== ENCOUNTER 2023-01-29 11:30 | Emergency (ER) | payer MEDICARE ==
--- NOTE | 2023-01-29 11:38 | ERPHSYRPT ---
- History of Present Illness Time Seen by Provider: 01/29/23 11:37 Historian: patient Exam Limitations: no limitations Physician History: This is a morbidly obese 52-year-old white male patient who presents with caudal xiphoid/epigastric discomfort that began on the evening of 01/28/2023. Patient took a Percocet this morning since the pain persisted and there was no relief of his discomfort. Patient has no documented coronary artery disease. He does not see a order dispatcher. 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 He has a history of panic disorder and anxiety. He also has a history of pancreatitis in the past and hypertension. He denies nausea, vomiting, diarrhea. He does not have significant chest pain. He chronically has exertional shortness of breath. His pain worsens with deep inspiration. He does not have a cough. Patient has had a cholecystectomy in the past. Timing/Duration: yesterday Activities at Onset: none Quality: aching Location: epigastric Chest Pain Radiation: no radiation Severity of Pain-Max: mild (To moderate) Severity of Pain-Current: mild (To moderate) Associated Symptoms: denies symptoms Prior Chest Pain/Cardiac Workup: no prior chest pain Nitro Today/Relief: no nitro taken today Aspirin Treatment Today: no aspirin today Allergies/Adverse Reactions: BEESTINGS Allergy (Mild, Uncoded 01/29/23 11:45) Swelling Home Medications: Warfarin Sodium 10 mg [Coumadin 10 MG] 10 mg PO DAILY 08/25/18 [History] AMITRIPTYLINE HCL 50 mg Tab [AMITRIPTYLINE HCL 50 mg Tablet] 50 mg PO HS 04/12/22 [History] Amantadine HCl [Amantadine] 1 tab PO BID 01/29/23 [History] Atenolol 50 mg [Tenormin 50 mg] 1 tab PO DAILY 01/29/23 [History] Buspirone HCl 15 mg PO TID 01/29/23 [History] Cyclobenzaprine HCl 10 mg [Cyclobenzaprine 10 MG] 1 tab PO HS 01/29/23 [History] Famotidine [Acid Garage Attendant] 2 tab PO BID 01/29/23 [History] Lumateperone Tosylate [Caplyta] 1 cap PO DAILY 01/29/23 [History] Oxycodone HCl/Acetaminophen [Oxycodone-Acetaminophn 7.5-325] 1 tab PO TID PRN 01/29/23 [History] Hx Tetanus, Diphtheria Vaccination/Date Given: Yes Hx Influenza Vaccination/Date Given: Yes Hx Pneumococcal Vaccination/Date Given: Yes Travel Risk - International Travel Have you traveled outside of the country in past 3 weeks: No - Coronavirus Screening Are you exhibiting any of the following symptoms?: No Close contact with a COVID-19 positive Pt in past 14-21 Days: No - Vaccine Status Have you recieved a Covid-19 vaccination: No 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: [email or web address] - Vaccination Dates Date of 2cond Vaccination (if applicable): unknown - Review of Systems Constitutional: No Symptoms Eyes: No Symptoms Ears, Nose, & Throat: No Symptoms Respiratory: No Symptoms Cardiac: No Symptoms Abdominal/Gastrointestinal: Abdominal Pain (Epigastric) Genitourinary Symptoms: No Symptoms Musculoskeletal: No Symptoms Skin: No Symptoms Neurological: No Symptoms Psychological: No Symptoms Endocrine: No Symptoms Hematologic/Lymphatic: No Symptoms Immunological/Allergic: No Symptoms All Other Systems: Reviewed and Negative - Past Medical History Pertinent Past Medical History: Yes Neurological History: No Pertinent History ENT History: No Pertinent History Cardiac History: Hypertension Respiratory History: No Pertinent History Endocrine Medical History: No Pertinent History Musculoskeletal History: No Pertinent History GI Medical History: Diverticulitis, Pancreatitis History: No Pertinent History Psycho-Social History: Anxiety, Depression, Panic Disorder, Other Male Reproductive Disorders: No Pertinent History Other Medical History: BLOOD DISORDER: FACTOR V, 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 and ar thritis in back - Past Surgical History Past Surgical History: Yes Neuro Surgical History: No Pertinent History Cardiac: No Pertinent History Respiratory: No Pertinent History Gastrointestinal: Cholecystectomy, Hernia Repair Genitourinary: No Pertinent History Musculoskeletal: Orthopedic Surgery Male Surgical History: No Pertinent History Other Surgical History: INGUINAL LYMPH NODES - BRANDY CARPEL TUNNEL REPAIR - LOWER BACK - LEFT ELBOW RODS IN BACK, JOINT REPLACEMENT TO RT GREAT TOE - Social History Smoking Status: Never smoker Exposure to second hand smoke: No Drug Use: none Patient Lives Alone: No - Nursing Vital Signs Nursing Vital Signs: Initial Vital Signs Temperature 97.8 F 01/29/23 11:31 Pulse Rate 76 01/29/23 11:31 Respiratory Rate 18 01/29/23 11:31 Blood Pressure 112/77 01/29/23 11:31 O2 Sat by Pulse Oximetry 99 01/29/23 11:31 Pain Scale Pain Intensity 9 - Physical Exam General Appearance: no apparent distress, alert, anxiety, obese Eye Exam: PERRL/EOMI, eyes nml inspection, EOM palsy/anisocoria Ears, Nose, Throat Exam: moist mucous membranes Neck Exam: normal inspection, non-tender, supple, full range of motion Respiratory Exam: normal breath sounds, lungs clear, airway intact, No chest tenderness, No respiratory distress Cardiovascular Exam: regular rate/rhythm, normal heart sounds, normal peripheral pulses Gastrointestinal/Abdomen Exam: soft, normal bowel sounds, tenderness (Very mild tenderness without rebound or guarding in the epigastric area to palpation) Rectal Exam: not done Back Exam: normal inspection, normal range of motion, No CVA tenderness, No vertebral tenderness Extremity Exam: normal inspection, normal range of motion, pelvis stable Neurologic Exam: alert, oriented x 3, cooperative, immunochemist II-XII nml as tested, nml cerebellar function, nml station & gait, sensation nml Skin Exam: normal color, warm, dry Lymphatic Exam: No adenopathy SpO2 Interpretation: normal O2 Delivery: Room Air - Course Nursing assessment & vital signs reviewed: Yes EKG Interpreted by Me: RATE (75), Sinus Rhythm, NORMAL AXIS, NORMAL INTERVALS, NORMAL QRS, NORMAL ST-T, Other (No acute ischemic changes on today's twelve-lead EKG) Ordered Tests: Active Orders 24 hr Category Date Time Status EKG-ER Only STAT Care 01/29/23 11:46 Active IV Insertion STAT Care 01/29/23 11:46 Active CHEST 1 VIEW (PORTABLE) Stat Exams 01/29/23 11:47 Taken AMYLASE Stat Lab 01/29/23 11:55 Completed CBC W DIFF Stat Lab 01/29/23 11:55 Completed CMP Stat Lab 01/29/23 11:55 Completed LIPASE Stat Lab 01/29/23 11:55 Completed PT INR [PROTIME WITH INR] Stat Lab 01/29/23 11:55 Completed TROPONIN Q4H Lab 01/29/23 11:55 Completed TROPONIN Q4H Lab 01/29/23 16:00 Ordered TROPONIN Q4H Lab 01/29/23 20:00 Ordered UA W/RFX UR CULTURE Stat Lab 01/29/23 12:35 Completed Medication Summary Discontinued Medications Generic Name Dose Route Start Last Admin Trade Name Freq PRN Reason Stop Dose Admin Hydromorphone HCl 1 mg 01/29/23 12:21 01/29/23 12:26 Hydromorphone 1 Mg/1ml Inj IV 01/29/23 12:22 1 mg STAT ONE Administration Hydromorphone HCl Confirm 01/29/23 12:25 Hydromorphone 1 Mg/1ml Inj Administered 01/29/23 12:26 Dose 1 mg .ROUTE .STK-MED ONE Ondansetron HCl 4 mg 01/29/23 12:21 01/29/23 12:26 Ondansetron Hcl 4 Mg/2 Ml Vial IV 01/29/23 12:22 4 mg STAT ONE Administration Ondansetron HCl Confirm 01/29/23 12:25 Ondansetron Hcl 4 Mg/2 Ml Vial Administered 01/29/23 12:26 Dose 4 mg .ROUTE .STK-MED ONE Lab/Rad Data: Laboratory Result Diagrams 01/29/23 11:55 01/29/23 11:55 Laboratory Results 01/29/23 01/29/23 01/29/23 Range/Units 12:35 11:55 11:55 WBC (4.0-10.5) x10^3/uL RBC (4.1-5.6) x10^6/uL Hgb (12.5-18.0) g/dL Hct (42-50) % MCV (78-100) fL MCH (26-32) pg MCHC (32-36) g/dL RDW (11.5-14.0) % Plt Count (150-450) x10^3/uL MPV (7.5-11.0) fL Gran % (36.0-66.0) % Immature Gran % (Auto) (0.00-0.4) % Nucleat RBC Rel Count (0.00-0.1) % Eos # (Auto) (0-0.5) x10^3/uL Immature Gran # (Auto) (0.00-0.03) x10^3u/L Absolute Lymphs (auto) (1.0-4.6) x10^3/uL Absolute Monos (auto) (0.0-1.3) x10^3/uL Absolute Nucleated RBC (0.00-0.01) x10^3u/L Lymphocytes % (24.0-44.0) % Monocytes % (0.0-12.0) % Eosinophils % (0.00-5.0) % Basophils % (0.0-0.4) % Absolute Granulocytes (1.4-6.9) x10^3/uL Basophils # (0-0.4) x10^3/uL PT (9.4-12.5) SECONDS INR (0.8-3.0) Sodium (137-145) mmol/L Potassium (3.5-5.1) mmol/L Chloride (98-107) mmol/L Carbon Dioxide (22-30) mmol/L Anion Gap (5-15) MEQ/L BUN (9-20) mg/dL Creatinine (0.66-1.25) mg/dL Estimated GFR ML/MIN Glucose (74-106) mg/dL Calcium (8.4-10.2) mg/dL Total Bilirubin (0.2-1.3) mg/dL AST (17-59) U/L ALT (0-50) U/L Alkaline Phosphatase (38-126) U/L Troponin I < 0.012 (0.000-0.034) ng/mL Serum Total Protein (6.3-8.2) g/dL Albumin (3.5-5.0) g/dL Amylase (30-110) U/L Lipase (23-300) U/L Urine Color Yellow (Yellow) Urine Appearance Clear (Clear) Urine pH 5.5 (4.6-8.0) Ur Specific [place] 1.020 (1.005-1.030) Urine Protein Trace A (Negative) Urine Glucose (UA) Negative (Negative) mg/dL Urine Ketones Negative (Negative) Urine Blood Negative (Negative) Urine Nitrite Negative (Negative) Urine Bilirubin Negative (Negative) Urine Urobilinogen 0.2 (0.2) mg/dL Ur Leukocyte Esterase Negative (Negative) U Hyaline Cast (Auto) NONE SEEN (0-2) /LPF Urine Microscopic RBC 0-2 (0-5) /HPF Urine Microscopic WBC 0-2 (0-5) /HPF Ur Epithelial Cells None Seen (None Seen) /HPF Urine Bacteria None Seen (None Seen) /HPF Urine Culture Reflexed NO (NO) Influenza Type A Ag NEGATIVE (NEGATIVE) Influenza Type B Ag NEGATIVE (NEGATIVE) RSV (PCR) NEGATIVE (NEGATIVE) SARS-CoV-2 (PCR) NEGATIVE (NEGATIVE) 01/29/23 01/29/23 01/29/23 Range/Units 11:55 11:55 11:55 WBC 3.9 L (4.0-10.5) x10^3/uL RBC 4.79 (4.1-5.6) x10^6/uL Hgb 14.8 (12.5-18.0) g/dL Hct 43.9 (42-50) % MCV 91.6 (78-100) fL MCH 30.9 (26-32) pg MCHC 33.7 (32-36) g/dL RDW 13.9 (11.5-14.0) % Plt Count 74 L (150-450) x10^3/uL MPV 11.4 H (7.5-11.0) fL Gran % 45.3 (36.0-66.0) % Immature Gran % (Auto) 0.3 (0.00-0.4) % Nucleat RBC Rel Count 0.0 (0.00-0.1) % Eos # (Auto) 0.20 (0-0.5) x10^3/uL Immature Gran # (Auto) 0.01 (0.00-0.03) x10^3u/L Absolute Lymphs (auto) 1.38 (1.0-4.6) x10^3/uL Absolute Monos (auto) 0.49 (0.0-1.3) x10^3/uL Absolute Nucleated RBC 0.00 (0.00-0.01) x10^3u/L Lymphocytes % 35.6 (24.0-44.0) % Monocytes % 12.6 H (0.0-12.0) % Eosinophils % 5.2 H (0.00-5.0) % Basophils % 1.0 (0.0-0.4) % Absolute Granulocytes 1.76 (1.4-6.9) x10^3/uL Basophils # 0.04 (0-0.4) x10^3/uL PT 32.4 H (9.4-12.5) SECONDS INR 3.24 H (0.8-3.0) Sodium 136 L (137-145) mmol/L Potassium 4.2 (3.5-5.1) mmol/L Chloride 104 (98-107) mmol/L Carbon Dioxide 27 (22-30) mmol/L Anion Gap 9.0 (5-15) MEQ/L BUN 15 (9-20) mg/dL Creatinine 0.96 (0.66-1.25) mg/dL Estimated GFR 94.5 ML/MIN Glucose 115 H (74-106) mg/dL Calcium 8.9 (8.4-10.2) mg/dL Total Bilirubin 0.90 (0.2-1.3) mg/dL AST 36 (17-59) U/L ALT 29 (0-50) U/L Alkaline Phosphatase 72 (38-126) U/L Troponin I (0.000-0.034) ng/mL Serum Total Protein 6.9 (6.3-8.2) g/dL Albumin 3.8 (3.5-5.0) g/dL Amylase 65 (30-110) U/L Lipase 91 (23-300) U/L Urine Color (Yellow) Urine Appearance (Clear) Urine pH (4.6-8.0) Ur Specific [place] (1.005-1.030) Urine Protein (Negative) Urine Glucose (UA) (Negative) mg/dL Urine Ketones (Negative) Urine Blood (Negative) Urine Nitrite (Negative) Urine Bilirubin (Negative) Urine Urobilinogen (0.2) mg/dL Ur Leukocyte Esterase (Negative) U Hyaline Cast (Auto) (0-2) /LPF Urine Microscopic RBC (0-5) /HPF Urine Microscopic WBC (0-5) /HPF Ur Epithelial Cells (None Seen) /HPF Urine Bacteria (None Seen) /HPF Urine Culture Reflexed (NO) Influenza Type A Ag (NEGATIVE) Influenza Type B Ag (NEGATIVE) RSV (PCR) (NEGATIVE) SARS-CoV-2 (PCR) (NEGATIVE) - Progress Progress: improved, re-examined Air Movement: good Progress Note: 01/29/23 12:52 This patient's medical issue is 1 of moderate complexity level complexity in the workup performed is based on review of the patient's past medical history, review of patient's medication list, reviewed patient's drug allergy list, history present illness and physical findings on examination. Workup in this patient includes placement of intravenous line, infusion of normal saline so lution, infusion of Dilaudid 1 mg, infusion of 4 mg intravenous Zofran, CBC, CMP, twelve-lead EKG, troponin level, amylase and lipase level and chest x-ray. I reviewed and interpreted the patient's laboratory data. The patient has no evidence of acute, emergent laboratory results. I interpreted the patient's chest x-ray. There is no evidence of any acute cardiopulmonary process. Blood Culture(s) Obtained: No Antibiotics given: No Counseled pt/family regarding: lab results, diagnosis, need for follow-up, rad results Medical Desision Making - Diagnostic Testing Diagnostic test were ordered, analyzed, and reviewed by me: Yes Radiological Interpretation: Interpreted by me, Teleradiologist Report - Risk of complications Low Risk: Low risk of morbidity from additional dx testing or treatment - Departure Departure Disposition: Home Clinical Impression: Epigastric abdominal pain, Painful respiration Condition: Stable Critical Care Time: No Referrals: TOMA ARCHULETA [Primary Care Provider] - Follow up/PCP as directed Additional Instructions: Drink plenty of fluids. Take your medication as prescribed. Follow-up with your primary care provider on 01/31/2023, to make an appointment for further evaluation management.
[2023-01-29 12:01] LABS: Absolute Neutrophil Ct (ANC) 1.76 x10^3/uL (1.4-6.9); Basophil (Absolute #) 0.04 x10^3/uL (0-0.4); Eosinophil % 5.2 % (0.00-5.0); Hematocrit 43.9 % (42-50); Hemoglobin 14.8 g/dL (12.5-18.0); IMMATURE GRAN # 0.01 x10^3u/L (0.00-0.03); IMMATURE GRAN % 0.3 % (0.00-0.4); Lymphocyte (Absolute #) 1.38 x10^3/uL (1.0-4.6); Lymphocytes % 35.6 % (24.0-44.0); Mean Cell Volume 91.6 fL (78-100); Mean Corpuscular Hemoglobin 30.9 pg (26-32); Mean Corpuscular Hgb Concent. 33.7 g/dL (32-36); Mean Platelet Volume 11.4 fL (7.5-11.0); Monocyte (Absolute #) 0.49 x10^3/uL (0.0-1.3); Monocytes % 12.6 % (0.0-12.0); Neutrophil % 45.3 % (36.0-66.0); Platelet Count 74 x10^3/uL (150-450); Red Blood Count 4.79 x10^6/uL (4.1-5.6); Red Cell Distribution Width 13.9 % (11.5-14.0); White Blood Count 3.9 x10^3/uL (4.0-10.5)
[2023-01-29 12:04] VITALS: TEMP 97.8
[2023-01-29 12:14] LABS: ALBUMIN 3.8 g/dL (3.5-5.0); BILIRUBIN,TOTAL 0.9 mg/dL (0.2-1.3); Calcium 8.9 mg/dL (8.4-10.2); Creatinine 1 0.96 mg/dL (0.66-1.25); EST GLOMERULAR FILTRATION RATE 94.5 ML/MIN; Potassium 4.2 mmol/L (3.5-5.1); Total Protein 6.9 g/dL (6.3-8.2)
[2023-01-29 12:16] LABS: INR 3.24 (0.8-3.0); PROTIME 32.4 SECONDS (9.4-12.5)
[2023-01-29] MEDS ORDERED: Hydromorphone 1 mg/ml Injection IV ONE (12:21)
[2023-01-29] MEDS ORDERED: Zofran 4 MG/2 ML VIAL IV ONE (12:21)
[2023-01-29] MEDS ORDERED: Zofran 4 MG/2 ML VIAL ONE (12:25)
[2023-01-29] MEDS ORDERED: Hydromorphone 1 mg/ml Injection ONE (12:25)
[2023-01-29 12:36] LABS: INFLUENZA A NEGATIVE (NEGATIVE); INFLUENZA B NEGATIVE (NEGATIVE); RESPIRATORY SYNCTIAL VIRUS NEGATIVE (NEGATIVE); SARS-CoV-2 Xpert Express NEGATIVE (NEGATIVE)
[2023-01-29 12:46] LABS: Appearance Clear (Clear); Bacteria None Seen /HPF (None Seen); Bilirubin Negative (Negative); Blood Negative (Negative); Epithelial Cells None Seen /HPF (None Seen); Glucose, Urine Negative (Negative); Hyaline Casts NONE SEEN /LPF (0-2); Ketones Negative (Negative); Leukocyte Esterase Negative (Negative); Nitrite Negative (Negative); Ph 5.5 (4.6-8.0); Protein,Urine Dip Trace (Negative); RBC 0-2 /HPF (0-5); Urobilinogen 0.2 mg/dL (0.2); WBC 0-2 /HPF (0-5)
[2023-01-29 12:49] LABS: ADD URINE CULTURE? NO (NO)
[2023-01-29 13:23] VITALS: BP 118/68; PULSE 70; RESP 18; O2SAT 95
--- NOTE | 2023-01-29 19:45 | XRAY ---
Indication: Painful inspiration. Comparison: December 29, 2022 Portable chest remains clear again with a few incidental left lung/left hilar calcified granulomas. Heart not enlarged for AP portable technique. No new/acute abnormalities.
== END 2023-01-29 13:26 | disposition home or self-care (01) ==
LOC: ED 11:30
DX: R10.13 Epigastric pain (principal); R06.00 Dyspnea, unspecified; R07.9 Chest pain, unspecified; I10 Essential (primary) hypertension; Z79.01 Long term (current) use of anticoagulants; Z79.891 Long term (current) use of opiate analgesic; Z79.899 Other long term (current) drug therapy; Z20.828 Contact with and (suspected) exposure to other viral communicable diseases
CPT/HCPCS: 0241U; 36000; 36415; 71045; 80053; 81001; 82150; 83690; 84484; 85025; 85610; 93005; 96374; 96375; 99284; J1170; J2405

== ENCOUNTER → 2023-02-16 | Day surgery (SDC) | payer MEDICARE ==
[~2023-02-16] MED LIST changes: -DIPRIVAN 200 MG/20 ML IV ONE; +Decadron 4 MG INJ IV ONE; -Ketamine HCl 50 MG/ML ONE; +Lactated Ringers 1,000 ML IV ONE; +Sodium Chloride 0.9(Preservative Free) 10 ML IJ ONE; +XYLOCAINE-MPF 1% 5ML SDV IJ ONE
[2023-02-16 16:24] LABS: INR 1.05 (0.8-3.0); PROTIME 11.4 SECONDS (9.4-12.5)
--- NOTE | 2023-02-16 19:49 | XRAY ---
Indication: Cervical DASHA. Intraoperative fluoroscopy provided for 50 seconds. 10 digital spot image submitted for interpretation demonstrates needle tip projecting posterior to cervical thoracic junction. Small amount of contrast injected for needle tip placement. Correlate with intraoperative findings/report.
--- NOTE | 2023-02-16 19:53 | XRAY ---
50 seconds of fluoroscopy was used in surgery for a Cervical DASHA.
== END ==
LOC: SDC-PAIN 15:44
PROVIDERS: ATTEND Psychiatry & Neurology Pain Medicine
DX: M54.12 Radiculopathy, cervical region (principal); Z79.01 Long term (current) use of anticoagulants
CPT/HCPCS: 36415; 62321; 72040; 77003; 85610; J1100; Q9966

== ENCOUNTER 2023-03-23 11:41 | Day surgery (SDC) | payer MEDICARE ==
[2023-03-23] MEDS ORDERED: BUPIVACAINE 0.5% VIAL IJ ONE (11:42)
[2023-03-23] MEDS ORDERED: Depo-Medrol 40 MG/ML IM ONE (11:42)
[2023-03-23 14:13] LABS: INR 2.52 (0.8-3.0); PROTIME 25.9 SECONDS (9.4-12.5)
[2023-03-23] MEDS ORDERED: DIPRIVAN 200 MG/20 ML IV ONE ×2 (14:43→14:55)
[2023-03-23] MEDS ORDERED: Lactated Ringers 1,000 ML IV ONE (15:35)
--- NOTE | 2023-03-23 20:18 | XRAY ---
Indication: Bilateral SI joint injection Intraoperative fluoroscopy provided for 26 seconds. 6 digital spot image submitted for interpretation demonstrates posterior needle tip projecting over the left and right SI joint. Small amount of contrast injected for needle tip placement. Correlate with intraoperative findings/report.
--- NOTE | 2023-03-24 09:37 | XRAY ---
26 seconds of fluoroscopy was used in surgery for a bilateral sacroiliac joint injection.
== END 2023-03-23 15:20 | disposition home or self-care (01) ==
LOC: SDC-PAIN 11:41
PROVIDERS: ATTEND Psychiatry & Neurology Pain Medicine
DX: M46.1 Sacroiliitis, not elsewhere classified (principal); Z79.01 Long term (current) use of anticoagulants
CPT/HCPCS: 01992; 27096; 36415; 72202; 77002; 85610; G0260; J1030; J2704; Q9966

== ENCOUNTER 2023-04-20 12:11 | Emergency (ER) | payer MEDICARE ==
[2023-04-20 12:30] VITALS: TEMP 98.2
[2023-04-20] MEDS ORDERED: MORPHINE SULFATE 4 MG INJ ONE ×2 (12:53→13:42)
[2023-04-20] MEDS ORDERED: Zofran 4 MG/2 ML VIAL ONE (12:53)
[2023-04-20] MEDS ORDERED: Sodium Chloride 0.9% 1000 ML 1,000 ML ONE (12:53)
[2023-04-20] MEDS: Sodium Chloride 0.9% 1000 ML 1,000 ML IV STA (12:55)
[2023-04-20] MEDS: Zofran 4 MG/2 ML VIAL IV ONE (12:56)
[2023-04-20] MEDS: MORPHINE SULFATE 4 MG INJ IV ONE ×2 (12:56→13:43)
--- NOTE | 2023-04-20 13:41 | XRAY ---
Indication: Left flank pain. History kidney stone and diverticulitis. Multiple contiguous axial images obtained through the abdomen and pelvis without contrast. Comparison: August 13, 2022 Lung bases clear. Heart not enlarged. Stable small hiatal hernia with small distal paraesophageal varices. Noncontrasted stomach and bowel loops are nonobstructed. Appendix not demonstrates tiny appendicolith without appendicitis. New mild diffuse scattered colonic fecal debris throughout. Again minimal descending and sigmoid diverticulosis without diverticulitis. Stable nonobstructing left renal punctate calculus, cirrhotic liver, 15 cm splenomegaly, tiny hepatic/splenic calcified granulomas, and cholecystectomy. No free fluid/air. Remaining pancreas, adrenal glands, kidneys, ureters, bladder, and aorta are unremarkable for noncontrast exam. Osseous structures intact again with mild/moderate degenerative changes of the thoracolumbar spine and L2-L3 fusion with laminectomy. Intact right inguinal hernia mesh graft. Impression: 1. New mild diffuse fecal stasis and incidental tiny appendicolith. 2. Chronic findings including hiatal hernia, distal paraesophageal varices, cirrhotic liver, splenomegaly, colonic diverticulosis, nonobstructing left renal punctate calculus, chronic bony findings, and old granulomatous disease. 3. Remaining CT abdomen/pelvis without contrast exam is negative.
[2023-04-20 13:42] LABS: ADD URINE CULTURE? NO (NO); Appearance Clear (Clear); Bacteria None Seen /HPF (None Seen); Bilirubin Negative (Negative); Blood Negative (Negative); Epithelial Cells None Seen /HPF (None Seen); Glucose, Urine Negative (Negative); Hyaline Casts NONE SEEN /LPF (0-2); Ketones Negative (Negative); Leukocyte Esterase Negative (Negative); Nitrite Negative (Negative); Protein,Urine Dip Negative (Negative); RBC 0-2 /HPF (0-5); Specific Gravity 1.015 (1.005-1.030); Urobilinogen 0.2 mg/dL (0.2); WBC 0-2 /HPF (0-5)
[2023-04-20 13:51] LABS: Absolute Neutrophil Ct (ANC) 1.15 x10^3/uL (1.4-6.9); BASOPHIL % 0.8 % (0.0-0.4); Basophil (Absolute #) 0.02 x10^3/uL (0-0.4); Eosinophil % 5.5 % (0.00-5.0); Eosinophil (Absolute #) 0.14 x10^3/uL (0-0.5); Hematocrit 44.3 % (42-50); Hemoglobin 14.9 g/dL (12.5-18.0); IMMATURE GRAN # 0.01 x10^3u/L (0.00-0.03); IMMATURE GRAN % 0.4 % (0.00-0.4); Lymphocyte (Absolute #) 0.96 x10^3/uL (1.0-4.6); Lymphocytes % 37.9 % (24.0-44.0); Mean Cell Volume 90.8 fL (78-100); Mean Corpuscular Hemoglobin 30.5 pg (26-32); Mean Corpuscular Hgb Concent. 33.6 g/dL (32-36); Mean Platelet Volume 12.3 fL (7.5-11.0); Monocyte (Absolute #) 0.25 x10^3/uL (0.0-1.3); Monocytes % 9.9 % (0.0-12.0); Neutrophil % 45.5 % (36.0-66.0); Platelet Count 61 x10^3/uL (150-450); Red Blood Count 4.88 x10^6/uL (4.1-5.6); Red Cell Distribution Width 13.8 % (11.5-14.0); White Blood Count 2.5 x10^3/uL (4.0-10.5)
[2023-04-20 14:05] VITALS: PULSE 68; RESP 16; O2SAT 99
[2023-04-20 14:05] LABS: ALBUMIN 4.1 g/dL (3.5-5.0); ANION GAP 6.6 MEQ/L (5-15); BILIRUBIN,TOTAL 1.1 mg/dL (0.2-1.3); Calcium 9.4 mg/dL (8.4-10.2); Creatinine 1 1.04 mg/dL (0.66-1.25); EST GLOMERULAR FILTRATION RATE 85.9 ML/MIN; INR 3.22 (0.8-3.0); PROTIME 32.5 SECONDS (9.4-12.5); Potassium 4.2 mmol/L (3.5-5.1); Total Protein 6.9 g/dL (6.3-8.2)
--- NOTE | 2023-04-20 14:39 | ERPHSYRPT ---
- History of Present Illness Time Seen by Provider: 04/20/23 12:22 Historian: patient Exam Limitations: no limitations Patient Subjective Stated Complaint: pain in the left lower quadrant that is radiating to or from the left flank Triage Nursing Assessment: Pt was brought to the ER by his , hypertensive, rates pain as 8-9/10, pulses normal, no difficulty breathing, states that the pain feels pulsating, last bowel movement yesterday, has a hx of kidney stones and diverticulitis, states that it takes him a little bit before he can urinate and that started yesterday Physician History: 52 years old male with history of hypertension, cirrhosis, 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 Reports associated nausea but no vomiting. Reports mild difficulty urination earlier but no hematuria. No fever or chills reported. Denies any right-sided abdominal pain. Denies any diarrhea or constipation. No known sick contact. Allergies/Adverse Reactions: BEESTINGS Allergy (Mild, Uncoded 04/20/23 12:31) Swelling Home Medications: Warfarin Sodium 10 mg [Coumadin 10 MG] 10 mg PO DAILY 08/25/18 [History] AMITRIPTYLINE HCL 50 mg Tab [AMITRIPTYLINE HCL 50 mg Tablet] 50 mg PO HS 04/12/22 [History] Amantadine HCl [Amantadine] 1 tab PO BID 01/29/23 [History] Atenolol 50 mg [Tenormin 50 mg] 1 tab PO DAILY 01/29/23 [History] Buspirone HCl 15 mg PO TID 01/29/23 [History] Famotidine [Acid Nautical Instrument Mechanic] 2 tab PO BID 01/29/23 [History] Lumateperone Tosylate [Caplyta] 1 cap PO DAILY 01/29/23 [History] Oxycodone HCl/Acetaminophen [Oxycodone-Acetaminophn 7.5-325] 1 tab PO TID PRN 01/29/23 [History] Hydroxyzine HCl 25 mg [Atarax 25 mg] 25 mg PO QID 04/20/23 [History] Hx Tetanus, Diphtheria Vaccination/Date Given: Yes Hx Influenza Vaccination/Date Given: Yes Hx Pneumococcal Vaccination/Date Given: Yes Travel Risk - International Travel Have you traveled outside of the country in past 3 weeks: No - Coronavirus Screening Are you exhibiting any of the following symptoms?: No Close contact with a COVID-19 positive Pt in past 14-21 Days: No - Vaccine Status Have you recieved a Covid-19 vaccination: 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[employer] - Vaccination Dates Date of 2cond Vaccination (if applicable): unknown - Review of Systems Constitutional: No Symptoms Eyes: No Symptoms Ears, Nose, & Throat: No Symptoms Respiratory: No Symptoms Cardiac: No Symptoms Abdominal/Gastrointestinal: Abdominal Pain, Nausea Genitourinary Symptoms: Flank Pain Musculoskeletal: Arthralgias Skin: No Symptoms Neurological: No Symptoms Endocrine: No Symptoms - Past Medical History Pertinent Past Medical History: Yes Neurological History: No Pertinent History ENT History: No Pertinent History Cardiac History: Hypertension Respiratory History: No Pertinent History Endocrine Medical History: No Pertinent History Musculoskeletal History: No Pertinent History GI Medical History: Diverticulitis, Pancreatitis History: No Pertinent History Psycho-Social History: Anxiety, Depression, Panic Disorder, Other Male Reproductive Disorders: No Pertinent History Other Medical History: BLOOD DISORDER: FACTOR V, 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 and arthritis in back - Past Surgical History Past Surgical History: Yes Neuro Surgical History: No Pertinent History Cardiac: No Pertinent History Respiratory: No Pertinent History Gastrointestinal: Cholecystectomy, Hernia Repair Genitourinary: No Pertinent History Musculoskeletal: Orthopedic Surgery Male Surgical History: No Pertinent History Other Surgical History: INGUINAL LYMPH NODES - BRANDY CARPEL TUNNEL REPAIR - LOWER BACK - LEFT ELBOW RODS IN BACK, JOINT REPLACEMENT TO RT GREAT TOE - Social History Smoking Status: Never smoker Exposure to second hand smoke: No Drug Use: none Patient Lives Alone: No - Nursing Vital Signs Nursing Vital Signs: Initial Vital Signs Temperature 98.2 F 04/20/23 12:21 Pulse Rate 74 04/20/23 12:21 Blood Pressure 152/92 04/20/23 12:21 O2 Sat by Pulse Oximetry 98 04/20/23 12:21 Pain Scale Pain Intensity 5 - Physical Exam General Appearance: no apparent distress Eye Exam: PERRL/EOMI Ears, Nose, Throat Exam: normal ENT inspection Neck Exam: normal inspection, full range of motion Respiratory Exam: normal breath sounds, lungs clear Cardiovascular Exam: regular rate/rhythm, normal heart sounds Gastrointestinal/Abdomen Exam: soft, normal bowel sounds, tenderness (Right lower quadrant/right flank with some guarding but no rebound tenderness.) Back Exam: normal inspection, normal range of motion Extremity Exam: normal inspection, normal range of motion Neurologic Exam: alert, oriented x 3, cooperative, adult secondary education instructor II-XII nml as tested, normal mood/affect, nml station & gait Skin Exam: normal color SpO2 Interpretation: normal SpO2: 99 O2 Delivery: Room Air Ordered Tests: Active Orders 24 hr Category Date Time Status IV Insertion STAT Care 04/20/23 12:48 Active NPO (ED) STAT Care 04/20/23 12:48 Active ABDOMEN AND PELVIS W/0 CONTRAS [CT] Stat Exams 04/20/23 12:48 Completed CBC W DIFF Stat Lab 04/20/23 13:50 Completed CMP Stat Lab 04/20/23 13:50 Completed LIPASE Stat Lab 04/20/23 13:50 Completed PT INR [PROTIME WITH INR] Stat Lab 04/20/23 13:50 Completed UA W/RFX UR CULTURE Stat Lab 04/20/23 12:52 Completed Medication Summary Discontinued Medications Generic Name Dose Route Start Last Admin Trade Name Freq PRN Reason Stop Dose Admin Sodium Chloride 1,000 mls @ 999 mls/hr 04/20/23 12:48 04/20/23 13:56 Sodium Chloride 0.9% 1000 Ml IV 04/20/23 13:48 Infused .Q1H1M STA Infusion Sodium Chloride Confirm 04/20/23 12:53 Sodium Chloride 0.9% 1000 Ml Administered 04/20/23 12:54 Dose 1,000 mls @ ud .ROUTE .STK-MED ONE Morphine Sulfate 4 mg 04/20/23 12:48 04/20/23 12:56 Morphine Sulfate 4 Mg/Ml Injection IV 04/20/23 12:49 4 mg STAT ONE Administration Morphine Sulfate Confirm 04/20/23 12:53 Morphine Sulfate 4 Mg/Ml Injection Administered 04/20/23 12:54 Dose 4 mg .ROUTE .STK-MED ONE Morphine Sulfate 4 mg 04/20/23 13:39 04/20/23 13:43 Morphine Sulfate 4 Mg/Ml Injection IV 04/20/23 13:40 4 mg STAT ONE Administration Morphine Sulfate Confirm 04/20/23 13:42 Morphine Sulfate 4 Mg/Ml Injection Administered 04/20/23 13:43 Dose 4 mg .ROUTE .STK-MED ONE Ondansetron HCl 4 mg 04/20/23 12:48 04/20/23 12:56 Ondansetron Hcl 4 Mg/2 Ml Vial IV 04/20/23 12:49 4 mg STAT ONE Administration Ondansetron HCl Confirm 04/20/23 12:53 Ondansetron Hcl 4 Mg/2 Ml Vial Administered 04/20/23 12:54 Dose 4 mg .ROUTE .STK-MED ONE Lab/Rad Data: Laboratory Result Diagrams 04/20/23 13:50 04/20/23 13:50 Laboratory Results 04/20/23 04/20/23 04/20/23 Range/Units 13:50 13:50 13:50 WBC 2.5 L (4.0-10.5) x10^3/uL RBC 4.88 (4.1-5.6) x10^6/uL Hgb 14.9 (12.5-18.0) g/dL Hct 44.3 (42-50) % MCV 90.8 (78-100) fL MCH 30.5 (26-32) pg MCHC 33.6 (32-36) g/dL RDW 13.8 (11.5-14.0) % Plt Count 61 L (150-450) x10^3/uL MPV 12.3 H (7.5-11.0) fL Gran % 45.5 (36.0-66.0) % Immature Gran % (Auto) 0.4 (0.00-0.4) % Nucleat RBC Rel Count 0.0 (0.00-0.1) % Eos # (Auto) 0.14 (0-0.5) x10^3/uL Immature Gran # (Auto) 0.01 (0.00-0.03) x10^3u/L Absolute Lymphs (auto) 0.96 L (1.0-4.6) x10^3/uL Absolute Monos (auto) 0.25 (0.0-1.3) x10^3/uL Absolute Nucleated RBC 0.00 (0.00-0.01) x10^3u/L Lymphocytes % 37.9 (24.0-44.0) % Monocytes % 9.9 (0.0-12.0) % Eosinophils % 5.5 H (0.00-5.0) % Basophils % 0.8 (0.0-0.4) % Absolute Granulocytes 1.15 L (1.4-6.9) x10^3/uL Basophils # 0.02 (0-0.4) x10^3/uL PT 32.5 H (9.4-12.5) SECONDS INR 3.22 H (0.8-3.0) Sodium 137 (137-145) mmol/L Potassium 4.2 (3.5-5.1) mmol/L Chloride 102 (98-107) mmol/L Carbon Dioxide 32 H (22-30) mmol/L Anion Gap 6.6 (5-15) MEQ/L BUN 14 (9-20) mg/dL Creatinine 1.04 (0.66-1.25) mg/dL Estimated GFR 85.9 ML/MIN Glucose 99 (74-106) mg/dL Calcium 9.4 (8.4-10.2) mg/dL Total Bilirubin 1.10 (0.2-1.3) mg/dL AST 51 (17-59) U/L ALT 41 (0-50) U/L Alkaline Phosphatase 71 (38-126) U/L Serum Total Protein 6.9 (6.3-8.2) g/dL Albumin 4.1 (3.5-5.0) g/dL Lipase 86 (23-300) U/L Urine Color (Yellow) Urine Appearance (Clear) Urine pH (4.6-8.0) Ur Specific [place] (1.005-1.030) Urine Protein (Negative) Urine Glucose (UA) (Negative) mg/dL Urine Ketones (Negative) Urine Blood (Negative) Urine Nitrite (Negative) Urine Bilirubin (Negative) Urine Urobilinogen (0.2) mg/dL Ur Leukocyte Esterase (Negative) U Hyaline Cast (Auto) (0-2) /LPF Urine Microscopic RBC (0-5) /HPF Urine Microscopic WBC (0-5) /HPF Ur Epithelial Cells (None Seen) /HPF Urine Bacteria (None Seen) /HPF Urine Culture Reflexed (NO) 04/20/23 Range/Units 12:52 WBC (4.0-10.5) x10^3/uL RBC (4.1-5.6) x10^6/uL Hgb (12.5-18.0) g/dL Hct (42-50) % MCV (78-100) fL MCH (26-32) pg MCHC (32-36) g/dL RDW (11.5-14.0) % Plt Count (150-450) x10^3/uL MPV (7.5-11.0) fL Gran % (36.0-66.0) % Immature Gran % (Auto) (0.00-0.4) % Nucleat RBC Rel Count (0.00-0.1) % Eos # (Auto) (0-0.5) x10^3/uL Immature Gran # (Auto) (0.00-0.03) x10^3u/L Absolute Lymphs (auto) (1.0-4.6) x10^3/uL Absolute Monos (auto) (0.0-1.3) x10^3/uL Absolute Nucleated RBC (0.00-0.01) x10^3u/L Lymphocytes % (24.0-44.0) % Monocytes % (0.0-12.0) % Eosinophils % (0.00-5.0) % Basophils % (0.0-0.4) % Absolute Granulocytes (1.4-6.9) x10^3/uL Basophils # (0-0.4) x10^3/uL PT (9.4-12.5) SECONDS INR (0.8-3.0) Sodium (137-145) mmol/L Potassium (3.5-5.1) mmol/L Chloride (98-107) mmol/L Carbon Dioxide (22-30) mmol/L Anion Gap (5-15) MEQ/L BUN (9-20) mg/dL Creatinine (0.66-1.25) mg/dL Estimated GFR ML/MIN Glucose (74-106) mg/dL Calcium (8.4-10.2) mg/dL Total Bilirubin (0.2-1.3) mg/dL AST (17-59) U/L ALT (0-50) U/L Alkaline Phosphatase (38-126) U/L Serum Total Protein (6.3-8.2) g/dL Albumin (3.5-5.0) g/dL Lipase (23-300) U/L Urine Color Yellow (Yellow) Urine Appearance Clear (Clear) Urine pH 6.0 (4.6-8.0) Ur Specific [place] 1.015 (1.005-1.030) Urine Protein Negative (Negative) Urine Glucose (UA) Negative (Negative) mg/dL Urine Ketones Negative (Negative) Urine Blood Negative (Negative) Urine Nitrite Negative (Negative) Urine Bilirubin Negative (Negative) Urine Urobilinogen 0.2 (0.2) mg/dL Ur Leukocyte Esterase Negative (Negative) U Hyaline Cast (Auto) NONE SEEN (0-2) /LPF Urine Microscopic RBC 0-2 (0-5) /HPF Urine Microscopic WBC 0-2 (0-5) /HPF Ur Epithelial Cells None Seen (None Seen) /HPF Urine Bacteria None Seen (None Seen) /HPF Urine Culture Reflexed NO (NO) - Progress Progress: improved Progress Note: 04/20/23 14:35 52-year-old with 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 He is given symptomatic treatment for pain, reevaluation feeling much better. No peritoneal signs on repeated evaluations. Workup showed white count of 2.5, low platelet which patient has chronically low white count and platelet counts. Hemoglobin is 14. Chemistries fairly unremarkable, normal lipase. No UTI. Ob tained CT abdomen pelvis without contrast which is negative for diverticulitis, obstructive stone, any other left-sided pathology. Has incidental finding of small appendicolith on the right side with normal appendix. Patient does not have any tenderness to begin with on the right side. Has some element of constipation. Patient does have Percocet at home from pain management which she is advised to take as needed. At this point I do not know the exact cause of his pain but have ruled out all the major emergencies. Discussed signs symptoms of worsening needing return to ER which she seems understanding. Stable for discharge. Patient is advised to follow-up with his rubber stamp assembler and stove refinisher for further evaluation because of dropping platelet counts. Counseled pt/family regarding: lab results, diagnosis, need for follow-up, rad results Medical Desision Making - Diagnostic Testing Diagnostic test were ordered, analyzed, and reviewed by me: Yes Radiological Interpretation: Reviewed by me - Departure Departure Disposition: Home Clinical Impression: Left sided abdominal pain of unknown cause Condition: Stable Critical Care Time: No Referrals: TOMA ARCHULETA [Primary Care Provider] - Follow up with PCP 1 day Instructions: Severe Abdominal Pain, Adult (DC) Additional Instructions: Take pain medications which you have at home as needed and recommended. Take daily stool softener. Follow-up with your primary care for reevaluation. Also need follow-up appointment with your rubber stamp assembler and stove refinisher for further evaluation of your cirrhosis and following platelet counts. Return to ER for intractable abdominal pain/vomiting/fever chills or difficulty urination etc.
[2023-04-20 14:41] LABS: Slide Review 1 YES
[2023-04-20 14:47] VITALS: BP 130/83
== END 2023-04-20 14:50 | disposition home or self-care (01) ==
LOC: ED 12:11
DX: R10.32 Left lower quadrant pain (principal); R11.0 Nausea; I10 Essential (primary) hypertension; Z79.01 Long term (current) use of anticoagulants; Z79.891 Long term (current) use of opiate analgesic; Z79.899 Other long term (current) drug therapy
CPT/HCPCS: 36000; 36415; 74176; 80053; 81001; 83690; 85025; 85610; 96374; 96375; 96376; 99284; J2270; J2405

== ENCOUNTER 2023-05-11 14:02 | Day surgery (SDC) | payer MEDICARE ==
[2023-05-11] MEDS ORDERED: Depo-Medrol 40 MG/ML IM ONE (14:03)
[2023-05-11] MEDS ORDERED: LIDOCAINE HCL 1% 50 MG/5 ML VL PF IJ ONE (14:03)
[2023-05-11] MEDS ORDERED: BUPIVACAINE 0.5% VIAL IJ ONE (14:03)
[2023-05-11 15:46] LABS: INR 1.04 (0.8-3.0); PROTIME 11.3 SECONDS (9.4-12.5)
[2023-05-11] MEDS ORDERED: Lactated Ringers 1,000 ML IV ONE (16:04)
[2023-05-11] MEDS ORDERED: DIPRIVAN 200 MG/20 ML IV ONE (16:44)
--- NOTE | 2023-05-11 19:17 | XRAY ---
Indication: Left L4-S1 RFA. Intraoperative fluoroscopy provided for 25 seconds. 3 digital spot image submitted for interpretation demonstrates posterior needle tips projecting over the expected left L4-S1 nerve roots. Correlate with intraoperative findings/report. Incidental partially visualized bilateral L3-L4 fusion hardware.
--- NOTE | 2023-05-12 09:19 | XRAY ---
25 seconds of fluoroscopy was used in surgery for a left L4-S1 RFA.
== END 2023-05-11 17:14 | disposition home or self-care (01) ==
LOC: SDC-PAIN 14:02
PROVIDERS: ATTEND Psychiatry & Neurology Pain Medicine
DX: M47.816 Spondylosis without myelopathy or radiculopathy, lumbar region (principal); Z79.01 Long term (current) use of anticoagulants
CPT/HCPCS: 36415; 64635; 64636; 72100; 77002; 85610; J1030; J2001; J2704

== ENCOUNTER 2023-05-12 16:21 | Emergency (ER) | payer MEDICARE ==
[2023-05-12 16:47] VITALS: BP 141/88; PULSE 97; RESP 18; O2SAT 99
--- NOTE | 2023-05-12 17:56 | ERPHSYRPT ---
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 pt presents with complaints of "throat feeling like it is going to close". Pt states that he is having difficulty breathing. Pt was seen by PCP 6 days ago and today for this issue. pt tested negative for covid, flu, rsv and strep. Pt reports that this feeling in his throat has ramped up his anxiety as well. Pt's airway is present, no stridor or wheezing noted. Pt is alert and oriented. 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 Patient was evaluated at primary care and has finished course of steroid but still having soreness in the throat and hurts to swallow. Patient report he has bumps in the throat and it feels as if it is if it is closing. Patient denies any cough fever or chills. Patient does have enlarged nodes. Patient reports his anxiety is getting worse related to his soreness in the throat. Allergies/Adverse Reactions: BEESTINGS Allergy (Mild, Uncoded 04/20/23 12:31) Swelling Home Medications: Warfarin Sodium 10 mg [Coumadin 10 MG] 10 mg PO DAILY 08/25/18 [History] AMITRIPTYLINE HCL 50 mg Tab [AMITRIPTYLINE HCL 50 mg Tablet] 50 mg PO HS 04/12/22 [History] Amantadine HCl [Amantadine] 1 tab PO BID 01/29/23 [History] Atenolol 50 mg [Tenormin 50 mg] 1 tab PO DAILY 01/29/23 [History] Buspirone HCl 15 mg PO TID 01/29/23 [History] Famotidine [Acid Multimedia Journalist] 2 tab PO BID 01/29/23 [History] Lumateperone Tosylate [Caplyta] 1 cap PO DAILY 01/29/23 [History] Oxycodone HCl/Acetaminophen [Oxycodone-Acetaminophn 7.5-325] 1 tab PO TID PRN 01/29/23 [History] Hydroxyzine HCl 25 mg [Atarax 25 mg] 25 mg PO QID 04/20/23 [History] Hx Tetanus, Diphtheria Vaccination/Date Given: Yes Hx Influenza Vaccination/Date Given: Yes Hx Pneumococcal Vaccination/Date Given: Yes Travel Risk - International Travel Have you traveled outside of the country in past 3 weeks: No - Coronavirus Screening Are you exhibiting any of the following symptoms?: No Close contact with a COVID-19 positive Pt in past 14-21 Days: No - Vaccine Status Have you recieved a Covid-19 vaccination: 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[employer] - Vaccination Dates Date of 2cond Vaccination (if applicable): unknown - Review of Systems Constitutional: No Symptoms Eyes: No Symptoms Ears, Nose, & Throat: Mouth Swelling, Throat Pain, Throat Swelling Respiratory: No Symptoms Cardiac: No Symptoms Abdominal/Gastrointestinal: No Symptoms Musculoskeletal: No Symptoms Skin: No Symptoms Neurological: No Symptoms Psychological: Anxiety Endocrine: No Symptoms - Past Medical History Pertinent Past Medical History: Yes Neurological History: No Pertinent History ENT History: No Pertinent History Cardiac History: Hypertension Respiratory History: No Pertinent History Endocrine Medical History: No Pertinent History Musculoskeletal History: No Pertinent History GI Medical History: Cirrhosis, Diverticulitis, Pancreatitis History: No Pertinent History Psycho-Social History: Anxiety, Depression, Panic Disorder, Other Male Reproductive Disorders: No Pertinent History Other Medical History: hx of Factor V, arthritis in back - Past Surgical History Past Surgical History: Yes Neuro Surgical History: No Pertinent History Cardiac: No Pertinent History Respiratory: No Pertinent History Gastrointestinal: Cholecystectomy, Hernia Repair Genitourinary: No Pertinent History Musculoskeletal: Orthopedic Surgery Male Surgical History: No Pertinent History Other Surgical History: INGUINAL LYMPH NODES - BRANDY CARPEL TUNNEL REPAIR - LOWER BACK - LEFT ELBOW RODS IN BACK, JOINT REPLACEMENT TO RT GREAT TOE - Social History Smoking Status: Never smoker Exposure to second hand smoke: No Drug Use: none Patient Lives Alone: No - Nursing Vital Signs Nursing Vital Signs: Initial Vital Signs Pulse Rate 97 H 05/12/23 16:22 Respiratory Rate 18 05/12/23 16:22 Blood Pressure 141/88 05/12/23 16:22 O2 Sat by Pulse Oximetry 99 05/12/23 16:22 Pain Scale Pain Intensity 5 - Physical Exam General Appearance: no apparent distress, alert, anxiety Eye Exam: bilateral eye: normal inspection, PERRL, EOMI Ear Exam: bilateral ear: auricle normal, canal normal, TM normal Nasal Exam: normal inspection Throat Exam: pharynx swelling, pharynx tenderness, uvula swelling, No tongue swollen Neck Exam: normal inspection, non-tender, supple, full range of motion, trachea midline, lymphadenopathy (L) Cardiovascular/Respiratory Exam: normal breath sounds, regular rate/rhythm Abdominal Exam: non-tender, soft Neurologic Exam: alert, oriented x 3, cooperative, student officer II-XII nml as tested, nml cerebellar function, nml station & gait, sensation nml, No normal mood/affect, No motor deficits Skin Exam: normal color SpO2 Interpretation: normal SpO2: 99 O2 Delivery: Room Air - Progress Progress: unchanged Progress Note: 05/12/23 17:54 52 years old is evaluated for sore throat. Patient has some swelling and drainage at the back of the throat. Posterior pharynx well visible. No signs of distress. Oxygen saturation 98%, heart rate in 90s. Patient is not tachypneic. No signs of angioedema. I believe patient has pharyngitis probably viral etiology, recommended continue with [id number] medication. Discussed signs symptoms of worsening needing return to ER which he seems understanding. Counseled pt/family regarding: lab results, diagnosis, need for follow-up Medical Desision Making - Diagnostic Testing Diagnostic test were ordered, analyzed, and reviewed by me: No - Risk of complications The pt has a mod risk of morbidity or mortality based on: Need for prescription drug management - Departure Departure Disposition: Home Clinical Impression: Acute pharyngitis Condition: Stable Critical Care Time: No Referrals: DOCTOR,NO FAMILY [Primary Care Provider] - Follow up/PCP as directed Instructions: Sore Throat, Adult (DC) Additional Instructions: Follow-up with your primary care for reevaluation in 1 to 2 days. Take Tylenol as needed for pain. Return to ER for worsening sore throat, fever, difficulty breathing/throat closing sensation/swelling of floor of mouth/tongue etc.
== END 2023-05-12 18:18 | disposition home or self-care (01) ==
LOC: ED 16:21
DX: J02.9 Acute pharyngitis, unspecified (principal); I10 Essential (primary) hypertension; Z79.01 Long term (current) use of anticoagulants; Z79.899 Other long term (current) drug therapy
CPT/HCPCS: 99281

== ENCOUNTER 2023-05-25 12:44 | Day surgery (SDC) | payer MEDICARE ==
[2023-05-25] MEDS ORDERED: BUPIVACAINE 0.5% VIAL IJ ONE (12:45)
[2023-05-25] MEDS ORDERED: Depo-Medrol 40 MG/ML IM ONE (12:45)
[2023-05-25] MEDS ORDERED: LIDOCAINE HCL 1% 50 MG/5 ML VL PF IJ ONE (12:45)
[2023-05-25 14:17] LABS: INR 1.03 (0.8-3.0); PROTIME 11.2 SECONDS (9.4-12.5)
[2023-05-25] MEDS ORDERED: DIPRIVAN 200 MG/20 ML IV ONE (14:48)
[2023-05-25] MEDS ORDERED: Lactated Ringers 1,000 ML IV ONE (15:53)
--- NOTE | 2023-05-25 16:51 | XRAY ---
Indication: Right L4-S1 RFA. Intraoperative fluoroscopy provided for 33 seconds. 5 digital spot image submitted for interpretation demonstrates posterior needle tips projecting over the expected right L4-S1 nerve roots. Correlate with intraoperative findings/report. Incidental partially visualized bilateral L3-L4 fusion hardware.
--- NOTE | 2023-05-25 18:26 | XRAY ---
33 seconds of fluoroscopy was used in surgery for a right L4-S1 RFA.
== END 2023-05-25 15:24 | disposition home or self-care (01) ==
LOC: SDC-PAIN 12:44
PROVIDERS: ATTEND Psychiatry & Neurology Pain Medicine
DX: M47.816 Spondylosis without myelopathy or radiculopathy, lumbar region (principal); Z79.01 Long term (current) use of anticoagulants
CPT/HCPCS: 36415; 64635; 64636; 72100; 77002; 85610; J1030; J2001; J2704

== ENCOUNTER 2023-06-22 09:48 | Emergency (ER) | payer MEDICARE ==
[2023-06-22 10:06] LABS: Appearance Cloudy (Clear); Bacteria None Seen /HPF (None Seen); Bilirubin Negative (Negative); Blood Large (Negative); Epithelial Cells None Seen /HPF (None Seen); Glucose, Urine Negative (Negative); Hyaline Casts NONE SEEN /LPF (0-2); Ketones Negative (Negative); Leukocyte Esterase Trace (Negative); Nitrite Negative (Negative); Ph 5.5 (4.6-8.0); Protein,Urine Dip 30 (Negative); RBC >100 /HPF (0-5); Urobilinogen 0.2 mg/dL (0.2); WBC 0-2 /HPF (0-5)
[2023-06-22 10:09] LABS: ADD URINE CULTURE? YES (NO)
--- NOTE | 2023-06-22 10:16 | ERPHSYRPT ---
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 Patient reports dull aching to sharp pain with palpation and movements with no significant aggravating or relieving factors. Denies associated nausea or vomiting. No fever or chills reported. Allergies/Adverse Reactions: BEESTINGS Allergy (Mild, Uncoded 06/22/23 10:00) Swelling Home Medications: Warfarin Sodium 10 mg [Coumadin 10 MG] 10 mg PO DAILY 08/25/18 [History] AMITRIPTYLINE HCL 50 mg Tab [AMITRIPTYLINE HCL 50 mg Tablet] 50 mg PO HS 04/12/22 [History] Amantadine HCl [Amantadine] 1 tab PO BID 01/29/23 [History] Atenolol 50 mg [Tenormin 50 mg] 1 tab PO DAILY 01/29/23 [History] Buspirone HCl 15 mg PO TID 01/29/23 [History] Famotidine [[employer]] 2 tab PO BID 01/29/23 [History] Lumateperone Tosylate [Caplyta] 1 cap PO DAILY 01/29/23 [History] Oxycodone HCl/Acetaminophen [Oxycodone-Acetaminophn 7.5-325] 1 tab PO TID PRN 01/29/23 [History] Hydroxyzine HCl 25 mg [Atarax 25 mg] 25 mg PO QID 04/20/23 [History] Hx Tetanus, Diphtheria Vaccination/Date Given: Yes Hx Influenza Vaccination/Date Given: Yes Hx Pneumococcal Vaccination/Date Given: Yes - Review of Systems Constitutional: No Symptoms Eyes: No Symptoms Ears, Nose, & Throat: No Symptoms Respiratory: No Symptoms Cardiac: No Symptoms Abdominal/Gastrointestinal: Abdominal Pain Genitourinary Symptoms: Hematuria Musculoskeletal: Back Pain Skin: No Symptoms Neurological: No Symptoms Psychological: No Symptoms Endocrine: No Symptoms Hematologic/Lymphatic: No Symptoms - Past Medical History Pertinent Past Medical History: Yes Neurological History: No Pertinent History ENT History: No Pertinent History Cardiac History: Hypertension Respiratory History: No Pertinent History Endocrine Medical History: No Pertinent History Musculoskeletal History: No Pertinent History GI Medical History: Cirrhosis, Diverticulitis, Pancreatitis History: No Pertinent History Psycho-Social History: Anxiety, Depression, Panic Disorder, Other Male Reproductive Disorders: No Pertinent History Other Medical History: hx of Factor V, arthritis in back - Past Surgical History Past Surgical History: Yes Neuro Surgical History: No Pertinent History Cardiac: No Pertinent History Respiratory: No Pertinent History Gastrointestinal: Cholecystectomy, Hernia Repair Genitourinary: No Pertinent History Musculoskeletal: Orthopedic Surgery Male Surgical History: No Pertinent History Other Surgical History: INGUINAL LYMPH NODES - BRANDY CARPEL TUNNEL REPAIR - LOWER BACK - LEFT ELBOW RODS IN BACK, JOINT REPLACEMENT TO RT GREAT TOE - Social History Smoking Status: Never smoker Exposure to second hand smoke: No Drug Use: none Patient Lives Alone: No - Nursing Vital Signs Nursing Vital Signs: Initial Vital Signs Temperature 97.2 F 06/22/23 10:00 Pulse Rate 71 06/22/23 10:00 Respiratory Rate 18 06/22/23 10:00 Blood Pressure 152/89 06/22/23 10:00 O2 Sat by Pulse Oximetry 99 06/22/23 10:00 Pain Scale Pain Intensity 8 - Physical Exam General Appearance: no apparent distress, alert Eye Exam: PERRL/EOMI Ears, Nose, Throat Exam: normal ENT inspection Neck Exam: normal inspection, non-tender, supple, full range of motion Respiratory Exam: normal breath sounds, lungs clear Cardiovascular Exam: regular rate/rhythm, normal heart sounds Gastrointestinal/Abdomen Exam: soft, normal bowel sounds, tenderness (Bilateral lower abdomen with no guarding or rebound.) Back Exam: normal inspection, normal range of motion Extremity Exam: normal inspection, normal range of motion Neurologic Exam: alert, oriented x 3, cooperative Skin Exam: normal color SpO2 Interpretation: normal SpO2: 96 O2 Delivery: Room Air Ordered Tests: Active Orders 24 hr Category Date Time Status IV Insertion STAT Care 06/22/23 10:08 Active NPO (ED) STAT Care 06/22/23 10:08 Active ABDOMEN AND PELVIS W/0 CONTRAS [CT] Stat Exams 06/22/23 10:08 Completed CBC W DIFF Stat Lab 06/22/23 10:45 Completed CMP Stat Lab 06/22/23 10:45 Completed CULTURE,URINE Stat Lab 06/22/23 10:00 Received PROTIME WITH INR Stat Lab 06/22/23 10:45 Completed UA W/RFX UR CULTURE Stat Lab 06/22/23 10:00 Completed Medication Summary Discontinued Medications Generic Name Dose Route Start Last Admin Trade Name Emanuel PRN Reason Stop Dose Admin Morphine Sulfate 4 mg 06/22/23 10:08 06/22/23 10:35 Morphine Sulfate 4 Mg/Ml Injection IV 06/22/23 10:09 4 mg STAT ONE Administration Morphine Sulfate Confirm 06/22/23 10:34 Morphine Sulfate 4 Mg/Ml Injection Administered 06/22/23 10:35 Dose 4 mg .ROUTE .STK-MED ONE Ondansetron HCl 4 mg 06/22/23 10:08 06/22/23 10:35 Ondansetron Hcl 4 Mg/2 Ml Vial IV 06/22/23 10:09 4 mg STAT ONE Administration Ondansetron HCl Confirm 06/22/23 10:33 Ondansetron Hcl 4 Mg/2 Ml Vial Administered 06/22/23 10:34 Dose 4 mg .ROUTE .STK-MED ONE Lab/Rad Data: Laboratory Result Diagrams 06/22/23 10:45 06/22/23 10:45 Laboratory Results 06/22/23 06/22/23 06/22/23 Range/Units 10:45 10:45 10:45 WBC 2.4 L (4.0-10.5) x10^3/uL RBC 4.65 (4.1-5.6) x10^6/uL Hgb 14.4 (12.5-18.0) g/dL Hct 41.3 L (42-50) % MCV 88.8 (78-100) fL MCH 31.0 (26-32) pg MCHC 34.9 (32-36) g/dL RDW 14.2 H (11.5-14.0) % Plt Count 64 L (150-450) x10^3/uL MPV 12.1 H (7.5-11.0) fL Gran % 42.0 (36.0-66.0) % Immature Gran % (Auto) 0.4 (0.00-0.4) % Nucleat RBC Rel Count 0.0 (0.00-0.1) % Eos # (Auto) 0.17 (0-0.5) x10^3/uL Immature Gran # (Auto) 0.01 (0.00-0.03) x10^3u/L Absolute Lymphs (auto) 0.94 L (1.0-4.6) x10^3/uL Absolute Monos (auto) 0.24 (0.0-1.3) x10^3/uL Absolute Nucleated RBC 0.00 (0.00-0.01) x10^3u/L Lymphocytes % 39.2 (24.0-44.0) % Monocytes % 10.0 (0.0-12.0) % Eosinophils % 7.1 H (0.00-5.0) % Basophils % 1.3 (0.0-0.4) % Absolute Granulocytes 1.01 L (1.4-6.9) x10^3/uL Basophils # 0.03 (0-0.4) x10^3/uL PT 38.3 H (9.4-12.5) SECONDS INR 3.84 H (0.8-3.0) Sodium 138 (135-145) mmol/L Potassium 3.5 (3.5-5.1) mmol/L Chloride 104 (98-107) mmol/L Carbon Dioxide 31 H (22-30) mmol/L Anion Gap 7.3 (5-15) MEQ/L BUN 17 (9-20) mg/dL Creatinine 0.98 (0.66-1.25) mg/dL Estimated GFR 92.2 ML/MIN Glucose 147 H (74-106) mg/dL Calcium 9.7 (8.4-10.2) mg/dL Total Bilirubin 1.10 (0.2-1.3) mg/dL AST 34 (17-59) U/L ALT 28 (0-50) U/L Alkaline Phosphatase 62 (38-126) U/L Serum Total Protein 6.6 (6.3-8.2) g/dL Albumin 3.7 (3.5-5.0) g/dL Urine Color (Yellow) Urine Appearance (Clear) Urine pH (4.6-8.0) Ur Specific [place] (1.005-1.030) Urine Protein (Negative) Urine Glucose (UA) (Negative) mg/dL Urine Ketones (Negative) Urine Blood (Negative) Urine Nitrite (Negative) Urine Bilirubin (Negative) Urine Urobilinogen (0.2) mg/dL Ur Leukocyte Esterase (Negative) U Hyaline Cast (Auto) (0-2) /LPF Urine Microscopic RBC (0-5) /HPF Urine Microscopic WBC (0-5) /HPF Ur Epithelial Cells (None Seen) /HPF Urine Bacteria (None Seen) /HPF Urine Culture Reflexed (NO) Slides for Path Review YES 06/22/23 Range/Units 10:00 WBC (4.0-10.5) x10^3/uL RBC (4.1-5.6) x10^6/uL Hgb (12.5-18.0) g/dL Hct (42-50) % MCV (78-100) fL MCH (26-32) pg MCHC (32-36) g/dL RDW (11.5-14.0) % Plt Count (150-450) x10^3/uL MPV (7.5-11.0) fL Gran % (36.0-66.0) % Immature Gran % (Auto) (0.00-0.4) % Nucleat RBC Rel Count (0.00-0.1) % Eos # (Auto) (0-0.5) x10^3/uL Immature Gran # (Auto) (0.00-0.03) x10^3u/L Absolute Lymphs (auto) (1.0-4.6) x10^3/uL Absolute Monos (auto) (0.0-1.3) x10^3/uL Absolute Nucleated RBC (0.00-0.01) x10^3u/L Lymphocytes % (24.0-44.0) % Monocytes % (0.0-12.0) % Eosinophils % (0.00-5.0) % Basophils % (0.0-0.4) % Absolute Granulocytes (1.4-6.9) x10^3/uL Basophils # (0-0.4) x10^3/uL PT (9.4-12.5) SECONDS INR (0.8-3.0) Sodium (135-145) mmol/L Potassium (3.5-5.1) mmol/L Chloride (98-107) mmol/L Carbon Dioxide (22-30) mmol/L Anion Gap (5-15) MEQ/L BUN (9-20) mg/dL Creatinine (0.66-1.25) mg/dL Estimated GFR ML/MIN Glucose (74-106) mg/dL Calcium (8.4-10.2) mg/dL Total Bilirubin (0.2-1.3) mg/dL AST (17-59) U/L ALT (0-50) U/L Alkaline Phosphatase (38-126) U/L Serum Total Protein (6.3-8.2) g/dL Albumin (3.5-5.0) g/dL Urine Color [place] A (Yellow) Urine Appearance Cloudy A (Clear) Urine pH 5.5 (4.6-8.0) Ur Specific [place] 1.020 (1.005-1.030) Urine Protein 30 (Negative) Urine Glucose (UA) Negative (Negative) mg/dL Urine Ketones Negative (Negative) Urine Blood Large A (Negative) Urine Nitrite Negative (Negative) Urine Bilirubin Negative (Negative) Urine Urobilinogen 0.2 (0.2) mg/dL Ur Leukocyte Esterase Trace A (Negative) U Hyaline Cast (Auto) NONE SEEN (0-2) /LPF Urine Microscopic RBC >100 A (0-5) /HPF Urine Microscopic WBC 0-2 (0-5) /HPF Ur Epithelial Cells None Seen (None Seen) /HPF Urine Bacteria None Seen (None Seen) /HPF Urine Culture Reflexed YES (NO) Slides for Path Review - Progress Progress: improved Progress Note: 06/22/23 11:57 52 years old with history of factor V Leyden, on Coumadin, cirrhosis is evaluated for flank pain with some hematuria. Patient has minimal tenderness in the lower abdomen. He is given symptomatic treatment, reevaluation he is pain- free. No peritoneal signs on repeat eval. Patient has a white count of 2.5 with platelets in 60s and mildly low hematocrit. Patient has chronic pancytopenia. Chemistries fairly unremarkable. Urinalysis showed blood but no signs of UTI. CT abdomen pelvis showed bilateral renal calculi but no obstructive uropathy. Patient has a high INR of 3.8. I believe it is a little higher than the required. He has missed the dose today. I have advised him to have some leafy vegetables only today and resume regular dose later. Do not think patient needs to be admitted. Do not think he has hemorrhagic cystitis but more of a Coumadin related. Recommended outpatient follow-up with Coumadin clinic. Discussed signs symptoms of worsening needing return to ER which he seems understanding. Counseled pt/family regarding: lab results, diagnosis, need for follow-up, rad results Medical Desision Making - Diagnostic Testing Diagnostic test were ordered, analyzed, and reviewed by me: Yes Radiological Interpretation: Reviewed by me - Departure Departure Disposition: Home Clinical Impression: Hematuria, Elevated INR Condition: Stable Critical Care Time: No Referrals: ROSALBA HERRERA MAPPING EDITOR [Primary Care Provider] - Follow up with PCP 1 day Instructions: Blood in the urine (hematuria) in adults Additional Instructions: Follow-up with your primary care for reevaluation in 1 to 2 days. Take some g reen leafy vegetables today and resume your regular dose of Coumadin. Return to ER for worsening blood in the urine or if having increased abdominal pain like fever chills etc. Do not take Aleve or ibuprofen/any other NSAIDs.
[2023-06-22 10:18] VITALS: TEMP 97.2; O2SAT 96
[2023-06-22] MEDS ORDERED: Zofran 4 MG/2 ML VIAL ONE (10:33)
[2023-06-22] MEDS ORDERED: MORPHINE SULFATE 4 MG INJ ONE (10:34)
[2023-06-22] MEDS: MORPHINE SULFATE 4 MG INJ IV ONE (10:35)
[2023-06-22] MEDS: Zofran 4 MG/2 ML VIAL IV ONE (10:35)
[2023-06-22 10:50] LABS: Absolute Neutrophil Ct (ANC) 1.01 x10^3/uL (1.4-6.9); BASOPHIL % 1.3 % (0.0-0.4); Basophil (Absolute #) 0.03 x10^3/uL (0-0.4); Eosinophil % 7.1 % (0.00-5.0); Eosinophil (Absolute #) 0.17 x10^3/uL (0-0.5); Hematocrit 41.3 % (42-50); Hemoglobin 14.4 g/dL (12.5-18.0); IMMATURE GRAN # 0.01 x10^3u/L (0.00-0.03); IMMATURE GRAN % 0.4 % (0.00-0.4); Lymphocyte (Absolute #) 0.94 x10^3/uL (1.0-4.6); Lymphocytes % 39.2 % (24.0-44.0); Mean Cell Volume 88.8 fL (78-100); Mean Corpuscular Hgb Concent. 34.9 g/dL (32-36); Mean Platelet Volume 12.1 fL (7.5-11.0); Monocyte (Absolute #) 0.24 x10^3/uL (0.0-1.3); Platelet Count 64 x10^3/uL (150-450); Red Blood Count 4.65 x10^6/uL (4.1-5.6); Red Cell Distribution Width 14.2 % (11.5-14.0); White Blood Count 2.4 x10^3/uL (4.0-10.5)
[2023-06-22 11:02] LABS: ALBUMIN 3.7 g/dL (3.5-5.0); BILIRUBIN,TOTAL 1.1 mg/dL (0.2-1.3); Calcium 9.7 mg/dL (8.4-10.2); Creatinine 1 0.98 mg/dL (0.66-1.25); EST GLOMERULAR FILTRATION RATE 92.2 ML/MIN; Potassium 3.5 mmol/L (3.5-5.1); Total Protein 6.6 g/dL (6.3-8.2)
[2023-06-22 11:03] LABS: ANION GAP 7.3 MEQ/L (5-15); INR 3.84 (0.8-3.0); PROTIME 38.3 SECONDS (9.4-12.5)
--- NOTE | 2023-06-22 11:08 | XRAY ---
Indication: Bilateral flank pain. Hematuria. History kidney stones. Multiple contiguous axial images obtained through the abdomen and pelvis without contrast using renal stone protocol. Comparison: April 20, 2023 Lung bases again clear of infiltrate and effusion. Heart not enlarged. Stable small hiatal hernia with small distal paraesophageal varices. Stable nonobstructing 4 mm left mid renal and punctate right upper renal calculi. No no renal calculus or evidence for obstructive uropathy in either system. Noncontrasted stomach and bowel loops are nonobstructed. Stable tiny appendicolith without appendicitis. Again mild scattered descending/sigmoid diverticulosis, cirrhotic liver, 15.5 cm splenomegaly, hepatic/splenic calcific granulomas, and cholecystectomy. No free fluid/air. Remaining pancreas, adrenal glands, kidneys, ureters, bladder, and aorta are unremarkable for noncontrast exam. Osseous structures intact again with mild/moderate degenerative changes throughout the thoracolumbar spine and L2-L3 fusion with laminectomy. Stable intact right inguinal hernia mesh graft. Impression: 1. Stable nonobstructing micro-calculus in each kidney. 2. Stable hiatal hernia, distal paraesophageal varices, cirrhotic liver, splenomegaly, colonic diverticulosis, chronic bony findings, and old granulomatous disease. 3. Remaining CT abdomen/pelvis without contrast exam continues to be negative.
[2023-06-22 11:29] LABS: Slide Review 1 YES
[2023-06-22 11:51] VITALS: BP 118/74; PULSE 61; RESP 17
== END 2023-06-22 12:23 | disposition home or self-care (01) ==
LOC: ED 09:48
DX: R31.9 Hematuria, unspecified (principal); R79.89 Other specified abnormal findings of blood chemistry; R10.9 Unspecified abdominal pain; D68.51 Activated protein C resistance; Z79.01 Long term (current) use of anticoagulants
CPT/HCPCS: 36000; 36415; 74176; 80053; 81001; 85025; 85610; 87086; 96374; 96375; 99284; J2270; J2405

== ENCOUNTER 2023-08-07 15:24 | Emergency (ER) | payer MEDICARE ==
[2023-08-07 15:39] VITALS: BP 136/73; PULSE 83; TEMP 98.5; O2SAT 97
--- NOTE | 2023-08-07 16:21 | ERPHSYRPT ---
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 No CP or SObreath . Has right flank pain radiating to groin. Abd soft nontender without peritoneal signs or masses. Family here as independent source for Hx. Discussed risks/benefits of testing / Tx with pt and available family including CBC, CMP, CT abd, lactate, UA, lipase kaci, and they wish to proceed and these are ordered. results discussed with pt and family. Timing/Duration: today Activities at Onset: none Abdominal Pain Onset Location: flank Pain Radiation: groin Severity of Pain-Max: moderate Severity of Pain-Current: moderate Modifying Factors: Improves With: nothing Associated Symptoms: back, nausea Previous symptoms: same symptoms as today Allergies/Adverse Reactions: BEESTINGS Allergy (Mild, Uncoded 07/21/23 13:06) Swelling Home Medications: Warfarin Sodium 10 mg [Coumadin 10 MG] 10 mg PO DAILY 08/25/18 [History] AMITRIPTYLINE HCL 50 mg Tab [AMITRIPTYLINE HCL 50 mg Tablet] 50 mg PO HS 04/12/22 [History] Amantadine HCl [Amantadine] 1 tab PO BID 01/29/23 [History] Atenolol 50 mg [Tenormin 50 mg] 1 tab PO DAILY 01/29/23 [History] Buspirone HCl 15 mg PO TID 01/29/23 [History] Famotidine [Acid Labor Law Professor] 20 mg PO BID 01/29/23 [History] Lumateperone Tosylate [Caplyta] 1 cap PO DAILY 01/29/23 [History] Oxycodone HCl/Acetaminophen [Oxycodone-Acetaminophn 7.5-325] 1 tab PO TID PRN 01/29/23 [History] Hydroxyzine HCl 25 mg [Atarax 25 mg] 25 mg PO QID 04/20/23 [History] Fluticasone Propionate [Flonase NASAL] 1 dose INTRANASAL DAILY 07/21/23 [H istory] Fluticasone/Salmeterol [Advair Hfa 230-21 Mcg Inhaler] 1 puff PO BID 07/21/23 [History] Warfarin Sodium 1 mg [Coumadin] 7.5 mg PO DAILY 07/21/23 [History] PANTOPRAZOLE 40 mg Tablet [Protonix 40MG Tablet] 40 mg PO QAM 08/07/23 [History] Hx Tetanus, Diphtheria Vaccination/Date Given: Yes Hx Influenza Vaccination/Date Given: No Hx Pneumococcal Vaccination/Date Given: Yes Travel Risk - International Travel Have you traveled outside of the country in past 3 weeks: No - Emerging Infectious Disease Are you exhibiting symptoms associated with any current EIDs: No Symptoms: Diarrhea - Review of Systems Constitutional: No Fever, No Chills Eyes: No Symptoms Ears, Nose, & Throat: No Symptoms Respiratory: No Cough, No Dyspnea Cardiac: No Chest Pain, No Edema, No Syncope Abdominal/Gastrointestinal: Abdominal Pain, Nausea, Vomiting, No Diarrhea Genitourinary Symptoms: No Dysuria Musculoskeletal: Back Pain, No Neck Pain Skin: No Rash Neurological: No Dizziness, No Focal Weakness, No Sensory Changes Psychological: No Symptoms Endocrine: No Symptoms Hematologic/Lymphatic: No Symptoms Immunological/Allergic: No Symptoms All Other Systems: Reviewed and Negative - Past Medical History Pertinent Past Medical History: Yes Neurological History: No Pertinent History ENT History: No Pertinent History Cardiac History: Hypertension Respiratory History: Other Endocrine Medical History: No Pertinent History Musculoskeletal History: No Pertinent History GI Medical History: Cirrhosis, Diverticulitis, GERD, Gallbladder Disease, Hernia, Pancreatitis History: No Pertinent History Psycho-Social History: Anxiety, Depression, Panic Disorder, Other Male Reproductive Disorders: No Pertinent History Other Medical History: hx of Factor V, arthritis in back, sleep apnea - Past Surgical History Past Surgical History: Yes Neuro Surgical History: No Pertinent History Cardiac: No Pertinent History Respiratory: No Pertinent History Gastrointestinal: Cholecystectomy, Hernia Repair Genitourinary: No Pertinent History Musculoskeletal: Orthopedic Surgery Male Surgical History: No Pertinent History Other Surgical History: INGUINAL LYMPH NODES - BRANDY CARPEL TUNNEL REPAIR - LOWER BACK - LEFT ELBOW RODS IN BACK, JOINT REPLACEMENT TO RT GREAT TOE - Social History Smoking Status: Never smoker Exposure to second hand smoke: No Drug Use: none Patient Lives Alone: No - Social Determinants of Health Will the patient participate in the screening: Yes Do you worry about a steady place to live?: No Do you have any problems with any of the following?: No known problems In the past 12 months,have you had to go without utilities?: No Transportation Issues: No Has anyone in your support network made you feel unsafe?: No Have you or anyone in your house had to go without enough: No - Nursing Vital Signs Nursing Vital Signs: Initial Vital Signs Temperature 98.5 F 08/07/23 15:33 Pulse Rate 83 08/07/23 15:33 Blood Pressure 136/73 08/07/23 15:33 O2 Sat by Pulse Oximetry 97 08/07/23 15:33 Pain Scale Pain Intensity 8 - Physical Exam General Appearance: no apparent distress, alert Eye Exam: PERRL/EOMI, eyes nml inspection Ears, Nose, Throat Exam: normal ENT inspection, pharynx normal, moist mucous membranes Neck Exam: normal inspection, non-tender, supple, full range of motion Respiratory Exam: normal breath sounds, lungs clear, No respiratory distress Cardiovascular Exam: regular rate/rhythm, normal heart sounds Gastrointestinal/Abdomen Exam: soft, No tenderness, No mass Back Exam: normal inspection, normal range of motion, No CVA tenderness, No vertebral tenderness Extremity Exam: normal inspection, normal range of motion, pelvis stable Neurologic Exam: alert, oriented x 3, cooperative, normal mood/affect, nml cerebellar function, sensation nml, No motor deficits Skin Exam: normal color, warm, dry SpO2 Interpretation: normal SpO2: 97 O2 Delivery: Room Air - Course Nursing assessment & vital signs reviewed: Yes - CT Exams Abdomen/Pelvis CT Interpretation: Tele-radiologist Report, Other (renal calcs) Ordered Tests: Active Orders 24 hr Category Date Time Status IV Insertion STAT Care 08/07/23 16:22 Active ABDOMEN AND PELVIS W/0 CONTRAS [CT] Stat Exams 08/07/23 17:05 Completed AMYLASE Stat Lab 08/07/23 16:38 Completed CBC W DIFF Stat Lab 08/07/23 16:38 Completed CMP Stat Lab 08/07/23 16:38 Completed LIPASE Stat Lab 08/07/23 16:38 Completed Lactic Acid Stat Lab 08/07/23 16:21 Completed UA W/RFX UR CULTURE Stat Lab 08/07/23 16:37 Completed Medication Summary Discontinued Medications Generic Name Dose Route Start Last Admin Trade Name Emanuel PRN Reason Stop Dose Admin Hydromorphone HCl 1 mg 08/07/23 16:22 08/07/23 16:41 Hydromorphone 1 Mg/1ml Inj IV 08/07/23 16:23 1 mg STAT ONE Administration Hydromorphone HCl Confirm 08/07/23 16:38 Hydromorphone 1 Mg/1ml Inj Administered 08/07/23 16:39 Dose 1 mg .ROUTE .STK-MED ONE Sodium Chloride 1,000 mls @ 999 mls/hr 08/07/23 16:22 08/07/23 16:40 Sodium Chloride 0.9% 1000 Ml IV 08/07/23 17:22 999 mls/hr .Q1H1M STA Administration Sodium Chloride Confirm 08/07/23 16:38 Sodium Chloride 0.9% 1000 Ml Administered 08/07/23 16:39 Dose 1,000 mls @ ud .ROUTE .STK-MED ONE Ondansetron HCl 4 mg 08/07/23 17:01 08/07/23 17:04 Ondansetron Hcl 4 Mg/2 Ml Vial IV 08/07/23 17:02 4 mg STAT ONE Administration Ondansetron HCl Confirm 08/07/23 17:03 Ondansetron Hcl 4 Mg/2 Ml Vial Administered 08/07/23 17:04 Dose 4 mg .ROUTE .STK-MED ONE Lab/Rad Data: Laboratory Result Diagrams 08/07/23 16:38 08/07/23 16:38 Laboratory Results 08/07/23 08/07/23 08/07/23 Range/Units 16:38 16:38 16:37 WBC 4.0 L (4.23-9.07) x10^3/uL RBC 4.30 L (4.63-6.08) x10^6/uL Hgb 13.9 (13.7-17.5) g/dL Hct 39.7 L (40.1-51.0) % MCV 92.3 H (79.0-92.2) fL MCH 32.3 H (25.7-32.2) pg MCHC 35.0 (32.3-36.5) g/dL RDW 14.3 (11.6-14.4) % Plt Count 87 L (163-337) x10^3/uL MPV 11.9 (9.4-12.4) fL Gran % 55.1 (34.0-67.9) % Immature Gran % (Auto) 0.3 (0.001-0.429) % Nucleat RBC Rel Count 0.0 (0.00-0.2) % Eos # (Auto) 0.17 (0.04-0.54) x10^3/uL Immature Gran # (Auto) 0.01 (0.001-0.031) x10^3u/L Absolute Lymphs (auto) 1.25 L (1.32-3.57) x10^3/uL Absolute Monos (auto) 0.34 (0.30-0.82) x10^3/uL Absolute Nucleated RBC 0.00 (0.00-0.012) x10^3u/L Lymphocytes % 31.3 (21.8-53.1) % Monocytes % 8.5 (5.3-12.2) % Eosinophils % 4.3 (0.8-7.0) % Basophils % 0.5 (0.2-1.2) % Absolute Granulocytes 2.20 (1.78-5.38) x10^3/uL Basophils # 0.02 (0.01-0.08) x10^3/uL Sodium 139 (135-145) mmol/L Potassium 4.0 (3.5-5.1) mmol/L Chloride 110 H (98-107) mmol/L Carbon Dioxide 20 L (22-30) mmol/L Anion Gap 12.8 (5-15) MEQ/L BUN 12 (9-20) mg/dL Creatinine 0.86 (0.66-1.25) mg/dL Estimated GFR 103.5 ML/MIN Glucose 182 H (74-106) mg/dL Lactic Acid (0.4-2.0) Calcium 8.8 (8.4-10.2) mg/dL Total Bilirubin 0.70 (0.2-1.3) mg/dL AST 60 H (17-59) U/L ALT 51 H (0-50) U/L Alkaline Phosphatase 75 (38-126) U/L Serum Total Protein 7.0 (6.3-8.2) g/dL Albumin 3.9 (3.5-5.0) g/dL Amylase 82 (30-110) U/L Lipase 125 (23-300) U/L Urine Color Yellow (Yellow) Urine Appearance Clear (Clear) Urine pH 6.5 (4.6-8.0) Ur Specific [place] 1.020 (1.005-1.030) Urine Protein Negative (Negative) Urine Glucose (UA) 100 A (Negative) mg/dL Urine Ketones Negative (Negative) Urine Blood Small A (Negative) Urine Nitrite Negative (Negative) Urine Bilirubin Negative (Negative) Urine Urobilinogen 0.2 (0.2) mg/dL Ur Leukocyte Esterase Negative (Negative) U Hyaline Cast (Auto) NONE SEEN (0-2) /LPF Urine Microscopic RBC 3-5 (0-5) /HPF Urine Microscopic WBC 0-2 (0-5) /HPF Ur Epithelial Cells None Seen (None Seen) /HPF Urine Bacteria None Seen (None Seen) /HPF Urine Culture Reflexed NO (NO) Slides for Path Review YES 08/07/23 Range/Units 16:21 WBC (4.23-9.07) x10^3/uL RBC (4.63-6.08) x10^6/uL Hgb (13.7-17.5) g/dL Hct (40.1-51.0) % MCV (79.0-92.2) fL MCH (25.7-32.2) pg MCHC (32.3-36.5) g/dL RDW (11.6-14.4) % Plt Count (163-337) x10^3/uL MPV (9.4-12.4) fL Gran % (34.0-67.9) % Immature Gran % (Auto) (0.001-0.429) % Nucleat RBC Rel Count (0.00-0.2) % Eos # (Auto) (0.04-0.54) x10^3/uL Immature Gran # (Auto) (0.001-0.031) x10^3u/L Absolute Lymphs (auto) (1.32-3.57) x10^3/uL Absolute Monos (auto) (0.30-0.82) x10^3/uL Absolute Nucleated RBC (0.00-0.012) x10^3u/L Lymphocytes % (21.8-53.1) % Monocytes % (5.3-12.2) % Eosinophils % (0.8-7.0) % Basophils % (0.2-1.2) % Absolute Granulocytes (1.78-5.38) x10^3/uL Basophils # (0.01-0.08) x10^3/uL Sodium (135-145) mmol/L Potassium (3.5-5.1) mmol/L Chloride (98-107) mmol/L Carbon Dioxide (22-30) mmol/L Anion Gap (5-15) MEQ/L BUN (9-20) mg/dL Creatinine (0.66-1.25) mg/dL Estimated GFR ML/MIN Glucose (74-106) mg/dL Lactic Acid 1.7 (0.4-2.0) Calcium (8.4-10.2) mg/dL Total Bilirubin (0.2-1.3) mg/dL AST (17-59) U/L ALT (0-50) U/L Alkaline Phosphatase (38-126) U/L Serum Total Protein (6.3-8.2) g/dL Albumin (3.5-5.0) g/dL Amylase (30-110) U/L Lipase (23-300) U/L Urine Color (Yellow) Urine Appearance (Clear) Urine pH (4.6-8.0) Ur Specific [place] (1.005-1.030) Urine Protein (Negative) Urine Glucose (UA) (Negative) mg/dL Urine Ketones (Negative) Urine Blood (Negative) Urine Nitrite (Negative) Urine Bilirubin (Negative) Urine Urobilinogen (0.2) mg/dL Ur Leukocyte Esterase (Negative) U Hyaline Cast (Auto) (0-2) /LPF Urine Microscopic RBC (0-5) /HPF Urine Microscopic WBC (0-5) /HPF Ur Epithelial Cells (None Seen) /HPF Urine Bacteria (None Seen) /HPF Urine Culture Reflexed (NO) Slides for Path Review - Progress Progress: improved, re-examined Progress Note: 08/07/23 18:34 discussed results with pt and that we had not yet determined a cause for the cynthia n although there are stones present. I offered admission and further w/u and discussed risks/benefits and that there may be evolving pathology including cardiac vascular, abdominal or other undetected and he prefers to try pain med and outpt f/u PMD and has the capacity to make this choice. Counseled pt/family regarding: lab results, diagnosis, need for follow-up, rad results Medical Desision Making - Independent Historian Additional History obtained from: Family - Discussion of managment Reviewed:: Test results, Need for additional workup Agreed on:: Treatment plan, need for follow-up - Diagnostic Testing Diagnostic test were ordered, analyzed, and reviewed by me: Yes - Risk of complications The pt has a mod risk of morbidity or mortality based on: Need for prescription drug management The pt has a high risk of morbidity or mortality based on: Decision regarding hospitilization or escalation of hosp level of care - Departure Departure Disposition: Home Clinical Impression: Hematuria, Flank pain, Abdominal pain, Nephrolithiasis, Leukopenia, Elevated li mishel function tests Condition: Good Critical Care Time: No Referrals: ROSALBA HERRERA FNP [Primary Care Provider] - Follow up/PCP as directed Instructions: Kidney Stones (DC), Flank Pain, Abdominal Pain, Adult ED Additional Instructions: We have not determined a cause for your pain although you do have kidney stones. Therefore you need to followup with your Dr. ANDERSEN this week for further workup and treatment. You also need to followup for elevated liver tests and low white blood count. and blood in urine. Return meantime if not improving, vomiting recurs, dizziness, or any other symptoms of concern.
[2023-08-07] MEDS ORDERED: Sodium Chloride 0.9% 1000 ML 1,000 ML ONE (16:38)
[2023-08-07] MEDS ORDERED: Hydromorphone 1 mg/ml Injection ONE ×2 (16:38→18:44)
[2023-08-07] MEDS: Sodium Chloride 0.9% 1000 ML 1,000 ML IV STA (16:40)
[2023-08-07] MEDS: Hydromorphone 1 mg/ml Injection IV ONE ×2 (16:41→18:48)
[2023-08-07 16:42] LABS: BASOPHIL % 0.5 % (0.2-1.2); Basophil (Absolute #) 0.02 x10^3/uL (0.01-0.08); Eosinophil % 4.3 % (0.8-7.0); Eosinophil (Absolute #) 0.17 x10^3/uL (0.04-0.54); Hematocrit 39.7 % (40.1-51.0); Hemoglobin 13.9 g/dL (13.7-17.5); IMMATURE GRAN # 0.01 x10^3u/L (0.001-0.031); IMMATURE GRAN % 0.3 % (0.001-0.429); Lymphocyte (Absolute #) 1.25 x10^3/uL (1.32-3.57); Lymphocytes % 31.3 % (21.8-53.1); Mean Cell Volume 92.3 fL (79.0-92.2); Mean Corpuscular Hemoglobin 32.3 pg (25.7-32.2); Mean Platelet Volume 11.9 fL (9.4-12.4); Monocyte (Absolute #) 0.34 x10^3/uL (0.30-0.82); Monocytes % 8.5 % (5.3-12.2); Neutrophil % 55.1 % (34.0-67.9); Platelet Count 87 x10^3/uL (163-337); Red Cell Distribution Width 14.3 % (11.6-14.4)
[2023-08-07 16:53] LABS: Appearance Clear (Clear); Bacteria None Seen /HPF (None Seen); Bilirubin Negative (Negative); Blood Small (Negative); Epithelial Cells None Seen /HPF (None Seen); Glucose, Urine 100 mg/dL (Negative); Hyaline Casts NONE SEEN /LPF (0-2); Ketones Negative (Negative); Leukocyte Esterase Negative (Negative); Nitrite Negative (Negative); Ph 6.5 (4.6-8.0); Protein,Urine Dip Negative (Negative); Urobilinogen 0.2 mg/dL (0.2); WBC 0-2 /HPF (0-5)
[2023-08-07 16:55] LABS: ADD URINE CULTURE? NO (NO)
[2023-08-07] MEDS ORDERED: Zofran 4 MG/2 ML VIAL ONE ×2 (17:03→18:44)
[2023-08-07] MEDS: Zofran 4 MG/2 ML VIAL IV ONE ×2 (17:04→18:46)
[2023-08-07 17:09] LABS: ALBUMIN 3.9 g/dL (3.5-5.0); ANION GAP 12.8 MEQ/L (5-15); BILIRUBIN,TOTAL 0.7 mg/dL (0.2-1.3); Calcium 8.8 mg/dL (8.4-10.2); Creatinine 1 0.86 mg/dL (0.66-1.25); EST GLOMERULAR FILTRATION RATE 103.5 ML/MIN
--- NOTE | 2023-08-07 17:50 | XRAY ---
CLINICAL HISTORY: abd pain righ tflank COMPARISON: The last study was dated 06/22/2023. TECHNIQUE: CT of the abdomen and pelvis was performed with axial images as well as sagittal and coronal reconstruction images without intravenous contrast. One of the following dose reduction techniques was utilized for this exam: Automated exposure control, adjustment of the mA and/or kV according to patient size, and use of iterative reconstruction. FINDINGS: The liver is average in size with mild left lobe hypertrophy with minimally irregular margins. No focal hepatic lesion is seen based on an unenhanced scan. No intrahepatic or extrahepatic bile duct dilation. The gall bladder is surgically absent. Surgical abhilash are noted in the gall bladder fossa. Unremarkable appearing pancreas. No pancreatic mass or ductal dilatation is seen. The spleen is of normal size. Small calcified nodules are noted in the spleen. The adrenal glands are normal. The kidneys are normal in size and shape with no cysts, masses, or hydronephrosis. A small 3 mm radio-dense non-obstructing calculus is noted at the middle calyx of the left kidney, A tiny 2 mm radio-dense non-obstructing calculus is noted at the upper calyx of the right kidney, The ureters are normal with no stones. Unremarkable abdominal aorta without specific evidence of aneurysm or dissection. IVC is normal. Mild colonic diverticulosis is seen. Otherwise, the small bowel and colon are non-distended with no abnormality. The appendix appears unremarkable. No free air and no ascites. No free intraperitoneal air is seen. The urinary bladder has a thin wall with no stones or masses. The prostate is not enlarged. Visualized bones show mild degenerative changes with spinal fixation screws at L3 and L4. Surgical clips at the right inguinal area. IMPRESSION: 1. A small 3 mm radio-dense non-obstructing calculus is noted at the middle calyx of the left kidney. 2. A tiny 2 mm radio-dense non-obstructing calculus is noted at the upper calyx of the right kidney. 3. The rest of the study shows no time interval changes since the last study dated 06/22/2023 as described above. Electronically Signed by: Esha Vale MD. (08/07/2023 17:47:07 EDT)
[2023-08-07 18:05] LABS: Slide Review 1 YES
== END 2023-08-07 19:09 | disposition home or self-care (01) ==
LOC: ED 15:24
DX: R31.9 Hematuria, unspecified (principal); R10.9 Unspecified abdominal pain; N20.0 Calculus of kidney; D72.819 Decreased white blood cell count, unspecified; R94.5 Abnormal results of liver function studies; I10 Essential (primary) hypertension; Z79.01 Long term (current) use of anticoagulants; Z79.899 Other long term (current) drug therapy
CPT/HCPCS: 36000; 36415; 74176; 80053; 81001; 82150; 83605; 83690; 85025; 96360; 96374; 96375; 96376; 99284; J1170; J2405

== ENCOUNTER 2023-08-18 21:01 | Emergency (ER) | payer MEDICARE ==
[2023-08-18 21:19] VITALS: TEMP 99.2
[2023-08-18] MEDS ORDERED: Sodium Chloride 0.9% 1000 ML 1,000 ML ONE (21:22)
[2023-08-18] MEDS: Sodium Chloride 0.9% 1000 ML 1,000 ML IV SCH (21:33)
[2023-08-18 21:44] LABS: Absolute Neutrophil Ct (ANC) 1.57 x10^3/uL (1.78-5.38); BASOPHIL % 1.2 % (0.2-1.2); Basophil (Absolute #) 0.04 x10^3/uL (0.01-0.08); Eosinophil % 4.7 % (0.8-7.0); Eosinophil (Absolute #) 0.16 x10^3/uL (0.04-0.54); Hematocrit 39.7 % (40.1-51.0); Hemoglobin 13.9 g/dL (13.7-17.5); IMMATURE GRAN # 0.01 x10^3u/L (0.001-0.031); IMMATURE GRAN % 0.3 % (0.001-0.429); Lymphocyte (Absolute #) 1.24 x10^3/uL (1.32-3.57); Lymphocytes % 36.4 % (21.8-53.1); Mean Cell Volume 91.3 fL (79.0-92.2); Mean Platelet Volume 12.4 fL (9.4-12.4); Monocyte (Absolute #) 0.39 x10^3/uL (0.30-0.82); Monocytes % 11.4 % (5.3-12.2); Platelet Count 81 x10^3/uL (163-337); Red Blood Count 4.35 x10^6/uL (4.63-6.08); Red Cell Distribution Width 13.8 % (11.6-14.4); White Blood Count 3.4 x10^3/uL (4.23-9.07)
[2023-08-18 21:59] LABS: ALBUMIN 3.8 g/dL (3.5-5.0); ANION GAP 9.2 MEQ/L (5-15); Creatinine 1 0.95 mg/dL (0.66-1.25); EST GLOMERULAR FILTRATION RATE 95.7 ML/MIN; MAGNESIUM 1.8 mg/dL (1.6-2.3); Potassium 3.5 mmol/L (3.5-5.1); Total Protein 6.6 g/dL (6.3-8.2)
[2023-08-18 22:00] LABS: INR 2.82 (0.8-3.0); PROTIME 28.7 SECONDS (9.4-12.5)
[2023-08-18 23:11] LABS: Appearance Clear (Clear); Bacteria None Seen /HPF (None Seen); Bilirubin Negative (Negative); Blood Small (Negative); Epithelial Cells None Seen /HPF (None Seen); Glucose, Urine 250 mg/dL (Negative); Hyaline Casts NONE SEEN /LPF (0-2); Ketones Negative (Negative); Leukocyte Esterase Negative (Negative); Nitrite Negative (Negative); Ph 6.5 (4.6-8.0); Protein,Urine Dip Trace (Negative); RBC 0-2 /HPF (0-5); WBC 0-2 /HPF (0-5)
[2023-08-18 23:13] LABS: ADD URINE CULTURE? NO (NO)
--- NOTE | 2023-08-18 23:27 | XRAY ---
CLINICAL HISTORY: STROKE LIKE SX COMPARISON: None. TECHNIQUE: Multiple axial slices from CT angiography of intracranial vessels have been submitted for interpretation. 90 ml of Omnipaque 350 was administered as IV contrast. One of the following dose reduction techniques was utilized for this exam: Automated exposure control, adjustment of the mA and/or kV according to patient size, and use of iterative reconstruction. One of these 3D techniques was utilized: Maximum Intensity Pixel (MIP), 3D Reconstructed Images, Volume Rendered Images, Surface Shaded Rendering. FINDINGS: Patent petrous, cavernous, and supraclinoid segments of the internal carotid arteries with non-significant atheromatous calcifications of their cavernous segments. Homogenous contrast filling of the anterior cerebral arteries (A1 to A4), and anterior communicating artery (A Com). Homogenous contrast filling of the middle cerebral arteries and their branches. Homogenous contrast filling of the basilar artery and V4 segments of the vertebral arteries. Normal contrast filling of the posterior cerebral arteries and their normal anatomical variants from P1 to P4 as well as the posterior communicating arteries appear normal. IMPRESSION: Patent intracranial vessels constituting the [place] of [place] without any occlusion, aneurysmal dilatation, or arteriovenous malformation. [facility] ER was called at [phone] Ext#[phone] at 10:22 PM [employer]ISON GUARD SUPERVISOR, 08/18/2023 and results were verbally communicated to Dr. Mena. Electronically Signed by: Esha Vale MD. (08/18/2023 23:23:39 EDT)
--- NOTE | 2023-08-18 23:27 | XRAY ---
CLINICAL HISTORY: STROKE LIKE SX COMPARISON: None. TECHNIQUE: CT of the neck angiography was performed with contrast in the arterial phase. Sagittal and coronal reconstructions were obtained. One of the following dose reduction techniques was utilized for this exam: Automated exposure control, adjustment of the mA and/or kV according to patient size, and use of iterative reconstruction. One of these 3D techniques was utilized: Maximum Intensity Pixel (MIP), 3D Reconstructed Images, Volume Rendered Images, Surface Shaded Rendering. FINDINGS: The aortic arch and the ostial segments of its branches are not included in the study. Patent homogenously opacified common carotid arteries. No stenotic lesions, aneurysmal dilatation, or dissecting intimal flaps. Patent carotid bulbs. Patent homogenously opacified cervical segments of the internal carotid arteries showing retropharyngeal course. Patent external carotid arteries. Patent vertebral arteries showing homogenous contrast opacification. No stenotic lesions or dissecting intimal flaps. IMPRESSION: Patent extra-cranial carotid and vertebral arteries. No stenotic lesions, aneurysmal dilatation, or dissecting intimal flaps. 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 Mena. Electronically Signed by: Esha Vale MD. (08/18/2023 23:23:50 EDT)
--- NOTE | 2023-08-19 00:19 | ERPHSYRPT ---
- History of Present Illness Time Seen by Provider: 08/18/23 21:03 Source: patient Exam Limitations: no limitations Patient Subjective Stated Complaint: pt c/o slight dizziness and slight headache and stuttering speech,pt states he feels like his jaw is tight as well. symptoms started last night, pt is anxious Triage Nursing Assessment: pt ambulatory to bed by self with steady gait, pt alert and oriented x3, skin pwd, pt c/o stuttering speech and slight headache with some dizziness and jaw tightness since last night. [id number] Physician History: 52-year-old male with history of factor V Leyden deficiency, cirrhosis, chronic pain presented in the ER with complains of feeling dizzy lightheaded, left facial/tongue numbness and stuttering. Patient reports this has been going off and on since yesterday and got worse this evening prior to arrival. Patient denies any numbness weakness of extremities. Reports having issues with balance at baseline which is not any worse than usual. Denies any chest pain palpita tions or shortness of breath. No abdominal pain nausea or vomiting. No fever or chills reported. Allergies/Adverse Reactions: BEESTINGS Allergy (Mild, Uncoded 08/18/23 21:11) Swelling Home Medications: Warfarin Sodium 10 mg [Coumadin 10 MG] 10 mg PO DAILY 08/25/18 [History] AMITRIPTYLINE HCL 50 mg Tab [AMITRIPTYLINE HCL 50 mg Tablet] 50 mg PO HS 04/12/22 [History] Amantadine HCl [Amantadine] 1 tab PO BID 01/29/23 [History] Atenolol 50 mg [Tenormin 50 mg] 1 tab PO DAILY 01/29/23 [History] Buspirone HCl 15 mg PO TID 01/29/23 [History] Lumateperone Tosylate [Caplyta] 1 cap PO HS 01/29/23 [History] Hydroxyzine HCl 25 mg [Atarax 25 mg] 100 mg PO HS 04/20/23 [History] Warfarin Sodium 1 mg [Coumadin] 7.5 mg PO DAILY 07/21/23 [History] PANTOPRAZOLE 40 mg Tablet [Protonix 40MG Tablet] 40 mg PO QAM 08/07/23 [History] Oxycodone / APAP 10/325 mg [Oxycodone-Acetaminophen 10-325] 7.5 mg PO TID PRN 08/18/23 [History] Hx Tetanus, Diphtheria Vaccination/Date Given: Yes Hx Influenza Vaccination/Date Given: No Hx Pneumococcal Vaccination/Date Given: Yes Travel Risk - International Travel Have you traveled outside of the country in past 3 weeks: No - Emerging Infectious Disease Are you exhibiting symptoms associated with any current EIDs: No Symptoms: Diarrhea - Review of Systems Constitutional: No Symptoms Eyes: No Symptoms Ears, Nose, & Throat: No Symptoms Respiratory: No Symptoms Cardiac: No Symptoms Abdominal/Gastrointestinal: No Symptoms Genitourinary Symptoms: No Symptoms Musculoskeletal: Back Pain Skin: No Symptoms Neurological: Sensory Changes, Speech Changes, Tremors Psychological: Anxiety Endocrine: No Symptoms Hematologic/Lymphatic: No Symptoms Immunological/Allergic: No Symptoms - Past Medical History Pertinent Past Medical History: Yes Neurological History: No Pertinent History ENT History: No Pertinent History Cardiac History: Hypertension Respiratory History: Other Endocrine Medical History: No Pertinent History Musculoskeletal History: No Pertinent History GI Medical History: Cirrhosis, Diverticulitis, GERD, Gallbladder Disease, Hernia, Pancreatitis History: No Pertinent History Psycho-Social History: Anxiety, Depression, Panic Disorder, Other Male Reproductive Disorders: No Pertinent History Other Medical History: hx of Factor V, arthritis in back, sleep apnea - Past Surgical History Past Surgical History: Yes Neuro Surgical History: No Pertinent History Cardiac: No Pertinent History Respiratory: No Pertinent History Gastrointestinal: Cholecystectomy, Hernia Repair Genitourinary: No Pertinent History Musculoskeletal: Orthopedic Surgery Male Surgical History: No Pertinent History Other Surgical History: INGUINAL LYMPH NODES - BRANDY CARPEL TUNNEL REPAIR - LOWER BACK - LEFT ELBOW RODS IN BACK, JOINT REPLACEMENT TO RT GREAT TOE - Social History Smoking Status: Never smoker Exposure to second hand smoke: No Drug Use: none Patient Lives Alone: No - Social Determinants of Health Will the patient participate in the screening: Yes Do you worry about a steady place to live?: No Do you have any problems with any of the following?: No known problems In the past 12 months,have you had to go without utilities?: No Transportation Issues: No Has anyone in your support network made you feel unsafe?: No Have you or anyone in your house had to go without enough: No - Nursing Vital Signs Nursing Vital Signs: Initial Vital Signs Pulse Rate 84 08/18/23 21:09 Respiratory Rate 16 08/18/23 21:09 Blood Pressure 123/69 08/18/23 21:09 O2 Sat by Pulse Oximetry 97 08/18/23 21:09 Pain Scale Pain Intensity 2 - [place] Coma Scale Best Eye Response (Filipe): (4) open spontaneously Best Verbal Response ([place]): (5) oriented Best Motor Response (Filipe): (6) obeys commands [place]pe Total: 15 - Physical Exam General Appearance: no apparent distress, alert, anxiety Eye Exam: bilateral eye: normal inspection, PERRL, EOMI Ears, Nose, Throat Exam: normal ENT inspection, TMs normal, pharynx normal, moist mucous membranes Neck Exam: normal inspection, non-tender, supple, full range of motion Respiratory: normal breath sounds, lungs clear Cardiovascular: regular rate/rhythm, normal heart sounds Gastrointestinal: soft, normal bowel sounds, No tenderness Back Exam: normal inspection, normal range of motion Extremity Exam: normal inspection, normal range of motion Mental Status: alert, oriented x 3, cooperative pet sitting Exam: normal hearing, No normal speech Coordination/Gait: normal finger to nose, normal gait, normal cerebellar function Motor/Sensory: no motor deficit, no pronator drift, sensory deficit (Left face decreased sensations of touch) Skin Exam: normal color SpO2 Interpretation: normal SpO2: 98 O2 Delivery: Room Air - Course EKG Interpreted by Me: RATE ([id number]), Sinus Rhythm, NORMAL AXIS, NORMAL INTERVALS, Q-wave, Non-specific ST Changes Ordered Tests: Active Orders 24 hr Category Date Time Status Adoption Specialist STAT Care 08/18/23 21:05 Active EKG-ER Only STAT Care 08/18/23 21:04 Active IV Insertion STAT Care 08/18/23 21:04 Active NPO (ED) STAT Care 08/18/23 21:04 Active POCT Glucose Check STAT Care 08/18/23 21:04 Active Tele-Health Consult ROUTINE Cons 08/18/23 23:[address] ANGIOGRAPHY NECK [CT] Stat Exams 08/18/23 22:53 Completed CTA HEAD W AND/OR WO CONTRAST [CT] Stat Exams 08/18/23 22:53 Completed HEAD WITHOUT CONTRAST [CT] Stat Exams 08/18/23 21:21 Taken CBC W DIFF Stat Lab 08/18/23 21:25 Completed CMP Stat Lab 08/18/23 21:25 Completed Lactic Acid Stat Lab 08/18/23 21:37 Completed MAGNESIUM Stat Lab 08/18/23 21:25 Completed POCT GLUCOSE Stat Lab 08/18/23 21:08 Completed PT INR [PROTIME WITH INR] Stat Lab 08/18/23 21:25 Completed TROPONIN Q3H Lab 08/18/23 21:25 Completed TROPONIN Q3H Lab 08/19/23 01:02 Received TROPONIN Q3H Lab 08/19/23 03:15 Ordered TROPONIN Q3H Lab 08/19/23 06:15 Ordered UA W/RFX UR CULTURE Stat Lab 08/18/23 22:46 Completed Medication Summary Generic Name Dose Route Start Last Admin Trade Name Freq PRN Reason Stop Dose Admin Sodium Chloride 1,000 mls @ 100 mls/hr 08/18/23 21:15 08/18/23 21:33 Sodium Chloride 0.9% 1000 Ml IV 09/17/23 21:14 100 mls/hr .Q10H YARELY Administration Lab/Rad Data: Laboratory Result Diagrams 08/18/23 21:25 08/18/23 21:25 Laboratory Results 08/18/23 08/18/23 08/18/23 Range/Units 22:46 21:37 21:25 WBC (4.23-9.07) x10^3/uL RBC (4.63-6.08) x10^6/uL Hgb (13.7-17.5) g/dL Hct (40.1-51.0) % MCV (79.0-92.2) fL MCH (25.7-32.2) pg MCHC (32.3-36.5) g/dL RDW (11.6-14.4) % Plt Count (163-337) x10^3/uL MPV (9.4-12.4) fL Gran % (34.0-67.9) % Immature Gran % (Auto) (0.001-0.429) % Nucleat RBC Rel Count (0.00-0.2) % Eos # (Auto) (0.04-0.54) x10^3/uL Immature Gran # (Auto) (0.001-0.031) x10^3u/L Absolute Lymphs (auto) (1.32-3.57) x10^3/uL Absolute Monos (auto) (0.30-0.82) x10^3/uL Absolute Nucleated RBC (0.00-0.012) x10^3u/L Lymphocytes % (21.8-53.1) % Monocytes % (5.3-12.2) % Eosinophils % (0.8-7.0) % Basophils % (0.2-1.2) % Absolute Granulocytes (1.78-5.38) x10^3/uL Basophils # (0.01-0.08) x10^3/uL PT 28.7 H (9.4-12.5) SECONDS INR 2.82 (0.8-3.0) Sodium (135-145) mmol/L Potassium (3.5-5.1) mmol/L Chloride (98-107) mmol/L Carbon Dioxide (22-30) mmol/L Anion Gap (5-15) MEQ/L BUN (9-20) mg/dL Creatinine (0.66-1.25) mg/dL Estimated GFR ML/MIN Glucose (74-106) mg/dL POC Glucometer (74 to 106) mg/dL Lactic Acid 1.2 (0.4-2.0) Calcium (8.4-10.2) mg/dL Magnesium (1.6-2.3) mg/dL Total Bilirubin (0.2-1.3) mg/dL AST (17-59) U/L ALT (0-50) U/L Alkaline Phosphatase (38-126) U/L Troponin I (0.000-0.033) ng/mL Serum Total Protein (6.3-8.2) g/dL Albumin (3.5-5.0) g/dL Urine Color Yellow (Yellow) Urine Appearance Clear (Clear) Urine pH 6.5 (4.6-8.0) Ur Specific [place] 1.020 (1.005-1.030) Urine Protein Trace A (Negative) Urine Glucose (UA) 250 A (Negative) mg/dL Urine Ketones Negative (Negative) Urine Blood Small A (Negative) Urine Nitrite Negative (Negative) Urine Bilirubin Negative (Negative) Urine Urobilinogen 1.0 A (0.2) mg/dL Ur Leukocyte Esterase Negative (Negative) U Hyaline Cast (Auto) NONE SEEN (0-2) /LPF Urine Microscopic RBC 0-2 (0-5) /HPF Urine Microscopic WBC 0-2 (0-5) /HPF Ur Epithelial Cells None Seen (None Seen) /HPF Urine Bacteria None Seen (None Seen) /HPF Urine Culture Reflexed NO (NO) 08/18/23 08/18/23 08/18/23 Range/Units 21:25 21:25 21:25 WBC 3.4 L (4.23-9.07) x10^3/uL RBC 4.35 L (4.63-6.08) x10^6/uL Hgb 13.9 (13.7-17.5) g/dL Hct 39.7 L (40.1-51.0) % MCV 91.3 (79.0-92.2) fL MCH 32.0 (25.7-32.2) pg MCHC 35.0 (32.3-36.5) g/dL RDW 13.8 (11.6-14.4) % Plt Count 81 L (163-337) x10^3/uL MPV 12.4 (9.4-12.4) fL Gran % 46.0 (34.0-67.9) % Immature Gran % (Auto) 0.3 (0.001-0.429) % Nucleat RBC Rel Count 0.0 (0.00-0.2) % Eos # (Auto) 0.16 (0.04-0.54) x10^3/uL Immature Gran # (Auto) 0.01 (0.001-0.031) x10^3u/L Absolute Lymphs (auto) 1.24 L (1.32-3.57) x10^3/uL Absolute Monos (auto) 0.39 (0.30-0.82) x10^3/uL Absolute Nucleated RBC 0.00 (0.00-0.012) x10^3u/L Lymphocytes % 36.4 (21.8-53.1) % Monocytes % 11.4 (5.3-12.2) % Eosinophils % 4.7 (0.8-7.0) % Basophils % 1.2 (0.2-1.2) % Absolute Granulocytes 1.57 L (1.78-5.38) x10^3/uL Basophils # 0.04 (0.01-0.08) x10^3/uL PT (9.4-12.5) SECONDS INR (0.8-3.0) Sodium 139 (135-145) mmol/L Potassium 3.5 (3.5-5.1) mmol/L Chloride 105 (98-107) mmol/L Carbon Dioxide 28 (22-30) mmol/L Anion Gap 9.2 (5-15) MEQ/L BUN 11 (9-20) mg/dL Creatinine 0.95 (0.66-1.25) mg/dL Estimated GFR 95.7 ML/MIN Glucose 146 H (74-106) mg/dL POC Glucometer (74 to 106) mg/dL Lactic Acid (0.4-2.0) Calcium 9.0 (8.4-10.2) mg/dL Magnesium 1.8 (1.6-2.3) mg/dL Total Bilirubin 1.00 (0.2-1.3) mg/dL AST 50 (17-59) U/L ALT 36 (0-50) U/L Alkaline Phosphatase 67 (38-126) U/L Troponin I < 0.012 (0.000-0.033) ng/mL Serum Total Protein 6.6 (6.3-8.2) g/dL Albumin 3.8 (3.5-5.0) g/dL Urine Color (Yellow) Urine Appearance (Clear) Urine pH (4.6-8.0) Ur Specific [place] (1.005-1.030) Urine Protein (Negative) Urine Glucose (UA) (Negative) mg/dL Urine Ketones (Negative) Urine Blood (Negative) Urine Nitrite (Negative) Urine Bilirubin (Negative) Urine Urobilinogen (0.2) mg/dL Ur Leukocyte Esterase (Negative) U Hyaline Cast (Auto) (0-2) /LPF Urine Microscopic RBC (0-5) /HPF Urine Microscopic WBC (0-5) /HPF Ur Epithelial Cells (None Seen) /HPF Urine Bacteria (None Seen) /HPF Urine Culture Reflexed (NO) 08/18/23 Range/Units 21:08 WBC (4.23-9.07) x10^3/uL RBC (4.63-6.08) x10^6/uL Hgb (13.7-17.5) g/dL Hct (40.1-51.0) % MCV (79.0-92.2) fL MCH (25.7-32.2) pg MCHC (32.3-36.5) g/dL RDW (11.6-14.4) % Plt Count (163-337) x10^3/uL MPV (9.4-12.4) fL Gran % (34.0-67.9) % Immature Gran % (Auto) (0.001-0.429) % Nucleat RBC Rel Count (0.00-0.2) % Eos # (Auto) (0.04-0.54) x10^3/uL Immature Gran # (Auto) (0.001-0.031) x10^3u/L Absolute Lymphs (auto) (1.32-3.57) x10^3/uL Absolute Monos (auto) (0.30-0.82) x10^3/uL Absolute Nucleated RBC (0.00-0.012) x10^3u/L Lymphocytes % (21.8-53.1) % Monocytes % (5.3-12.2) % Eosinophils % (0.8-7.0) % Basophils % (0.2-1.2) % Absolute Granulocytes (1.78-5.38) x10^3/uL Basophils # (0.01-0.08) x10^3/uL PT (9.4-12.5) SECONDS INR (0.8-3.0) Sodium (135-145) mmol/L Potassium (3.5-5.1) mmol/L Chloride (98-107) mmol/L Carbon Dioxide (22-30) mmol/L Anion Gap (5-15) MEQ/L BUN (9-20) mg/dL Creatinine (0.66-1.25) mg/dL Estimated GFR ML/MIN Glucose (74-106) mg/dL POC Glucometer 173 H (74 to 106) mg/dL Lactic Acid (0.4-2.0) Calcium (8.4-10.2) mg/dL Magnesium (1.6-2.3) mg/dL Total Bilirubin (0.2-1.3) mg/dL AST (17-59) U/L ALT (0-50) U/L Alkaline Phosphatase (38-126) U/L Troponin I (0.000-0.033) ng/mL Serum Total Protein (6.3-8.2) g/dL Albumin (3.5-5.0) g/dL Urine Color (Yellow) Urine Appearance (Clear) Urine pH (4.6-8.0) Ur Specific [place] (1.005-1.030) Urine Protein (Negative) Urine Glucose (UA) (Negative) mg/dL Urine Ketones (Negative) Urine Blood (Negative) Urine Nitrite (Negative) Urine Bilirubin (Negative) Urine Urobilinogen (0.2) mg/dL Ur Leukocyte Esterase (Negative) U Hyaline Cast (Auto) (0-2) /LPF Urine Microscopic RBC (0-5) /HPF Urine Microscopic WBC (0-5) /HPF Ur Epithelial Cells (None Seen) /HPF Urine Bacteria (None Seen) /HPF Urine Culture Reflexed (NO) - Progress Progress: improved Progress Note: 08/19/23 01:27 52-year-old is evaluated in the ER for slurring of speech/stuttering off-and-on since yesterday and some numbness of left face/tongue with dizziness and headache. Patient does have some stuttering on presentation and tremors more on the right than the left with mild left facial decree sensations of touch. He is made stroke activated with prompt CT and CTA head and neck which are negative. Low white count which is chronic for patient. Fairly unremarkable chemistries and negative troponins. EKG is normal sinus rhythm with no acute ischemic changes. [facility] neurology consult is obtained who do not think patient has acute neuro event but more of a psychogenic and recommended outpatient psychiatric follow-up. On reevaluation patient does not have any stuttering and no numbness on the face. Patient does have appointment with [facility] which she is advised to keep. Neurology do not think patient needs any further workup and is stable for discharge. I have shared the results of workup and neurology recommendation with the patient which he understandS and agrees. Discussed with Dr.: Other (Dr. 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 Return to ER for worsening of symptoms. Continue with current medications.
[2023-08-19 01:04] VITALS: BP 138/77; PULSE 73; RESP 17
[2023-08-19 01:33] VITALS: O2SAT 98
--- NOTE | 2023-08-19 07:17 | XRAY ---
Indication: Slurred speech. Tongue numbness. Stroke. Multiple contiguous axial images obtained through the head without contrast. Comparison: September 07, 2015 Normal appearing brain parenchyma, ventricles, and bony calvarium. Visualized paranasal sinuses and mastoid air cells are clear. Impression: Continued normal CT head without contrast exam
== END 2023-08-19 01:42 | disposition home or self-care (01) ==
LOC: ED 21:01
DX: F44.4 Conversion disorder with motor symptom or deficit (principal); R29.818 Other symptoms and signs involving the nervous system; R42 Dizziness and giddiness; R20.0 Anesthesia of skin; I10 Essential (primary) hypertension; Z79.01 Long term (current) use of anticoagulants; Z79.891 Long term (current) use of opiate analgesic; Z79.899 Other long term (current) drug therapy
CPT/HCPCS: 36000; 36415; 70450; 70496; 70498; 80053; 81001; 82947; 83605; 83735; 84484; 85025; 85610; 93005; 93041; 99284

== ENCOUNTER 2023-10-14 16:02 | Emergency (ER) | payer MEDICARE ==
--- NOTE | 2023-10-14 16:06 | ERPHSYRPT ---
- History of Present Illness Time Seen by Provider: 10/14/23 16:06 Historian: patient, family Exam Limitations: no limitations Physician History: This is an obese white male who is 52 years old and presents to the emergency department by private vehicle with 4-day history of intermittent sharp throbbing left lower quadrant and left flank pain. He has had this type of pain in the past. Patient has a primary care provider name Sal Marroquin and sees a pain specialist Dr. Molina for his chronic back pain issues. Patient has a history of pancreatitis, cirrhosis, gastroesophageal reflux disease, anxiety and panic disorder, hypertension, left flank pain and left lower quadrant pain. Patient is on warfarin. Patient denies chest pain. He has no shortness of breath. P atient has had associated nausea vomiting and decreased appetite. Timing/Duration: day(s) (4), intermittent, worse Quality: sharpness, throbbing Abdominal Pain Onset Location: LLQ Pain Radiation: no radiation Severity of Pain-Max: moderate Severity of Pain-Current: moderate Associated Symptoms: diarrhea, loss of appetite, nausea, vomiting Previous symptoms: same symptoms as today, no recent treatment Allergies/Adverse Reactions: BEESTINGS Allergy (Mild, Uncoded 10/14/23 17:24) Swelling Home Medications: Warfarin Sodium 10 mg [Coumadin 10 MG] 10 mg PO DAILY 08/25/18 [History] AMITRIPTYLINE HCL 50 mg Tab [AMITRIPTYLINE HCL 50 mg Tablet] 50 mg PO HS 04/12/22 [History] Atenolol 50 mg [Tenormin 50 mg] 1 tab PO DAILY 01/29/23 [History] Buspirone HCl 15 mg PO TID 01/29/23 [History] Lumateperone Tosylate [Caplyta] 1 cap PO HS 01/29/23 [History] amantadine HCL [Amantadine] 1 tab PO BID 01/29/23 [History] Hydroxyzine HCl 25 mg [Atarax 25 mg] 100 mg PO HS 04/20/23 [History] Warfarin Sodium 1 mg [Coumadin] 7.5 mg PO DAILY 07/21/23 [History] PANTOPRAZOLE 40 mg Tablet [Protonix 40MG Tablet] 40 mg PO QAM 08/07/23 [History] Oxycodone / APAP 10/325 mg [Oxycodone-Acetaminophen 10-325] 7.5 mg PO TID PRN 08/18/23 [History] Hx Tetanus, Diphtheria Vaccination/Date Given: Yes Hx Influenza Vaccination/Date Given: No Hx Pneumococcal Vaccination/Date Given: Yes Travel Risk - International Travel Have you traveled outside of the country in past 3 weeks: No - Emerging Infectious Disease Are you exhibiting symptoms associated with any current EIDs: No Symptoms: Diarrhea - Review of Systems Constitutional: No Symptoms Eyes: No Symptoms Ears, Nose, & Throat: No Symptoms Respiratory: No Symptoms Cardiac: No Symptoms Abdominal/Gastrointestinal: Abdominal Pain (llq) Genitourinary Symptoms: No Symptoms Musculoskeletal: No Symptoms Skin: No Symptoms Neurological: No Symptoms Psychological: No Symptoms Endocrine: No Symptoms Hematologic/Lymphatic: No Symptoms Immunological/Allergic: No Symptoms All Other Systems: Reviewed and Negative - Past Medical History Pertinent Past Medical History: Yes Neurological History: No Pertinent History ENT History: No Pertinent History Cardiac History: Hypertension Respiratory History: Other Endocrine Medical History: No Pertinent History Musculoskeletal History: No Pertinent History GI Medical History: Cirrhosis, Diverticulitis, GERD, Gallbladder Disease, Herni a, Pancreatitis History: No Pertinent History Psycho-Social History: Anxiety, Depression, Panic Disorder, Other Male Reproductive Disorders: No Pertinent History Other Medical History: hx of Factor V, arthritis in back, sleep apnea - Past Surgical History Past Surgical History: Yes Neuro Surgical History: No Pertinent History Cardiac: No Pertinent History Respiratory: No Pertinent History Gastrointestinal: Cholecystectomy, Hernia Repair Genitourinary: No Pertinent History Musculoskeletal: Orthopedic Surgery Male Surgical History: No Pertinent History Other Surgical History: INGUINAL LYMPH NODES - BRANDY CARPEL TUNNEL REPAIR - LOWER BACK - LEFT ELBOW RODS IN BACK, JOINT REPLACEMENT TO RT GREAT TOE - Social History Smoking Status: Never smoker Exposure to second hand smoke: No Drug Use: none Patient Lives Alone: No - Social Determinants of Health Will the patient participate in the screening: Yes Do you worry about a steady place to live?: No In the past 12 months,have you had to go without utilities?: No Transportation Issues: No Has anyone in your support network made you feel unsafe?: No Have you or anyone in your house had to go without enough: No - Nursing Vital Signs Nursing Vital Signs: Initial Vital Signs Temperature 98.7 F 10/14/23 17:24 Pulse Rate 79 10/14/23 17:24 Respiratory Rate 22 10/14/23 17:24 Blood Pressure 134/84 10/14/23 17:24 O2 Sat by Pulse Oximetry 96 10/14/23 17:24 Pain Scale Pain Intensity 8 - Physical Exam General Appearance: no apparent distress, alert, anxiety, obese Eye Exam: PERRL/EOMI, eyes nml inspection Ears, Nose, Throat Exam: normal ENT inspection, moist mucous membranes Neck Exam: normal inspection, non-tender, supple, full range of motion Respiratory Exam: normal breath sounds, lungs clear, airway intact, No chest tenderness, No respiratory distress Cardiovascular Exam: regular rate/rhythm, normal heart sounds, normal peripheral pulses Gastrointestinal/Abdomen Exam: soft, normal bowel sounds, tenderness (llq), guarding, No rebound Rectal Exam: not done Back Exam: normal inspection, normal range of motion, CVA tenderness (l) Extremity Exam: normal inspection, normal range of motion, pelvis stable Neurologic Exam: alert, oriented x 3, cooperative, box hinge and lock attacher II-XII nml as tested, nml cerebellar function, nml station & gait, sensation nml Skin Exam: normal color, warm, dry Lymphatic Exam: No adenopathy SpO2 Interpretation: normal O2 Delivery: Room Air - Course Nursing assessment & vital signs reviewed: Yes Ordered Tests: Active Orders 24 hr Category Date Time Status IV Insertion STAT Care 10/14/23 18:15 Active ABDOMEN AND PELVIS W/0 CONTRAS [CT] Stat Exams 10/14/23 18:15 Taken AMYLASE Stat Lab 10/14/23 18:35 Completed CBC W DIFF Stat Lab 10/14/23 18:35 Completed CMP Stat Lab 10/14/23 18:35 Completed CULTURE,URINE Stat Lab 10/14/23 18:19 Received LIPASE Stat Lab 10/14/23 18:35 Completed Lactic Acid Stat Lab 10/14/23 18:42 Completed UA W/RFX UR CULTURE Stat Lab 10/14/23 18:19 Completed Medication Summary Discontinued Medications Generic Name Dose Route Start Last Admin Trade Name Freq PRN Reason Stop Dose Admin Hydromorphone HCl 1 mg 10/14/23 18:15 10/14/23 19:15 Hydromorphone 1 Mg/1ml Inj IV 10/14/23 18:16 1 mg STAT ONE Administration Hydromorphone HCl Confirm 10/14/23 18:20 Hydromorphone 1 Mg/1ml Inj Administered 10/14/23 18:21 Dose 1 mg .ROUTE .STK-MED ONE Sodium Chloride 1,000 mls @ 999 mls/hr 10/14/23 18:15 10/14/23 19:10 Sodium Chloride 0.9% 1000 Ml IV 10/14/23 19:15 999 mls/hr .Q1H1M STA Administration Sodium Chloride Confirm 10/14/23 18:20 Sodium Chloride 0.9% 1000 Ml Administered 10/14/23 18:21 Dose 1,000 mls @ ud .ROUTE .STK-MED ONE Prochlorperazine Edisylate 5 mg 10/14/23 18:15 10/14/23 19:13 Prochlorperazine Edisylate 10 Mg/2 Ml Vial IV 10/14/23 18:16 5 mg STAT ONE Administration Prochlorperazine Edisylate Confirm 10/14/23 18:20 Prochlorperazine Edisylate 10 Mg/2 Ml Vial Administered 10/14/23 18:21 Dose 10 mg .ROUTE .STK-MED ONE Lab/Rad Data: Laboratory Result Diagrams 10/14/23 18:35 10/14/23 18:35 Laboratory Results 10/14/23 10/14/23 10/14/23 Range/Units 18:42 18:35 18:35 WBC 3.3 L (4.23-9.07) x10^3/uL RBC 5.03 (4.63-6.08) x10^6/uL Hgb 15.9 (13.7-17.5) g/dL Hct 45.7 (40.1-51.0) % MCV 90.9 (79.0-92.2) fL MCH 31.6 (25.7-32.2) pg MCHC 34.8 (32.3-36.5) g/dL RDW 14.0 (11.6-14.4) % Plt Count 83 L (163-337) x10^3/uL MPV 11.2 (9.4-12.4) fL Gran % 53.3 (34.0-67.9) % Immature Gran % (Auto) 0.3 (0.001-0.429) % Nucleat RBC Rel Count 0.0 (0.00-0.2) % Eos # (Auto) 0.15 (0.04-0.54) x10^3/uL Immature Gran # (Auto) 0.01 (0.001-0.031) x10^3u/L Absolute Lymphs (auto) 1.02 L (1.32-3.57) x10^3/uL Absolute Monos (auto) 0.35 (0.30-0.82) x10^3/uL Absolute Nucleated RBC 0.00 (0.00-0.012) x10^3u/L Lymphocytes % 30.5 (21.8-53.1) % Monocytes % 10.5 (5.3-12.2) % Eosinophils % 4.5 (0.8-7.0) % Basophils % 0.9 (0.2-1.2) % Absolute Granulocytes 1.78 (1.78-5.38) x10^3/uL Basophils # 0.03 (0.01-0.08) x10^3/uL Sodium 139 (135-145) mmol/L Potassium 4.2 (3.5-5.1) mmol/L Chloride 105 (98-107) mmol/L Carbon Dioxide 27 (22-30) mmol/L Anion Gap 11.1 (5-15) MEQ/L BUN 13 (9-20) mg/dL Creatinine 0.97 (0.66-1.25) mg/dL Estimated GFR 93.4 ML/MIN Glucose 93 (74-106) mg/dL Lactic Acid 1.1 (0.4-2.0) Calcium 9.2 (8.4-10.2) mg/dL Total Bilirubin 1.30 (0.2-1.3) mg/dL AST 82 H (17-59) U/L ALT 56 H (0-50) U/L Alkaline Phosphatase 110 (38-126) U/L Serum Total Protein 7.4 (6.3-8.2) g/dL Albumin 4.1 (3.5-5.0) g/dL Amylase 80 (30-110) U/L Lipase 80 (23-300) U/L Urine Color (Yellow) Urine Appearance (Clear) Urine pH (4.6-8.0) Ur Specific [place] (1.005-1.030) Urine Protein (Negative) Urine Glucose (UA) (Negative) mg/dL Urine Ketones (Negative) Urine Blood (Negative) Urine Nitrite (Negative) Urine Bilirubin (Negative) Urine Urobilinogen (0.2) mg/dL Ur Leukocyte Esterase (Negative) U Hyaline Cast (Auto) (0-2) /LPF Urine Microscopic RBC (0-5) /HPF Urine Microscopic WBC (0-5) /HPF Ur Epithelial Cells (None Seen) /HPF Urine Bacteria (None Seen) /HPF Urine Culture Reflexed (NO) 10/14/23 Range/Units 18:19 WBC (4.23-9.07) x10^3/uL RBC (4.63-6.08) x10^6/uL Hgb (13.7-17.5) g/dL Hct (40.1-51.0) % MCV (79.0-92.2) fL MCH (25.7-32.2) pg MCHC (32.3-36.5) g/dL RDW (11.6-14.4) % Plt Count (163-337) x10^3/uL MPV (9.4-12.4) fL Gran % (34.0-67.9) % Immature Gran % (Auto) (0.001-0.429) % Nucleat RBC Rel Count (0.00-0.2) % Eos # (Auto) (0.04-0.54) x10^3/uL Immature Gran # (Auto) (0.001-0.031) x10^3u/L Absolute Lymphs (auto) (1.32-3.57) x10^3/uL Absolute Monos (auto) (0.30-0.82) x10^3/uL Absolute Nucleated RBC (0.00-0.012) x10^3u/L Lymphocytes % (21.8-53.1) % Monocytes % (5.3-12.2) % Eosinophils % (0.8-7.0) % Basophils % (0.2-1.2) % Absolute Granulocytes (1.78-5.38) x10^3/uL Basophils # (0.01-0.08) x10^3/uL Sodium (135-145) mmol/L Potassium (3.5-5.1) mmol/L Chloride (98-107) mmol/L Carbon Dioxide (22-30) mmol/L Anion Gap (5-15) MEQ/L BUN (9-20) mg/dL Creatinine (0.66-1.25) mg/dL Estimated GFR ML/MIN Glucose (74-106) mg/dL Lactic Acid (0.4-2.0) Calcium (8.4-10.2) mg/dL Total Bilirubin (0.2-1.3) mg/dL AST (17-59) U/L ALT (0-50) U/L Alkaline Phosphatase (38-126) U/L Serum Total Protein (6.3-8.2) g/dL Albumin (3.5-5.0) g/dL Amylase (30-110) U/L Lipase (23-300) U/L Urine Color Dark Yellow (Yellow) Urine Appearance Clear (Clear) Urine pH 6.0 (4.6-8.0) Ur Specific [place] >=1.030 A (1.005-1.030) Urine Protein 100 A (Negative) Urine Glucose (UA) Negative (Negative) mg/dL Urine Ketones Trace A (Negative) Urine Blood Negative (Negative) Urine Nitrite Negative (Negative) Urine Bilirubin Negative (Negative) Urine Urobilinogen 1.0 A (0.2) mg/dL Ur Leukocyte Esterase Trace A (Negative) U Hyaline Cast (Auto) NONE SEEN (0-2) /LPF Urine Microscopic RBC 0-2 (0-5) /HPF Urine Microscopic WBC 0-2 (0-5) /HPF Ur Epithelial Cells None Seen (None Seen) /HPF Urine Bacteria None Seen (None Seen) /HPF Urine Culture Reflexed YES (NO) - Progress Progress: improved, pain not gone completely Progress Note: 10/14/23 19:06 Medical decision making and the assignment of moderate complexity to this patient's medical issue today is based on review of the patient's past medical history, review of the patient's medication list, review the patient drug allergy list, history present illness and physical findings on examination. The workup in this patient includes placement of an intravenous line, infusion of normal saline solution, infusion of Compazine intravenously, infusion of Dilaudid intravenously, CBC, CMP, amylase, lipase, urinalysis, CT scan of the abdomen pelvis without contrast and a lactic acid level. Differential diagnosis includes but is not limited to acute intra-abdominal and pelvic process, pancreatitis, ureterolithiasis, muscle skeletal pain 10/14/23 19:51 I interpreted the patient's laboratory data results. Based on the laboratory data results, the patient has no acute or emergent medical issue. The CT scan of the abdomen pelvis without contrast was interpreted by the radiologist and I reviewed the impression. The impression states no new or acute findings when compared to the similar study dated 08/07/2023. There is evidence of colonic diverticulosis and paraesophageal varices. Counseled pt/family regarding: lab results, diagnosis, need for follow-up, rad results Medical Desision Making - Diagnostic Testing Diagnostic test were ordered, analyzed, and reviewed by me: Yes Radiological Interpretation: Reviewed by me, Teleradiologist Report - Risk of complications Minimal Risk: Minimal risk of morbidity - Departure Departure Disposition: Home Clinical Impression: Left lower quadrant abdominal pain Condition: Stable Critical Care Time: No Referrals: ROSALBA HERRERA [employer] [Primary Care Provider] - Follow up/PCP as directed Additional Instructions: Continue your medications as prescribed. Call your primary care provider on 10/17/2023 to make arrangements for follow-up appointment to be seen in the next 5 to 7 days.
[2023-10-14 17:50] VITALS: TEMP 98.7
[2023-10-14] MEDS ORDERED: Compazine 10 MG/2 ML ONE (18:20)
[2023-10-14] MEDS ORDERED: Hydromorphone 1 mg/ml Injection ONE (18:20)
[2023-10-14] MEDS ORDERED: Sodium Chloride 0.9% 1000 ML 1,000 ML ONE (18:20)
[2023-10-14 18:35] LABS: Appearance Clear (Clear); Bacteria None Seen /HPF (None Seen); Bilirubin Negative (Negative); Blood Negative (Negative); Epithelial Cells None Seen /HPF (None Seen); Glucose, Urine Negative (Negative); Hyaline Casts NONE SEEN /LPF (0-2); Ketones Trace (Negative); Leukocyte Esterase Trace (Negative); Nitrite Negative (Negative); Protein,Urine Dip 100 (Negative); RBC 0-2 /HPF (0-5); Specific Gravity >=1.030 (1.005-1.030); WBC 0-2 /HPF (0-5)
[2023-10-14 18:37] LABS: ADD URINE CULTURE? YES (NO)
[2023-10-14 18:42] LABS: Absolute Neutrophil Ct (ANC) 1.78 x10^3/uL (1.78-5.38); BASOPHIL % 0.9 % (0.2-1.2); Basophil (Absolute #) 0.03 x10^3/uL (0.01-0.08); Eosinophil % 4.5 % (0.8-7.0); Eosinophil (Absolute #) 0.15 x10^3/uL (0.04-0.54); Hematocrit 45.7 % (40.1-51.0); Hemoglobin 15.9 g/dL (13.7-17.5); IMMATURE GRAN # 0.01 x10^3u/L (0.001-0.031); IMMATURE GRAN % 0.3 % (0.001-0.429); Lymphocyte (Absolute #) 1.02 x10^3/uL (1.32-3.57); Lymphocytes % 30.5 % (21.8-53.1); Mean Cell Volume 90.9 fL (79.0-92.2); Mean Corpuscular Hemoglobin 31.6 pg (25.7-32.2); Mean Corpuscular Hgb Concent. 34.8 g/dL (32.3-36.5); Mean Platelet Volume 11.2 fL (9.4-12.4); Monocyte (Absolute #) 0.35 x10^3/uL (0.30-0.82); Monocytes % 10.5 % (5.3-12.2); Neutrophil % 53.3 % (34.0-67.9); Platelet Count 83 x10^3/uL (163-337); Red Blood Count 5.03 x10^6/uL (4.63-6.08); White Blood Count 3.3 x10^3/uL (4.23-9.07)
[2023-10-14 18:54] LABS: ALBUMIN 4.1 g/dL (3.5-5.0); ANION GAP 11.1 MEQ/L (5-15); BILIRUBIN,TOTAL 1.3 mg/dL (0.2-1.3); Calcium 9.2 mg/dL (8.4-10.2); Creatinine 1 0.97 mg/dL (0.66-1.25); EST GLOMERULAR FILTRATION RATE 93.4 ML/MIN; Potassium 4.2 mmol/L (3.5-5.1); Total Protein 7.4 g/dL (6.3-8.2)
[2023-10-14] MEDS: Sodium Chloride 0.9% 1000 ML 1,000 ML IV STA (19:10)
[2023-10-14] MEDS: Compazine 10 MG/2 ML IV ONE (19:13)
[2023-10-14] MEDS: Hydromorphone 1 mg/ml Injection IV ONE (19:15)
[2023-10-14 20:24] VITALS: BP 108/42; PULSE 71; RESP 16; O2SAT 95
--- NOTE | 2023-10-14 21:41 | XRAY ---
Indication: Left abdomen pain. Nausea and vomiting. Multiple contiguous axial images obtained through the abdomen and pelvis without contrast. Comparison: August 07, 2023. Lung bases again demonstrates minimal right base fibrosis/scarring. No infiltrate or effusion. Heart not enlarged. Stable small hiatal hernia with distal paraesophageal varices. Noncontrasted stomach and bowel loops appear nonobstructed. Stable tiny appendicolith without appendicitis. Again mild scattered descending/sigmoid diverticulosis, cirrhotic liver, 14.4 cm splenomegaly, nonobstructing punctate calculus in each kidney, tiny hepatic/splenic calcified granulomas, and cholecystectomy. No free fluid/air. Remaining liver, pancreas, adrenal glands, spleen, kidneys, ureters, bladder, and aorta are unremarkable for noncontrast exam. Osseous structures intact again with mild/moderate degenerative changes throughout the spine and L2-L3 fusion with laminectomy. Stable intact right inguinal hernia mesh graft. Impression: 1. Stable nonobstructing bilateral renal punctate calculus, hiatal hernia, distal paraesophageal varices, cirrhotic liver, splenomegaly, colonic diverticulosis, appendicolith, chronic bony findings, and old granulomatous disease. 2. No new/acute findings on this noncontrast exam.
[2023-10-14 22:20] LABS: Slide Review 1 YES
== END 2023-10-14 20:33 | disposition home or self-care (01) ==
LOC: ED 16:02
DX: R10.32 Left lower quadrant pain (principal); R10.9 Unspecified abdominal pain; R11.2 Nausea with vomiting, unspecified; I10 Essential (primary) hypertension; Z79.01 Long term (current) use of anticoagulants; Z79.899 Other long term (current) drug therapy
CPT/HCPCS: 36000; 36415; 74176; 80053; 81001; 82150; 83605; 83690; 85025; 87086; 96374; 96375; 99284; J1170

== ENCOUNTER → 2023-10-19 | Day surgery (SDC) | payer MEDICARE ==
[~2023-10-19] MED LIST changes: +BUPIVACAINE 0.5% VIAL IJ ONE; +DIPRIVAN 200 MG/20 ML IV ONE; -Decadron 4 MG INJ IV ONE; +Depo-Medrol 40 MG/ML IM ONE; -Sodium Chloride 0.9(Preservative Free) 10 ML IJ ONE; -XYLOCAINE-MPF 1% 5ML SDV IJ ONE
[2023-10-19 13:36] LABS: INR 2.71 (0.8-3.0); PROTIME 27.7 SECONDS (9.4-12.5)
--- NOTE | 2023-10-19 16:37 | XRAY ---
Indication: Bilateral SI joint injection. Intraoperative fluoroscopy provided for 23 seconds. 2 digital spot image submitted for interpretation demonstrates posterior needle tips projecting over the expected left and right SI joints. Small amount of contrast injected for needle tip placement. Correlate with intraoperative findings/report.
--- NOTE | 2023-10-19 20:10 | XRAY ---
23 seconds of fluoroscopy was used in surgery for a bilateral sacroiliac joint injection.
== END ==
LOC: SDC-PAIN 12:11
PROVIDERS: ATTEND Psychiatry & Neurology Pain Medicine
DX: M46.1 Sacroiliitis, not elsewhere classified (principal); Z79.01 Long term (current) use of anticoagulants
CPT/HCPCS: 01992; 27096; 36415; 72202; 77002; 85610; G0260; J2704; Q9966

== ENCOUNTER 2024-02-06 09:02 | Emergency (ER) | payer MEDICARE ==
[2024-02-06 09:22] VITALS: TEMP 98
--- NOTE | 2024-02-06 09:28 | ERPHSYRPT ---
- History of Present Illness Time Seen by Provider: 02/06/24 09:17 Source: patient Exam Limitations: no limitations Patient Subjective Stated Complaint: Left sided neck pain radiating into left shoulder that started yesterday evening. Denies fall, injury, trauma of any kin d. Denies heavy lifting, or new/unusual tugging/pulling. Triage Nursing Assessment: Patient ambulated back to ER without difficulties. He is alert and oriented. No SOB. No skin alterations noted to area of reported pain. Patient able to take off shirt and put on own gown without difficulties. Physician History: Patient is here with left upper neck pain. Started last night. No falls or trauma. History of chronic back pain. Patient does see pain management for all this. No other falls or trauma. Patient did recently have carpal tunnel shazia yodit of his right wrist. Does not feel that it is related to this. No chest pain, shortness of breath, nausea, vomiting. No other signs or symptoms of a pulmonary embolus today. States he has tried taking home medication. States that got worse overnight as he was sleeping on it. This did exasperate his pain. Therefore he does arrive to the emergency department today. They walked in the room, he does appear comfortably resting, he is in normal sinus rhythm on the monitor. He is of normal color and not diaphoretic. Patient is taking PO well. Same number of urinations and defecations. The patient has no signs of altered mental status, nuchal rigidity, signs of meningitis. The patient is up-to-date on all vaccinations. Allergies/Adverse Reactions: BEESTINGS Allergy (Mild, Uncoded 02/06/24 09:11) Swelling Home Medications: Warfarin Sodium 10 mg [Coumadin 10 MG] 10 mg PO DAILY 08/25/18 [History] AMITRIPTYLINE HCL 50 mg Tab [AMITRIPTYLINE HCL 50 mg Tablet] 50 mg PO HS 04/12/22 [History] Atenolol 50 mg [Tenormin 50 mg] 1 tab PO DAILY 01/29/23 [History] Buspirone HCl 15 mg PO TID 01/29/23 [History] Lumateperone Tosylate [Caplyta] 1 cap PO HS 01/29/23 [History] amantadine HCL [Amantadine] 1 tab PO BID 01/29/23 [History] Hydroxyzine HCl 25 mg [Atarax 25 mg] 100 mg PO HS 04/20/23 [History] Warfarin Sodium 1 mg [Coumadin] 7.5 mg PO DAILY 07/21/23 [History] PANTOPRAZOLE 40 mg Tablet [Protonix 40MG Tablet] 40 mg PO QAM 08/07/23 [History] Oxycodone / APAP 10/325 mg [Oxycodone-Acetaminophen 10-325] 7.5 mg PO TID PRN 08/18/23 [History] Hx Tetanus, Diphtheria Vaccination/Date Given: Yes Hx Influenza Vaccination/Date Given: No Hx Pneumococcal Vaccination/Date Given: Yes Immunizations Up to Date: Yes Travel Risk - International Travel Have you traveled outside of the country in past 3 weeks: No - Emerging Infectious Disease Are you exhibiting symptoms associated with any current EIDs: No Symptoms: Diarrhea - Review of Systems Constitutional: No Fever, No Chills Eyes: No Symptoms Ears, Nose, & Throat: No Symptoms Respiratory: No Cough, No Dyspnea Cardiac: No Chest Pain, No Edema, No Syncope Abdominal/Gastrointestinal: No Abdominal Pain, No Nausea, No Vomiting, No Diarrhea Genitourinary Symptoms: No Dysuria Musculoskeletal: Back Pain, Neck Pain Skin: No Rash Neurological: No Dizziness, No Focal Weakness, No Sensory Changes Psychological: No Symptoms Endocrine: No Symptoms All Other Systems: Reviewed and Negative - Past Medical History Pertinent Past Medical History: Yes Neurological History: No Pertinent History ENT History: No Pertinent History Cardiac History: Hypertension Respiratory History: Sleep Apnea, Other Endocrine Medical History: No Pertinent History Musculoskeletal History: No Pertinent History GI Medical History: Cirrhosis, Diverticulitis, GERD, Gallbladder Disease, Her rehan, Pancreatitis History: No Pertinent History Psycho-Social History: Anxiety, Depression, Panic Disorder, Other Male Reproductive Disorders: No Pertinent History Other Medical History: hx of Factor V, arthritis in back, carpal tunnel - Past Surgical History Past Surgical History: Yes Neuro Surgical History: No Pertinent History Cardiac: No Pertinent History Respiratory: No Pertinent History Gastrointestinal: Cholecystectomy, Hernia Repair Genitourinary: No Pertinent History Musculoskeletal: Orthopedic Surgery Male Surgical History: No Pertinent History Other Surgical History: INGUINAL LYMPH NODES - BRANDY CARPEL TUNNEL REPAIR - LOWER BACK - LEFT ELBOW RODS IN BACK, JOINT REPLACEMENT TO RT GREAT TOE - Social History Smoking Status: Never smoker Exposure to second hand smoke: No Drug Use: none Patient Lives Alone: No - Social Determinants of Health Will the patient participate in the screening: Yes Do you worry about a steady place to live?: No Do you have any problems with any of the following?: No known problems In the past 12 months,have you had to go without utilities?: No Transportation Issues: No Has anyone in your support network made you feel unsafe?: No Have you or anyone in your house had to go without enough: No - Nursing Vital Signs Nursing Vital Signs: Initial Vital Signs Temperature 98 F 02/06/24 09:12 Pulse Rate 94 H 02/06/24 09:12 Respiratory Rate 18 02/06/24 09:12 Blood Pressure 119/56 02/06/24 09:12 O2 Sat by Pulse Oximetry 98 02/06/24 09:12 Pain Scale Pain Intensity 8 - Physical Exam General Appearance: no apparent distress, alert Eye Exam: PERRL/EOMI, eyes nml inspection Ears, Nose, Throat Exam: normal ENT inspection, TMs normal, pharynx normal, moist mucous membranes Neck Exam: normal inspection, non-tender, supple, full range of motion Respiratory Exam: normal breath sounds, lungs clear, No respiratory distress Cardiovascular Exam: regular rate/rhythm, normal heart sounds, normal peripheral pulses Gastrointestinal/Abdomen Exam: soft, normal bowel sounds, No tenderness, No mass Back Exam: normal inspection, normal range of motion, No CVA tenderness, No vertebral tenderness Extremity Exam: normal inspection, normal range of motion, pelvis stable Neurologic Exam: alert, oriented x 3, cooperative, normal mood/affect, nml cerebellar function, nml station & gait, sensation nml, No motor deficits Skin Exam: normal color, warm, dry, No rash Lymphatic Exam: No adenopathy SpO2: 98 Comments: 02/06/24 09:28 Paraspinal left neck pain. No overlying skin changes. No C-spine tenderness, T-spine tenderness. No L-spine tenderness step-offs or deformities. No obvious deformity, sensation intact, 2+ capillary refill, 2 point tactile discrimination intact. 5 out of 5 strength. Patient does have pain with neck motion, however, does not appear to be meningeal pain. Compartments are soft, nontender. Overlying skin shows no tenting, bruising, ecchymosis. 02/06/24 11:22 - Course Nursing assessment & vital signs reviewed: Yes EKG Interpreted by Me: Sinus Rhythm Ordered Tests: Active Orders 24 hr Category Date Time Status Sales Operations Analyst STAT Care 02/06/24 09:13 Active EKG-ER Only STAT Care 02/06/24 09:12 Active IV Insertion STAT Care 02/06/24 09:12 Active CHEST 1 VIEW (PORTABLE) Stat Exams 02/06/24 09:13 Completed CBC W DIFF Stat Lab 02/06/24 09:27 Completed CK-Creatinine Phosphokinase Stat Lab 02/06/24 09:27 Completed CMP Stat Lab 02/06/24 09:27 Completed NT PRO BNPII Stat Lab 02/06/24 09:27 Completed TROPONIN Q4H Lab 02/06/24 09:27 Completed TROPONIN Q4H Lab 02/06/24 13:15 Ordered TROPONIN Q4H Lab 02/06/24 17:15 Ordered Medication Summary Discontinued Medications Generic Name Dose Route Start Last Admin Trade Name Freq PRN Reason Stop Dose Admin Aspirin 324 mg 02/06/24 09:12 02/06/24 09:38 Aspirin 81 Mg Tab.Chew PO 02/06/24 09:13 324 mg STAT ONE Administration Aspirin Confirm 02/06/24 09:36 Aspirin 81 Mg Tab.Chew Administered 02/06/24 09:37 Dose 324 mg .ROUTE .STK-MED ONE Diphenhydramine HCl 25 mg 02/06/24 09:14 02/06/24 09:41 Diphenhydramine Hcl 50 Mg/Ml Vial IV 02/06/24 09:15 25 mg STAT ONE Administration Diphenhydramine HCl Confirm 02/06/24 09:36 Diphenhydramine Hcl 50 Mg/Ml Vial Administered 02/06/24 09:37 Dose 50 mg .ROUTE .STK-MED ONE Droperidol 1.25 mg 02/06/24 09:14 02/06/24 09:39 Droperidol 5 Mg/2 Ml Vial IV 02/06/24 09:15 1.25 mg STAT ONE Administration Droperidol Confirm 02/06/24 09:36 Droperidol 5 Mg/2 Ml Vial Administered 02/06/24 09:37 Dose 5 mg .ROUTE .STK-MED ONE Morphine Sulfate 4 mg 02/06/24 09:12 02/06/24 09:42 Morphine Sulfate 4 Mg/Ml Injection IV 02/06/24 09:13 4 mg STAT ONE Administration Morphine Sulfate Confirm 02/06/24 09:37 Morphine Sulfate 4 Mg/Ml Injection Administered 02/06/24 09:38 Dose 4 mg .ROUTE .STK-MED ONE Lab/Rad Data: Laboratory Result Diagrams 02/06/24 09:27 02/06/24 09:27 Laboratory Results 02/06/24 02/06/24 02/06/24 Range/Units 09:27 09: 09:27 WBC 3.5 L (4.23-9.07) x10^3/uL RBC 4.40 L (4.63-6.08) x10^6/uL Hgb 13.9 (13.7-17.5) g/dL Hct 39.6 L (40.1-51.0) % MCV 90.0 (79.0-92.2) fL MCH 31.6 (25.7-32.2) pg MCHC 35.1 (32.3-36.5) g/dL RDW 14.2 (11.6-14.4) % Plt Count 57 L (163-337) x10^3/uL MPV 11.9 (9.4-12.4) fL Gran % 65.8 (34.0-67.9) % Immature Gran % (Auto) 0.3 (0.001-0.429) % Nucleat RBC Rel Count 0.0 (0.00-0.2) % Eos # (Auto) 0.09 (0.04-0.54) x10^3/uL Immature Gran # (Auto) 0.01 (0.001-0.031) x10^3u/L Absolute Lymphs (auto) 0.74 L (1.32-3.57) x10^3/uL Absolute Monos (auto) 0.34 (0.30-0.82) x10^3/uL Absolute Nucleated RBC 0.00 (0.00-0.012) x10^3u/L Lymphocytes % 21.0 L (21.8-53.1) % Monocytes % 9.6 (5.3-12.2) % Eosinophils % 2.5 (0.8-7.0) % Basophils % 0.8 (0.2-1.2) % Absolute Granulocytes 2.32 (1.78-5.38) x10^3/uL Basophils # 0.03 (0.01-0.08) x10^3/uL Sodium 136 (135-145) mmol/L Potassium 4.0 (3.5-5.1) mmol/L Chloride 106 (98-107) mmol/L Carbon Dioxide 24 (22-30) mmol/L Anion Gap 9.5 (5-15) MEQ/L BUN 10 (9-20) mg/dL Creatinine 0.84 (0.66-1.25) mg/dL Estimated GFR 103.6 ML/MIN Glucose 287 H (74-106) mg/dL Calcium 8.6 (8.4-10.2) mg/dL Total Bilirubin 0.80 (0.2-1.3) mg/dL AST 59 (17-59) U/L ALT 42 (0-50) U/L Alkaline Phosphatase 111 (38-126) U/L Creatine Kinase 155 (55-170) U/L Troponin I < 0.012 (0.000-0.033) ng/mL NT-Pro-B Natriuret Pep 75.5 (<300) pg/mL Serum Total Protein 6.2 L (6.3-8.2) g/dL Albumin 3.3 L (3.5-5.0) g/dL Slides for Path Review YES - Progress Progress: improved Progress Note: 02/06/24 09:28 Differential diagnosis includes: PNA, STEMI, NSTEMI, other infection, musculoskeletal pain, pneumothorax, acute or chronic pain. Low suspicion for a PE or DVT. - We'll obtain basic labs, fluids, EKG, troponin, chest x-ray - EKG shows no ST changes - my read - O2 saturations consistently greater than 95%. - CXR shows no pneumonia, pneumothorax - my read 02/06/24 10:38 EKG demonstrates sinus rhythm, rate of 89, NV interval 155, QRS 92, QTc is 479, no STEMI or other ST changes 02/06/24 11:20 Patient's troponin is negative, other labs and imaging has returned negative. Patient's pain is now a 0 out of 10 on reexam. I have a lower suspicion for DVT, blood clot, carotid dissection based on history and physical. Pain is very much reproducible, paraspinal, appears to be more associated with his chronic back pain. I did discuss further workup, repeat troponin, CTA of the neck with the patient. I explained the risks and benefits of both of these. Patient ultimately did decline these today. I feel that is reasonable given his overall presentation. Certainly should he have an increase or change in pain he should absolutely come back for these tests. He states his understanding will follow- up with his PCP for reexam in the next 2 to 3 days. Counseled pt/family regarding: lab results, diagnosis, need for follow-up, rad results - Departure Departure Disposition: Home Clinical Impression: Neck pain on left side Condition: Stable Critical Care Time: No Referrals: ROSALBA HERRERA FNP [Primary Care Provider] - Follow up/PCP as directed Instructions: Chronic Pain (DC)
[2024-02-06 09:30] LABS: Absolute Neutrophil Ct (ANC) 2.32 x10^3/uL (1.78-5.38); BASOPHIL % 0.8 % (0.2-1.2); Basophil (Absolute #) 0.03 x10^3/uL (0.01-0.08); Eosinophil % 2.5 % (0.8-7.0); Eosinophil (Absolute #) 0.09 x10^3/uL (0.04-0.54); Hematocrit 39.6 % (40.1-51.0); Hemoglobin 13.9 g/dL (13.7-17.5); IMMATURE GRAN # 0.01 x10^3u/L (0.001-0.031); IMMATURE GRAN % 0.3 % (0.001-0.429); Lymphocyte (Absolute #) 0.74 x10^3/uL (1.32-3.57); Mean Corpuscular Hemoglobin 31.6 pg (25.7-32.2); Mean Corpuscular Hgb Concent. 35.1 g/dL (32.3-36.5); Mean Platelet Volume 11.9 fL (9.4-12.4); Monocyte (Absolute #) 0.34 x10^3/uL (0.30-0.82); Monocytes % 9.6 % (5.3-12.2); Neutrophil % 65.8 % (34.0-67.9); Platelet Count 57 x10^3/uL (163-337); Red Cell Distribution Width 14.2 % (11.6-14.4); White Blood Count 3.5 x10^3/uL (4.23-9.07)
--- NOTE | 2024-02-06 09:30 | XRAY ---
Indication: Chest pain. Comparison: January 29, 2023 Portable chest again demonstrates normal heart and lungs with incidental left hilar/left lung calcified granulomas. Bony thorax intact. No new/acute findings.
[2024-02-06] MEDS ORDERED: BABY ASPIRIN 81 MG CHEW ONE (09:36)
[2024-02-06] MEDS ORDERED: BENADRYL 50 MG/ML ONE (09:36)
[2024-02-06] MEDS ORDERED: MORPHINE SULFATE 4 MG INJ ONE (09:37)
[2024-02-06] MEDS: BABY ASPIRIN 81 MG CHEW PO ONE (09:38)
[2024-02-06] MEDS: BENADRYL 50 MG/ML IV ONE (09:41)
[2024-02-06] MEDS: MORPHINE SULFATE 4 MG INJ IV ONE (09:42)
[2024-02-06 09:59] LABS: ALBUMIN 3.3 g/dL (3.5-5.0); ANION GAP 9.5 MEQ/L (5-15); BILIRUBIN,TOTAL 0.8 mg/dL (0.2-1.3); Calcium 8.6 mg/dL (8.4-10.2); Creatinine 1 0.84 mg/dL (0.66-1.25); EST GLOMERULAR FILTRATION RATE 103.6 ML/MIN; NT PRO BNPII 75.5 pg/mL (<300); Total Protein 6.2 g/dL (6.3-8.2)
[2024-02-06 10:31] LABS: Slide Review 1 YES
[2024-02-06 11:32] VITALS: BP 116/77; PULSE 70; RESP 31; O2SAT 94
== END 2024-02-06 11:42 | disposition home or self-care (01) ==
LOC: ED 09:02
DX: M54.2 Cervicalgia (principal)
CPT/HCPCS: 36415; 71045; 80053; 82550; 83880; 84484; 85025; 93005; 93041; 96374; 96375; 99284; 99285; J1200; J2270; A9270-GY

== ENCOUNTER 2024-05-06 10:16 | Emergency (ER) | payer MEDICARE ==
[2024-05-06 10:31] VITALS: TEMP 97
--- NOTE | 2024-05-06 10:56 | ERPHSYRPT ---
- History of Present Illness Source: patient Exam Limitations: no limitations Patient Subjective Stated Complaint: Low back pain Triage Nursing Assessment: Patient ambulated back to ED and transferred self to bed. Patient A+O X 3. Patient's skin pink, warm and dry. Patient complains of low back pain 8/ that started last night. Patient states he has chronic back pain, but the pain has gotten worse since last night. Patient denies injury or trauma. Physician History: Patient has chronic back pain in his lumbar area. He is had multiple surgeries. He start developing some new symptoms. They are little bit lower around his sacroiliac area. He says movement makes it worse nothing really makes it better. He is a pain management patient and takes oxycodone for pain. Nothing really makes his symptoms better movement makes it worse. He has no neurological deficits. There is no bowel or bladder dysfunction no saddle paresthesias or any other worrisome signs of acute cord Syndrome Allergies/Adverse Reactions: BEESTINGS Allergy (Mild, Uncoded 05/06/24 10:23) Swelling Home Medications: Warfarin Sodium 10 mg [Coumadin 10 MG] 10 mg PO DAILY 08/25/18 [History] AMITRIPTYLINE HCL 50 mg Tab [AMITRIPTYLINE HCL 50 mg Tablet] 50 mg PO HS 04/12/22 [History] Atenolol 50 mg [Tenormin 50 mg] 1 tab PO DAILY 01/29/23 [History] Buspirone HCl 15 mg PO TID 01/29/23 [History] Lumateperone Tosylate [Caplyta] 1 cap PO HS 01/29/23 [History] amantadine HCL [Amantadine] 1 tab PO BID 01/29/23 [History] Hydroxyzine HCl 25 mg [Atarax 25 mg] 100 mg PO HS 04/20/23 [History] Warfarin Sodium 1 mg [Coumadin] 7.5 mg PO DAILY 07/21/23 [History] PANTOPRAZOLE 40 mg Tablet [Protonix 40MG Tablet] 40 mg PO QAM 08/07/23 [History] Oxycodone / APAP 10/325 mg [Oxycodone-Acetaminophen 10-325] 7.5 mg PO TID PRN 08/18/23 [History] Hx Tetanus, Diphtheria Vaccination/Date Given: Yes Hx Influenza Vaccination/Date Given: No Hx Pneumococcal Vaccination/Date Given: No Immunizations Up to Date: Yes Travel Risk - International Travel Have you traveled outside of the country in past 3 weeks: No - Emerging Infectious Disease Are you exhibiting symptoms associated with any current EIDs: No Symptoms: Diarrhea - Review of Systems Constitutional: No Symptoms Eyes: No Symptoms Musculoskeletal: Back Pain Skin: No Symptoms Neurological: No Symptoms All Other Systems: Reviewed and Negative - Past Medical History Pertinent Past Medical History: Yes Neurological History: No Pertinent History ENT History: No Pertinent History Cardiac History: Hypertension Respiratory History: Sleep Apnea, Other Endocrine Medical History: No Pertinent History Musculoskeletal History: No Pertinent History GI Medical History: Cirrhosis, Diverticulitis, GERD, Gallbladder Disease, Hernia, Pancreatitis History: No Pertinent History Psycho-Social History: Anxiety, Depression, Panic Disorder, Other Male Reproductive Disorders: No Pertinent History Other Medical History: hx of Factor V, arthritis in back, carpal tunnel - Past Surgical History Past Surgical History: Yes Neuro Surgical History: No Pertinent History Cardiac: No Pertinent History Respiratory: No Pertinent History Gastrointestinal: Cholecystectomy, Hernia Repair Genitourinary: No Pertinent History Musculoskeletal: Orthopedic Surgery Male Surgical History: No Pertinent History Other Surgical History: INGUINAL LYMPH NODES - BRANDY CARPEL TUNNEL REPAIR - LOWER BACK - LEFT ELBOW RODS IN BACK, JOINT REPLACEMENT TO RT GREAT TOE - Social History Smoking Status: Never smoker Exposure to second hand smoke: No Drug Use: none - Social Determinants of Health Will the patient participate in the screening: Yes Do you worry about a steady place to live?: No Do you have any problems with any of the following?: No known problems In the past 12 months,have you had to go without utilities?: No Transportation Issues: No Has anyone in your support network made you feel unsafe?: No Have you or anyone in your house had to go w/o enough food: No - Nursing Vital Signs Nursing Vital Signs: Initial Vital Signs Temperature 97.0 F 05/06/24 10:25 Pulse Rate 73 05/06/24 10:25 Respiratory Rate 20 05/06/24 10:25 Blood Pressure 126/85 05/06/24 10:25 O2 Sat by Pulse Oximetry 99 05/06/24 10:25 Pain Scale Pain Intensity 8 - Physical Exam General Appearance: no apparent distress Eye Exam: PERRL/EOMI Respiratory Exam: normal breath sounds, No chest tenderness Cardiovascular Exam: regular rate/rhythm, normal heart sounds Gastrointestinal Exam: soft, normal bowel sounds, No tenderness Back Exam: normal inspection, decreased range of motion, muscle spasm Extremity Exam: normal inspection Neurologic Exam: alert, oriented x 3, cooperative, nml cerebellar function, other (No neuro deficits of motor or sensory in the extremities) Skin Exam: normal color SpO2: 99 Ordered Tests: Active Orders 24 hr Category Date Time Status UA W/RFX UR CULTURE Stat Lab 05/06/24 Completed Medication Summary Generic Name Dose Route Start Last Admin Trade Name Freq PRN Reason Stop Dose Admin Hydromorphone HCl 4 mg 05/06/24 10:57 05/06/24 11:15 Hydromorphone Hcl 4 Mg Tab PO 05/11/24 10:56 4 mg Q4H PRN PRN Administration PAIN Discontinued Medications Generic Name Dose Route Start Last Admin Trade Name Freq PRN Reason Stop Dose Admin Ketorolac Tromethamine 60 mg 05/06/24 10:57 05/06/24 11:16 Ketorolac Tromethamine 30 Mg/Ml Inj IM 05/06/24 10:58 60 mg STAT ONE Administration Ketorolac Tromethamine Confirm 05/06/24 11:07 Ketorolac Tromethamine 30 Mg/Ml Inj Administered 05/06/24 11:08 Dose 60 mg .ROUTE .STK-MED ONE Lab/Rad Data: Laboratory Results 05/06/24 Range/Units Unknown Urine Color Yellow (Yellow) Urine Appearance Clear (Clear) Urine pH 6.0 (4.6-8.0) Ur Specific [place] 1.020 (1.005-1.030) Urine Protein Trace A (Negative) Urine Glucose (UA) Negative (Negative) mg/dL Urine Ketones Negative (Negative) Urine Blood Negative (Negative) Urine Nitrite Negative (Negative) Urine Bilirubin Negative (Negative) Urine Urobilinogen 1.0 A (0.2) mg/dL Ur Leukocyte Esterase Negative (Negative) U Hyaline Cast (Auto) NONE SEEN (0-2) /LPF Urine Microscopic RBC 0-2 (0-5) /HPF Urine Microscopic WBC 0-2 (0-5) /HPF Ur Epithelial Cells None Seen (None Seen) /HPF Urine Bacteria None Seen (None Seen) /HPF Urine Culture Reflexed NO (NO) - Progress Progress Note: Patient was stable throughout stay. His urinalysis was clear. He does have some back pain I believe it is musculoskeletal in origin. His abdominal exam was benign. At this time I do not think that he has any kind of acute cord symptoms. On the differential wasUrinary tract infection, mechanical back pain,Exacerbation of chronic back pain. He got some p.o. Dilaudid and some Toradol IM.He has pain Medication at home he can take. I would have him follow- up with his pain management doctor. 05/06/24 11:39 - Departure Departure Disposition: Home Clinical Impression: Back pain Qualifiers: Back pain location: low back pain Chronicity: unspecified Condition: Stable Critical Care Time: No Referrals: ROSALBA HERRERA FNP [Primary Care Provider] - Follow up/PCP as directed
[2024-05-06 11:02] LABS: Appearance Clear (Clear); Bacteria None Seen /HPF (None Seen); Bilirubin Negative (Negative); Blood Negative (Negative); Epithelial Cells None Seen /HPF (None Seen); Glucose, Urine Negative (Negative); Hyaline Casts NONE SEEN /LPF (0-2); Ketones Negative (Negative); Leukocyte Esterase Negative (Negative); Nitrite Negative (Negative); Protein,Urine Dip Trace (Negative); RBC 0-2 /HPF (0-5); WBC 0-2 /HPF (0-5)
[2024-05-06] MEDS ORDERED: TORAdol 30 mg Injection ONE (11:07)
[2024-05-06] MEDS: Dilaudid 4 MG Tab PO PRN (11:15)
[2024-05-06] MEDS: TORAdol 30 mg Injection IM ONE (11:16)
[2024-05-06 11:32] VITALS: RESP 18
[2024-05-06 11:34] VITALS: BP 145/78
[2024-05-06 11:42] VITALS: O2SAT 99
[2024-05-06 11:56] VITALS: PULSE 70
== END 2024-05-06 11:50 | disposition home or self-care (01) ==
LOC: ED 10:16
DX: M54.50 Low back pain, unspecified (principal); I10 Essential (primary) hypertension; Z79.01 Long term (current) use of anticoagulants; Z79.891 Long term (current) use of opiate analgesic; Z79.899 Other long term (current) drug therapy
CPT/HCPCS: 81001; 96372; 99283; J1885; A9270-GY

== ENCOUNTER 2024-12-20 23:03 | Emergency (ER) | payer MEDICARE ==
[2024-12-20 23:09] VITALS: TEMP 98.8; O2SAT 96
[2024-12-20 23:37] LABS: BASOPHIL % 0.8 % (0.2-1.2); Basophil (Absolute #) 0.03 x10^3/uL (0.01-0.08); Eosinophil (Absolute #) 0.14 x10^3/uL (0.04-0.54); Hematocrit 42.4 % (40.1-51.0); Hemoglobin 14.6 g/dL (13.7-17.5); IMMATURE GRAN # 0.01 x10^3u/L (0.001-0.031); IMMATURE GRAN % 0.3 % (0.001-0.429); Lymphocyte (Absolute #) 0.85 x10^3/uL (1.32-3.57); Mean Corpuscular Hemoglobin 32.1 pg (25.7-32.2); Mean Corpuscular Hgb Concent. 34.4 g/dL (32.3-36.5); Monocyte (Absolute #) 0.39 x10^3/uL (0.30-0.82); NUCLEATED RBC # 0.00 x10^3u/L (0.00-0.012); NUCLEATED RBC % 0.0 % (0.00-0.2); Platelet Count 56 x10^3/uL (163-337); Red Blood Count 4.55 x10^6/uL (4.63-6.08); White Blood Count 3.8 x10^3/uL (4.23-9.07)
[2024-12-20] MEDS ORDERED: TORAdol 30 mg Injection ONE (23:42)
[2024-12-20] MEDS: TORAdol 30 mg Injection IV ONE (23:49)
[2024-12-20 23:52] LABS: Calcium 9.0 mg/dL (8.4-10.2); Carbon Dioxide 27.0 mmol/L (22-30); Creatinine 1 1.0 mg/dL (0.66-1.25); EST GLOMERULAR FILTRATION RATE 88.9 ML/MIN; Glucose 105.0 mg/dL (74-106); Potassium 4.0 mmol/L (3.5-5.1); SGOT/AST 44.0 U/L (17-59); SGPT/ALT 35.0 U/L (0-50); Total Protein 7.1 g/dL (6.3-8.2)
--- NOTE | 2024-12-21 00:07 | ERPHSYRPT ---
- History of Present Illness Time Seen by Provider: 12/20/24 23:30 Historian: patient, family Patient Subjective Stated Complaint: constipation Triage Nursing Assessment: Pt ambulated into ER using his cane. Pt c/o lower abd pain, c/o constipation, which began earlier this afternoon and got much worse this evening. Abd lg, round with active bs x4 quad, tender on palpation. Pt unable to pass gas. Pt has nausea but denies vomiting. Physician History: Patient comes emergency room due to constipation has not had a bowel movement in the past 2 to 3 days is on chronic oxycodone for chronic pain. Only took some MiraLAX today but nothing else. No nausea no vomiting no chest pain shortness of breath just is having trouble with bowel movements. Timing/Duration: day(s) Abdominal Pain Onset Location: generalized abdomen Associated Symptoms: No diarrhea Allergies/Adverse Reactions: BEESTINGS Allergy (Mild, Uncoded 12/20/24 23:16) Swelling Home Medications: Atenolol 50 mg [Tenormin 50 mg] 1 tab PO DAILY 01/29/23 [History] Buspirone HCl 10 mg PO TID 01/29/23 [History] Lumateperone Tosylate [Caplyta] 10.5 mg PO HS 01/29/23 [History] amantadine HCL [Amantadine] 1 tab PO TID 01/29/23 [History] Hydroxyzine HCl 25 mg [Atarax 25 mg] 100 mg PO QID PRN PRN 04/20/23 [History] PANTOPRAZOLE 40 mg Tablet [Protonix 40MG Tablet] 40 mg PO QAM 08/07/23 [History] Oxycodone / APAP 10/325 mg [Oxycodone-Acetaminophen 10-325] 10 mg PO Q8HPRN PRN 08/18/23 [History] Albuterol Sulfate [Albuterol Sulfate Hfa] 8.5 gm IH BID 10/04/24 [History] Fluticasone Propionate [Flonase NASAL] 1 spray NS DAILY 10/04/24 [History] Fluticasone/Umeclidin/Vilanter [Trelegy Ellipta 100-62.5-25] 1 puff IH DAILY 10/04/24 [History] Lactulose [Constulose] 10 gm PO QID PRN 10/04/24 [History] Linaclotide [Linzess] 72 mcg PO DAILY 10/04/24 [History] Mecobalamin [B12 Active] 2,500 mcg PO DAILY 10/04/24 [History] Trazodone HCl 50 mg [Desyrel 50 mg] 50 mg PO HS 10/04/24 [History] tadalafiL [Tadalafil] 20 mg PO TID 10/04/24 [History] Hx Tetanus, Diphtheria Vaccination/Date Given: (unknown) Hx Influenza Vaccination/Date Given: No Hx Pneumococcal Vaccination/Date Given: No Travel Risk - International Travel Have you traveled outside of the country in past 3 weeks: No - Emerging Infectious Disease Are you exhibiting symptoms associated with any current EIDs: Yes Symptoms: Abdominal Pain - Review of Systems Constitutional: No Symptoms Respiratory: No Symptoms Cardiac: No Symptoms Abdominal/Gastrointestinal: Abdominal Pain, Constipation Neurological: No Symptoms Psychological: No Symptoms - Past Medical History Pertinent Past Medical History: Yes Neurological History: No Pertinent History ENT History: No Pertinent History Cardiac History: Hypertension Respiratory History: Sleep Apnea, Other Endocrine Medical History: No Pertinent History Musculoskeletal History: No Pertinent History GI Medical History: Cirrhosis, Diverticulitis, GERD, Gallbladder Disease, Hernia, Pancreatitis History: No Pertinent History Psycho-Social History: Anxiety, Depression, Panic Disorder, Other Male Reproductive Disorders: No Pertinent History Other Medical History: hx of Factor V, arthritis in back, carpal tunnel - Past Surgical History Past Surgical History: Yes Neuro Surgical History: No Pertinent History Cardiac: No Pertinent History Respiratory: No Pertinent History Gastrointestinal: Cholecystectomy, Hernia Repair Genitourinary: No Pertinent History Musculoskeletal: Orthopedic Surgery Male Surgical History: No Pertinent History Other Surgical History: INGUINAL LYMPH NODES - BRANDY CARPEL TUNNEL REPAIR - LOWER BACK - LEFT ELBOW RODS IN BACK, JOINT REPLACEMENT TO RT GREAT TOE - Social History Smoking Status: Never smoker Exposure to second hand smoke: No Drug Use: none - Social Determinants of Health Will the patient participate in the screening: Yes Do you worry about a steady place to live?: No Do you have any problems with any of the following?: No known problems In the past 12 months,have you had to go without utilities?: No Transportation Issues: No Has anyone in your support network made you feel unsafe?: No Have you or anyone in your house had to go w/o enough food: No - Nursing Vital Signs Nursing Vital Signs: Initial Vital Signs Temperature 98.8 F 12/20/24 23:06 Pulse Rate 75 12/20/24 23:06 Respiratory Rate 20 12/20/24 23:06 Blood Pressure 113/79 12/20/24 23:06 O2 Sat by Pulse Oximetry 96 12/20/24 23:06 Pain Scale Pain Intensity 10 - Physical Exam General Appearance: mild distress Ears, Nose, Throat Exam: normal ENT inspection Neck Exam: normal inspection Respiratory Exam: normal breath sounds, chest tenderness Cardiovascular Exam: regular rate/rhythm Gastrointestinal/Abdomen Exam: normal bowel sounds, No tenderness, No distention Neurologic Exam: alert, oriented x 3 SpO2: 96 - Radiology Exams Abdomen X-ray Interpretation: Interpreted by me, Negative Ordered Tests: Active Orders 24 hr Category Date Time Status OBSTR/ACUTE ABDOMEN SERIES Stat Exams 12/20/24 23:44 Taken CBC W DIFF Stat Lab 12/20/24 23:35 Completed CMP Stat Lab 12/20/24 23:35 Completed LIPASE Stat Lab 12/20/24 23:35 Completed Medication Summary Discontinued Medications Generic Name Dose Route Start Last Admin Trade Name Freq PRN Reason Stop Dose Admin Ketorolac Tromethamine 30 mg 12/20/24 23:18 12/20/24 23:49 Ketorolac Tromethamine 30 Mg/Ml Inj IV 12/20/24 23:19 30 mg STAT ONE Administration Ketorolac Tromethamine Confirm 12/20/24 23:42 Ketorolac Tromethamine 30 Mg/Ml Inj Administered 12/20/24 23:43 Dose 30 mg .ROUTE .STK-MED ONE Magnesium Citrate 296 ml 12/20/24 23:59 Magnesium Citrate 296 Ml Solution PO 12/21/24 00:00 1XONLY ONE Lab/Rad Data: Laboratory Result Diagrams 12/20/24 23:35 12/20/24 23:35 Laboratory Results 12/20/24 12/20/24 Range/Units 23:35 23:35 WBC 3.8 L (4.23-9.07) x10^3/uL RBC 4.55 L (4.63-6.08) x10^6/uL Hgb 14.6 (13.7-17.5) g/dL Hct 42.4 (40.1-51.0) % MCV 93.2 H (79.0-92.2) fL MCH 32.1 (25.7-32.2) pg MCHC 34.4 (32.3-36.5) g/dL RDW 14.8 H (11.6-14.4) % Plt Count 56 L (163-337) x10^3/uL MPV 12.3 (9.4-12.4) fL Gran % 62.7 (34.0-67.9) % Immature Gran % (Auto) 0.3 (0.001-0.429) % Nucleat RBC Rel Count 0.0 (0.00-0.2) % Eos # (Auto) 0.14 (0.04-0.54) x10^3/uL Immature Gran # (Auto) 0.01 (0.001-0.031) x10^3u/L Absolute Lymphs (auto) 0.85 L (1.32-3.57) x10^3/uL Absolute Monos (auto) 0.39 (0.30-0.82) x10^3/uL Absolute Nucleated RBC 0.00 (0.00-0.012) x10^3u/L Lymphocytes % 22.3 (21.8-53.1) % Monocytes % 10.2 (5.3-12.2) % Eosinophils % 3.7 (0.8-7.0) % Basophils % 0.8 (0.2-1.2) % Absolute Granulocytes 2.40 (1.78-5.38) x10^3/uL Basophils # 0.03 (0.01-0.08) x10^3/uL Sodium 138 (135-145) mmol/L Potassium 4.0 (3.5-5.1) mmol/L Chloride 104 (98-107) mmol/L Carbon Dioxide 27 (22-30) mmol/L Anion Gap 11.1 (5-15) MEQ/L BUN 13 (9-20) mg/dL Creatinine 1.00 (0.66-1.25) mg/dL Estimated GFR 88.9 ML/MIN Glucose 105 (74-106) mg/dL Calcium 9.0 (8.4-10.2) mg/dL Total Bilirubin 1.90 H (0.2-1.3) mg/dL AST 44 (17-59) U/L ALT 35 (0-50) U/L Alkaline Phosphatase 116 (38-126) U/L Serum Total Protein 7.1 (6.3-8.2) g/dL Albumin 4.0 (3.5-5.0) g/dL Lipase 71 (23-300) U/L - Progress Progress Note: 12/21/24 00:08 Patient has no fever no leukocytosis. Patient's x-ray reviewed did not show small bowel obstruction shows constipation. Patient be sent home on magnesium citrate and advised to follow-up with primary care doctor. Patient advised he needs to take something daily because he is on chronic pain medication. - Departure Departure Disposition: Home Clinical Impression: Constipation Qualifiers: Constipation type: drug induced constipation Qualified Code(s): K59.03 - Drug induced constipation Condition: Stable Critical Care Time: No Referrals: ROSALBA HERRERA [employer] [Primary Care Provider, UNKNOWN] - Follow up/PCP as directed Instructions: Abdominal pain, Constipation in adults
[2024-12-21 00:08] VITALS: BP 124/94; PULSE 84; RESP 18
[2024-12-21] MEDS ORDERED: CITROMA 296 ML ONE (00:09)
[2024-12-21] MEDS: CITROMA 296 ML PO ONE (00:13)
--- NOTE | 2024-12-21 09:04 | XRAY ---
Indication: Small-bowel obstruction. Comparison: Portable chest February 06, 2024 Two-view abdomen nonacute nonobstructed with 5 mm left lower renal calculus and incidental cholecystectomy clips/right inguinal hernia mesh graft. Solid organs unremarkable. Osseous structures intact with osteopenia, minimal/mild multilevel degenerative spondylosis, minimal levoscoliosis, and L2-L3 posterior fusion hardware. Single frontal chest inflated and clear with incidental tiny left apical calcified granuloma. Heart not enlarged with a few hilar calcified nodes. Bony thorax intact with osteopenia and minimal degenerative spondylosis. Impression: Nonacute nonobstructed abdomen nonacute one-view chest with chronic features.
== END 2024-12-21 00:26 | disposition home or self-care (01) ==
LOC: ED 23:03
DX: K59.03 Drug induced constipation (principal); I10 Essential (primary) hypertension; Z79.891 Long term (current) use of opiate analgesic; Z79.899 Other long term (current) drug therapy